=== PATIENT | female | born 1980 | race Caucasian/White ===

== ENCOUNTER 2017-10-01 11:39 | Emergency (ER) | payer OTHER, SELFPAY | END 2017-10-01 12:40 | disposition home or self-care (01) | PROVIDERS: Emergency Provider Nurse Practitioner; Visit Provider Nurse Practitioner | DX: J02.0 Streptococcal pharyngitis (principal) | CPT/HCPCS: 87804; 87880; 99201 ==

== ENCOUNTER 2017-10-05 09:44 | Emergency (ER) | payer OTHER, SELFPAY ==
[2017-10-05 09:45] VITALS: BP 133/73; PULSE 97; RESP 22; TEMP 36.9; O2SAT 96; BMI 69.0
--- NOTE | 2017-10-05 09:52 | XR_ITS ---
XR chest 2V HISTORY: Cough, shortness of air, fever, chest pain ITS.REASON: cough ORDERING PHYSICIAN: PATIENT AGE: 37 years COMPARISON: 12/04/2016 FINDINGS: The cardiomediastinal silhouette and pulmonary vascularity are within normal limits. No lobar consolidation or collapse is evident. There are some minor atelectatic changes along the anterior clear space inferiorly. No effusions or infiltrates.. No acute bony abnormalities. IMPRESSION: Minimal atelectasis anterior clear space otherwise negative chest
[2017-10-05 10:06] VITALS: BP 133/74; RESP 20; TEMP 36.9; O2SAT 97
--- NOTE | 2017-10-05 10:20 | HMH.EDGENADL ---
ED Disposition Clinical Impression: Strep pharyngitis Otitis media Qualifiers: Otitis media type: suppurative Chronicity: acute Laterality: right Spontaneous tympanic membrane rupture: without spontaneous rupture Upper respiratory infection Qualifiers: URI type: unspecified viral URI Qualified Code(s): J06.9 - Acute upper respiratory infection, unspecified Disposition: Home, Self-Care Condition on Discharge: Good Instructions: Middle Ear Infection, DI for Strep Throat, DI for Viral Upper Respiratory Infection -- Adult Additional Instructions: Primary Care Referral List. Follow-up if not better in 4-5 days. Prescriptions: Azithromycin [Z-Medhat 250mg Tab] 250 mg PO UD DOSE PK #6 tab Benzonatate [Tessalon Perle 100mg Cap] 100 mg PO TIDP PRN #20 cap PRN Reason: Cough - Critical Care Critical Care Time: No Attestation: On , the high probability of a clinically significant, sudden or life threatening deterioration of the following system(s) required my full and direct attention, intervention and personal management. The time I documented below is in addition to time spent performing reported procedures but includes the following listed in this critical care notation. Medical Decision Making - Medical Records Medical records reviewed: Yes: I reviewed the patient's medical records. MR Comment: Allergic to erythromycin base, but can take azithromycin Vital Signs: 10/05/17 09:45 10/05/17 10:06 10/05/17 11:06 Temperature 98.4 F 98.4 F Temperature Source Oral Oral Pulse Rate 80 Pulse Rate [Right Brachial] 97 H Respiratory Rate 22 20 20 Blood Pressure 145/68 Blood Pressure [Right Arm] 133/73 133/74 Blood Pressure Mean [Right Arm] 93 93 Blood Pressure Source Automatic Cuff Blood Pressure Source [Right Arm] Automatic Cuff Automatic Cuff Blood Pressure Position Sitting Blood Pressure Position [Right Arm] Sitting Sitting 02 Sat by Pulse Oximetry 96 97 Oxygen Delivery Method Room Air Room Air Room Air - Lab Data Lab Results 10/05/17 09:55: Influenza Type A Ag Negative, Influenza Type B Ag Negative Orders (Tests/Meds): ED MEDICATIONS Discontinued Medications Generic Name Dose Route Start Last Admin Trade Name Freq PRN Reason Stop Dose Admin Ceftriaxone Sodium 1 gm 10/05/17 10:30 10/05/17 10:44 Rocephin 1gm Vial IM 10/05/17 10:31 1 gm ONCE ONE Administration Dexamethasone Sodium Phosphate 8 mg 10/05/17 10:30 10/05/17 10:45 Decadron 4mg/Ml 1ml Vial IM 10/05/17 10:31 8 mg ONCE ONE Administration Lidocaine HCl 0 ml 10/05/17 10:30 10/05/17 10:45 Lidocaine 1% 10ml Mdv IM 10/05/17 10:31 2.1 ml ONCE ONE Administration - Radiology Data #1 Image(s): Chest Image Reviewed: Yes I have reviewed radiologist's interpretation Atelectasis, otherwise negative - Clive Inquiry Pt receiving controlled substance: No General Adult HPI - General Chief complaint: Shortness of Breath/Dyspnea Stated complaint: SOA Mode of Arrival: Ambulatory Limitations: No Limitations Description of Symptoms (Recalled from ER Triage Doc. by RN): DX WITH STREP ON TUESDAY AND PT ADVISES THAT SHE STILL FEELS SOA AND FEELS IF HER THROAT IS SWELLING - History of Present Illness HPI narrative: States she has been sick since Tuesday. She has had a sore throat, productive cough. She was seen at urgent care, had a positive strep test, and was given a shot of penicillin. She does not think it has done anything. She now presents because she feels like her throat is swelling, making it hard to breathe. - Related Data Previous Rx's Medication Instructions Recorded Azithromycin [Z-Medhat 250mg Tab] 250 mg PO UD DOSE PK #6 tab 10/05/17 Benzonatate [Tessalon Perle 100mg 100 mg PO TIDP PRN #20 cap 10/05/17 Cap] Allergies Allergy/AdvReac Type Severity Reaction Status Date / Time erythromycin base Allergy Unknown Verified 10/05/17 10:36 [ERYTHROMYCIN BA
--- NOTE | 2017-10-05 10:23 | ED_ITS ---
ED Disposition Clinical Impression: Strep pharyngitis Otitis media Qualifiers: Otitis media type: suppurative Chronicity: acute Laterality: right Spontaneous tympanic membrane rupture: without spontaneous rupture Upper respiratory infection Qualifiers: URI type: unspecified viral URI Qualified Code(s): J06.9 - Acute upper respiratory infection, unspecified Disposition: Home, Self-Care Condition on Discharge: Good Instructions: Middle Ear Infection, DI for Strep Throat, DI for Viral Upper Respiratory Infection -- Adult Additional Instructions: Primary Care Referral List. Follow-up if not better in 4-5 days. Prescriptions: Azithromycin [Z-Medhat 250mg Tab] 250 mg PO UD DOSE PK #6 tab Benzonatate [Tessalon Perle 100mg Cap] 100 mg PO TIDP PRN #20 cap PRN Reason: Cough - Critical Care Critical Care Time: No Attestation: On , the high probability of a clinically significant, sudden or life threatening deterioration of the following system(s) required my full and direct attention, intervention and personal management. The time I documented below is in addition to time spent performing reported procedures but includes the following listed in this critical care notation. Medical Decision Making - Medical Records Medical records reviewed: Yes: I reviewed the patient's medical records. MR Comment: Allergic to erythromycin base, but can take azithromycin Vital Signs: 10/05/17 09:45 10/05/17 10:06 10/05/17 11:06 Temperature 98.4 F 98.4 F Temperature Source Oral Oral Pulse Rate 80 Pulse Rate [Right Brachial] 97 H Respiratory Rate 22 20 20 Blood Pressure 145/68 Blood Pressure [Right Arm] 133/73 133/74 Blood Pressure Mean [Right Arm] 93 93 Blood Pressure Source Automatic Cuff Blood Pressure Source [Right Arm] Automatic Cuff Automatic Cuff Blood Pressure Position Sitting Blood Pressure Position [Right Arm] Sitting Sitting 02 Sat by Pulse Oximetry 96 97 Oxygen Delivery Method Room Air Room Air Room Air - Lab Data Lab Results 10/05/17 09:55: Influenza Type A Ag Negative, Influenza Type B Ag Negative Orders (Tests/Meds): ED MEDICATIONS Discontinued Medications Generic Name Dose Route Start Last Admin Trade Name Freq PRN Reason Stop Dose Admin Ceftriaxone Sodium 1 gm 10/05/17 10:30 10/05/17 10:44 Rocephin 1gm Vial IM 10/05/17 10:31 1 gm ONCE ONE Administration Dexamethasone Sodium Phosphate 8 mg 10/05/17 10:30 10/05/17 10:45 Decadron 4mg/Ml 1ml Vial IM 10/05/17 10:31 8 mg ONCE ONE Administration Lidocaine HCl 0 ml 10/05/17 10:30 10/05/17 10:45 Lidocaine 1% 10ml Mdv IM 10/05/17 10:31 2.1 ml ONCE ONE Administration - Radiology Data #1 Image(s): Chest Image Reviewed: Yes I have reviewed radiologist's interpretation Atelectasis, otherwise negative - Clive Inquiry Pt receiving controlled substance: No General Adult HPI - General Chief complaint: Shortness of Breath/Dyspnea Stated complaint: SOA Mode of Arrival: Ambulatory Limitations: No Limitations Description of Symptoms (Recalled from ER Triage Doc. by RN): DX WITH STREP ON TUESDAY AND PT ADVISES THAT SHE STILL FEELS SOA AND FEELS IF HER THROAT IS SWELLING - History of Present Illness HPI narrative:
[2017-10-05 11:06] VITALS: BP 145/68; PULSE 80; RESP 20
== END 2017-10-05 11:10 | disposition home or self-care (01) ==
PROVIDERS: Emergency Provider Emergency Medicine; Family Provider Internal Medicine Adolescent Medicine
DX: J02.0 Streptococcal pharyngitis (principal); H66.91 Otitis media, unspecified, right ear; J06.9 Acute upper respiratory infection, unspecified
CPT/HCPCS: 71046; 87275; 87276; 96372; 99283

== ENCOUNTER 2017-11-06 18:34 | Emergency (ER) | payer OTHER, SELFPAY ==
[2017-11-06 18:42] VITALS: BP 107/83; PULSE 118; RESP 20; TEMP 37.7; O2SAT 95; BMI 70.9
[2017-11-06 19:44] LABS: Strep Scrn Group A (Rapid) Negative (Negative)
--- NOTE | 2017-11-06 19:49 | HMH.EDURI ---
ED Disposition Clinical Impression: Febrile illness, acute Disposition: Home, Self-Care Condition on Discharge: Good Instructions: Fibromyalgia Additional Instructions: call and get pcp for follow up Prescriptions: Minocycline HCl 100 mg PO BID #20 tab predniSONE [Prednisone 20mg Tab] 20 mg PO DAILY #10 tab Referrals: Shorty Perez MD [Primary Care Provider] - - Critical Care Critical Care Time: No Attestation: On 11/06/17, the high probability of a clinically significant, sudden or life threatening deterioration of the following system(s) required my full and direct attention, intervention and personal management. The time I documented below is in addition to time spent performing reported procedures but includes the following listed in this critical care notation. Medical Decision Making - Medical Records Medical records reviewed: Yes: I reviewed the patient's medical records. Vital Signs: 11/06/17 18:42 Temperature 99.9 F H Temperature Source Oral Pulse Rate [Left Radial] 118 H Respiratory Rate 20 Blood Pressure [Left Arm] 107/83 Blood Pressure Mean [Left Arm] 91 Blood Pressure Source [Left Arm] Automatic Cuff Blood Pressure Position [Left Arm] Sitting 02 Sat by Pulse Oximetry 95 Oxygen Delivery Method Room Air - Lab Data Lab results reviewed: Yes: I reviewed the patient's lab results. Lab Results 11/06/17 18:55: Influenza Type A Ag Negative, Influenza Type B Ag Negative, Group A Strep Rapid Negative Orders (Tests/Meds): ORDERS Category Date Time Status Strep Screen Confirmation Stat Micro 11/06/17 18:55 Received - Clive Inquiry Pt receiving controlled substance: No URI/Sore Throat HPI - General Chief Complaint: Weakness Stated Complaint: Body Aches Mode of Arrival: Wheelchair Limitations: No Limitations Description of Symptoms (Recalled from ER Triage Doc. by RN): FEVERS (101 DEGREES BEFORE THERMOMETER QUIT WORKING), BODY ACHING, SKIN HURTS JUST FROM MY CLOTHES TOUCHING IT. I DON'T KNOW IF I HAVE THE FLU OR IF ITS MY FIBROMYALGIA ACTING UP. I FEEL DEHYDRATED. - History of Present Illness HPI Narrative: over the last few days reported body ache with fever but no rash or urinary sx - no prod cough Complaint: fever Onset (ago): day(s) Duration: constant Severity: moderate Relieving factors: nothing Able to tolerate fluids by mouth: Yes - Related Data Previous Rx's Medication Instructions Recorded Minocycline HCl 100 mg PO BID #20 tab 11/06/17 predniSONE [Prednisone 20mg 20 mg PO DAILY #10 tab 11/06/17 Tab] Allergies Allergy/AdvReac Type Severity Reaction Status Date / Time erythromycin base Allergy Unknown Verified 11/06/17 18:51 [ERYTHROMYCIN BASE] latex [LATEX] Allergy Unknown Verified 11/06/17 18:51 [facility] History I have reviewed the patient's past medical history: Yes Medical History: Denies:: Cancer, Diabetes Mellitus Type 1, Diabetes Mellitus Type 2, MRSA Amputation: No Fractures: No - *Social History Smoking Status: Never smoker Alcohol Intake: never - Psychiatric History Expresses thoughts of harming self/others: None Suicide Plan Description: No Plan ROS Obtained: Yes All systems reviewed & no additional complaints - Constitutional Constitutional: Reports fever(s), Reports malaise - Eyes Eyes: Denies change in vision - ENT Ears, Nose, Mouth, and Throat: Denies headache(s), Denies sore throat - Cardiovascular Cardiovascular: Denies chest pain at rest, Denies radiating jaw, neck or arm pain - Respiratory Respiratory: No cough - Gastrointestinal Gastrointestingal: Denies: abdominal pain - Musculoskeletal Musculoskeletal: Reports as per HPI, Reports joint pain, Denies joint swelling, Denies neck pain - Integumentary/Breasts Skin/Breast: Denies rash - Neurologic Neurologic: Denies seizure-like activity Physical Exam - General General appearance: alert, in no apparent di
--- NOTE | 2017-11-06 19:52 | ED_ITS ---
ED Disposition Clinical Impression: Febrile illness, acute Disposition: Home, Self-Care Condition on Discharge: Good Instructions: Fibromyalgia Additional Instructions: call and get pcp for follow up Prescriptions: Minocycline HCl 100 mg PO BID #20 tab predniSONE [Prednisone 20mg Tab] 20 mg PO DAILY #10 tab Referrals: Shorty Perez MD [Primary Care Provider] - - Critical Care Critical Care Time: No Attestation: On 11/06/17, the high probability of a clinically significant, sudden or life threatening deterioration of the following system(s) required my full and direct attention, intervention and personal management. The time I documented below is in addition to time spent performing reported procedures but includes the following listed in this critical care notation. Medical Decision Making - Medical Records Medical records reviewed: Yes: I reviewed the patient's medical records. Vital Signs: 11/06/17 18:42 Temperature 99.9 F H Temperature Source Oral Pulse Rate [Left Radial] 118 H Respiratory Rate 20 Blood Pressure [Left Arm] 107/83 Blood Pressure Mean [Left Arm] 91 Blood Pressure Source [Left Arm] Automatic Cuff Blood Pressure Position [Left Arm] Sitting 02 Sat by Pulse Oximetry 95 Oxygen Delivery Method Room Air - Lab Data Lab results reviewed: Yes: I reviewed the patient's lab results. Lab Results 11/06/17 18:55: Influenza Type A Ag Negative, Influenza Type B Ag Negative, Group A Strep Rapid Negative Orders (Tests/Meds): ORDERS Category Date Time Status Strep Screen Confirmation Stat Micro 11/06/17 18:55 Received - Clive Inquiry Pt receiving controlled substance: No URI/Sore Throat HPI - General Chief Complaint: Weakness Stated Complaint: Body Aches Mode of Arrival: Wheelchair Limitations: No Limitations Description of Symptoms (Recalled from ER Triage Doc. by RN): FEVERS (101 DEGREES BEFORE THERMOMETER QUIT WORKING), BODY ACHING, SKIN HURTS JUST FROM MY CLOTHES TOUCHING IT. I DON'T KNOW IF I HAVE THE FLU OR IF ITS MY FIBROMYALGIA ACTING UP. I FEEL DEHYDRATED. - History of Present Illness HPI Narrative: over the last few days reported body ache with fever but no rash or urinary sx - no prod cough Complaint: fever Onset (ago): day(s) Duration: constant Severity: moderate Relieving factors: nothing Able to tolerate fluids by mouth: Yes - Related Data Previous Rx's Medication Instructions Recorded Minocycline HCl 100 mg PO BID #20 tab 11/06/17 predniSONE [Prednisone 20mg 20 mg PO DAILY #10 tab 11/06/17 Tab] Allergies Allergy/AdvReac Type Severity Reaction Status Date / Time erythromycin base Allergy Unknown Verified 11/06/17 18:51 [ERYTHROMYCIN BASE] latex [LATEX] Allergy Unknown Verified 11/06/17 18:51 [facility] History I have reviewed the patient's past medical history: Yes Medical History: Denies:: Cancer, Diabetes Mellitus Type 1, Diabetes Mellitus Type 2, MRSA Amputation: No Fractures: No - *Social History Smoking Status: Never smoker Alcohol Intake: never - Psychiatric History Expresses thoughts of harming self/others: None Suicide Plan Description: No Plan ROS Obtained: Yes All systems reviewed & no additional complaints
[2017-11-06 20:37] VITALS: BP 128/78; PULSE 80; RESP 16; TEMP 37; O2SAT 98
== END 2017-11-06 20:44 | disposition home or self-care (01) ==
PROVIDERS: Emergency Provider Emergency Medicine; Family Provider Internal Medicine Adolescent Medicine; PCP Internal Medicine Adolescent Medicine
DX: R50.9 Fever, unspecified (principal); M79.7 Fibromyalgia; Z91.040 Latex allergy status
CPT/HCPCS: 87275; 87276; 87430; 99282

== ENCOUNTER 2017-11-19 01:15 | Emergency (ER) | payer OTHER, SELFPAY ==
[2017-11-19 01:19] VITALS: BP 159/108; PULSE 89; RESP 20; TEMP 36.4; O2SAT 98; BMI 70.8
--- NOTE | 2017-11-19 01:26 | HMH.EDGENADL ---
ED Disposition Clinical Impression: Right flank pain Disposition: Home, Self-Care Condition on Discharge: Good Instructions: DI for Flank Pain Additional Instructions: Follow-up your urine culture result from your primary care provider on Tuesday. Recheck by your primary care provider this week, call Tuesday. You have a questionable urinary tract infection and questionably passing a kidney stone. Additional instructions for KIDNEY STONE (URETERAL CALCULUS): See your physician as soon as possible for further evaluation. Drink plenty of fluids. Strain your urine and save any stones you catch. Return immediately if you develop a fever or have uncontrollable vomiting or uncontrollable pain. Additional instructions for URINARY TRACT INFECTION: See your physician as soon as possible for further evaluation. Return immediately if you have an uncontrollable fever greater than 102 degrees, severe back or abdominal pain, inability to urinate, or repetetive vomiting. Additional instructions for CONTROLLED SUBSTANCES: You have been prescribed a medication that is a controlled substance. Controlled substances include pain medications known as opiates and sedative nerve medications known as benzodiazepines. Some common opiates include: Codeine (such as Tylenol #3) Hydrocodone (Vicodin, Lortab, Lorcet, [place]) Oxycodone (Percocet, Percodan, Oxycodone, Oxy IR) Some common benzodiazepines include: Diazepam (Valium) Lorazepam (Ativan) Alprazolam (Xanax) Clonazepam (Klonopin) Oxazepam (Serax) All of these controlled substances are highly addictive and frequently abused. Misuse can and frequently does lead to addiction as well as overdose and . Medication should be stored in a locked cabinet or other secure storage unit. Do not store the medication in a motor vehicle. Short term supplies, 3 days or less, are prescribed because of the highly addictive nature of the medication. Any of the controlled substance medication NOT taken should be disposed of properly and NOT SAVED. The recommended method of disposing of unused medications is: Place the medicines in a sealable plastic bag. If the medicine is a solid, crush it or add water to dissolve it. Add something undesirable (cat litter, coffee grounds, etc.) Dispose of sealed bag in household trash Do not flush or pour unused medicines down a sink or drain. Controlled substances should not be shared, given away or sold. Because of the addictive nature and frequent abuse, these medications are sometimes stolen. These medications should be kept in a safe place where they cannot be stolen. Do not keep them in your car or purse. Lost or stolen prescriptions for controlled substances WILL NOT BE REFILLED in this emergency department, regardless of whether a police report was filed. Prescriptions: Hydrocod/Acet 5/325 mg [[place] 5/325mg tablet] 1 tab PO Q6HP PRN #10 tab PRN Reason: Pain Per Pt (Audio Visual Collections Coordinator Use Only) Ciprofloxacin HCl [Ciprofloxacin 500mg Tab] 500 mg PO BID #20 tab Referrals: Shorty Perez MD [Primary Care Provider] - - Critical Care Critical Care Time: No Attestation: On , the high probability of a clinically significant, sudden or life threatening deterioration of the following system(s) required my full and direct attention, intervention and personal management. The time I documented below is in addition to time spent performing reported procedures but includes the following listed in this critical care notation. Medical Decision Making Vital Signs: 11/19/17 01:19 11/19/17 03:09 11/19/17 04:09 Temperature 97.6 F 98.6 F Temperature Source Oral Oral Pulse Rate 89 Pulse Rate [Left Radial] 89 92 H Respiratory Rate 20 14 18 Blood Pressure 153/93 Blood Pressure [Right Arm] 159/108 141/84 Blood Pressure Mean [Right Arm] 125 103 Blood Pressure Source Automatic Cuff Blood Pressure Source [Right Arm] Automatic Cuff Automatic Cuff Blood Pr
--- NOTE | 2017-11-19 01:44 | CT_ITS ---
CT abdomen pelvis wo con COMPARISON: CT scan abdomen pelvis noncontrast 09/06/2017 HISTORY: Abdominal pain right flank pain, nausea and vomiting. TECHNIQUE: Multiple axial scans obtained from hemidiaphragms the pelvic floor and were performed without IV or oral contrast. Sagittal and coronal reformats were evaluated as well. FINDINGS: The lower lung lord are clear, there is no pleural fluid. The patient is markedly obese somewhat degrading the images. The liver spleen stomach and pancreas appear grossly normal. There is a partially calcified gallstone noted. The adrenal glands are normal. 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 There is a tiny nonobstructing calculus midpole right kidney. Detail is degraded for the reasons mentioned above but there may be a questionable tiny calculus near the UPJ of the right kidney. Question minimal hydronephrosis right collecting system but again detail is poor. Small bowel appears normal. I do not definitely identify the appendix but there are no pericecal inflammatory changes. There is a moderate amount stool in the cecum and ascending colon and hepatic flexure. The uterus and adnexa are unremarkable. Urinary bladder is decompressed. There is a [id number] sized umbilical hernia containing fat only. There are mild arthritic changes of the inferior aspects of the SI joints bilaterally. IMPRESSION: Rotation anomaly of the right kidney with questionable tiny calculus near the UPJ with minimal hydronephrotic change but detail is definitely degraded for the reasons mentioned above. 2. Cholelithiasis 3. Small umbilical hernia containing fat only, I basically agree with the [facility] report
[2017-11-19 02:00] LABS: Microscopic, Urine URINE MICROSCOPIC (MICROSCOPIC)
[2017-11-19 02:03] LABS: Appearance,Urine CLEAR (Clear); Bilirubin,Urine Negative (Negative); Blood, Urine Negative (Negative); Color,Urine YELLOW (Yellow); Glucose,Urine (UA) Negative (Negative); Ketones,Urine TRACE (Negative); Leukocyte Esterase,Urine 1+ (Negative); Nitrate,Urine Negative (Negative); PH,Urine 5.5 (5.0-8.5); Protein,Urine Negative (Negative); Specific Gravity, Urine >= 1.030 (1.005-1.030); Urine Pregnancy, HCG Qual. Negative (Negative); Urobilinogen,Urine 0.2 EU/dl (0.2)
[2017-11-19 02:11] LABS: Basophils # 0.1 K/mm3 (0-0.2); Basophils % 0.4 % (0.1-2.0); Eosinophils # 0.1 K/mm3 (0.0-0.4); Eosinophils % 0.4 % (0.1-12.0); Hematocrit 42.1 % (37.0-47.0); Hemoglobin 13.8 g/dL (12.2-16.2); Lymphocytes # 3.1 K/mm3 (0.7-4.5); Lymphocytes % 21.6 K/mm3 (10-50); Mean Corpuscular HGB Conc 32.8 g/dL (31.8-35.4); Mean Corpuscular Hemoglobin 26.6 pg (27.0-31.2); Mean Corpuscular Volume 81.1 fl (81-99); Mean Platelet Volume 7.9 fl (7.4-10.4); Monocytes # 0.7 K/mm3 (0.1-1.0); Monocytes % 4.7 % (1.7-9.3); Neutrophils # 10.3 K/mm3 (1.8-7.8); Neutrophils % 72.8 % (37.0-80.0); Platelet Count 324 K/mm3 (142-424); Red Cell Distribution Width 14.5 % (11.5-17.5); White Blood Count 14.1 K/mm3 (4.8-10.8)
[2017-11-19 02:26] LABS: Alanine Aminotransferase 29 U/L (12-78); Albumin Level 3.6 gm/dL (3.4-5.0); Albumin/Globulin Ratio 0.9 (1.1-1.8); Alkaline Phosphatase 110 U/L (46-116); Anion Gap 13.1 mEq/L (5-15); Aspartate Amino Transferase 10 U/L (15-37); Bilirubin,Total 0.3 mg/dL (0.2-1.0); Blood Urea Nitrogen 19 mg/dL (7-18); Calcium 9.2 mg/dL (8.5-10.1); Carbon Dioxide 27 mmol/L (21.0-32.0); Chloride 101 mmol/L (98-107); Creatinine Clearance Estimated 54 mL/min (0-300); Creatinine,Serum 1.19 mg/dL (0.55-1.02); Estimated Glomerular Filt Rate 51 ml/min (>60); GFR (African American) 62 ML/MIN (>60); Globulin 4.2 gm/dl (1.3-3.2); Glucose 157 mg/dL (74-106); Lipase 112 u/L (73-393); Potassium 4.1 mmoL/L (3.5-5.1); Sodium 137 mmol/L (136-145); Total Protein,Serum 7.8 gm/dL (6.4-8.2)
[2017-11-19 03:09] VITALS: BP 141/84; PULSE 92; RESP 14; O2SAT 96
[2017-11-19 04:09] VITALS: BP 153/93; PULSE 89; RESP 18; TEMP 37; O2SAT 96
== END 2017-11-19 04:11 | disposition home or self-care (01) ==
PROVIDERS: Emergency Provider Emergency Medicine; Family Provider Internal Medicine Adolescent Medicine; PCP Internal Medicine Adolescent Medicine
DX: K80.80 Other cholelithiasis without obstruction (principal); N13.2 Hydronephrosis with renal and ureteral calculous obstruction; Z87.442 Personal history of urinary calculi; E10.9 Type 1 diabetes mellitus without complications; Z88.1 Allergy status to other antibiotic agents; Z91.040 Latex allergy status
CPT/HCPCS: 74176; 80053; 81001; 81025; 83690; 85025; 87086; 96365; 96374; 96375; 99283; J2405

== ENCOUNTER → 2017-12-01 08:16 | Outpatient (CLI) | payer OTHER, SELFPAY ==
[2017-12-01 12:06] LABS: Basophils % 0.4 % (0.1-2.0); Eosinophils % 0.1 % (0.1-12.0); Hematocrit 40.8 % (37.0-47.0); Hemoglobin 13.2 g/dL (12.2-16.2); Lymphocytes # 3.3 K/mm3 (0.7-4.5); Lymphocytes % 29.6 K/mm3 (10-50); Mean Corpuscular HGB Conc 32.3 g/dL (31.8-35.4); Mean Corpuscular Hemoglobin 26.5 pg (27.0-31.2); Mean Platelet Volume 7.7 fl (7.4-10.4); Monocytes # 0.8 K/mm3 (0.1-1.0); Monocytes % 6.7 % (1.7-9.3); Neutrophils # 7.1 K/mm3 (1.8-7.8); Neutrophils % 63.3 % (37.0-80.0); Platelet Count 287 K/mm3 (142-424); Red Blood Count 4.98 M/mm3 (4.20-5.40); Red Cell Distribution Width 14.3 % (11.5-17.5); White Blood Count 11.2 K/mm3 (4.8-10.8)
[2017-12-01 13:19] LABS: Erythrocyte Sedimentation Rate 20 mm/hr (0-20)
[2017-12-02 17:45] LABS: Antinuclear Antibodies, IFA Negative (.)
== END ==
PROVIDERS: PCP Internal Medicine Adolescent Medicine; Visit Provider Internal Medicine Adolescent Medicine
DX: M25.50 Pain in unspecified joint (principal)
CPT/HCPCS: 36415; 85025; 85651; 86038

== ENCOUNTER 2017-12-22 22:24 | Emergency (ER) | payer OTHER, SELFPAY ==
[2017-12-22 22:31] VITALS: BP 149/41; PULSE 96; RESP 18; TEMP 36.8; O2SAT 95; BMI 73.2
--- NOTE | 2017-12-22 22:45 | CT_ITS ---
CT abdomen pelvis wo con CLINICAL INDICATION: Right flank pain ITS.REASON: c/o pain to right lower quad ORDERING PHYSICIAN: Katy Powell MD PATIENT AGE: 37 years COMPARISON: 11/19/2017 TECHNIQUE: Axial images obtained with sagittal and coronal reformats. All CT scans at the facility use one or more dose reduction, viz: automated exposure control; ma/kV adjustment per patient size (including targeted exams where dose is matched to indication; i.e. head); or iterative reconstruction technique. PROCEDURE: Oral Contrast: None IV Contrast: None . FINDINGS: Study is somewhat limited by patient's body habitus. Lung bases are clear. The liver, spleen, adrenal glands, and left kidney are unremarkable. 3 mm stone is present in the lateral aspect of the right kidney. Right kidney is rotated along its horizontal axis No intestinal obstruction or free air. Small fat containing umbilical hernia. No obvious mass or focal inflammatory change. No evidence of appendicitis. No acute bony anomalies. IMPRESSION: Limited exam secondary to patient body habitus. No gross acute intra-abdominal findings. Nonobstructing right 3 mm renal stone
[2017-12-22 23:10] LABS: Microscopic, Urine URINE MICROSCOPIC (MICROSCOPIC)
[2017-12-22 23:14] LABS: Basophils # 0.1 K/mm3 (0-0.2); Basophils % 0.4 % (0.1-2.0); Eosinophils % 0.1 % (0.1-12.0); Hematocrit 39.7 % (37.0-47.0); Hemoglobin 12.8 g/dL (12.2-16.2); Lymphocytes # 2.8 K/mm3 (0.7-4.5); Lymphocytes % 23.1 K/mm3 (10-50); Mean Corpuscular HGB Conc 32.4 g/dL (31.8-35.4); Mean Corpuscular Hemoglobin 26.4 pg (27.0-31.2); Mean Corpuscular Volume 81.6 fl (81-99); Mean Platelet Volume 7.7 fl (7.4-10.4); Monocytes # 0.7 K/mm3 (0.1-1.0); Monocytes % 5.5 % (1.7-9.3); Neutrophils # 8.5 K/mm3 (1.8-7.8); Neutrophils % 70.9 % (37.0-80.0); Platelet Count 343 K/mm3 (142-424); Red Blood Count 4.86 M/mm3 (4.20-5.40)
[2017-12-22 23:18] LABS: Urine Pregnancy, HCG Qual. Negative (Negative)
[2017-12-22 23:19] LABS: Appearance,Urine SL CLOUDY (Clear); Bilirubin,Urine Negative (Negative); Blood, Urine 3+ (Negative); Glucose,Urine (UA) TRACE (Negative); Ketones,Urine TRACE (Negative); Leukocyte Esterase,Urine TRACE (Negative); Nitrate,Urine POSITIVE (Negative); PH,Urine 5.5 (5.0-8.5); Protein,Urine 1+ (Negative); Specific Gravity, Urine 1.025 (1.005-1.030)
[2017-12-22 23:20] LABS: Color,Urine ORANGE (Yellow)
[2017-12-22 23:21] LABS: RBC,Urine 50-100 #/hpf (0-3)
[2017-12-22 23:32] LABS: Lipase 78 u/L (73-393)
[2017-12-22 23:34] LABS: Alanine Aminotransferase 49 U/L (12-78); Albumin Level 2.8 gm/dL (3.4-5.0); Albumin/Globulin Ratio 0.6 (1.1-1.8); Alkaline Phosphatase 148 U/L (46-116); Amylase 20 U/L (25-125); Anion Gap 12.8 mEq/L (5-15); Aspartate Amino Transferase 30 U/L (15-37); Bilirubin,Total 0.4 mg/dL (0.2-1.0); Blood Urea Nitrogen 8 mg/dL (7-18); Calcium 8.8 mg/dL (8.5-10.1); Carbon Dioxide 28 mmol/L (21.0-32.0); Chloride 103 mmol/L (98-107); Creatinine Clearance Estimated 76 mL/min (0-300); Creatinine,Serum 0.84 mg/dL (0.55-1.02); Estimated Glomerular Filt Rate 76 ml/min (>60); GFR (African American) 92 ML/MIN (>60); Globulin 4.6 gm/dl (1.3-3.2); Glucose 126 mg/dL (74-106); Potassium 3.8 mmoL/L (3.5-5.1); Sodium 140 mmol/L (136-145); Total Protein,Serum 7.4 gm/dL (6.4-8.2)
--- NOTE | 2017-12-23 00:05 | [facility].EDGENADL ---
ED Disposition Clinical Impression: UTI (urinary tract infection), Nephrolithiasis, Sciatica, Morbid obesity, Fibromyalgia Disposition: Home, Self-Care Condition on Discharge: Fair Additional Instructions: Drink plenty of fluids. Start antibiotics. Toradol as needed pain. Next refill p.o. twice daily. Follow-up with the primary care physician in am for a recheck and urine culture results , you need an outpatient a lumbar MRI. Return if any change of symptoms especially weakness numbness or loss of urine or bowel control. Fever or chills nausea or vomiting. Prescriptions: Cyclobenzaprine HCl [Flexeril 10mg tablet] 10 mg PO BID 30 Days #60 tab Ketorolac Tromethamine [Toradol 10mg tablet] 10 mg PO Q12H #10 tab Nitrofurantoin Monohyd/M-Cryst [Macrobid 100 mg Capsule] 100 mg PO Q12 #14 cap Referrals: Shorty Perez MD [Primary Care Provider] - - Critical Care Critical Care Time: No Attestation: On 12/22/17, the high probability of a clinically significant, sudden or life threatening deterioration of the following system(s) required my full and direct attention, intervention and personal management. The time I documented below is in addition to time spent performing reported procedures but includes the following listed in this critical care notation. Medical Decision Making - Clive Inquiry Pt receiving controlled substance: No Clive was queried for this patient: No Vital Signs: 12/22/17 22:31 Temperature 98.3 F Temperature Source Oral Pulse Rate [Brachial] 96 H Respiratory Rate 18 Blood Pressure [Right Arm] 149/41 Blood Pressure Mean [Right Arm] 77 Blood Pressure Source [Right Arm] Automatic Cuff Blood Pressure Position [Right Arm] Sitting 02 Sat by Pulse Oximetry 95 Oxygen Delivery Method Room Air - Lab Data Lab Results 12/22/17 22:45: Urine Color [place], Urine Appearance Sl cloudy, Urine pH 5.5, Ur Specific [place] 1.025, Urine Protein 1+, Urine Glucose (UA) Trace, Urine Ketones Trace, Urine Blood 3+, Urine Nitrate Positive, Urine Bilirubin Negative, Urine Urobilinogen 4.0, Ur Leukocyte Esterase Trace, Urine RBC 50-100, Urine WBC 3-5, Ur Squamous Epith Cells 10-20 12/22/17 22:45: Urine HCG, Qual Negative 12/22/17 22:45: WBC 12.0 H, RBC 4.86, Hgb 12.8, Hct 39.7, MCV 81.6, MCH 26.4 L, MCHC 32.4, RDW 14.0, Plt Count 343, MPV 7.7, Neut % (Auto) 70.9, Lymph % (Auto) 23.1, [place] % (Auto) 5.5, Eos % (Auto) 0.1, Baso % (Auto) 0.4, Neut # (Auto) 8.5 H, Lymph # (Auto) 2.8, [place] # (Auto) 0.7, Eos # (Auto) 0.0, Baso # (Auto) 0.1 12/22/17 22:45: Sodium 140, Potassium 3.8, Chloride 103, Carbon Dioxide 28, Anion Gap 12.8, BUN 8, Creatinine 0.84, Estimated Creat Clear 76, Estimated GFR 76, Est GFR ( Amer) 92, Glucose 126 H, Calcium 8.8, Total Bilirubin 0.4, AST 30, ALT 49, Alkaline Phosphatase 148 H, Total Protein 7.4, Albumin 2.8 L, Globulin 4.6 H, Albumin/Globulin Ratio 0.6 L, Amylase 20 L 12/22/17 22:45: Lipase 78 Result diagrams: 12/22/17 22:45 12/22/17 22:45 Orders (Tests/Meds): ORDERS Category Date Time Status CT abdomen pelvis wo con Stat Cat Scan 12/22/17 22:45 Taken General Adult HPI - General Chief complaint: PAIN Stated complaint: POSSIBLE KIDNEY STONES Time Seen by Provider: 12/22/17 23:00 Mode of Arrival: Wheelchair Limitations: No Limitations Description of Symptoms (Recalled from ER Triage Doc. by RN): c/o pain to right lower quad that radiates down to back, c/o burning with urination. - History of Present Illness HPI narrative: 37 years old white female with history of nephrolithiasis, morbid obesity, fibromyalgia and chronic low back pain. For the past 4 days she has been experiencing sharp right flank pain radiating to the right side of the abdomen worse with activity. She did have orange urine after she used Azo. She denies because she is in a homosexual relationship. Denies fever chills nausea or vomiting dysuria. She does have radicular p
--- NOTE | 2017-12-23 00:09 | ED_ITS ---
ED Disposition Clinical Impression: UTI (urinary tract infection), Nephrolithiasis, Sciatica, Morbid obesity, Fibromyalgia Disposition: Home, Self-Care Condition on Discharge: Fair Additional Instructions: Drink plenty of fluids. Start antibiotics. Toradol as needed pain. Next refill p.o. twice daily. Follow-up with the primary care physician in am for a recheck and urine culture results , you need an outpatient a lumbar MRI. Return if any change of symptoms especially weakness numbness or loss of urine or bowel control. Fever or chills nausea or vomiting. Prescriptions: Cyclobenzaprine HCl [Flexeril 10mg tablet] 10 mg PO BID 30 Days #60 tab Ketorolac Tromethamine [Toradol 10mg tablet] 10 mg PO Q12H #10 tab Nitrofurantoin Monohyd/M-Cryst [Macrobid 100 mg Capsule] 100 mg PO Q12 #14 cap Referrals: Shorty Perez MD [Primary Care Provider] - - Critical Care Critical Care Time: No Attestation: On 12/22/17, the high probability of a clinically significant, sudden or life threatening deterioration of the following system(s) required my full and direct attention, intervention and personal management. The time I documented below is in addition to time spent performing reported procedures but includes the following listed in this critical care notation. Medical Decision Making - Clive Inquiry Pt receiving controlled substance: No Clive was queried for this patient: No Vital Signs: 12/22/17 22:31 Temperature 98.3 F Temperature Source Oral Pulse Rate [Brachial] 96 H Respiratory Rate 18 Blood Pressure [Right Arm] 149/41 Blood Pressure Mean [Right Arm] 77 Blood Pressure Source [Right Arm] Automatic Cuff Blood Pressure Position [Right Arm] Sitting 02 Sat by Pulse Oximetry 95 Oxygen Delivery Method Room Air - Lab Data Lab Results 12/22/17 22:45: Urine Color [place], Urine Appearance Sl cloudy, Urine pH 5.5, Ur Specific [place] 1.025, Urine Protein 1+, Urine Glucose (UA) Trace, Urine Ketones Trace, Urine Blood 3+, Urine Nitrate Positive, Urine Bilirubin Negative , Urine Urobilinogen 4.0, Ur Leukocyte Esterase Trace, Urine RBC 50-100, Urine WBC 3-5, Ur Squamous Epith Cells 10-20 12/22/17 22:45: Urine HCG, Qual Negative 12/22/17 22:45: WBC 12.0 H, RBC 4.86, Hgb 12.8, Hct 39.7, MCV 81.6, MCH 26.4 L, MCHC 32.4, RDW 14.0, Plt Count 343, MPV 7.7, Neut % (Auto) 70.9, Lymph % (Auto) 23.1, [place] % (Auto) 5.5, Eos % (Auto) 0.1, Baso % (Auto) 0.4, Neut # (Auto) 8.5 H, Lymph # (Auto) 2.8, [place] # (Auto) 0.7, Eos # (Auto) 0.0, Baso # (Auto) 0.1 12/22/17 22:45: Sodium 140, Potassium 3.8, Chloride 103, Carbon Dioxide 28, Anion Gap 12.8, BUN 8, Creatinine 0.84, Estimated Creat Clear 76, Estimated GFR 76, Est GFR ( Amer) 92, Glucose 126 H, Calcium 8.8, Total Bilirubin 0.4, AST 30, ALT 49, Alkaline Phosphatase 148 H, Total Protein 7.4, Albumin 2.8 L, Globulin 4.6 H, Albumin/Globulin Ratio 0.6 L, Amylase 20 L 12/22/17 22:45: Lipase 78 Result diagrams: 12/22/17 22:45 12/22/17 22:45 Orders (Tests/Meds): ORDERS Category Date Time Status CT abdomen pelvis wo con Stat Cat Scan 12/22/17 22:45 Taken General Adult HPI - General Chief complaint: PAIN Stated complaint: POSSIBLE KIDNEY STONES Time Seen by Provider: 12/22/17 23:00 Mode of Arrival: Wheelchair Limitations: No Limitations Description of Symptoms (Recalled from ER Triage Doc. by RN): c/o pain to right lower quad that radiat
[2017-12-23 00:15] VITALS: BP 117/70; PULSE 101; RESP 22; TEMP 37.1; O2SAT 97
[2017-12-23 00:20] VITALS: BP 134/70; PULSE 98; RESP 20; TEMP 37.1; O2SAT 99
== END 2017-12-23 00:19 | disposition home or self-care (01) ==
PROVIDERS: Emergency Provider Emergency Medicine; Family Provider Internal Medicine Adolescent Medicine; PCP Internal Medicine Adolescent Medicine
DX: N39.0 Urinary tract infection, site not specified (principal); E66.01 Morbid (severe) obesity due to excess calories; Z68.45 Body mass index [BMI] 70 or greater, adult; M79.7 Fibromyalgia; Z88.1 Allergy status to other antibiotic agents; Z91.040 Latex allergy status
CPT/HCPCS: 74176; 80053; 81001; 81025; 82150; 83690; 85025; 99283

== ENCOUNTER → 2018-02-16 13:37 | Outpatient (REF) | payer SELFPAY | LOC: LAB 13:37 | PROVIDERS: Visit Provider Urology | DX: R39.89 Other symptoms and signs involving the genitourinary system (principal) | CPT/HCPCS: 87086; 87088; 87186 ==

== ENCOUNTER 2018-09-28 18:12 | Observation (INO) ==
[2018-09-28 20:05] LABS: Microscopic, Urine URINE MICROSCOPIC (MICROSCOPIC)
[2018-09-28 20:08] LABS: Appearance,Urine SL CLOUDY (Clear); Bilirubin,Urine Negative (Negative); Blood, Urine 1+ (Negative); Color,Urine YELLOW (Yellow); Glucose,Urine (UA) Negative (Negative); Ketones,Urine Negative (Negative); Leukocyte Esterase,Urine 2+ (Negative); PH,Urine 5.5 (5.0-8.5); Protein,Urine Negative (Negative); Specific Gravity, Urine 1.025 (1.005-1.030); Urobilinogen,Urine 0.2 EU/dl (0.2)
[2018-09-28 20:09] LABS: Basophils # 0.1 K/mm3 (0-0.2); Basophils % 0.4 % (0.1-2.0); Eosinophils # 0.1 K/mm3 (0.0-0.4); Eosinophils % 0.7 % (0.1-12.0); Hematocrit 41.4 % (37.0-47.0); Hemoglobin 13.1 g/dL (12.2-16.2); Lymphocytes # 2.2 K/mm3 (0.7-4.5); Lymphocytes % 14.9 % (10-50); Mean Corpuscular HGB Conc 31.7 g/dL (31.8-35.4); Mean Corpuscular Hemoglobin 25.3 pg (27.0-31.2); Mean Corpuscular Volume 79.6 fl (81-99); Mean Platelet Volume 7.4 fl (7.4-10.4); Monocytes # 0.8 K/mm3 (0.1-1.0); Monocytes % 5.5 % (1.7-9.3); Neutrophils # 11.6 K/mm3 (1.8-7.8); Neutrophils % 78.5 % (37.0-80.0); Platelet Count 324 K/mm3 (142-424); Red Cell Distribution Width 14.5 % (11.5-17.5); White Blood Count 14.8 K/mm3 (4.8-10.8)
[2018-09-28 20:16] LABS: Bacteria,Urine Trace /lpf; WBC,Urine 20-50 #/hpf (0-3)
[2018-09-28 20:21] LABS: Albumin Level 3.2 gm/dL (3.4-5.0); Albumin/Globulin Ratio 0.7 (1.1-1.8); Anion Gap 15.6 mEq/L (5-15); Bilirubin,Total 0.6 mg/dL (0.2-1.0); Calcium 9.2 mg/dL (8.5-10.1); Globulin 4.9 gm/dl (1.3-3.2); Potassium 3.6 mmoL/L (3.5-5.1); Total Protein,Serum 8.1 gm/dL (6.4-8.2)
--- NOTE | 2018-09-28 21:25 | Emergency Department Note ---
ED Disposition Clinical Impression: Pyelonephritis Disposition: Admitted as Observation Condition on Discharge: Fair - Critical Care Critical Care Time: No Attestation: On 09/28/18, the high probability of a clinically significant, sudden or life threatening deterioration of the following system(s) required my full and direct attention, intervention and personal management. The time I documented below is in addition to time spent performing reported procedures but includes the following listed in this critical care notation. Medical Decision Making - Clive Inquiry Pt receiving controlled substance: No Vital Signs: 09/28/18 19:54 09/28/18 20:09 Temperature 98.2 F Temperature Source Oral Pulse Rate [Left Radial] 108 H 96 H Respiratory Rate 20 Blood Pressure [Right Arm] 160/83 H 150/85 H Blood Pressure Mean [Right Arm] 108 106 Blood Pressure Source [Right Arm] Automatic Cuff Automatic Cuff Blood Pressure Position [Right Arm] Sitting Sitting 02 Sat by Pulse Oximetry 98 99 Oxygen Delivery Method Room Air Room Air - Lab Data Lab results reviewed: Yes: I reviewed the patient's lab results. Lab Results 09/28/18 19:50: Urine Color Yellow, Urine Appearance Sl cloudy, Urine pH 5.5, Ur Specific [place] 1.025, Urine Protein Negative, Urine Glucose (UA) Negative, Urine Ketones Negative, Urine Blood 1+, Urine Nitrate Negative, Urine Bilirubin Negative, Urine Urobilinogen 0.2, Ur Leukocyte Esterase 2+ A, Urine RBC None, Urine WBC 20-50, Ur Squamous Epith Cells 5-10, Urine Bacteria Trace 09/28/18 19:50: WBC 14.8 H, RBC 5.20, Hgb 13.1, Hct 41.4, MCV 79.6 L, MCH 25.3 L , MCHC 31.7 L, RDW 14.5, Plt Count 324, MPV 7.4, Neut % (Auto) 78.5, Lymph % (Auto) 14.9, [place] % (Auto) 5.5, Eos % (Auto) 0.7, Baso % (Auto) 0.4, Neut # (Auto) 11.6 H, Lymph # (Auto) 2.2, [place] # (Auto) 0.8, Eos # (Auto) 0.1, Baso # (Auto) 0.1 09/28/18 19:50: Urine HCG, Qual Negative 09/28/18 19:50: Sodium 140, Potassium 3.6, Chloride 101, Carbon Dioxide 27, Anion Gap 15.6 H, BUN 9, Creatinine 1.03 H, Estimated Creat Clear 61, Estimated GFR 60, Est GFR ( Amer) 73, Glucose 130 H, Calcium 9.2, Total Bilirubin 0.6, AST 25, ALT 54, Alkaline Phosphatase 127 H, Total Protein 8.1, Albumin 3.2 L, Globulin 4.9 H, Albumin/Globulin Ratio 0.7 L, Amylase 16 L 09/28/18 19:50: Lipase 59 L Result diagrams: 09/28/18 19:50 09/28/18 19:50 Orders (Tests/Meds): ED MEDICATIONS Generic Name Dose Route Start Last Admin Trade Name Freq PRN Reason Stop Dose Admin Acetaminophen 650 mg 09/28/18 23:57 Acetaminophen 325mg Tab PO 10/28/18 23:56 Q4HP PRN As Needed for Fever or Pain Sodium Chloride 1,000 mls @ 100 mls/hr 09/28/18 21:30 09/28/18 21:39 Sod Chlor 0.9% 1000ml Bag IV 09/29/18 07:29 999 mls/hr .Q10H MAGUE Administration Ceftriaxone Sodium 1 gm/ 50 mls @ 100 mls/hr 09/28/18 22:30 09/28/18 22:39 Sodium Chloride IV 10/12/18 22:29 100 mls/hr Q24H MAGUE Administration Protocol Ibuprofen 400 mg 09/28/18 23:57 Motrin 400mg Tablet PO 10/28/18 23:56 Q6HP PRN Mild Pain Ketorolac Tromethamine 30 mg 09/28/18 23:57 Toradol 30mg/Ml Vial IV 10/03/18 23:56 Q6HP PRN Moderate Pain Morphine Sulfate 4 mg 09/28/18 23:57 Morphine 2mg/Ml Syringe IV 10/28/18 23:56 Q4HP PRN Severe Pain Ondansetron HCl 4 mg 09/28/18 23:57 Zofran 4mg/2ml Vial IV 10/28/18 23:56 Q8HP PRN Nausea Promethazine HCl 25 mg 09/28/18 23:57 Phenergan 25mg/Ml 1ml Vial IV 10/28/18 23:56 Q6HP PRN Nausea And Vomiting Sodium Chloride 10 ml 09/28/18 19:59 Saline Flush 10ml Syringe IV 10/28/18 19:58 NEEDED PRN Maintain IV Site Sodium Chloride 25 ml 09/28/18 23:57 Sod Chlor 0.9% 25ml Bag IV 10/28/18 23:56 NEEDED PRN for Use with IV Promethazine Discontinued Medications Generic Name Dose Route Start Last Admin Trade Name Nicanor PRN Reason Stop Dose Admin Ketorolac Tromethamine 30 mg 09/28/18 21:30 09/28/18 21:39 Toradol 30mg/Ml Vial IV 09/28/18 21:31 30 mg ONCE ONE Administration Morphine Sulfate 4 mg 09/28/18 23:34 09/28/18 23:41 Morphine 4mg/Ml Syringe IV 09/28/18 23:35 4 mg ONCE ONE Administration Promethazine HCl 25 mg 09/28/18 21:30 09/28/18 21:39 Phenergan 25mg/Ml 1ml Vial IV 09/28/18 21:31 25 mg ONCE ONE Administration Sodium Chloride 25 ml 09/28/18 21:30 09/28/18 21:39 Sod Chlor 0.9% 25ml Bag IV 09/28/18 21:31 25 ml ONCE ONE Administration ORDERS Category Date Time Status CT abdomen pelvis wo con Stat Cat Scan 09/28/18 20:03 Taken Urinalysis and Microscopic Stat Lab 09/28/18 19:50 Ordered Urine Culture Stat Micro 09/28/18 19:50 Received - CT Data CT Scan: Abdomen, Pelvis Time Received: 21:[address] Reviewed: Yes: I have reviewed the patient's CT results, I have viewed the radiologist's interpretation Medical Decision Narrative: Patient has nonobstructive stone in the right proximal ureter that is not her symptomatic side clinically she is more consistent with a pyelonephritis patient wanted to go home she was given a gram of IV Rocephin here however she still developed flank pain and had some more nausea and vomiting while in the ER I strongly advised the patient that we are to admit her overnight for observation fluids antiemetics pain control and more antibiotics I spoke to Dr. Shorty Stinson's and he agreed to admit the patient tonight Abdominal Pain HPI - General Chief Complaint: Abdominal Pain Stated Complaint: lower left side pain,vomiting Time Seen by Provider: 09/28/18 21:00 Mode of Arrival: Ambulatory Limitations: No Limitations Description of Symptoms (Recalled from ER Triage Doc. by RN): to ed per pvt car with c/o lt lower quad abd pain radiating to lt flank area x 2 days +vomiting pt with hx of kidney stones pt states pain feels simular. cpta advil at noon - History of Present Illness HPI narrative: Patient with 2-3 days of lower back and lower abdominal pains more on the left side with nausea vomiting some dysuria able to take some liquids of the pain was get worse today says she has a history of kidney stones in the past she denied any sudden onset of pain is been kind of gradual and then intermittent at times but getting worse today more vomiting today MD complaint: abdominal pain, flank pain Location: L flank Severity: severe Severity scale (1-10): 7 Quality: sharp Associated symptoms: nausea, vomiting Treatments prior to arrival: NSAIDs - Related Data Home Medications Medication Instructions Recorded Confirmed raNITIdine HCl [Ranitidine HCl] 75 mg PO NEEDED PRN 09/28/18 09/28/18 Allergies Allergy/AdvReac Type Severity Reaction Status Date / Time erythromycin base Allergy Unknown Verified 06/16/18 09:17 [ERYTHROMYCIN BASE] latex [LATEX] Allergy Unknown Verified 06/16/18 09:17 [facility] History - Hepatitis A Screen Drug use history?: No High risk sexual behaviors?: No History of sexually transmitted infection?: No Currently employed?: No Childcare worker?: No Do you have indoor plumbing?: Yes Do you have electricity?: Yes Attestation statement:: This patient has been screened for Hepatitis A risk factors. I have reviewed the patient's past medical history: Yes Medical History: Reports:: Anxiety, Asthma, Depression, Gastroesophageal Reflux Disease(GERD) Denies:: Cancer, Diabetes Mellitus Type 1, Diabetes Mellitus Type 2, Internal Pacemaker, MRSA, Seizures Other Medical History: Reports: Other. Denies: Blood Transfusion Reaction Comment: Reviewed previous abdominal/pelvic CAT scans. 2 found. 09/06/17 showed mild right hydronephrosis with no definite ureteral calculi. 07/21/15 showed mild fullness of the right pelvic calyceal system with no definite calculi. Other Surgeries: Yes: , Dilation and Curettage. No: Pacemaker Amputation: No Fractures: No - Social History Smoking Status: Never smoker Tobacco Type: cigarettes Alcohol Intake: never Substance Use Type: denies use Occupational Status: unemployed Housing: house Household Members: spouse, children - Psychiatric History Expresses thoughts of harming self/others: None Suicide Plan Description: No Plan Pschychiatric History:: Reports:: Anxiety, Depression Family Hx:: Cancer, Diabetes Comment: Arthritis ROS Obtained: Yes All systems reviewed & no additional complaints - Constitutional Constitutional: Reports system reviewed and no additional complaints, except as docu, Reports body ache, Reports chills - Eyes Eyes: Reports system reviewed and no additional complaints, except as docu - ENT Ears, Nose, Mouth, and Throat: Reports system reviewed and no additional complaints, except as docu - Cardiovascular Cardiovascular: Reports system reviewed and no additional complaints, except as docu - Respiratory Respiratory: Yes system reviewed and no additional complaints, except as docu - Gastrointestinal Gastrointestingal: Reports: system reviewed and no additional complaints, except as docu, abdominal pain, nausea - Genitourinary Female Genitourinary: Reports system reviewed and no additional complaints, except as docu, Denies dysuria, Reports flank pain, Reports urinary frequency, Denies urinary incontinence, Denies vaginal discharge - Musculoskeletal Musculoskeletal: Reports system reviewed and no additional complaints, except as docu - Integumentary/Breasts Skin/Breast: Reports system reviewed and no additional complaints, except as docu - Neurologic Neurologic: Reports system reviewed and no additional complaints, except as docu - Endocrine Endocrine: Reports system reviewed and no additional complaints, except as docu Physical Exam - General General appearance: alert, in no apparent distress - Head Head exam: atraumatic, normocephalic, normal inspection - Eye Eye exam: Present: normal appearance, PERRL, EOMI. Absent: scleral icterus, conjunctival redness, jaundice, conjunctival injection - ENT ENT exam: Present: normal exam, normal oropharynx, mucous membranes moist - Neck Neck exam: Present: normal inspection, full ROM. Absent: tenderness, meningismus, lymphadenopathy - Respiratory Respiratory exam: Present: normal lung sounds bilaterally. Absent: respiratory distress - Cardiovascular Cardiovascular exam: Present: normal rhythm, tachycardia, normal heart sounds, other (pulse- 106) - Abdominal Exam Abdominal exam: Present: soft, normal bowel sounds, other (Obese). Absent: distention, tenderness, guarding, rebound, organomegaly, mass, bruit, pulsatile mass, hernia - Back Exam Back exam: Present: full ROM, CVA tenderness (L). Absent: muscle spasm, paraspinal tenderness, vertebral tenderness, sciatic notch tenderness (R), sciatic notch tenderness (L), straight leg raise (R), straight leg raise (L) - Neurological Exam Neurological exam: Present: alert, oriented X3, motor sensory deficit, reflexes normal - Psychiatric Psychiatric exam: Present: normal affect, normal mood - Skin Skin exam: Present: warm, dry, intact, normal color. Absent: rash, cyanosis, diaphoresis - Lymphatic Lymphatic Findings: no adenopathy
[2018-09-29 06:14] LABS: Basophils % 0.4 % (0.1-2.0); Eosinophils % 0.3 % (0.1-12.0); Lymphocytes # 2.5 K/mm3 (0.7-4.5); Lymphocytes % 21.7 % (10-50); Mean Platelet Volume 7.4 fl (7.4-10.4); Monocytes # 0.9 K/mm3 (0.1-1.0); Monocytes % 7.5 % (1.7-9.3); Neutrophils # 8.2 K/mm3 (1.8-7.8); Neutrophils % 70.1 % (37.0-80.0); Platelet Count 266 K/mm3 (142-424); Red Cell Distribution Width 14.5 % (11.5-17.5); White Blood Count 11.8 K/mm3 (4.8-10.8)
[2018-09-29 06:33] LABS: Hemoglobin 11.1 g/dL (12.2-16.2)
--- NOTE | 2018-09-29 06:58 | History & Physical Report ---
*Admission Date: 09/29/18 *Chief complaint: Left flank pain *History of present illness: 38-year-old female with history of kidney stones presented to the emergency department with left flank pain and 3 days of UTI symptoms of increased urinary frequency and a foul-smelling urine. She did her primary care doctor because of a $45 co-pay. When her symptoms worsened at home despite [id number] treatments she came to the emergency department. In the ER workup was begun. Patient was found to have an abnormal urine and a CT scan revealed nonobstructive right sided ureterolithiasis but no left-sided liver ureterolithiasis. Patient had nausea and retching in the emergency department along with difficult to control pain. Patient was admitted for treatment of pyelonephritis. This morning patient states she is feeling slightly better. Nausea has improved and she is hungry. Pain has also improved but is still present in the left lower flank [facility] History I have reviewed the patient's past medical history: Yes Medical History: Reports:: Anxiety, Asthma, Depression, Gastroesophageal Reflux Disease(GERD) Denies:: Cancer, Diabetes Mellitus Type 1, Diabetes Mellitus Type 2, Internal Pacemaker, MRSA, Seizures Other Medical History: Reports: Other (Fibromyalgia). Denies: Blood Transfusion Reaction Other Surgeries: Yes: , Dilation and Curettage. No: Pacemaker Amputation: No Fractures: No - *Social History Educational Level: Completed High School Smoking Status: Never smoker Tobacco Type: cigarettes Alcohol Intake: never Substance Use Type: denies use Occupational Status: unemployed Housing: house Household Members: spouse, children - Psychiatric History Expresses thoughts of harming self/others: None Suicide Plan Description: No Plan Pschychiatric History:: Reports:: Anxiety, Depression *Family Hx:: Cancer, Diabetes Review of Systems - Constitutional Reports chills, Reports fever(s) - *Cardiovascular Denies chest pain, Denies chest pain at rest - *Respiratory Denies change in phlegm color, Denies chest congestion - *Gastrointestinal Reports abdominal pain - *Genitourinary Reports side pain, Reports urinary urgency, Denies difficulty urinating, Denies painful urination Meds Home Medications Medication Instructions Recorded Confirmed Type raNITIdine HCl [Ranitidine HCl] 75 mg PO NEEDED PRN 09/28/18 09/28/18 History Melatonin/Pyridoxine HCl (B6) 1 each PO HS 09/29/18 09/29/18 History [Melatonin 1 mg Tablet] Allergies Allergy/AdvReac Type Severity Reaction Status Date / Time erythromycin base Allergy Unknown Verified 06/16/18 09:17 [ERYTHROMYCIN BASE] latex [LATEX] Allergy Unknown Verified 06/16/18 09:17 Exam Vital signs and Labs for Last 24 Hours: Temp Pulse Resp BP Pulse Ox 98.7 F 88 16 126/72 98 09/29/18 04:00 09/29/18 04:00 09/29/18 04:00 09/29/18 04:00 09/29/18 04:00 Laboratory Results - last 24 hr 09/28/18 19:50: Urine Color Yellow, Urine Appearance Sl cloudy, Urine pH 5.5, Ur Specific [place] 1.025, Urine Protein Negative, Urine Glucose (UA) Negative, Urine Ketones Negative, Urine Blood 1+, Urine Nitrate Negative, Urine Bilirubin Negative, Urine Urobilinogen 0.2, Ur Leukocyte Esterase 2+ A, Urine RBC None, Urine WBC 20-50, Ur Squamous Epith Cells 5-10, Urine Bacteria Trace 09/28/18 19:50: WBC 14.8 H, RBC 5.20, Hgb 13.1, Hct 41.4, MCV 79.6 L, MCH 25.3 L , MCHC 31.7 L, RDW 14.5, Plt Count 324, MPV 7.4, Neut % (Auto) 78.5, Lymph % (Auto) 14.9, [place] % (Auto) 5.5, Eos % (Auto) 0.7, Baso % (Auto) 0.4, Neut # (Auto) 11.6 H, Lymph # (Auto) 2.2, [place] # (Auto) 0.8, Eos # (Auto) 0.1, Baso # (Auto) 0.1 09/28/18 19:50: Urine HCG, Qual Negative 09/28/18 19:50: Sodium 140, Potassium 3.6, Chloride 101, Carbon Dioxide 27, Anion Gap 15.6 H, BUN 9, Creatinine 1.03 H, Estimated Creat Clear 61, Estimated GFR 60, Est GFR ( Amer) 73, Glucose 130 H, Calcium 9.2, Total Bilirubin 0.6, AST 25, ALT 54, Alkaline Phosphatase 127 H, Total Protein 8.1, Albumin 3.2 L, Globulin 4.9 H, Albumin/Globulin Ratio 0.7 L, Amylase 16 L 09/28/18 19:50: Lipase 59 L 09/29/18 05:47: WBC 11.8 H, RBC 4.30, Hgb 11.1 L D, Hct 34.0 L, MCV 79.0 L, MCH 26.0 L, MCHC 33.0, RDW 14.5, Plt Count 266, MPV 7.4, Neut % (Auto) 70.1, Lymph % (Auto) 21.7, [place] % (Auto) 7.5, Eos % (Auto) 0.3, Baso % (Auto) 0.4, Neut # (Auto) 8.2 H, Lymph # (Auto) 2.5, [place] # (Auto) 0.9, Eos # (Auto) 0.0, Baso # (Auto) 0.0 I & O for Last 24 hours: Intake & Output 09/26/18 09/27/18 09/28/18 09/29/18 11:59 11:59 11:59 11:59 Intake Total Output Total 300 / 300 Balance -280 / -280 Weight 408 lb 8 oz Narrative: Patient appears comfortable in bed. Obese female. ENT exam is grossly normal. Lungs are clear to auscultation. Heart has a regular rate and rhythm. Abdomen has mild left lower quadrant tenderness to palpation. Back has mild left-sided CVA tenderness. Neurologically there is no gross deficit and patient has full motor and sensory function of the extremities. Assessment and Plan (1) Pyelonephritis Current visit: Yes Status: Acute Category: Medical Code(s): N12 - Tubulo- interstitial nephritis, not specified as acute or chronic - Assessment and plan all Dx Assessment and Plan for all problems:: Patient's labs show improvement in her white blood cell count. Physically she is beginning to feel better. Continue IV fluids and antibiotics. We will see how her day progresses and should she feel better she may even be discharged later today. Patient will be instructed to follow-up with her primary care physician next week
--- NOTE | 2018-09-29 07:03 | Discharge Summary ---
General - General Admission date:: 09/29/18 Discharge date: 09/29/18 HPI HPI: 38-year-old female with history of kidney stones presented to the emergency department with left flank pain and 3 days of UTI symptoms of increased urinary frequency and a foul-smelling urine. She did her primary care doctor because of a $45 co-pay. When her symptoms worsened at home despite [id number] treatments she came to the emergency department. In the ER workup was begun. Patient was found to have an abnormal urine and a CT scan revealed nonobstructive right sided ureterolithiasis but no left-sided liver ureterolithiasis. Patient had nausea and retching in the emergency department along with difficult to control pain. Patient was admitted for treatment of pyelonephritis. This morning patient states she is feeling slightly better. Nausea has improved and she is hungry. Pain has also improved but is still present in the left lower flank Hospital Course Hospital Course: Patient was admitted and placed on IV Rocephin. She was given IV Toradol and Zofran for pain and nausea respectively. By the following morning patient was showing signs of improvement. Diet was advanced which she tolerated. On exam abdomen was soft and nontender. By the March patient was feeling better. She was discharged home and will follow up with her primary care physician on Tuesday or Tuesday of next week Objective Vital signs: Temp Pulse Resp BP Pulse Ox 98.7 F 88 16 126/72 98 09/29/18 04:00 09/29/18 04:00 09/29/18 04:00 09/29/18 04:00 09/29/18 04:00 Results Labs on day of discharge: Labs from last 24 hours 09/29/18 09/28/18 09/28/18 05:47 19:50 19:50 WBC 11.8 H RBC 4.30 Hgb 11.1 L D Hct 34.0 L MCV 79.0 L MCH 26.0 L MCHC 33.0 RDW 14.5 Plt Count 266 MPV 7.4 Neut % (Auto) 70.1 Lymph % (Auto) 21.7 [place] % (Auto) 7.5 Eos % (Auto) 0.3 Baso % (Auto) 0.4 Neut # (Auto) 8.2 H Lymph # (Auto) 2.5 [place] # (Auto) 0.9 Eos # (Auto) 0.0 Baso # (Auto) 0.0 Sodium 140 Potassium 3.6 Chloride 101 Carbon Dioxide 27 Anion Gap 15.6 H BUN 9 Creatinine 1.03 H Estimated Creat Clear 61 Estimated GFR 60 Est GFR ( Amer) 73 Glucose 130 H Calcium 9.2 Total Bilirubin 0.6 AST 25 ALT 54 Alkaline Phosphatase 127 H Total Protein 8.1 Albumin 3.2 L Globulin 4.9 H Albumin/Globulin Ratio 0.7 L Amylase 16 L Lipase 59 L Urine Color Urine Appearance Urine pH Ur Specific [place] Urine Protein Urine Glucose (UA) Urine Ketones Urine Blood Urine Nitrate Urine Bilirubin Urine Urobilinogen Ur Leukocyte Esterase Urine RBC Urine WBC Ur Squamous Epith Cells Urine Bacteria Urine HCG, Qual 09/28/18 09/28/18 09/28/18 19:50 19:50 19:50 WBC 14.8 H RBC 5.20 Hgb 13.1 Hct 41.4 MCV 79.6 L MCH 25.3 L MCHC 31.7 L RDW 14.5 Plt Count 324 MPV 7.4 Neut % (Auto) 78.5 Lymph % (Auto) 14.9 [place] % (Auto) 5.5 Eos % (Auto) 0.7 Baso % (Auto) 0.4 Neut # (Auto) 11.6 H Lymph # (Auto) 2.2 [place] # (Auto) 0.8 Eos # (Auto) 0.1 Baso # (Auto) 0.1 Sodium Potassium Chloride Carbon Dioxide Anion Gap BUN Creatinine Estimated Creat Clear Estimated GFR Est GFR ( Amer) Glucose Calcium Total Bilirubin AST ALT Alkaline Phosphatase Total Protein Albumin Globulin Albumin/Globulin Ratio Amylase Lipase Urine Color Yellow Urine Appearance Sl cloudy Urine pH 5.5 Ur Specific [place] 1.025 Urine Protein Negative Urine Glucose (UA) Negative Urine Ketones Negative Urine Blood 1+ Urine Nitrate Negative Urine Bilirubin Negative Urine Urobilinogen 0.2 Ur Leukocyte Esterase 2+ A Urine RBC None Urine WBC 20-50 Ur Squamous Epith Cells 5-10 Urine Bacteria Trace Urine HCG, Qual Negative DS: Diagnosis - Discharge Diagnosis (1) Pyelonephritis Status: Acute Discharge Plan - Patient Discharge Instructions ACTIVITY: Continue current activity DIET: continue same diet Patient Instructions: Kidney Infection, DI for Kidney Infection - Follow up Plan Follow up with: June Ward [Primary Care Provider] - 1 week Disposition: Home, Self-[facility] Medications: Home Medications Medication Instructions Recorded Confirmed Type RX: raNITIdine HCl [Ranitidine HCl] 75 mg PO NEEDED PRN 09/28/18 09/29/18 History Ciprofloxacin HCl [Ciprofloxacin 500 mg PO BID 09/29/18 09/29/18 History 500mg Tab] Hydrocodone/Acetaminophen [[place] 1 each PO TID PRN #9 tab 09/29/18 Rx 5-325 Tablet] RX: Ibuprofen [Ibuprofen 600mg 600 mg PO Q6HP PRN #30 tab 09/29/18 09/29/18 Rx Tablet] RX: Melatonin/Pyridoxine HCl (B6) 1 each PO HS 09/29/18 09/29/18 History [Melatonin 1 mg Tablet] RX: Promethazine HCl [Phenergan 25 mg PO Q6HP PRN #20 tab 09/29/18 09/29/18 Rx 25mg tab] Prescriptions/Medication Reconciliation: New RX: Ibuprofen [Ibuprofen 600mg Tablet] 600 mg PO Q6HP PRN #30 tab PRN Reason: pain RX: Promethazine HCl [Phenergan 25mg tab] 25 mg PO Q6HP PRN #20 tab PRN Reason: Nausea And Vomiting Continue RX: Melatonin/Pyridoxine HCl (B6) [Melatonin 1 mg Tablet] 1 each PO HS RX: raNITIdine HCl [Ranitidine HCl] 75 mg PO NEEDED PRN PRN Reason: GERD No Action Ciprofloxacin HCl [Ciprofloxacin 500mg Tab] 500 mg PO BID Hydrocodone/Acetaminophen [[place] 5-325 Tablet] 1 each PO TID PRN #9 tab PRN Reason: Pain
--- NOTE | 2018-09-29 09:13 | Pharmacy Consult Notes ---
[facility] Pharmacy VTE Monitoring - Patient Demographics Admission date: 09/28/18 Report Date: 09/29/18 Time: 09:13 Allergies/Adverse Reactions: Patient Allergies erythromycin base [ERYTHROMYCIN BASE] Allergy (Unknown, Verified 06/16/18 09:17) latex [LATEX] Allergy (Unknown, Verified 06/16/18 09:17) Height: 1.6 m Weight: 185.292 kg Patient Problems: Current Active Problems Pyelonephritis (Acute) - VTE Risk Labs: VTE Related Lab Results Hgb 11.1 g/dL (12.2-16.2) L D 09/29/18 05:47 Hct 34.0 % (37.0-47.0) L 09/29/18 05:47 Plt Count 266 K/mm3 (142-424) 09/29/18 05:47 BUN 9 mg/dL (7-18) 09/28/18 19:50 Creatinine 1.03 mg/dL (0.55-1.02) H 09/28/18 19:50 Estimated Creat Clear 61 mL/min (50-200) 09/28/18 19:50 Was VTE Risk Assessment Performed: Yes VTE Score: 2 VTE Risk Level: Very Low Risk - Prophylaxis VTE Prophylaxis Ordered?: Yes Types of VTE Prophylaxis: TEDS Knee High Location of Applied Device: Bilateral Lower Extremeties - VTE Diagnosis Confirmed Treatment or plan recommended: Continue Current Treatment
== END 2018-09-29 17:07 | disposition home or self-care (01) ==
LOC: 2ND 18:12 → ER 18:12 → 2ND 09-29 01:05
PROVIDERS: ADMIT Family Medicine; ATTEND Family Medicine
DX: N12 Tubulo-interstitial nephritis, not specified as acute or chronic
CPT/HCPCS: 36415; 74176; 80053; 81001; 81025; 82150; 83690; 85025; 87086; 96365; 96367; 96375; 99284; G0378

== ENCOUNTER 2019-03-21 22:14 | Emergency (ER) | payer OTHER, SELFPAY ==
[2019-03-21] VITALS (7 sets, daily range): BP systolic 111–133; BP diastolic 71–92; PULSE 126–229; RESP 18–22; TEMP 37.1; O2SAT 96–97; BMI 64.3
--- NOTE | 2019-03-21 23:02 | XR_ITS ---
XR chest portable HISTORY: Supraventricular tachycardia ITS.REASON: SVT ORDERING PHYSICIAN: Maxx Gabriel MD PATIENT AGE: 38 years COMPARISON: 06/16/2018 FINDINGS: There are low lung volumes. There is cardiomegaly without failure. The study is underpenetrated. There is increased density in the left lower lobe with pleural thickening suggesting left-sided pleural effusion. Upright PA and lateral chest suggested for further evaluation. IMPRESSION: Limited exam. Cardiomegaly with left-sided effusion. Cannot exclude left lower lobe airspace disease
[2019-03-21 23:14] LABS: Basophils # 0.1 K/mm3 (0-0.2); Basophils % 0.5 % (0.1-2.0); Eosinophils % 0.1 % (0.1-12.0); Hematocrit 29.1 % (37.0-47.0); Hemoglobin 8.3 g/dL (12.2-16.2); Lymphocytes # 2.2 K/mm3 (0.7-4.5); Lymphocytes % 13.9 % (10-50); Mean Corpuscular HGB Conc 28.5 g/dL (31.8-35.4); Mean Corpuscular Volume 77.4 fl (81-99); Mean Platelet Volume 6.9 fl (7.4-10.4); Monocytes % 6.1 % (1.7-9.3); Neutrophils # 12.5 K/mm3 (1.8-7.8); Neutrophils % 79.5 % (37.0-80.0); Platelet Count 569 K/mm3 (142-424); Red Blood Count 3.77 M/mm3 (4.20-5.40); Red Cell Distribution Width 16.8 % (11.5-17.5); White Blood Count 15.8 K/mm3 (4.8-10.8)
[2019-03-21 23:19] LABS: MANUAL DIFFERENTIAL MANUAL DIFFERENTIAL (MANUAL DIFF)
[2019-03-21 23:34] LABS: Lactic Acid 3.3 mmol/L (0.4-2.0)
[2019-03-21 23:37] LABS: Alanine Aminotransferase 30 U/L (12-78); Albumin Level 2.5 gm/dL (3.4-5.0); Albumin/Globulin Ratio 0.5 (1.1-1.8); Alkaline Phosphatase 191 U/L (46-116); Amylase 15 U/L (25-115); Anion Gap 18.6 mEq/L (5-15); Aspartate Amino Transferase 17 U/L (15-37); Bilirubin,Total 0.6 mg/dL (0.2-1.0); Blood Urea Nitrogen 16 mg/dL (7-18); Calcium 8.5 mg/dL (8.5-10.1); Carbon Dioxide 23 mmol/L (21.0-32.0); Chloride 102 mmol/L (98-107); Creatinine Clearance Estimated 54 mL/min (50-200); Creatinine,Serum 1.22 mg/dL (0.55-1.02); Estimated Glomerular Filt Rate 49 ml/min (>60); GFR (African American) 60 ML/MIN (>60); Globulin 4.8 gm/dl (1.3-3.2); Glucose 176 mg/dL (74-106); Lipase 64 u/L (73-393); Potassium 3.6 mmoL/L (3.5-5.1); Sodium 140 mmol/L (136-145); Total Protein,Serum 7.3 gm/dL (6.4-8.2); Troponin I < 0.02 ng/ml (0.00-0.06)
[2019-03-21 23:49] LABS: Eosinophils % 1 % (0-3); Hypochromasia 2+; Lymphocytes % 10 % (10-50); Monocytes % 5 % (2-9); Neutrophils % 82 % (42-76); Platelet Estimate Slight Increase; Total Cells Counted 100
[2019-03-21 23:50] LABS: Microcytosis 1+
--- NOTE | 2019-03-22 00:24 | HMH.EDARPALP ---
ED Disposition Clinical Impression: SVT (supraventricular tachycardia), Elevated d-dimer, Severe sepsis Anemia Qualifiers: Anemia type: unspecified type Qualified Code(s): D64.9 - Anemia, unspecified Obesity Qualifiers: Obesity type: due to excess calories Obesity classification: adult class 3 (BMI >= 40) Serious obesity comorbidity presence: with serious comorbidity Body mass index: BMI 60.0-69.9 Qualified Code(s): E66.01 - Morbid (severe) obesity due to excess calories; Z68.44 - Body mass index (BMI) 60.0-69.9, adult Disposition: Xfer Short-Term Hosp Condition on Discharge: Serious Referrals: June Ward [Primary Care Provider] - - Critical Care Critical Care Time: Yes Attestation: On 03/21/19, the high probability of a clinically significant, sudden or life threatening deterioration of the following system(s) required my full and direct attention, intervention and personal management. The time I documented below is in addition to time spent performing reported procedures but includes the following listed in this critical care notation. Vital system(s) involved:: Circulatory Failure, Shock (Septic) My critical care processes included: Assessment & monitoring of V/S, Data Review/Interpretation, Medication Orders and management, Documentation Medical Decision Making - Medical Records Medical records reviewed: Yes: I reviewed the patient's medical records. - Clive Inquiry Pt receiving controlled substance: No Vital Signs: 03/21/19 22:14 03/21/19 22:15 03/21/19 22:27 Temperature 98.7 F Temperature Source Oral Pulse Rate [Left Radial] 138 H 229 H 140 H Respiratory Rate 22 22 Blood Pressure [Left Arm] 129/90 129/90 133/92 H Blood Pressure Mean [Left Arm] 103 103 105 Blood Pressure Source [Left Arm] Automatic Cuff Automatic Cuff Automatic Cuff Blood Pressure Position [Left Arm] Supine Supine Sitting 02 Sat by Pulse Oximetry 97 97 Oxygen Delivery Method Room Air Nasal Cannula Oxygen Flow Rate (LPM) 03/21/19 22:34 03/21/19 22:49 03/21/19 23:19 Temperature Temperature Source Pulse Rate [Left Radial] 136 H 137 H 127 H Respiratory Rate 20 20 22 Blood Pressure [Left Arm] 122/91 H 118/71 118/78 Blood Pressure Mean [Left Arm] 101 86 91 Blood Pressure Source [Left Arm] Automatic Cuff Automatic Cuff Automatic Cuff Blood Pressure Position [Left Arm] Sitting Sitting Sitting 02 Sat by Pulse Oximetry 96 97 97 Oxygen Delivery Method Nasal Cannula Nasal Cannula Nasal Cannula Oxygen Flow Rate (LPM) 2 2 2 03/21/19 23:52 03/22/19 01:15 Temperature Temperature Source Pulse Rate [Left Radial] 126 H 105 H Respiratory Rate 18 22 Blood Pressure [Left Arm] 111/73 121/99 H Blood Pressure Mean [Left Arm] 85 106 Blood Pressure Source [Left Arm] Automatic Cuff Automatic Cuff Blood Pressure Position [Left Arm] Sitting Sitting 02 Sat by Pulse Oximetry 96 96 Oxygen Delivery Method Nasal Cannula Nasal Cannula Oxygen Flow Rate (LPM) 2 2 - Lab Data Lab results reviewed: Yes: I reviewed the patient's lab results. Lab Results 03/21/19 22:30: WBC 15.8 H, RBC 3.77 L, Hgb 8.3 L, Hct 29.1 L, MCV 77.4 L, MCH 22.0 L, MCHC 28.5 L, RDW 16.8, Plt Count 569 H, MPV 6.9 L, Neut % (Auto) 79.5, Lymph % (Auto) 13.9, [place] % (Auto) 6.1, Eos % (Auto) 0.1, Baso % (Auto) 0.5, Neut # (Auto) 12.5 H, Lymph # (Auto) 2.2, [place] # (Auto) 1.0, Eos # (Auto) 0.0, Baso # (Auto) 0.1, Total Counted 100, Neutrophils % (Manual) 82 H, Band Neutrophils % 2.0, Lymphocytes % (Manual) 10, Monocytes % (Manual) 5, Eosinophils % (Manual) 1, Platelet Estimate Slight increase, RBC Morphology Not Reportable, Hypochromasia 2+, Microcytosis 1+ 03/21/19 22:30: Sodium 140, Potassium 3.6, Chloride 102, Carbon Dioxide 23, Anion Gap 18.6 H, BUN 16, Creatinine 1.22 H, Estimated Creat Clear 54, Estimated GFR 49 L, Est GFR ( Amer) 60, Glucose 176 H, Calcium 8.5, Total Bilirubin 0.6, AST 17, ALT 30, Alkaline Phosphatase 191 H, Troponin I < 0.02, Total Protein 7.
--- NOTE | 2019-03-22 00:42 | ED_ITS ---
ED Disposition Clinical Impression: SVT (supraventricular tachycardia), Elevated d-dimer, Severe sepsis Anemia Qualifiers: Anemia type: unspecified type Qualified Code(s): D64.9 - Anemia, unspecified Obesity Qualifiers: Obesity type: due to excess calories Obesity classification: adult class 3 (BMI >= 40) Serious obesity comorbidity presence: with serious comorbidity Body mass index: BMI 60.0-69.9 Qualified Code(s): E66.01 - Morbid (severe) obesity due to excess calories; Z68.44 - Body mass index (BMI) 60.0-69.9, adult Disposition: Xfer Short-Term Hosp Condition on Discharge: Serious Referrals: June Ward [Primary Care Provider] - - Critical Care Critical Care Time: Yes Attestation: On 03/21/19, the high probability of a clinically significant, sudden or life threatening deterioration of the following system(s) required my full and direct attention, intervention and personal management. The time I documented below is in addition to time spent performing reported procedures but includes the following listed in this critical care notation. Vital system(s) involved:: Circulatory Failure, Shock (Septic) My critical care processes included: Assessment & monitoring of V/S, Data Review/Interpretation, Medication Orders and management, Documentation Medical Decision Making - Medical Records Medical records reviewed: Yes: I reviewed the patient's medical records. - Clive Inquiry Pt receiving controlled substance: No Vital Signs: 03/21/19 22:14 03/21/19 22:15 03/21/19 22:27 Temperature 98.7 F Temperature Source Oral Pulse Rate [Left Radial] 138 H 229 H 140 H Respiratory Rate 22 22 Blood Pressure [Left Arm] 129/90 129/90 133/92 H Blood Pressure Mean [Left Arm] 103 103 105 Blood Pressure Source [Left Arm] Automatic Cuff Automatic Cuff Automatic Cuff Blood Pressure Position [Left Arm] Supine Supine Sitting 02 Sat by Pulse Oximetry 97 97 Oxygen Delivery Method Room Air Nasal Cannula Oxygen Flow Rate (LPM) 03/21/19 22:34 03/21/19 22:49 03/21/19 23:19 Temperature Temperature Source Pulse Rate [Left Radial] 136 H 137 H 127 H Respiratory Rate 20 20 22 Blood Pressure [Left Arm] 122/91 H 118/71 118/78 Blood Pressure Mean [Left Arm] 101 86 91 Blood Pressure Source [Left Arm] Automatic Cuff Automatic Cuff Automatic Cuff Blood Pressure Position [Left Arm] Sitting Sitting Sitting 02 Sat by Pulse Oximetry 96 97 97 Oxygen Delivery Method Nasal Cannula Nasal Cannula Nasal Cannula Oxygen Flow Rate (LPM) 2 2 2 03/21/19 23:52 03/22/19 01:15 Temperature Temperature Source Pulse Rate [Left Radial] 126 H 105 H Respiratory Rate 18 22 Blood Pressure [Left Arm] 111/73 121/99 H Blood Pressure Mean [Left Arm] 85 106 Blood Pressure Source [Left Arm] Automatic Cuff Automatic Cuff Blood Pressure Position [Left Arm] Sitting Sitting 02 Sat by Pulse Oximetry 96 96 Oxygen Delivery Method Nasal Cannula Nasal Cannula Oxygen Flow Rate (LPM) 2 2 - Lab Data Lab results reviewed: Yes: I reviewed the patient's lab results. Lab Results 03/21/19 22:30: WBC 15.8 H, RBC 3.77 L, Hgb 8.3 L, Hct 29.1 L, MCV 77.4 L, MCH 22.0 L, MCHC 28.5 L, RDW 16.8, Plt Count 569 H, MPV 6.9 L, Neut % (Auto) 7
[2019-03-22 01:13] LABS: D-Dimer > 5000 ng/mL (0-400)
[2019-03-22 01:15] VITALS: BP 121/99; PULSE 105; RESP 22; O2SAT 96
[2019-03-22 02:00] VITALS: BP 145/94; PULSE 104; RESP 20; O2SAT 97
[2019-03-22 02:09] VITALS: BP 134/86; PULSE 102; RESP 18; TEMP 37.1; O2SAT 96
--- NOTE | 2019-03-22 02:25 | PC.NURSE ---
Vancomycin 300mg in 500 ml 0.9 N.S. started on pt at 200ml/hr per pharmacy
[2019-03-22 02:32] VITALS: BP 134/86; PULSE 102; RESP 18; TEMP 37; O2SAT 96
[2019-03-22 03:07] LABS: Reflex Lactic Add Lactic Reflex
== END 2019-03-22 02:41 | disposition short-term general hospital (02) ==
PROVIDERS: Emergency Provider Emergency Medicine; PCP Family Medicine Addiction Medicine
DX: I47.1 Supraventricular tachycardia (principal); R79.89 Other specified abnormal findings of blood chemistry; A41.9 Sepsis, unspecified organism; D64.9 Anemia, unspecified; E66.01 Morbid (severe) obesity due to excess calories; Z68.44 Body mass index [BMI] 60.0-69.9, adult; K21.9 Gastro-esophageal reflux disease without esophagitis; I10 Essential (primary) hypertension; F41.8 Other specified anxiety disorders; M79.7 Fibromyalgia
CPT/HCPCS: 36415; 71045; 80053; 82150; 83605; 83690; 84484; 85007; 85025; 85378; 87040; 93005; 96365; 96366; 96367; 96372; 96375; 99285; J3370

== ENCOUNTER → 2019-06-21 12:41 | Outpatient (CLI) | payer OTHER, SELFPAY ==
[2019-06-22 15:17] LABS: IgG, Subclass 1 462 mg/dL (248-810); IgG, Subclass 2 257 mg/dL (130-555); IgG, Subclass 3 104 mg/dL (15-102); Immunoglobulin G, Qn 923 mg/dL (700-1600)
[2019-06-22 16:54] LABS: IgG, Subclass 4 8 mg/dL (2-96)
== END ==
PROVIDERS: Visit Provider Family Medicine Addiction Medicine
DX: J90 Pleural effusion, not elsewhere classified (principal); B37.0 Candidal stomatitis; E55.9 Vitamin D deficiency, unspecified
CPT/HCPCS: 36415; 82652; 82784; 82787

== ENCOUNTER → 2019-06-25 11:28 | Outpatient (CLI) | payer OTHER, SELFPAY | PROVIDERS: PCP Family Medicine Addiction Medicine; Visit Provider Internal Medicine | DX: J86.9 Pyothorax without fistula (principal) | CPT/HCPCS: 94060; 94640; 94726; 94729 ==

== ENCOUNTER 2019-07-19 08:58 | Outpatient (RCR) | payer OTHER, SELFPAY | END 2019-07-19 08:59 | disposition home or self-care (01) | LOC: PT 08:58 | PROVIDERS: Visit Provider Internal Medicine | DX: J90 Pleural effusion, not elsewhere classified (principal) | CPT/HCPCS: G0237; G0238; G0239 ==

== ENCOUNTER → 2019-11-19 08:41 | Outpatient (CLI) | payer BC, SELFPAY ==
[2019-11-19 09:34] LABS: Basophils # 0.1 K/mm3 (0-0.2); Basophils % 0.6 % (0.1-2.0); Eosinophils % 0.1 % (0.1-12.0); Hematocrit 42.4 % (37.0-47.0); Lymphocytes # 2.9 K/mm3 (0.7-4.5); Lymphocytes % 29.4 % (10-50); Mean Corpuscular Hemoglobin 25.9 pg (27.0-31.2); Mean Corpuscular Volume 78.4 fl (81-99); Mean Platelet Volume 7.6 fl (7.4-10.4); Monocytes # 0.5 K/mm3 (0.1-1.0); Monocytes % 5.5 % (1.7-9.3); Neutrophils # 6.4 K/mm3 (1.8-7.8); Neutrophils % 64.4 % (37.0-80.0); Platelet Count 300 K/mm3 (142-424); Red Cell Distribution Width 14.4 % (11.5-17.5); White Blood Count 9.9 K/mm3 (4.8-10.8)
[2019-11-19 11:32] LABS: Alanine Aminotransferase 25 U/L (9-52); Albumin Level 3.6 g/dL (3.4-5.0); Alkaline Phosphatase 111 U/L (46-116); Anion Gap 16.5 mEq/L (5-15); Aspartate Amino Transferase 16 U/L (15-37); Bilirubin,Total 0.2 mg/dL (0.2-1.0); Blood Urea Nitrogen 19 mg/dL (7-18); C-Reactive Protein 2.6 mg/dL (0.0-0.9); Calcium 9.5 mg/dL (8.5-10.1); Carbon Dioxide 27 mmol/L (21.0-32.0); Chloride 108 mmol/L (98-107); Creatinine,Serum 0.93 mg/dL (0.55-1.02); Estimated Glomerular Filt Rate 67 ml/min (>60); Free Thyroxine Index 2.8 ug/dL (5.93-13.13); GFR (African American) 81 ML/MIN (>60); Globulin 3.5 gm/dl (1.3-3.2); Glucose 104 mg/dL (74-106); Potassium 4.5 mmoL/L (3.5-5.1); Sodium 147 mmol/L (137-145); T4 (Thyroxine) 8.6 ug/dl (4.7-13.3); Thyroid Stimulating Hormone 2.73 uIU/ml (0.358-3.740); Total Protein,Serum 7.1 g/dL (6.4-8.2); Triiodothryronine (T3) Uptake 32 % (31-39)
[2019-11-23 07:51] LABS: Immunoglobulin A, Qn 272 mg/dL (87-352); Tissue Transglutaminase IgA Ab <2 U/mL (0-3); Tissue Transglutaminase IgG Ab <2 U/mL (0-5)
[2019-11-23 09:34] LABS: Strongyloides IgG Antibody Negative (Negative)
== END ==
PROVIDERS: Visit Provider Internal Medicine
DX: R19.7 Diarrhea, unspecified (principal)
CPT/HCPCS: 36415; 80053; 82784; 83516; 84436; 84443; 84479; 85025; 86140; 86682

== ENCOUNTER 2020-01-29 20:10 | Emergency (ER) | payer BC, SELFPAY ==
[2020-01-29 20:21] VITALS: BP 155/99; PULSE 127; RESP 18; TEMP 36.7; O2SAT 98; BMI 63.8
--- NOTE | 2020-01-29 20:22 | CT_ITS ---
PROCEDURE: CT ABDOMEN PELVIS W CON CLINICAL INDICATION: right flank pain Right flank pain, abdominal pain COMPARISON: ABDPELWO CT abdomen pelvis wo con from 09/28/2018 TECHNIQUE: IV Contrast: 75ML OPTIRAY 350 Oral Contrast none Axial images obtained with sagittal and coronal reformats. All CT scans at the facility use one or more dose reduction, viz: automated exposure control, ma/kV adjustment per patient size (including targeted exams where dose is matched to indication, i.e. head), or iterative reconstruction technique. FINDINGS: LOWER THORAX: There are atelectatic or fibrotic changes in the left lung base. ABDOMEN & PELVIS: Post cholecystectomy change. There is splenomegaly at 16 cm. The liver has an unremarkable appearance. The pancreas and adrenal glands are unremarkable. There is mild right hydronephrosis with at least 2 stones in the right kidney 1 at the renal pelvic region at 10 mm and 1 in the mid polar region at 5 mm. Kidney is rotated along its horizontal axis. There is a stone at the right ureteropelvic junction causing mild right hydronephrosis. This stone measures 5 mm. No distal ureteral calculi are evident. The left kidney has an unremarkable appearance. No intestinal obstruction or free air. No evidence of appendicitis or diverticulitis. There are post hysterectomy changes. There is a small lower ventral abdominal wall hernia containing fat. 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 5 mm right ureteropelvic junction stone causing mild right hydronephrosis along with right nephrolithiasis. 2. Splenomegaly. Dictated by: Trever Lind MD 01/30/2020 09:46 Electronically signed by Trever Lind MD in [place] 01/30/2020 09:46
[2020-01-29 21:05] LABS: Microscopic, Urine URINE MICROSCOPIC (MICROSCOPIC)
[2020-01-29 21:08] LABS: Basophils # 0.3 K/mm3 (0-0.2); Basophils % 1.6 % (0.1-2.0); Eosinophils # 0.2 K/mm3 (0.0-0.4); Eosinophils % 1.1 % (0.1-12.0); Hematocrit 45.8 % (37.0-47.0); Lymphocytes # 2.5 K/mm3 (0.7-4.5); Lymphocytes % 15.5 % (10-50); Mean Corpuscular HGB Conc 32.7 g/dL (31.8-35.4); Mean Corpuscular Hemoglobin 26.2 pg (27.0-31.2); Mean Corpuscular Volume 80.3 fl (81-99); Mean Platelet Volume 7.7 fl (7.4-10.4); Monocytes # 0.7 K/mm3 (0.1-1.0); Monocytes % 4.6 % (1.7-9.3); Neutrophils # 12.4 K/mm3 (1.8-7.8); Neutrophils % 77.2 % (37.0-80.0); Platelet Count 327 K/mm3 (142-424); Red Cell Distribution Width 14.1 % (11.5-17.5); White Blood Count 16.1 K/mm3 (4.8-10.8)
[2020-01-29 21:08] LABS: Appearance,Urine CLEAR (Clear); Bilirubin,Urine Negative (Negative); Blood, Urine Negative (Negative); Color,Urine YELLOW (Yellow); Glucose,Urine (UA) Negative (Negative); Ketones,Urine Negative (Negative); Leukocyte Esterase,Urine TRACE (Negative); Nitrate,Urine Negative (Negative); Protein,Urine Negative (Negative); Specific Gravity, Urine 1.025 (1.005-1.030); Urobilinogen,Urine 0.2 EU/dl (0.2)
[2020-01-29 21:11] LABS: MANUAL DIFFERENTIAL MANUAL DIFFERENTIAL (MANUAL DIFF)
[2020-01-29 21:15] LABS: Chloride 102 mmol/L (98-107); Potassium 4.5 mmoL/L (3.5-5.1); Sodium 139 mmol/L (136-145)
[2020-01-29 21:17] LABS: Alanine Aminotransferase 30 U/L (12-78); Alkaline Phosphatase 106 U/L (38-126); Amylase 30 U/L (30-110); Anion Gap 15.5 mEq/L (5-15); Aspartate Amino Transferase 31 U/L (14-36); Bilirubin,Total 0.4 mg/dl (0.2-1.3); Blood Urea Nitrogen 26 mg/dl (7-17); Carbon Dioxide 26 mmol/L (22.0-30.0); Creatinine Clearance Estimated 52 mL/min (50-200); Estimated Glomerular Filt Rate 50 ml/min (>60); GFR (African American) 61 ML/MIN (>60)
[2020-01-29 21:18] LABS: Albumin Level 4.3 g/dl (3.5-5.0); Albumin/Globulin Ratio 1.3 (1.1-1.8); Calcium 9.7 mg/dl (8.4-10.2); Globulin 3.4 g/dL (1.3-3.2); Glucose 117 mg/dl (74-100); Total Protein,Serum 7.7 g/dl (6.3-8.2)
[2020-01-29 21:25] LABS: Lipase 39 U/L (23-300)
--- NOTE | 2020-01-29 21:28 | PC.NURSE ---
pt back from rad
[2020-01-29 21:30] VITALS: BP 148/70; PULSE 108; RESP 16; O2SAT 98
[2020-01-29 21:34] LABS: Bacteria,Urine 1+ /lpf
--- NOTE | 2020-01-29 21:46 | HMH.EDNVD ---
ED Disposition Clinical Impression: Renal colic on right side, Renal insufficiency Disposition: Home, Self-Care Condition on Discharge: Good Instructions: DI for Kidney Stones Additional Instructions: use meds and see urology for follow up Referrals: Provider,MD Sarai [Primary Care Provider] - Otis Rubio MD [Staff Physician] - - Critical Care Critical Care Time: No Attestation: On 01/29/20, the high probability of a clinically significant, sudden or life threatening deterioration of the following system(s) required my full and direct attention, intervention and personal management. The time I documented below is in addition to time spent performing reported procedures but includes the following listed in this critical care notation. Medical Decision Making - Medical Records Medical records reviewed: Yes: I reviewed the patient's medical records. - Clive Inquiry Pt receiving controlled substance: No Vital Signs: 01/29/20 20:21 01/29/20 21:30 Temperature 98.1 F Temperature Source Oral Pulse Rate [Right Brachial] 127 H 108 H Respiratory Rate 18 16 Blood Pressure [Right Arm] 155/99 H 148/70 H Blood Pressure Mean [Right Arm] 117 96 Blood Pressure Source [Right Arm] Automatic Cuff Blood Pressure Position [Right Arm] Sitting 02 Sat by Pulse Oximetry 98 98 Oxygen Delivery Method Room Air Room Air - Lab Data Lab results reviewed: Yes: I reviewed the patient's lab results. Lab Results 01/29/20 20:55: Urine Color Yellow, Urine Appearance Clear, Urine pH 6.0, Ur Specific [place] 1.025, Urine Protein Negative, Urine Glucose (UA) Negative, Urine Ketones Negative, Urine Blood Negative, Urine Nitrate Negative, Urine Bilirubin Negative, Urine Urobilinogen 0.2, Ur Leukocyte Esterase Trace, Urine WBC 5-10, Ur Squamous Epith Cells 3-5, Urine Bacteria 1+ 01/29/20 21:00: WBC 16.1 H, RBC 5.70 H, Hgb 15.0, Hct 45.8, MCV 80.3 L, MCH 26.2 L, MCHC 32.7, RDW 14.1, Plt Count 327, MPV 7.7, Neut % (Auto) 77.2, Lymph % (Auto) 15.5, [place] % (Auto) 4.6, Eos % (Auto) 1.1, Baso % (Auto) 1.6, Neut # (Auto) 12.4 H, Lymph # (Auto) 2.5, [place] # (Auto) 0.7, Eos # (Auto) 0.2, Baso # (Auto) 0.3 H, Total Counted 100, Neutrophils % (Manual) 77 H, Lymphocytes % (Manual) 19, Monocytes % (Manual) 3, Eosinophils % (Manual) 1, Platelet Estimate Normal, Microcytosis 1+ 01/29/20 21:00: Sodium 139, Potassium 4.5, Chloride 102, Carbon Dioxide 26, Anion Gap 15.5 H, BUN 26 H, Creatinine 1.20 H, Estimated Creat Clear 52, Estimated GFR 50 L, Est GFR ( Amer) 61, Glucose 117 H, Calcium 9.7, Total Bilirubin 0.4, AST 31, ALT 30, Alkaline Phosphatase 106, Total Protein 7.7, Albumin 4.3, Globulin 3.4 H, Albumin/Globulin Ratio 1.3, Amylase 30 01/29/20 21:00: Lipase 39 Result diagrams: 01/29/20 21:00 01/29/20 21:00 Orders (Tests/Meds): ED MEDICATIONS Generic Name Dose Route Start Last Admin Trade Name Freq PRN Reason Stop Dose Admin Sodium Chloride 1,000 mls @ 999 mls/hr 01/29/20 21:30 01/29/20 21:25 Sod Chlor 0.9% 1000ml Bag IV 01/29/20 22:30 999 mls/hr .[id number] MAGUE Administration Discontinued Medications Generic Name Dose Route Start Last Admin Trade Name Freq PRN Reason Stop Dose Admin Ioversol 75 ml 01/29/20 21:28 01/29/20 21:29 Rad-Optiray 350 100ml Vial IV 01/29/20 21:29 75 ml ONCE ONE Administration Protocol Ondansetron HCl 4 mg 01/29/20 21:24 01/29/20 21:25 Zofran 4mg/2ml Vial IV 01/29/20 21:25 4 mg ONCE ONE Administration Sodium Chloride 10 ml 01/29/20 21:28 01/29/20 21:29 Rad-Saline Flush 10ml Syringe IV 01/29/20 21:29 10 ml ONCE ONE Administration ORDERS Category Date Time Status CT abdomen pelvis w con Stat Cat Scan 01/29/20 20:22 Taken - CT Data CT Scan: Abdomen, Pelvis Time Received: 23:[address] Reviewed: Yes: I have viewed the radiologist's interpretation Preliminary Findings: Abnormal (see report ) - Reevaluation(s) Time: 23:11 Reevaluation #1: jesse
[2020-01-29 21:53] LABS: Eosinophils % 1 % (0-3); Lymphocytes % 19 % (10-50); Monocytes % 3 % (2-9); Neutrophils % 77 % (42-76); Platelet Estimate Normal; Total Cells Counted 100
[2020-01-29 21:54] LABS: Microcytosis 1+
[2020-01-29 23:10] VITALS: BP 127/73; PULSE 84; RESP 16; TEMP 36.8; O2SAT 98
== END 2020-01-29 23:28 | disposition home or self-care (01) ==
PROVIDERS: Emergency Provider Emergency Medicine
DX: N23 Unspecified renal colic (principal); N28.9 Disorder of kidney and ureter, unspecified; I10 Essential (primary) hypertension; K21.9 Gastro-esophageal reflux disease without esophagitis; F41.8 Other specified anxiety disorders
CPT/HCPCS: 74177; 80053; 81001; 82150; 83690; 85007; 85025; 96365; 96375; 99283; J2405; Q9967

== ENCOUNTER 2020-07-26 12:48 | Emergency (ER) | payer BC, SELFPAY ==
[2020-07-26 13:58] VITALS: BP 158/111; PULSE 109; RESP 18; TEMP 36.5; O2SAT 99; BMI 69.0
--- NOTE | 2020-07-26 13:59 | HMH.EDUTC ---
[facility] [place] Disposition Clinical Impression: Conjunctivitis Qualifiers: Conjunctivitis type: unspecified Laterality: left Qualified Code(s): H10.9 - Unspecified conjunctivitis Disposition: Home, Self-Care Condition on Discharge: Good Instructions: How to Instill Eye Drops, Conjunctivitis, DI for Conjunctivitis Additional Instructions: Use the eye drops as directed. Strict hand washing in the house hold, because conjunctivitis is very contagious. Follow up with your regular doctor. GO TO THE ER FOR ANY WORSENING SYMPTOMS OR CONCERNS Prescriptions: Ofloxacin [Ocuflox 0.3% OPHTH drops 5mL] 1 drp EYE-LEFT Q4H 7 Days #1 bottle Transmission Status: Received by [id number] Referrals: Vitaliy Rehman [Primary Care Provider] - Forms: Work/School Release Time of Disposition: 14:19 Medical Decision Making - Medical Records Medical records reviewed: No: I reviewed the patient's medical records. - Clive Inquiry Pt receiving controlled substance: No Vital Signs: 07/26/20 13:58 07/26/20 14:34 Temperature 97.7 F 97.7 F Temperature Source Oral Pulse Rate 109 H Pulse Rate [Right Radial] 109 H Respiratory Rate 18 18 Blood Pressure 158/111 H Blood Pressure [Right Arm] 158/111 H Blood Pressure Mean [Right Arm] 126 Blood Pressure Source [Right Arm] Automatic Cuff Blood Pressure Position [Right Arm] Sitting 02 Sat by Pulse Oximetry 99 Oxygen Delivery Method Room Air Orders (Tests/Meds): ED MEDICATIONS Discontinued Medications Generic Name Dose Route Start Last Admin Trade Name Freq PRN Reason Stop Dose Admin Sulfacetamide Sodium 0 ml 07/26/20 14:36 07/26/20 14:40 Sulfacetamide 10% Opth Soln 15ml OP 07/26/20 14:37 1 drop ONCE ONE Administration Tetracaine HCl 0 ml 07/26/20 14:36 07/26/20 14:40 Tetracaine 0.5% Opth More 15ml OP 07/26/20 14:37 1 drop ONCE ONE Administration [facility] [place] HPI - General Stated complaint: possible pink eye Time Seen by Provider: 07/26/20 13:59 - History of Present Illness Provider Complaint: She states that for the past 2 days, she has been having left eye irritation and matting. She denies any injury. She denies any change in her vision other than the excessive tearing from the eye. - Related Data Home Medications Medication Instructions Recorded Confirmed Melatonin 3 mg PO DAILY 11/26/18 03/21/19 Omeprazole Magnesium [Prilosec Otc 20 mg PO DAILY 11/26/18 03/21/19 20mg Tab] Amitriptyline HCl [Elavil 25mg 25 mg PO HS PRN 03/21/19 03/21/19 tablet] Amoxicillin/Potassium Clav 1 tab PO BID 03/21/19 03/21/19 [Amox-Clav 875-125 mg Tablet] Enoxaparin Sodium [Lovenox 30 mg SQ BID 03/21/19 03/21/19 30mg/0.3mL syringe] Oxycodone HCl [OxyIR 5mg tablet] 5 mg PO Q4-6H PRN 03/21/19 03/21/19 Previous Rx's Medication Instructions Recorded Ofloxacin [Ocuflox 0.3% OPHTH 1 drp EYE-LEFT Q4H 7 Days #1 bottle 07/26/20 drops 5mL] Allergies Allergy/AdvReac Type Severity Reaction Status Date / Time erythromycin base Allergy Unknown Verified 10/13/18 10:29 [ERYTHROMYCIN BASE] latex [LATEX] Allergy Unknown Verified 10/13/18 10:29 [facility] History - Hepatitis A Screen Attestation statement:: This patient has been screened for Hepatitis A risk factors. I have reviewed the patient's past medical history: Yes Medical History: Reports:: Anxiety, Asthma, Depression, Gastroesophageal Reflux Disease(GERD), Hypertension Denies:: Cancer, Diabetes Mellitus Type 1, Diabetes Mellitus Type 2, Home Oxygen, Internal Pacemaker, MRSA, Seizures Other Medical History: Reports: Other. Denies: Blood Transfusion Reaction Comment: Reviewed previous abdominal/pelvic CAT scans. 2 found. 09/06/17 showed mild right hydronephrosis with no definite ureteral calculi. 07/21/15 showed mild fullness of the right pelvic calyceal system with no definite calculi. Other Surgeries: Yes: Cholecystectomy, , Dilation and Curettage. No: Berry
[2020-07-26 14:34] VITALS: BP 158/111; PULSE 109; RESP 18; TEMP 36.5; O2SAT 99
== END 2020-07-26 14:41 | disposition home or self-care (01) ==
PROVIDERS: Emergency Provider Nurse Practitioner Family; PCP Family Medicine
DX: H10.32 Unspecified acute conjunctivitis, left eye (principal); F41.8 Other specified anxiety disorders; I10 Essential (primary) hypertension; K21.9 Gastro-esophageal reflux disease without esophagitis; J45.909 Unspecified asthma, uncomplicated; Z91.040 Latex allergy status; Z88.1 Allergy status to other antibiotic agents
CPT/HCPCS: 99201

== ENCOUNTER 2020-11-25 19:26 | Emergency (ER) | payer BC, SELFPAY ==
[2020-11-25 19:45] VITALS: BP 157/77; PULSE 119; RESP 18; TEMP 36.9; O2SAT 93; BMI 70.8
--- NOTE | 2020-11-25 20:06 | HMH.EDUTC ---
[facility] [place] Disposition Clinical Impression: Strep pharyngitis Otitis media Qualifiers: Otitis media type: suppurative Chronicity: acute Laterality: left Recurrence: non-recurrent Spontaneous tympanic membrane rupture: without spontaneous rupture Qualified Code(s): H66.002 - Acute suppurative otitis media without spontaneous rupture of ear drum, left ear Disposition: Home, Self-Care Condition on Discharge: Good Instructions: DI for Strep Throat, Strep Throat Additional Instructions: Start antibiotics today be sure to take it as ordered with the full length of time although you should start feeling better in 24-48 hours. Change toothbrush and toothpaste 24-48 hours after starting antibiotics Tylenol or Motrin as needed for fever or pain Encourage fluids, water, Gatorade, Powerade, try cold fluids, popsicles, ice cream will make it feel better You are contagious for 24 hours. Avoid kissing anyone, no eating or drinking after anyone. You are contagious. Follow-up the ER for new or worsening symptoms or no noticeable improvement over the next 24-48 hours. Follow-up with PCP this week. Prescriptions: Amoxicillin [Amoxicillin 500mg Tab] 500 mg PO BID 10 Days #20 tab Transmission Status: Pending to [id number] Referrals: iVtaliy Rehman JR, MD [Primary Care Provider] - Time of Disposition: 20:10 Medical Decision Making - Clive Inquiry Pt receiving controlled substance: No Vital Signs: 11/25/20 19:45 Temperature 98.5 F Temperature Source Oral Pulse Rate [Right] 119 H Respiratory Rate 18 Blood Pressure [Right Arm] 157/77 H Blood Pressure Mean [Right Arm] 103 Blood Pressure Source [Right Arm] Automatic Cuff Blood Pressure Position [Right Arm] Sitting 02 Sat by Pulse Oximetry 93 L Oxygen Delivery Method Room Air [facility] HPI - General Chief complaint: Urgent Treatment Center Stated complaint: SORE THROAT, l eAR Time Seen by Provider: 11/25/20 20:06 Mode of Arrival: Ambulatory Source of Information: Patient Limitations: No Limitations Description of Symptoms (Recalled from Triage Doc. by RN): L EAR PAIN AND SORE THROAT. HEENT Symptoms (Recalled from RN notes): Yes (L EAR PAIN AND SORE THROAT) Resp Symptoms (Recalled from RN notes): No Skin Symptoms (Recalled from RN notes): No MS Symptoms (Recalled from RN notes): No Functional Status (Recalled from RN notes): NA - History of Present Illness Provider Complaint: 40 yr old female presents for sore throat and left ear pain. pt states she has strep freq - Related Data Home Medications Medication Instructions Recorded Confirmed Melatonin 3 mg PO DAILY 11/26/18 03/21/19 Omeprazole Magnesium [Prilosec Otc 20 mg PO DAILY 11/26/18 03/21/19 20mg Tab] Amitriptyline HCl [Elavil 25mg 25 mg PO HS PRN 03/21/19 03/21/19 tablet] Amoxicillin/Potassium Clav 1 tab PO BID 03/21/19 03/21/19 [Amox-Clav 875-125 mg Tablet] Enoxaparin Sodium [Lovenox 30 mg SQ BID 03/21/19 03/21/19 30mg/0.3mL syringe] Oxycodone HCl [OxyIR 5mg tablet] 5 mg PO Q4-6H PRN 03/21/19 03/21/19 Previous Rx's Medication Instructions Recorded Ofloxacin [Ocuflox 0.3% OPHTH 1 drp EYE-LEFT Q4H 7 Days #1 bottle 07/26/20 drops 5mL] Amoxicillin [Amoxicillin 500mg Tab] 500 mg PO BID 10 Days #20 tab 11/25/20 Allergies Allergy/AdvReac Type Severity Reaction Status Date / Time erythromycin base Allergy Unknown Verified 10/13/18 10:29 [ERYTHROMYCIN BASE] latex [LATEX] Allergy Unknown Verified 10/13/18 10:29 - Worker's Comp Is this a Worker's Comp case?: No [facility] History - Hepatitis A Screen Drug use history?: No High risk sexual behaviors?: No History of sexually transmitted infection?: No Currently employed?: No Childcare worker?: No Do you have indoor plumbing?: Yes Do you have electricity?: Yes Attestation statement:: This patient has been screened for Hepatitis A risk factors. I have reviewed the patient's past medical history: Yes Medical History: Rep
[2020-11-25 20:26] VITALS: BP 150/81; PULSE 121; RESP 16; TEMP 36.6
[2020-11-26 10:04] LABS: UTC Strep Screen (Rapid) Negative (Negative)
== END 2020-11-25 20:26 | disposition home or self-care (01) ==
PROVIDERS: Emergency Provider Nurse Practitioner Family; PCP Family Medicine
DX: J02.0 Streptococcal pharyngitis (principal); H66.002 Acute suppurative otitis media without spontaneous rupture of ear drum, left ear; Z91.040 Latex allergy status; Z88.1 Allergy status to other antibiotic agents; F41.8 Other specified anxiety disorders; I10 Essential (primary) hypertension; K21.9 Gastro-esophageal reflux disease without esophagitis; Z79.899 Other long term (current) drug therapy
CPT/HCPCS: 87880; 99202; G0463

== ENCOUNTER 2021-04-16 12:29 | Emergency (ER) | payer BC, SELFPAY ==
[2021-04-16 12:30] VITALS: BP 119/67; PULSE 77; RESP 19; TEMP 37; O2SAT 98; BMI 74.4
--- NOTE | 2021-04-16 12:57 | HMH.EDUTC ---
[facility] [place] Clinical Impression: Acute bronchitis Qualifiers: Bronchitis organism: unspecified organism Qualified Code(s): J20.9 - Acute bronchitis, unspecified Disposition: Home, Self-Care Condition on Discharge: Good Instructions: Sore Throat, Acute Bronchitis, DI for Acute Bronchitis Additional Instructions: *Monitor Temp, Over the counter Motrin or Tylenol as directed/as needed Tylenol every 4 hours and Motrin every 6 hours (as long as your family doctor has told you that you can take it) for fever or pain. and straight to ER if unable to lower temp less than 101.0 after medication given *Warm salt water gargles may help to soothe the throat *Throat Lozenges *Warm fluids like tea with honey may help to soothe the throat *Sleep elevated *Humidifier/Vaporizer *Flonase 2 sprays in each nostril daily but be aware that it may take 2-3 days before you notice improvement Your throat swab was sent for culture. Those results are typically sent to your primary care. Be sure to follow up in 2-3 days with your family doctor/primary care physician if no improvement so they can review those result and treat if necessary. If you don?t have a primary care doctor, I recommend you get one but in the mean time, you will have to return to a walk in clinic Follow up IMMEDIATELY for new or worsening symptoms or no Noticeable improvement over the next 48-72 hours. 911 for difficulty breathing or swallowing Prescriptions: guaiFENesin [Mucinex 600mg tablet] 1 - 2 tab PO Q12HP PRN #20 tab.er.12h PRN Reason: Congestion Transmission Status: Received by [id number] Fluticasone Propionate [Flonase 50mcg nasal spray 16gm] 1 spr NS DAILY #1 bottle Transmission Status: Received by [id number] Referrals: Vitaliy Rehman JR, MD [Primary Care Provider] - As needed Medical Decision Making - Clive Inquiry Pt receiving controlled substance: No Clive was queried for this patient: No Vital Signs: 04/16/21 12:30 04/16/21 13:11 Temperature 98.6 F 98.6 F Temperature Source Oral Pulse Rate 77 Pulse Rate [Right Brachial] 77 Respiratory Rate 19 19 Blood Pressure 119/67 Blood Pressure [Right Arm] 119/67 Blood Pressure Mean [Right Arm] 84 Blood Pressure Source [Right Arm] Automatic Cuff Blood Pressure Position [Right Arm] Sitting 02 Sat by Pulse Oximetry 98 Oxygen Delivery Method Room Air - Lab Data Lab results reviewed: Yes: I reviewed the patient's lab results. Lab Results 04/16/21 12:45: Strep Scn Rapid Clinic Negative Orders (Tests/Meds): ED MEDICATIONS Discontinued Medications Generic Name Dose Route Start Last Admin Trade Name Nicanor PRN Reason Stop Dose Admin Methylprednisolone Sodium Succinate 125 mg 04/16/21 13:08 04/16/21 13:09 Methylprednisolone Sod Succ 125mg Vial IM 04/16/21 13:09 125 mg ONCE ONE Administration ORDERS Category Date Time Status Strep Screen Confirmation Stat Micro 04/16/21 12:45 Received Medical Decision Narrative: Discussed CXR and patient declined at this time States that she usually gets a steriod shot when she gets this and it helps denies productive cough denies fever, chills or body aches [facility] - General Stated complaint: soa Time Seen by Provider: 04/16/21 12:58 Mode of Arrival: Ambulatory Source of Information: Patient Limitations: No Limitations Description of Symptoms (Recalled from Triage Doc. by RN): PATIENT C/O COUGH, UPPER BACK PAIN, AND SOA X 1 WEEK HEENT Symptoms (Recalled from RN notes): Yes Resp Symptoms (Recalled from RN notes): Yes Skin Symptoms (Recalled from RN notes): No MS Symptoms (Recalled from RN notes): No Functional Status (Recalled from RN notes): WNL - History of Present Illness Provider Complaint: Patient states that she has been sick for over a week State that she has been having sore scratchy throat, cough, nasal drainage and feeling SOA at times when she coughs and pain in her upper back when cough
[2021-04-16 12:59] LABS: UTC Strep Screen (Rapid) Negative (Negative)
[2021-04-16 13:11] VITALS: BP 119/67; PULSE 77; RESP 19; TEMP 37; O2SAT 98
== END 2021-04-16 13:25 | disposition home or self-care (01) ==
PROVIDERS: Emergency Provider Nurse Practitioner; PCP Family Medicine
DX: J20.9 Acute bronchitis, unspecified; F41.9 Anxiety disorder, unspecified; F32.9 Major depressive disorder, single episode, unspecified; J45.909 Unspecified asthma, uncomplicated; I10 Essential (primary) hypertension
CPT/HCPCS: 87880; 96372; 99202; G0463

== ENCOUNTER 2021-06-19 19:27 | Emergency (ER) | payer BC, SELFPAY ==
[2021-06-19 20:00] VITALS: BP 131/72; PULSE 90; RESP 16; TEMP 36.7; O2SAT 96; BMI 76.5
--- NOTE | 2021-06-19 20:14 | HMH.EDUTC ---
[place] Disposition Clinical Impression: Acute bronchitis Qualifiers: Bronchitis organism: unspecified organism Qualified Code(s): J20.9 - Acute bronchitis, unspecified Disposition: Home, Self-Care Condition on Discharge: Good Instructions: Acute Bronchitis, DI for Acute Bronchitis Additional Instructions: Drink plenty of fluids. Take tylenol or ibuprofen for pain or fever. Take the medications as directed. Follow up with your regular doctor. GO TO THE ER FOR ANY WORSENING SYMPTOMS The cough medication (promethazine dm) will make you drowsy, so don't drive or operate heavy machinery after taking it. Prescriptions: Promethazine/Dextromethorphan [Promethazine-Dm Syrup] 5 ml PO Q6HP PRN #180 ml PRN Reason: Cough Transmission Status: Received by [id number] Amoxicillin/Potassium Clav [Augmentin 875-125 Tablet] 1 tab PO Q12H 10 Days #20 tab Transmission Status: Received by [facility] Fluconazole [Diflucan 150mg tab] 150 mg PO ONCE #1 tab Transmission Status: Received by [facility] methylPREDNISolone [Medrol] 4 mg PO DIRECTED 6 Days #21 packet Transmission Status: Received by [facility] Referrals: Vitaliy Rehman JR, MD [Primary Care Provider] - Time of Disposition: 20:42 Medical Decision Making - Medical Records Medical records reviewed: No: I reviewed the patient's medical records. - Clive Inquiry Pt receiving controlled substance: No Vital Signs: 06/19/21 20:00 06/19/21 20:51 Temperature 98.0 F 98.0 F Temperature Source Oral Pulse Rate 90 Pulse Rate [Left Radial] 90 Respiratory Rate 16 16 Blood Pressure 131/72 Blood Pressure [Left Arm] 131/72 Blood Pressure Mean [Left Arm] 91 Blood Pressure Source [Left Arm] Automatic Cuff Blood Pressure Position [Left Arm] Sitting 02 Sat by Pulse Oximetry 96 Oxygen Delivery Method Room Air [place] HPI - General Stated complaint: COUGH,sob,cONGESTION Time Seen by Provider: 06/19/21 20:14 - History of Present Illness Provider Complaint: She has had chest congestion and a cough for the past 1 week. She denies any fever/chills/chest pain or other symptoms. She did have a negative covid test that she took for these symptoms. She refuses another covid test today. She states that she has her normal bronchitis that she gets every year when the seasons change from summer to fall. - Related Data Home Medications Medication Instructions Recorded Confirmed Amitriptyline HCl [Elavil 25mg 25 mg PO HS PRN 03/21/19 04/16/21 tablet] Previous Rx's Medication Instructions Recorded Fluticasone Propionate [Flonase 1 spr NS DAILY #1 bottle 04/16/21 50mcg nasal spray 16gm] guaiFENesin [Mucinex 600mg tablet] 1 - 2 tab PO Q12HP PRN #20 04/16/21 tab.er.12h Amoxicillin/Potassium Clav 1 tab PO Q12H 10 Days #20 tab 06/19/21 [Augmentin 875-125 Tablet] Fluconazole [Diflucan 150mg tab] 150 mg PO ONCE #1 tab 06/19/21 methylPREDNISolone [Medrol] 4 mg PO DIRECTED 6 Days #21 06/19/21 packet Brompheniramine/Pseudoephed/Dm 5 ml PO Q6HP PRN #240 ml 06/20/21 [Bromfed Dm Cough Syrup] Allergies Allergy/AdvReac Type Severity Reaction Status Date / Time erythromycin base Allergy Unknown Verified 10/13/18 10:29 [ERYTHROMYCIN BASE] latex [LATEX] Allergy Unknown Verified 10/13/18 10:29 [facility] History - Hepatitis A Screen Attestation statement:: This patient has been screened for Hepatitis A risk factors. I have reviewed the patient's past medical history: Yes Medical History: Reports:: Anxiety, Asthma, Depression, Gastroesophageal Reflux Disease(GERD), Hypertension Denies:: Cancer, Diabetes Mellitus Type 1, Diabetes Mellitus Type 2, Home Oxygen, Internal Pacemaker, MRSA, Seizures Other Medical History: Reports: Other. Denies: Blood Transfusion Reaction Comment: Reviewed previous abdominal/pelvic CAT scans. 2 found. 09/06/17 showed mild right hydronephrosis with no definite ureteral
[2021-06-19 20:51] VITALS: BP 131/72; PULSE 90; RESP 16; TEMP 36.7; O2SAT 96
== END 2021-06-19 20:52 | disposition home or self-care (01) ==
PROVIDERS: Emergency Provider Nurse Practitioner Family; PCP Family Medicine
DX: J20.9 Acute bronchitis, unspecified (principal); I10 Essential (primary) hypertension; K21.9 Gastro-esophageal reflux disease without esophagitis; F41.8 Other specified anxiety disorders
CPT/HCPCS: 99202; G0463

== ENCOUNTER → 2021-07-30 08:07 | Outpatient (CLI) | payer BC, SELFPAY ==
[2021-07-30 08:39] LABS: Hematocrit 43.6 % (37.0-47.0); Hemoglobin 13.6 g/dL (12.2-16.2); Mean Corpuscular HGB Conc 31.2 g/dL (31.8-35.4); Mean Corpuscular Hemoglobin 25.9 pg (27.0-31.2); Mean Corpuscular Volume 83.1 fl (81-99); Platelet Count 330 K/mm3 (142-424); Red Blood Count 5.25 M/mm3 (4.20-5.40); Red Cell Distribution Width 15.7 % (11.5-17.5); White Blood Count 11.5 K/mm3 (4.8-10.8)
[2021-07-30 08:49] LABS: Hemoglobin A1C 5.8 % (4.0-6.0)
[2021-07-30 09:16] LABS: Alanine Aminotransferase 30 U/L (12-78); Albumin Level 3.8 g/dl (3.5-5.0); Albumin/Globulin Ratio 1.3 (1.1-1.8); Alkaline Phosphatase 113 U/L (38-126); Anion Gap 14.2 mEq/L (5-15); Aspartate Amino Transferase 29 U/L (14-36); Bilirubin,Total 0.3 mg/dl (0.2-1.3); Blood Urea Nitrogen 16 mg/dl (7-17); Carbon Dioxide 26 mmol/L (22.0-30.0); Chloride 105 mmol/L (98-107); Chol/HDL Ratio 6.4 (1-3.5); Cholesterol 223 mg/dl (140-200); Estimated Glomerular Filt Rate 110 ml/min (>60); GFR (African American) 133 ML/MIN (>60); Globulin 2.9 g/dL (1.3-3.2); Glucose 125 mg/dl (74-100); HDL Cholesterol 35 mg/dl (40-60); Magnesium 1.6 mg/dl (1.6-2.3); Potassium 4.2 mmoL/L (3.5-5.1); Sodium 141 mmol/L (136-145); Total Protein,Serum 6.7 g/dl (6.3-8.2); Triglycerides 245 mg/dl (30-150); VLDL Cholesterol 49 mg/dL (0-40)
[2021-07-30 09:41] LABS: Direct LDL Cholesterol 131.71 mg/dL (100-129); Intact Parathyroid Hormone 141.4 pg/mL (7.5-53.5)
[2021-07-30 09:48] LABS: 25-OH Vitamin D, Total 19.4 ng/mL (30-100)
[2021-07-30 09:59] LABS: Thyroid Stimulating Hormone 6.21 uIU/mL (0.465-4.68)
[2021-07-30 10:41] LABS: Folate 5.71 ng/mL
[2021-07-30 10:52] LABS: Iron 40 ug/dL (37-170)
[2021-07-30 11:28] LABS: Ferritin 26.7 ng/ml (6.24-137)
[2021-07-31 13:21] LABS: Prealbumin 23 mg/dL (12-34)
[2021-08-04 04:11] LABS: Methylmalonic Acid 131 nmol/L (0-378)
[2021-08-05 04:08] LABS: Vitamin E Alpha Tocopherol 9.1 mg/L (7.0-25.1); Vitamin E Gamma Tocopherol 2.4 mg/L (0.5-5.5)
[2021-08-05 12:47] LABS: Vitamin B1 126.1 nmol/L (66.5-200.0)
[2021-08-05 18:33] LABS: Vitamin A 43.9 ug/dL (20.1-62.0)
== END ==
PROVIDERS: Visit Provider Physician Assistant
DX: E66.01 Morbid (severe) obesity due to excess calories (principal); E55.9 Vitamin D deficiency, unspecified; Z71.3 Dietary counseling and surveillance
CPT/HCPCS: 36415; 80053; 80061; 82131; 82306; 82728; 82746; 83036; 83540; 83735; 83970; 84100; 84134; 84425; 84443; 84446; 84590; 85014; 85018; 85048; 85049

== ENCOUNTER 2021-08-21 20:25 | Emergency (ER) | payer BC, SELFPAY ==
[2021-08-21 20:26] VITALS: BP 138/51; PULSE 103; RESP 18; TEMP 36.8; O2SAT 98; BMI 77.2
--- NOTE | 2021-08-21 21:02 | HMH.EDEAR ---
[facility] Disposition Clinical Impression: Otitis externa Qualifiers: Otitis externa type: unspecified type Chronicity: acute Laterality: left Qualified Code(s): H60.502 - Unspecified acute noninfective otitis externa, left ear Cerumen impaction Qualifiers: Laterality: left Qualified Code(s): H61.22 - Impacted cerumen, left ear Disposition: Home, Self-Care Condition on Discharge: Good Instructions: DI for Cerumen Impaction Additional Instructions: use ear gtts to lt ear and see ent Referrals: Vitaliy Rehman JR, MD [Primary Care Provider] - Jason Presley MD [Staff Physician] - - Critical Care Critical Care Time: No Attestation: On 08/21/21, the high probability of a clinically significant, sudden or life threatening deterioration of the following system(s) required my full and direct attention, intervention and personal management. The time I documented below is in addition to time spent performing reported procedures but includes the following listed in this critical care notation. Medical Decision Making - Medical Records Medical records reviewed: Yes: I reviewed the patient's medical records. - Clive Inquiry Pt receiving controlled substance: No Vital Signs: 08/21/21 20:26 Temperature 98.2 F Temperature Source Oral Pulse Rate [Right Radial] 103 H Respiratory Rate 18 Blood Pressure [Right Arm] 138/51 L Blood Pressure Mean [Right Arm] 80 Blood Pressure Source [Right Arm] Automatic Cuff Blood Pressure Position [Right Arm] Sitting 02 Sat by Pulse Oximetry 98 Oxygen Delivery Method Room Air - Lab Data Lab results reviewed: Yes: I reviewed the patient's lab results. Orders (Tests/Meds): ED MEDICATIONS Discontinued Medications Generic Name Dose Route Start Last Admin Trade Name Nicanor PRN Reason Stop Dose Admin Ondansetron HCl 4 mg 08/21/21 20:44 08/21/21 20:47 Ondansetron 4mg Odt SL 08/21/21 20:45 4 mg ONCE ONE Administration ORDERS Category Date Time Status CMP [Comprehensive Metabolic Panel] Stat Lab 08/21/21 20:42 Ordered Complete Blood Count Auto Diff Stat Lab 08/21/21 20:42 Ordered Medical Decision Narrative: tm ok after ear irrigation - canal injected Ear HPI - General Chief complaint: Ear Stated complaint: L ear,dizzy,nausa Time Seen by Provider: 08/21/21 20:35 Mode of Arrival: Wheelchair Source of Information: Patient, Medical Record Limitations: No Limitations Description of Symptoms (Recalled from ER Triage Doc. by RN): Pt c/o pain in her left ear for a week thats he thought was swimmers ear. She says she came to ED after developing nausea and dizziness. She denies fevers. Denies vomiting. Denies cough or sore throat. - History of Present Illness HPI Narrative: lt ear pain over the last week w/o fever/trauma or rash - no tinnitus MD Complaint: ear pain Location: left ear Duration: constant Severity: moderate Treatment prior to arrival: none - Related Data Home Medications Medication Instructions Recorded Confirmed Amitriptyline HCl [Elavil 25mg 25 mg PO HS PRN 03/21/19 04/16/21 tablet] Previous Rx's Medication Instructions Recorded Fluticasone Propionate [Flonase 1 spr NS DAILY #1 bottle 04/16/21 50mcg nasal spray 16gm] Fluconazole [Diflucan 150mg tab] 150 mg PO ONCE #1 tab 06/19/21 Allergies Allergy/AdvReac Type Severity Reaction Status Date / Time erythromycin base Allergy Unknown Verified 10/13/18 10:29 [ERYTHROMYCIN BASE] latex [LATEX] Allergy Unknown Verified 10/13/18 10:29 [facility] History - Hepatitis A Screen Drug use history?: No High risk sexual behaviors?: No History of sexually transmitted infection?: No Currently employed?: No Childcare worker?: No Do you have indoor plumbing?: Yes Do you have electricity?: Yes Attestation statement:: This patient has been screened for Hepatitis A risk factors. I have reviewed the patient's past medical history: Yes Medical History: Reports:: Anx
[2021-08-21 21:45] VITALS: BP 142/72; PULSE 98; RESP 18; TEMP 36.7; O2SAT 97
== END 2021-08-21 21:47 | disposition home or self-care (01) ==
PROVIDERS: Emergency Provider Emergency Medicine; PCP Family Medicine
DX: H60.502 Unspecified acute noninfective otitis externa, left ear (principal); H61.22 Impacted cerumen, left ear; F41.8 Other specified anxiety disorders; K21.9 Gastro-esophageal reflux disease without esophagitis; I10 Essential (primary) hypertension; Z79.899 Other long term (current) drug therapy
CPT/HCPCS: 99281

== ENCOUNTER 2021-08-24 16:08 | Emergency (ER) | payer BC, SELFPAY ==
[2021-08-24 19:08] VITALS: BP 148/98; PULSE 85; RESP 19; TEMP 37; O2SAT 99; BMI 77.2
--- NOTE | 2021-08-24 19:27 | HMH.EDUTC ---
[facility] [place] Disposition Clinical Impression: URI (upper respiratory infection) Qualifiers: URI type: unspecified URI Qualified Code(s): J06.9 - Acute upper respiratory infection, unspecified Disposition: Home, Self-Care Condition on Discharge: Good Instructions: Sore Throat, Acute Bronchitis, DI for Nasal Congestion Additional Instructions: ? Monitor temp. Tylenol every 4 hours as needed and / or ibuprofen every 6 hours as needed ( As long as your primary care physician has told you that it ok to take both. For fever/aches/pains ER if no less than 101 despite Tylenol or Motrin ? Humidifier/vaporizer or hot steamy shower ? Mucinex for your cough and congestion. Be sure to drink lots of water. Follow up IMMEDIATELY for new or worsening of symptoms OR no noticeable improvement over the next 48-72 hours. 911 immediately for any life threatening symptoms such as chest pain or difficulty breathing Prescriptions: guaiFENesin [Mucinex 600mg tablet] 1 - 2 tab PO Q12H PRN #20 tab PRN Reason: Congestion Transmission Status: Received by [facility] Referrals: Vitaliy Rehman JR, MD [Primary Care Provider] - As needed Time of Disposition: 19:52 Medical Decision Making - Clive Inquiry Pt receiving controlled substance: No Clive was queried for this patient: No Vital Signs: 08/24/21 19:08 Temperature 98.6 F Temperature Source Oral Pulse Rate [Left] 85 Respiratory Rate 19 Blood Pressure [Right Arm] 148/98 H Blood Pressure Mean [Right Arm] 114 02 Sat by Pulse Oximetry 99 - Lab Data Lab results reviewed: Yes: I reviewed the patient's lab results. Lab Results 08/24/21 19:32: Strep Scn Rapid Clinic Negative Orders (Tests/Meds): ED MEDICATIONS Discontinued Medications Generic Name Dose Route Start Last Admin Trade Name Freq PRN Reason Stop Dose Admin Ceftriaxone Sodium 1 gm 08/24/21 19:56 08/24/21 20:00 Ceftriaxone 1gm Vial IM 08/24/21 19:57 1 gm ONCE ONE Administration Lidocaine HCl 0 ml 08/24/21 19:56 08/24/21 20:00 Lidocaine 1% 5ml Pf Vial IM 08/24/21 19:57 2.5 ml ONCE ONE Administration Methylprednisolone Sodium Succinate 125 mg 08/24/21 19:56 11/22/21 20:01 Methylprednisolone Sod Succ 125mg Vial IM 08/24/21 19:57 125 mg ONCE ONE Administration ORDERS Category Date Time Status Strep Screen Confirmation Stat Micro 08/24/21 19:[address] [facility] [place] HPI - General Stated complaint: cough,SOB Time Seen by Provider: 08/24/21 19:27 Mode of Arrival: Ambulatory Source of Information: Patient Limitations: No Limitations Description of Symptoms (Recalled from Triage Doc. by RN): pt c/o a cough and chest congestion x2 days. pt believes she has bronchitis. HEENT Symptoms (Recalled from RN notes): No Resp Symptoms (Recalled from RN notes): Yes (cough and chest congestion) Skin Symptoms (Recalled from RN notes): No MS Symptoms (Recalled from RN notes): No Functional Status (Recalled from RN notes): wnl - History of Present Illness Provider Complaint: Patient states that she started around Tuesday having sore throat, sinus congestion and cough States that she feels like she is having drianage in the back of her throat and moving into her chest State that she gets bronchitis around this time every year so she came in - Related Data Home Medications Medication Instructions Recorded Confirmed Amitriptyline HCl [Elavil 25mg 25 mg PO HS PRN 03/21/19 04/16/21 tablet] Previous Rx's Medication Instructions Recorded Fluticasone Propionate [Flonase 1 spr NS DAILY #1 bottle 04/16/21 50mcg nasal spray 16gm] Fluconazole [Diflucan 150mg tab] 150 mg PO ONCE #1 tab 06/19/21 guaiFENesin [Mucinex 600mg tablet] 1 - 2 tab PO Q12H PRN #20 tab 08/24/21 Allergies Allergy/AdvReac Type Severity Reaction Status Date / Time erythromycin base Allergy Unknown Verified 10/13/18 10:29 [ERYTHROMYCIN BASE] latex [LATEX] Allergy Unknown Verified 10/13/18 10:29
[2021-08-24 19:50] LABS: UTC Strep Screen (Rapid) Negative (Negative)
[2021-08-24 20:26] VITALS: BP 148/98; PULSE 85; RESP 19; TEMP 37
== END 2021-08-24 20:27 | disposition home or self-care (01) ==
PROVIDERS: Emergency Provider Nurse Practitioner; PCP Family Medicine
DX: J06.9 Acute upper respiratory infection, unspecified (principal); F41.8 Other specified anxiety disorders; K21.9 Gastro-esophageal reflux disease without esophagitis; I10 Essential (primary) hypertension; Z79.899 Other long term (current) drug therapy
CPT/HCPCS: 87880; 96372; 99202; G0463

== ENCOUNTER → 2021-10-16 16:52 | Outpatient (CLI) | payer BC, SELFPAY | PROVIDERS: Visit Provider Nurse Practitioner | DX: U07.1 COVID-19 (principal) | CPT/HCPCS: C9803; U0003; U0005 ==

== ENCOUNTER 2021-10-16 17:03 | Emergency (ER) | payer BC, SELFPAY ==
[2021-10-16 18:12] VITALS: BP 122/73; PULSE 108; RESP 18; TEMP 37.3; O2SAT 98; BMI 77.2
--- NOTE | 2021-10-16 18:40 | HMH.EDUTC ---
[facility] Disposition Clinical Impression: Viral syndrome, Exposure to COVID-19 virus Acute bronchitis Qualifiers: Bronchitis organism: unspecified organism Qualified Code(s): J20.9 - Acute bronchitis, unspecified Disposition: Home, Self-Care Condition on Discharge: Good Instructions: Preventing the Spread of Coronavirus Discharge Instructions, DI for COVID-19 (Suspected or Confirmed ), DI for Acute Bronchitis Additional Instructions: Drink plenty of fluids. Take tylenol or ibuprofen for pain or fever. Take the medications as directed. Follow up with your regular doctor. GO TO THE ER FOR ANY WORSENING SYMPTOMS Quarantine until you know the results of your covid-19 test. If it is positive, the health department should call you and give you further instructions about your length of Quarantine and other things. Notify your school or workplace of your results and follow their instructions regarding return to work/school. The cough medication (promethazine dm) will make you drowsy, so don't drive or operate heavy machinery after taking it. Prescriptions: Albuterol Sulfate [Albuterol Sulfate Hfa] 2 puffs IH Q6HP PRN 30 Days #1 each PRN Reason: Shortness Of Breath Transmission Status: Pending to [facility] Promethazine/Dextromethorphan [Promethazine-Dm Syrup] 5 ml PO Q6HP PRN #240 ml PRN Reason: Cough Transmission Status: Pending to [facility] methylPREDNISolone [Medrol] 4 mg PO DIRECTED 6 Days #21 packet Transmission Status: Pending to [facility] Cefdinir [Omnicef 300mg Capsule] 300 mg PO BID #20 cap Transmission Status: Pending to [facility] Referrals: Vitaliy Rehman JR, MD [Primary Care Provider] - Time of Disposition: 19:12 Medical Decision Making - Medical Records Medical records reviewed: No: I reviewed the patient's medical records. - Clive Inquiry Pt receiving controlled substance: No Vital Signs: 10/16/21 18:12 Temperature 99.1 F Temperature Source Oral Pulse Rate [Left] 108 H Respiratory Rate 18 Blood Pressure [Right Arm] 122/73 Blood Pressure Mean [Right Arm] 89 02 Sat by Pulse Oximetry 98 - Lab Data Lab results reviewed: Yes: I reviewed the patient's lab results. [facility] HPI - General Stated complaint: exposed.fever,SOB,MARIE,congestion Time Seen by Provider: 10/16/21 18:40 Mode of Arrival: Ambulatory Source of Information: Patient Limitations: No Limitations Description of Symptoms (Recalled from Triage Doc. by RN): pt c/o a cough, SOA, myalgia, n/v/d, and fever. x2 days. HEENT Symptoms (Recalled from RN notes): Yes Resp Symptoms (Recalled from RN notes): Yes Skin Symptoms (Recalled from RN notes): No MS Symptoms (Recalled from RN notes): No Functional Status (Recalled from RN notes): wnl - History of Present Illness Provider Complaint: She states that for the past 2 days she has had worsening cough and congestion. She has ran a fever up to 100.8. There is a person that lives in her house that currently has covid-19. She has been fully vaccinated against covid-19 herself. She has a history of asthma. - Related Data Home Medications Medication Instructions Recorded Confirmed Amitriptyline HCl [Elavil 25mg 25 mg PO HS PRN 03/21/19 04/16/21 tablet] Previous Rx's Medication Instructions Recorded Fluticasone Propionate [Flonase 1 spr NS DAILY #1 bottle 04/16/21 50mcg nasal spray 16gm] Fluconazole [Diflucan 150mg tab] 150 mg PO ONCE #1 tab 06/19/21 guaiFENesin [Mucinex 600mg tablet] 1 - 2 tab PO Q12H PRN #20 tab 08/24/21 Albuterol Sulfate [Albuterol 2 puffs IH Q6HP PRN 30 Days #1 each 10/16/21 Sulfate Hfa] Cefdinir [Omnicef 300mg Capsule] 300 mg PO BID #20 cap 10/16/21 Promethazine/Dextromethorphan 5 ml PO Q6HP PRN #240 ml 10/16/21 [Promethazine-Dm Syrup] methylPREDNISolone [Medrol] 4 mg PO DIRECTED 6 Days #21 10/16/21 packet Allergies Allergy/AdvReac Type Severity Reaction Status Date
[2021-10-16 19:24] VITALS: BP 122/73; PULSE 108; RESP 18; TEMP 37.3
== END 2021-10-16 19:24 | disposition home or self-care (01) ==
PROVIDERS: Emergency Provider Nurse Practitioner Family; PCP Family Medicine
DX: U07.1 COVID-19 (principal); J20.9 Acute bronchitis, unspecified
CPT/HCPCS: 99202; G0463

== ENCOUNTER 2021-11-23 19:51 | Emergency (ER) | payer BC, SELFPAY ==
[2021-11-23 21:17] VITALS: BP 149/84; PULSE 105; RESP 22; TEMP 36.3; O2SAT 100; BMI 76.1
[2021-11-23 21:33] LABS: UTC Strep Screen (Rapid) Positive (Negative)
--- NOTE | 2021-11-23 21:41 | HMH.EDUTC ---
[facility] [place] Disposition Clinical Impression: Strep throat Disposition: Home, Self-Care Condition on Discharge: Good Instructions: Strep Throat, DI for Strep Throat Additional Instructions: Drink plenty of fluids. Take tylenol or ibuprofen for pain or fever. Take the medications as directed. Follow up with your regular doctor. GO TO THE ER FOR ANY WORSENING SYMPTOMS Throw your tooth brush away and get a new one. Don't start the oral steroids until tomorrow, since you had the shot here today. Prescriptions: Ondansetron [Zofran 4mg ODT] 4 mg PO Q8HP PRN #20 tab PRN Reason: Nausea Transmission Status: Received by [facility] Amoxicillin/Potassium Clav [Augmentin 875-125 Tablet] 1 tab PO Q12H 10 Days #20 tab Transmission Status: Received by [facility] predniSONE [Prednisone 20mg Tab] 20 mg PO BID 3 Days #6 tab Transmission Status: Received by [facility] Referrals: Vitaliy Rehman JR, MD [Primary Care Provider] - Forms: Work/School Release Time of Disposition: 21:46 Medical Decision Making - Medical Records Medical records reviewed: No: I reviewed the patient's medical records. - Clive Inquiry Pt receiving controlled substance: No Vital Signs: 11/23/21 21:17 11/23/21 22:07 Temperature 97.3 F L 98.3 F Temperature Source Temporal Artery Scan Oral Pulse Rate 105 H Pulse Rate [Right Brachial] 105 H Respiratory Rate 22 18 Blood Pressure 149/84 H Blood Pressure [Right Arm] 149/84 H Blood Pressure Mean [Right Arm] 105 Blood Pressure Source Automatic Cuff Blood Pressure Source [Right Arm] Automatic Cuff Blood Pressure Position Sitting Blood Pressure Position [Right Arm] Sitting 02 Sat by Pulse Oximetry 100 Oxygen Delivery Method Room Air Room Air - Lab Data Lab results reviewed: Yes: I reviewed the patient's lab results. Lab Results 11/23/21 21:33: Strep Scn Rapid Clinic Positive A Orders (Tests/Meds): ED MEDICATIONS Discontinued Medications Generic Name Dose Route Start Last Admin Trade Name Freq PRN Reason Stop Dose Admin Ceftriaxone Sodium 1 gm 11/23/21 21:41 11/23/21 21:50 Ceftriaxone 1gm Vial IM 11/23/21 21:42 1 gm ONCE ONE Administration Dexamethasone Sodium Phosphate 8 mg 11/23/21 21:41 11/23/21 21:51 Dexamethasone 4mg/Ml 1ml Vial IM 11/23/21 21:42 8 mg ONCE ONE Administration Lidocaine HCl 0 ml 11/23/21 21:41 11/23/21 21:50 Lidocaine 1% 5ml Pf Vial IM 11/23/21 21:42 3 ml ONCE ONE Administration [facility] [place] HPI - General Stated complaint: sore throat Time Seen by Provider: 11/23/21 21:42 Mode of Arrival: Ambulatory Source of Information: Patient Limitations: No Limitations Description of Symptoms (Recalled from Triage Doc. by RN): strep, can't swallow/ hurts to swallow, can't breath HEENT Symptoms (Recalled from RN notes): Yes Resp Symptoms (Recalled from RN notes): Yes Skin Symptoms (Recalled from RN notes): No MS Symptoms (Recalled from RN notes): No Functional Status (Recalled from RN notes): n/a - History of Present Illness Provider Complaint: She states that she has had a very sore throat since yesterday. She has had chilling and felt like she had a fever, but she could not find her thermometer. She denies shortness of breath. She does have a dry cough, but denies any chest congestion. She had covid-19 about 1 month ago. She states that she did ok with that and got completely better after about a week of being sick. She is able to swallow her own saliva. She is able to swallow liquids. She has had difficulty swallowing some foods since her throat became sore. - Related Data Home Medications Medication Instructions Recorded Confirmed Amitriptyline HCl [Elavil 25mg 25 mg PO HS PRN 03/21/19 11/23/21 tablet] Fluoxetine HCl [Prozac] 40 mg PO DAILY 11/23/21 11/23/21 Previous Rx's Medication Instructions Recorded Amoxicillin/Potassium Clav 1 tab PO Q12H 10 D
[2021-11-23 22:07] VITALS: BP 149/84; PULSE 105; RESP 18; TEMP 36.8; O2SAT 97
== END 2021-11-23 22:20 | disposition home or self-care (01) ==
PROVIDERS: Emergency Provider Nurse Practitioner Family; PCP Family Medicine
DX: J02.0 Streptococcal pharyngitis (principal)
CPT/HCPCS: 87880; 96372; 99202; G0463; J0696

== ENCOUNTER 2022-05-15 12:06 | Emergency (ER) | payer BC, SELFPAY ==
[2022-05-15 12:07] VITALS: BP 139/81; PULSE 67; RESP 17; TEMP 36.8; O2SAT 100; BMI 65.0
--- NOTE | 2022-05-15 12:12 | HMH.EDABDPAI ---
ED Disposition Clinical Impression: Kidney stone on right side Disposition: Home, Self-Care Condition on Discharge: Good Instructions: Kidney Stones -- Adult Additional Instructions: follow up Urology, return for worse Prescriptions: Oxycodone HCl/Acetaminophen [Percocet 7.5/325mg tablet] 1 tab PO Q6 PRN #15 tab PRN Reason: Moderate Pain [facility] Status[id number] Oxycodone HCl/Acetaminophen [Percocet 7.5/325mg tablet] 1 tab PO Q6 PRN #15 tab PRN Reason: Moderate Pain Transmission Status: Received by [facility] Ondansetron [Zofran 4mg ODT] 4 mg PO TIDP PRN #15 tab PRN Reason: Nausea And Vomiting Transmission Status: [id number] Referrals: Provider,Referral, MD [Primary Care Provider] - - Critical Care Critical Care Time: No Attestation: On , the high probability of a clinically significant, sudden or life threatening deterioration of the following system(s) required my full and direct attention, intervention and personal management. The time I documented below is in addition to time spent performing reported procedures but includes the following listed in this critical care notation. Medical Decision Making - Medical Records Medical records reviewed: Yes: I reviewed the patient's medical records. - Clive Inquiry Pt receiving controlled substance: Yes Clive was queried for this patient: Yes Risks and benefits of using a controlled substance: were discussed with pt by me Vital Signs: 05/15/22 12:07 05/15/22 13:58 05/15/22 14:00 Temperature 98.3 F Temperature Source Oral Pulse Rate 76 68 Pulse Rate [Right Radial] 67 Respiratory Rate 17 16 16 Blood Pressure 119/42 L 114/49 L Blood Pressure [Right Arm] 139/81 Blood Pressure Mean 58 70 Blood Pressure Mean [Right Arm] 100 Blood Pressure Source [Right Arm] Automatic Cuff Blood Pressure Position [Right Arm] Sitting 02 Sat by Pulse Oximetry 100 95 99 Oxygen Delivery Method Room Air - Lab Data Lab Results 05/15/22 12:38: WBC 9.8, RBC 6.38 H, Hgb 16.4 H, Hct 51.7 H, MCV 81.1, MCH 25.8 L, MCHC 31.8, RDW 15.9, Plt Count 315, MPV 8.6, Neut % (Auto) 71.0, Lymph % (Auto) 22.1, [place] % (Auto) 4.8, Eos % (Auto) 1.2, Baso % (Auto) 0.8, Neut # (Auto) 6.9, Lymph # (Auto) 2.2, [place] # (Auto) 0.5, Eos # (Auto) 0.1, Baso # (Auto) 0.1 05/15/22 12:38: Sodium 141, Potassium 4.5, Chloride 105, Carbon Dioxide 26, Anion Gap 14.5, BUN 20 H, Creatinine 1.00, Estimated Creat Clear 61, Estimated GFR 61, Est GFR ( Amer) 74, Glucose 133 H, Calcium 10.2, Total Bilirubin 0.6, AST 49 H, ALT 58, Alkaline Phosphatase 124, Total Protein 8.4 H D, Albumin 4.7, Globulin 3.7 H, Albumin/Globulin Ratio 1.3 Result diagrams: 05/15/22 12:38 05/15/22 12:38 Orders (Tests/Meds): ED MEDICATIONS Discontinued Medications Generic Name Dose Route Start Last Admin Trade Name Nicanor PRN Reason Stop Dose Admin Hydromorphone HCl 1 mg 05/15/22 12:17 05/15/22 13:05 Hydromorphone 2mg/Ml Syringe IV 05/15/22 12:18 1 mg ONCE ONE Administration Ketorolac Tromethamine 30 mg 05/15/22 13:09 05/15/22 14:27 Ketorolac 30mg/Ml Vial IM 05/15/22 13:10 Not Given ONCE ONE Ketorolac Tromethamine 30 mg 05/15/22 13:15 Ketorolac 30mg/Ml Vial IV 05/15/22 13:16 ONCE ONE Ondansetron HCl 8 mg 05/15/22 12:17 05/15/22 13:04 Ondansetron 4mg/2ml Vial IV 05/15/22 12:18 8 mg ONCE ONE Administration Oxycodone/Acetaminophen 1 each 05/15/22 14:33 05/15/22 14:53 Oxycodone 7.5mg W/Apap 325mg Tablet PO 05/15/22 14:34 1 each ONCE ONE Administration ORDERS Category Date Time Status Urinalysis-Acute [Urinalysis and Microscopic] Stat Lab 05/15/22 12:12 Ordered - Reevaluation(s) Time: 14:33 (reeval appears well, pain controlled, discussed ct findings, no hydro or toxic labs, ok with plan to rx and f/u urology on Tuesday at [place]) Abdominal Pain HPI - Gen
--- NOTE | 2022-05-15 12:17 | CT_ITS ---
PROCEDURE INFORMATION: Exam: CT Abdomen And Pelvis Without Contrast Exam date and time: 05/15/2022 12:50 PM Age: 41 years old Clinical indication: Abdominal pain; Additional info: RT flank pain, h/o stones TECHNIQUE: Imaging protocol: Computed tomography of the abdomen and pelvis without contrast. Radiation optimization: All CT scans at this facility use at least one of these dose optimization techniques: automated exposure control; mA and/or kV adjustment per patient size (includes targeted exams where dose is matched to clinical indication); or iterative reconstruction. COMPARISON: CT ABDOMEN PELVIS W CON 01/29/2020 9:06 PM FINDINGS: Liver: Normal. No mass. Gallbladder and bile ducts: Surgical clips are present in the region of the gallbladder fossa. Pancreas: Normal. No ductal dilation. Spleen: Normal. No splenomegaly. Adrenal glands: Normal. No mass. Kidneys and ureters: 11 mm calcification within the distended right renal pelvis. 4 mm calcification lower pole right kidney Stomach and bowel: Operative changes along the greater curvature of the stomach Appendix: Appendix normal. Intraperitoneal space: Unremarkable. No free air. No significant fluid collection. Vasculature: Unremarkable. No abdominal aortic aneurysm. Lymph nodes: Unremarkable. No enlarged lymph nodes. Urinary bladder: Unremarkable as visualized. Reproductive: Prior hysterectomy. Bones/joints: The osseous structures are unremarkable other than mild degenerative disk disease.. No fracture. Soft tissues: Unremarkable. Other findings: Prior operative changes in the midline of the abdomen IMPRESSION: 1. 11 mm calcification within the distended right renal pelvis. The kidney is abnormal in appearance/edematous. Similar finding was noted on 01-20. Consider follow-up with IV contrast. 2. Appendix normal.
--- NOTE | 2022-05-15 12:33 | PC.NURSE ---
asked if patient could give a urine sample and stated no it hurts too bad and havent been able to drink due to nausea
[2022-05-15 12:44] LABS: Basophils # 0.1 K/mm3 (0-0.2); Basophils % 0.8 % (0.1-2.0); Eosinophils # 0.1 K/mm3 (0.0-0.4); Eosinophils % 1.2 % (0.1-12.0); Hematocrit 51.7 % (37.0-47.0); Hemoglobin 16.4 g/dL (12.2-16.2); Lymphocytes # 2.2 K/mm3 (0.7-4.5); Lymphocytes % 22.1 % (10-50); Mean Corpuscular HGB Conc 31.8 g/dL (31.8-35.4); Mean Corpuscular Hemoglobin 25.8 pg (27.0-31.2); Mean Corpuscular Volume 81.1 fl (81-99); Mean Platelet Volume 8.6 fl (7.4-10.4); Monocytes # 0.5 K/mm3 (0.1-1.0); Monocytes % 4.8 % (1.7-9.3); Neutrophils # 6.9 K/mm3 (1.8-7.8); Platelet Count 315 K/mm3 (142-424); Red Blood Count 6.38 M/mm3 (4.20-5.40); Red Cell Distribution Width 15.9 % (11.5-17.5); White Blood Count 9.8 K/mm3 (4.8-10.8)
[2022-05-15 12:51] LABS: Chloride 105 mmol/L (98-107)
[2022-05-15 12:52] LABS: Potassium 4.5 mmoL/L (3.5-5.1); Sodium 141 mmol/L (136-145)
[2022-05-15 12:54] LABS: Alanine Aminotransferase 58 U/L (12-78); Alkaline Phosphatase 124 U/L (38-126); Aspartate Amino Transferase 49 U/L (14-36); Bilirubin,Total 0.6 mg/dl (0.2-1.3); Blood Urea Nitrogen 20 mg/dl (7-17); Creatinine Clearance Estimated 61 mL/min (50-200); Estimated Glomerular Filt Rate 61 ml/min (>60); GFR (African American) 74 ML/MIN (>60)
[2022-05-15 12:55] LABS: Albumin Level 4.7 g/dl (3.5-5.0); Albumin/Globulin Ratio 1.3 (1.1-1.8); Anion Gap 14.5 mEq/L (5-15); Calcium 10.2 mg/dl (8.4-10.2); Carbon Dioxide 26 mmol/L (22.0-30.0); Globulin 3.7 g/dL (1.3-3.2); Glucose 133 mg/dl (74-100); Total Protein,Serum 8.4 g/dl (6.3-8.2)
--- NOTE | 2022-05-15 13:14 | PC.NURSE ---
previous IV bad, new IV inserted in left fa. pt tolerated well
[2022-05-15 13:58] VITALS: BP 119/42; PULSE 76; RESP 16; O2SAT 95
[2022-05-15 14:00] VITALS: BP 114/49; PULSE 68; RESP 16; O2SAT 99
--- NOTE | 2022-05-15 15:14 | PC.NURSE ---
called clinic pharmacy to cancel percocet order that was sent due to the pharmacy hours, new script was sent to [facility]
[2022-05-15 15:30] VITALS: BP 112/52; PULSE 69; RESP 15; TEMP 36.8; O2SAT 99
== END 2022-05-15 15:34 | disposition home or self-care (01) ==
PROVIDERS: Emergency Provider Emergency Medicine
DX: R10.9 Unspecified abdominal pain (principal); Z87.442 Personal history of urinary calculi
CPT/HCPCS: 74176; 80053; 85025; 96372; 96374; 96375; 99284; J2405

== ENCOUNTER 2022-07-31 13:57 | Emergency (ER) | payer BC, SELFPAY ==
[2022-07-31 14:20] VITALS: BP 130/74; PULSE 98; RESP 18; TEMP 36.8; O2SAT 99; BMI 60.4
--- NOTE | 2022-07-31 14:24 | EXP.UTC ---
Discharge Plan Disposition Patient Disposition: Home, Self-Care Condition: Good Prescriptions Prescriptions: New amoxicillin 875 mg tablet 875 mg PO BID 10 Days Qty: 20 0RF No Action amitriptyline 25 MG tablet 25 mg PO HS PRN (Reason: FIBROMYALGIA) fluoxetine 40 MG capsule 40 mg PO DAILY prednisone 20 MG tablet 20 mg PO BID 3 Days Qty: 6 0RF amoxicillin-pot clavulanate 1 EACH tablet 1 tab PO Q12H 10 Days Qty: 20 0RF ondansetron 4 MG tablet,disintegrating 4 mg PO Q8HP PRN (Reason: Nausea) Qty: 20 0RF oxycodone-acetaminophen 1 EACH tablet 1 tab PO Q6 PRN (Reason: Moderate Pain) Qty: 15 0RF ondansetron 4 MG tablet,disintegrating 4 mg PO TIDP PRN (Reason: Nausea And Vomiting) Qty: 15 0RF oxycodone-acetaminophen 1 EACH tablet 1 tab PO Q6 PRN (Reason: Moderate Pain) Qty: 15 0RF Referrals Follow up/Referrals: Vitaliy Rehman JR, MD [Primary Care Provider] - See instructions Activity Restrictions/Add. Instructions Additional Instructions/Restrictions: *Monitor Temp, Over the counter Motrin or Tylenol as directed/as needed Tylenol every 4 hours and Motrin every 6 hours (as long as your family doctor has told you that you can take it) for fever or pain. and straight to ER if unable to lower temp less than 101.0 after medication given *Warm salt water gargles may help to soothe the throat *Throat Lozenges? *Warm fluids like tea with honey may help to soothe the throat? *Sleep elevated *Humidifier/Vaporizer Your throat swab was sent for culture. Those results are typically sent to your primary care. Be sure to follow up in 2-3 days with your family doctor/primary care physician if no improvement so they can review those result and treat if necessary. If you don?t have a primary care doctor, I recommend you get one but in the mean time, you will have to return to a walk in clinic Follow up IMMEDIATELY for new or worsening symptoms or no Noticeable improvement over the next 48-72 hours. 911 for difficulty breathing or swallowing Clinical Impressions Clinical Impression: Otitis media Instructions Patient Instructions: Middle Ear Infection Discharge ED Provider: Alicia Holly [facility] [place] HPI General Stated complaint: Sore throat, RT ear pain, fatigued, nausea Time Seen by Provider: 07/31/22 14:24 History of Present Illness Provider Complaint: Patient states that she feels like she may have strep throat States that she has been having sore throat, pain in her right ear and hurts when she swallows and nausea States that feels like it does when she has strep throat or ear infection Related Data Home Medications Medication Instructions Recorded Confirmed amitriptyline 25 mg tablet 25 mg PO HS PRN FIBROMYALGIA 03/21/19 11/23/21 fluoxetine 40 mg capsule 40 mg PO DAILY Anxiety 11/23/21 11/23/21 Previous Rx's Medication Instructions Recorded amoxicillin 875 mg-potassium 1 tab PO Q12H 10 days #20 tabs 11/23/21 clavulanate 125 mg tablet ondansetron 4 mg disintegrating 4 mg PO Q8HP PRN Nausea #20 tabs 11/23/21 tablet prednisone 20 mg tablet 20 mg PO BID 3 days #6 tabs 11/23/21 ondansetron 4 mg disintegrating 4 mg PO TIDP PRN Nausea And 05/15/22 tablet Vomiting #15 tabs oxycodone-acetaminophen 7.5 mg-325 1 tab PO Q6 PRN Moderate Pain #15 05/15/22 mg tablet tabs oxycodone-acetaminophen 7.5 mg-325 1 tab PO Q6 PRN Moderate Pain #15 05/15/22 mg tablet tabs amoxicillin 875 mg tablet 875 mg PO BID 10 days #20 tabs 07/31/22 Allergies Allergy/AdvReac Type Severity Reaction Status Date / Time erythromycin base Allergy Unknown Verified 11/23/21 21:16 [ERYTHROMYCIN BASE] latex [LATEX] Allergy Unknown Verified 11/23/21 21:16 [facility] Medical History (Updated 07/31/22 @ 14:45 by Alicia Holly APRN) Anxiety Asthma Cancer Depression Kidney stone Thyroid disease Surgical History (Updated 07/31/22 @ 14:40 by Kaylyn Crawford
[2022-07-31 14:41] LABS: UTC Strep Screen (Rapid) Negative (Negative)
[2022-07-31 14:48] VITALS: BP 130/74; PULSE 98; RESP 18; TEMP 36.8; O2SAT 99
== END 2022-07-31 14:50 | disposition home or self-care (01) ==
PROVIDERS: Emergency Provider Nurse Practitioner; PCP Family Medicine
DX: H66.91 Otitis media, unspecified, right ear (principal); J02.9 Acute pharyngitis, unspecified; R09.81 Nasal congestion; R11.2 Nausea with vomiting, unspecified; R53.82 Chronic fatigue, unspecified; E07.9 Disorder of thyroid, unspecified; M79.7 Fibromyalgia; J45.909 Unspecified asthma, uncomplicated; F32.A Depression, unspecified; F41.9 Anxiety disorder, unspecified; Z85.9 Personal history of malignant neoplasm, unspecified; Z87.442 Personal history of urinary calculi; Z88.0 Allergy status to penicillin; Z88.1 Allergy status to other antibiotic agents; Z88.3 Allergy status to other anti-infective agents; Z91.040 Latex allergy status
CPT/HCPCS: 87880; 99213; G0463

== ENCOUNTER 2022-10-13 13:00 | Outpatient (RCR) | payer BC, SELFPAY | END 2022-10-13 13:05 | disposition home or self-care (01) | LOC: PT 13:00 | PROVIDERS: PCP Family Medicine | DX: S39.012A Strain of muscle, fascia and tendon of lower back, initial encounter (principal) | CPT/HCPCS: 97110; 97113; 97163; 97164; 97530; 97535 ==

== ENCOUNTER → 2023-01-08 09:30 | Outpatient (CLI) | payer BC, SELFPAY ==
--- NOTE | 2023-01-08 09:55 | XR_ITS ---
PROCEDURE INFORMATION: Exam: XR Right Knee Exam date and time: 01/08/2023 9:55 AM Age: 42 years old Clinical indication: Pain; Knee; Right TECHNIQUE: Imaging protocol: Radiologic exam of the right knee. Views: 1 or 2 views. COMPARISON: No relevant prior studies available. FINDINGS: Bones/joints: Tricompartmental joint space narrowing and osteophyte formation consistent with degenerative changes. There is no evidence of acute fracture.There is no evidence of malalignment or dislocation. Soft tissues: Normal. IMPRESSION: 1. Tricompartmental joint space narrowing and osteophyte formation consistent with degenerative changes. 2. There is no evidence of acute fracture.There is no evidence of malalignment or dislocation.
== END ==
LOC: RAD 09:31
PROVIDERS: PCP Family Medicine; Visit Provider Family Medicine
DX: M25.561 Pain in right knee (principal)
CPT/HCPCS: 73560

== ENCOUNTER → 2023-04-26 13:06 | Outpatient (CLI) | payer BC, SELFPAY ==
--- NOTE | 2023-04-26 14:17 | MR_ITS ---
FINAL REPORT TECHNIQUE: Multiplanar MR without contrast CLINICAL HISTORY: RIGHT KNEE PAIN pain when walking COMPARISON: None FINDINGS: Articular cartilage: There is advanced thinning of the cartilage in the medial and lateral compartments, greater in the medial compartment. There is grade III chondromalacia of the patella. Marrow signal: There is subchondral marrow edema in the medial tibial plateau, likely degenerative. Joint fluid: A small effusion is present. Menisci: There is a large complex tear of the posterior horn and body of the medial meniscus. The lateral meniscus is intact. Ligaments: Unremarkable IMPRESSION: Advanced thinning of the cartilage in the medial and lateral compartments, greater in the medial compartment and grade III chondromalacia of the patella. Complex tear posterior horn and body of the medial meniscus. Reviewed, Interpreted and Dictated by Caio Vásquez MD Transcribed by Debi Cline Authenticated and [facility]
== END ==
LOC: RAD 13:06
PROVIDERS: PCP Family Medicine; Visit Provider Family Medicine
DX: M25.561 Pain in right knee (principal); M25.461 Effusion, right knee
CPT/HCPCS: 73721

== ENCOUNTER 2023-05-13 17:53 | Emergency (ER) | payer BC, SELFPAY ==
[2023-05-13 18:00] VITALS: BP 104/62; PULSE 63; RESP 20; TEMP 36.7; O2SAT 98; BMI 49.2
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
[2023-05-13 19:11] VITALS: BP 104/62; PULSE 63; RESP 20; TEMP 36.7; O2SAT 98
== END 2023-05-13 19:17 | disposition home or self-care (01) ==
PROVIDERS: Emergency Provider Nurse Practitioner Family; PCP Family Medicine
DX: S60.931A Unspecified superficial injury of right thumb, initial encounter (principal); S60.011A Contusion of right thumb without damage to nail, initial encounter; J45.909 Unspecified asthma, uncomplicated; F41.9 Anxiety disorder, unspecified; F32.A Depression, unspecified; W23.0XXA Caught, crushed, jammed, or pinched between moving objects, initial encounter
CPT/HCPCS: 73130; 99212; 99214; G0463

== ENCOUNTER → 2023-05-20 13:18 | Outpatient (CLI) | payer BC, SELFPAY ==
--- NOTE | 2023-05-20 13:29 | XR_ITS ---
FINAL REPORT TECHNIQUE: Chest PA & Lateral CLINICAL HISTORY: knee surgery in sept. pre-op cxr COMPARISON: None FINDINGS: 2 views of the chest were performed. The heart size is normal. The mediastinum is within normal limits. There is no acute cardiopulmonary process. There are no pleural effusions. There is no pneumothorax. The bony thorax appears intact. IMPRESSION: No acute cardiopulmonary process. Reviewed, Interpreted and Dictated by Kenneth Toro MD Transcribed by Debi Cline Authenticated and [facility]
[2023-05-20 13:49] LABS: Basophils # 0.1 K/mm3 (0-0.2); Basophils % 0.6 % (0.1-2.0); Eosinophils # 0.1 K/mm3 (0.0-0.4); Eosinophils % 0.6 % (0.1-12.0); Hematocrit 48.1 % (37.0-47.0); Hemoglobin 15.6 g/dL (12.2-16.2); Lymphocytes # 2.7 K/mm3 (0.7-4.5); Lymphocytes % 31.9 % (10-50); Mean Corpuscular HGB Conc 32.4 g/dL (31.8-35.4); Mean Corpuscular Hemoglobin 27.2 pg (27.0-31.2); Mean Corpuscular Volume 83.9 fl (81-99); Mean Platelet Volume 8.3 fl (7.4-10.4); Monocytes # 0.4 K/mm3 (0.1-1.0); Monocytes % 5.2 % (1.7-9.3); Neutrophils # 5.2 K/mm3 (1.8-7.8); Neutrophils % 61.7 % (37.0-80.0); Platelet Count 241 K/mm3 (142-424); Red Blood Count 5.73 M/mm3 (4.20-5.40); White Blood Count 8.5 K/mm3 (4.8-10.8)
[2023-05-20 14:27] LABS: Chloride 105 mmol/L (98-107)
[2023-05-20 14:28] LABS: Potassium 4.1 mmoL/L (3.5-5.1); Sodium 143 mmol/L (136-145)
[2023-05-20 14:30] LABS: Alanine Aminotransferase 29 U/L (12-78); Blood Urea Nitrogen 19 mg/dl (7-17); Estimated Glomerular Filt Rate 79 ml/min (>60); GFR (African American) 95 ML/MIN (>60)
[2023-05-20 14:31] LABS: Albumin Level 4.1 g/dl (3.5-5.0); Albumin/Globulin Ratio 1.6 (1.1-1.8); Alkaline Phosphatase 76 U/L (38-126); Anion Gap 16.1 mEq/L (5-15); Aspartate Amino Transferase 27 U/L (14-36); Bilirubin,Total 0.6 mg/dl (0.2-1.3); Calcium 9.9 mg/dl (8.4-10.2); Carbon Dioxide 26 mmol/L (22.0-30.0); Globulin 2.5 g/dL (1.3-3.2); Glucose 91 mg/dl (74-100); Total Protein,Serum 6.6 g/dl (6.3-8.2)
--- NOTE | 2023-05-20 15:19 | ECG_ITS ---
APPROVED REPORT Exam: Resting ECG HR:52 bpm ECG Measurements Heart Rate 52 AXES SD 155 P -7 QRSd 88 QRS 51 QT 418 T 30 QTc 397 Conclusion SINUS BRADYCARDIA BORDERLINE ECG UNCONFIRMED REPORT Electronically signed by : Shorty Perez MD 05/21/2023 21:02:08
== END ==
LOC: LAB 13:19
PROVIDERS: PCP Family Medicine; Visit Provider Orthopaedic Surgery
DX: Z01.818 Encounter for other preprocedural examination (principal); S83.231A Complex tear of medial meniscus, current injury, right knee, initial encounter
CPT/HCPCS: 36415; 71046; 80053; 85025; 93005

== ENCOUNTER 2023-05-25 09:32 | Day surgery (SDC) | payer BC, SELFPAY ==
[2023-05-20 14:18] VITALS: BMI 49.4
[2023-05-25] VITALS (10 sets, daily range): BP systolic 116–153; BP diastolic 64–87; PULSE 47–56; RESP 11–18; TEMP 36.2–36.6; O2SAT 94–100
--- NOTE | 2023-05-25 11:35 | EXP.ANES.CKL ---
[facility] Disclaimer: The information contained in this section may have been updated after the patient was seen, as this information can be updated by other users. Medical History Anxiety Asthma Cancer Depression History of fibromyalgia Kidney stone Thyroid disease Surgical History History of section History of cholecystectomy History of hysterectomy Family History Other No significant family history Social History Smoking Status: Unknown if ever smoked second hand exposure: No alcohol intake: never counseling provided: none substance use type: denies use current occupational status: other Travel in the last 8 weeks: None household members: spouse and children housing: house [facility] Anesthesia Checklist Patient Identification Patient Identification: Arm Band and Verbal (Name & ) Structural Data Admitted From: Home Planned Operative Procedure/s: rt knee scope Consent for Planned Operative Procedure(s) Verified: Yes Verified Documents: Surgical Consent NPO Status Verified Time NPO: 00:00 Additional verifications Anesthesia Reactions: No Hx Blood Transfusions: No Blood Transfusion Reaction: No Airway Assessment Mallampati Score:: Class III C-Spine Mobility Assessed: Yes TMJ Mobility Assessed: Yes Dentition: Good Dentition Neurological Assessment Level of Consciousness: Awake and Alert Hx Seizures: No Numbness or tingling in extremities: No Anesthesia Plan Anesthesia Risk discussed: Yes ASA Class: III Anesthesia Type: General
--- NOTE | 2023-05-25 13:25 | P.OP_ITS ---
Date of procedure: 05/25/23 Pre-op Diagnosis:: Right knee macerated medial meniscus tear right knee advanced osteoarthritis right knee mechanically locked knee Post-op Diagnosis:: Same Procedure performed:: Right knee arthroscopy with partial medial meniscectomy Right knee arthroscopy with excision impinging osteophytes Right knee arthroscopy with chondroplasty medial femoral condyle Surgeon:: Te Washington DO PROGRAM DIRECTOR SCOUTING:: Other Anesthesia: GETA Estimated blood loss (mL): 0 Operative findings:: Large impinging osteophytes anterior tibia intercondylar notch medial and lateral joint lines. Macerated tear medial meniscus. Operative note:: Patient was identified preoperatively. Right knee marked yes my initials. Transported operative suite. Placed upon the operating bed. General anesthesia ministered airway secured. Right lower extremities then prepped and draped within the knee ca. Of note patient was unable to get terminal extension on the knee and had a mechanically locked knee at the time of prepping draping with -30 degrees of terminal extension. Once prepped and draped final operative timeout performed to identify proper patient procedure and extremity. Everyone involved the case agreed. There is no count indication beginning. She did receive preoperative antibiotics. Marking pen was used to phyllis the bony landmarks of the knee and standard portal sites. Esmarch was used to exsanguinate the extremity pneumatic tourniquet plated to 300 mmHg. Skin knife was used to incise standard anterior lateral portal blunt with trocar was placed in the patellofemoral joint. Exchanged with a camera. Swept directly into the medial joint line where an anterior medial portal was established. Upon sweeping into the medial joint line there was a very large anterior tibial osteophyte that was impinging on the femur and blocking terminal extension. There is also a large macerated tear of the posterior horn and body of the medial meniscus. Using a combination of straight biter and sucker shaver partial medial meniscectomy was performed back to stable rim. A barrel bur was selected and the osteophyte that was impinging was flattened. Tensions brought intercondylar notch was also a large impinging osteophyte in the anterior aspect intercondylar notch which was also debrided with the bur. Upon sweep into the lateral joint line there is also a large lateral osteophyte that was impinging with the knee coming in terminal extension. The lateral meniscus was intact. Lateral cartilage was soft. There is severe degenerative changes in the patellofemoral joint the medial femoral condyle. Some loose nate cartilage in the medial femoral condyle which was debrided. Upon removal of the osteophytes it was able to get more extension at the knee she still had - 5 degrees of terminal extension. Once the osteophytes were removed back to flat area and not impinging on the femur cameras removed the joint was drained local anesthesia filtrated the portal sites skin closed with nylon stitch sterile dressing placed. Patient waken anesthesia taken recovery in stable condition. Condition: stable Disposition: PACU Complications:: None apparent
--- NOTE | 2023-05-25 13:38 | EXP.ANES.I ---
[facility] [place] Anesthesia Record Part I Anesthesia Record I Intake, IV Amount: 750 Hydration: Adequate Estimated blood loss (mL): 1 Urine output (mL): 0 Blood Products used (#): none Blood Pressure: 134/76 SaO2: 94 Pulse Rate: 56 Airway Patency: Patent Respiratory Rate: 12 Temperature: 97.7 F Patient is:: Awake and Nasal O2 Stable to PACU at:: 13:30
== END 2023-05-25 15:05 | disposition home or self-care (01) ==
PROVIDERS: PCP Family Medicine; Visit Provider Orthopaedic Surgery
PROC: (CPT 29870; principal; 2023-05-25 11:15)
DX: M23.221 Derangement of posterior horn of medial meniscus due to old tear or injury, right knee (principal); M23.231 Derangement of other medial meniscus due to old tear or injury, right knee; M23.8X1 Other internal derangements of right knee; Z79.899 Other long term (current) drug therapy; M17.11 Unilateral primary osteoarthritis, right knee
CPT/HCPCS: 29881; 29879; 96374; J2405

== ENCOUNTER 2023-06-30 16:00 | Outpatient (RCR) | payer BC, SELFPAY ==
--- NOTE | 2023-06-17 08:51 | HMH.PTOPEV ---
PT Outpatient Evaluation Rehab PT Outpatient Evaluation Start: 06/17/23 08:35 Freq: Status: Active Protocol: Document 06/17/23 08:36 CARISSA (Rec: 06/17/23 08:51 CARISSA [id number]) E-signed By Waldemar Whitehead, PT Outpatient Therapy Subjective History Subjective History Patient is a 42 year old female presenting to outpatient PT with reports of R post-surgical knee pain S/P R knee arthroscopy including partial medial meniscectomy, osteophyte excision and medial femoral condyle chondroplasty performed 05/25/23 (3w 2d S/P) . Patient reports hx of R knee pain for approximately 20 years of insdious onset. Comorbidities include recent gastric sleeve sx, fibromyalgia and OA. New diagnosis of cancer in past 12 No months? Chief Complaint Pain,Stiff,Swelling,Gives out/ Unstable Symptom Type Ache,Sharp Symptoms Relieved By Rest/Positioning,Ice,OTC Meds, Elevation Symptoms Aggravated By Standing,Physical Activity, Walking Prior Functional Limitations Standing,Walking Current Functional Limitations Housework,Driving,Sleeping, Standing,Squatting,Walking, Stairs,Balance Symptom Description Constant but Variable Level of pain today (0-10) 2 Pain scale - at its best (0-10) 2 Pain scale - at its worst (0-10) 6 Hip/Knee Eval Gait Observation General Gait Pattern Observation Antalgic Gait,Decrease Weight Bear (R) Assistive Device Assistive Devices None / NA Palpation Tenderness right Knee Palpation Finding Tenderness Knee Palpation Overall Comment patellar tendon, medial femoral condyle/tibial plateau 3/4 MMT Hip Flexion Strength Grade 4- Good- Hip Abduction Strength Grade 4- Good- Hip Adduction Strength Grade 3+ Fair+ Hip Extension Strength Grade 3+ Fair+ Hip External Rotation Strength Grade 4- Good- Hip Internal Rotation Strength Grade 4- Good- Knee Extension Strength Grade 3+ Fair+ Knee Flexion Strength Grade 4 Good ROM Hip ROM Reason Not Measured Within Functional Limits Knee Extension Active Range of Motion ( -23 degrees) Knee Flexion Active Range o
== END 2023-06-30 16:05 | disposition home or self-care (01) ==
LOC: PT 16:00
PROVIDERS: PCP Family Medicine; Visit Provider Orthopaedic Surgery
DX: M25.561 Pain in right knee (principal); Z96.651 Presence of right artificial knee joint
CPT/HCPCS: 97010; 97014; 97016; 97035; 97110; 97140; 97163; 97530; G0283

== ENCOUNTER 2023-07-03 09:01 | Emergency (ER) | payer BC, SELFPAY ==
[2023-07-03 09:10] VITALS: BP 126/80; PULSE 54; RESP 20; TEMP 36.7; O2SAT 99; BMI 47.8
--- NOTE | 2023-07-03 09:31 | XR_ITS ---
PROCEDURE INFORMATION: Exam: XR Chest Exam date and time: 07/03/2023 9:33 AM Age: 42 years old Clinical indication: Cough; Additional info: Cough, pain with breathing TECHNIQUE: Imaging protocol: Radiologic exam of the chest. Views: 2 views. COMPARISON: CR XR CHEST 2V 05/20/2023 1:38 PM FINDINGS: Lungs: Unremarkable. No consolidation. Pleural spaces: Unremarkable. No pleural effusion. No pneumothorax. Heart/Mediastinum: Unremarkable. No cardiomegaly. Bones/joints: Unremarkable. IMPRESSION: No acute cardiopulmonary disease.
--- NOTE | 2023-07-03 09:41 | EXP.UTC ---
Discharge Plan Disposition Patient Disposition: Home, Self-Care Condition: Good Prescriptions Prescriptions: New methylprednisolone [Medrol (Medhat)] 4 mg tablets,dose pack See Rx Instructions .Route .COMPLEX 6 Days Qty: 21 0RF Rx Instructions: taper pack; cefdinir 300 mg capsule 300 mg PO BID Qty: 20 0RF ibuprofen 600 mg tablet 600 mg PO Q6HP PRN (Reason: Moderate Pain) Qty: 20 0RF No Action omeprazole 40 mg Capsule,Delayed Release(Dr/Ec) 40 mg PO DAILY levothyroxine 50 mcg tablet 50 mcg PO DAILY Patient Comments: TAKE ONE TABLET BY MOUTH EVERY DAY IN THE MORNING ON an EMPTY stomach estradiol 2 mg tablet 2 mg PO DAILY Patient Comments: TAKE ONE TABLET BY MOUTH EVERY DAY Referrals Follow up/Referrals: Tana Espinal MD [Primary Care Provider] - See instructions Activity Restrictions/Add. Instructions Additional Instructions/Restrictions: Start antibiotic today. Be sure to complete entire prescription even if feeling better Monitor temp. Tylenol every 4 hours as needed and / or ibuprofen every 6 hours as needed ( As long as your primary care physician has told you that it ok to take both. For fever/aches/pains ER if no less than 101 despite Tylenol or Motrin Humidifier/vaporizer or hot steamy shower *Start steroid today. Helps with inflammation therefore, cough and wheezing. Follow directions on the package. Reviewed side effects. Patient reports taking them before. Follow up IMMEDIATELY for new or worsening of symptoms OR no noticeable improvement over the next 48-72 hours. 911 immediately for any life threatening symptoms such as chest pain or difficulty breathing Clinical Impressions Clinical Impression: Pleurisy Acute bronchitis Qualifiers: Bronchitis organism: unspecified organism Qualified Code(s): J20.9 - Acute bronchitis, unspecified Instructions Patient Instructions: DI for Pleurisy, Acute Bronchitis Discharge ED Provider: Alicia Holly [facility] General Stated complaint: soa, lung pain Mode of Arrival: Ambulatory Source of Information: Patient Limitations: No Limitations Time Seen by Provider: 07/03/23 09:41 Description of Symptoms (Recalled from Triage Doc. by RN): PATIENT C/O SHARP PAIN IN BACK BETWEEN SHOULDER BLADES WHEN TAKING A DEEP BREATH X 1 WEEK. SHE REPORTS HAVING AN INTERMITTEN COUGH HEENT Symptoms (Recalled from RN notes): No Resp Symptoms (Recalled from RN notes): No Skin Symptoms (Recalled from RN notes): No MS Symptoms (Recalled from RN notes): Yes Functional Status (Recalled from RN notes): WNL History of Present Illness Provider Complaint: Patient states she has been having an intermittent cough for a couple weeks but for the last week she has been having a sharp pain between her shoulder blade area when she takes a deep breath States that feels like it did when she had pleurisy before but mother was recently dx with Pneumonia and she wanted to get a CXR to make sure she didnt have pneumonia Related Data Home Medications Medication Instructions Recorded Confirmed estradiol 2 mg tablet 2 mg PO DAILY Supplement 05/20/23 07/03/23 levothyroxine 50 mcg tablet 50 mcg PO DAILY hypothyroidism 05/20/23 07/03/23 omeprazole 40 mg capsule,delayed 40 mg PO DAILY GERD 05/20/23 07/03/23 release Previous Rx's Medication Instructions Recorded cefdinir 300 mg capsule 300 mg PO BID #20 caps 07/03/23 ibuprofen 600 mg tablet 600 mg PO Q6HP PRN Moderate Pain 07/03/23 #20 tabs methylprednisolone 4 mg tablets in See Rx Instructions .Route 07/03/23 a dose pack (Medrol (Medhat)) .COMPLEX 6 days #21 tabs Allergies Allergy/AdvReac Type Severity Reaction Status Date / Time erythromycin base Allergy Unknown Verified 06/07/23 09:52 [ERYTHROMYCIN BASE] latex [LATEX] Allergy Unknown Verified 06/07/23 09:52 Worker's Comp Is this a Worker's Comp case?: No PFSH PFS Disclaimer:
[2023-07-03 10:50] VITALS: BP 126/80; PULSE 54; RESP 20; TEMP 36.7; O2SAT 99
== END 2023-07-03 10:51 | disposition home or self-care (01) ==
PROVIDERS: Emergency Provider Nurse Practitioner; PCP Family Medicine
DX: R09.1 Pleurisy (principal); J01.90 Acute sinusitis, unspecified; J45.909 Unspecified asthma, uncomplicated; E03.9 Hypothyroidism, unspecified; F41.9 Anxiety disorder, unspecified; F32.A Depression, unspecified
CPT/HCPCS: 71046; 99212; 99214; G0463

== ENCOUNTER 2023-08-05 11:33 | Emergency (ER) | payer BC, SELFPAY ==
[2023-08-05 12:10] VITALS: BP 113/74; PULSE 87; RESP 18; TEMP 37.1; O2SAT 100; BMI 48.6
--- NOTE | 2023-08-05 12:15 | EXP.UTC ---
Discharge Plan Disposition Patient Disposition: Home, Self-Care Condition: Good Prescriptions Prescriptions: New ondansetron 4 mg Tablet,Disintegrating 4 mg PO Q8H PRN (Reason: Nausea) Qty: 12 0RF No Action dextroamphetamine-amphetamine [Adderall] 10 mg tablet 10 mg PO DAILY Patient Comments: TAKE ONE TABLET BY MOUTH TWICE DAILY levothyroxine 50 mcg tablet 50 mcg PO DAILY Patient Comments: TAKE ONE TABLET BY MOUTH EVERY DAY IN THE MORNING ON an EMPTY stomach estradiol 2 mg tablet 2 mg PO DAILY Patient Comments: TAKE ONE TABLET BY MOUTH EVERY DAY Referrals Follow up/Referrals: Tana Espinal MD [Primary Care Provider] - See instructions Activity Restrictions/Add. Instructions Additional Instructions/Restrictions: Drink plenty of fluids. Take tylenol or ibuprofen for pain or fever. Take the medications as directed. Follow up with your regular doctor. GO TO THE ER FOR ANY WORSENING SYMPTOMS Clinical Impressions Clinical Impression: Acute viral syndrome Instructions Patient Instructions: DI for Viral Syndrome Discharge ED Provider: Isidoro Escudero [facility] General Stated complaint: diarrhea, cramping, back pain, no accident Time Seen by Provider: 08/05/23 12:14 History of Present Illness Provider Complaint: He states that for the past 1 day he has had body aches, chills, fever and malaise. Related Data Home Medications Medication Instructions Recorded Confirmed estradiol 2 mg tablet 2 mg PO DAILY Supplement 05/20/23 08/05/23 levothyroxine 50 mcg tablet 50 mcg PO DAILY hypothyroidism 05/20/23 08/05/23 dextroamphetamine-amphetamine 10 10 mg PO DAILY 08/05/23 08/05/23 mg tablet (Adderall) Previous Rx's Medication Instructions Recorded ondansetron 4 mg disintegrating 4 mg PO Q8H PRN Nausea #12 tabs 08/05/23 tablet Allergies Allergy/AdvReac Type Severity Reaction Status Date / Time erythromycin base Allergy Unknown Verified 08/05/23 12:27 [ERYTHROMYCIN BASE] latex [LATEX] Allergy Unknown Verified 08/05/23 12:27 [facility] Disclaimer: The information contained in this section may have been updated after the patient was seen, as this information can be updated by other users. Medical History Anxiety Asthma Cancer Depression History of fibromyalgia Kidney stone Thyroid disease Surgical History History of section History of cholecystectomy History of hysterectomy Family History Other No significant family history Social History Smoking Status: Unknown if ever smoked second hand exposure: No alcohol intake: never counseling provided: none substance use type: denies use current occupational status: other Travel in the last 8 weeks: None household members: spouse and children housing: house ROS Obtained: Yes All systems reviewed & no additional complaints except as documented Constitutional Constitutional: Reports chills and Reports fever(s) Eyes Eyes: Denies eye discharge ENT Ears, Nose, Mouth, and Throat: Reports as per HPI Cardiovascular Cardiovascular: Denies chest pain Respiratory Respiratory: Denies chest congestion and Reports cough Gastrointestinal Gastrointestingal: Reports nausea; Denies abdominal pain, constipation, cramping, diarrhea or vomiting Musculoskeletal Musculoskeletal: Denies arthralgias Integumentary/Breasts Skin/Breast: Denies rash Neurologic Neurologic: Denies paresthesias Physical Exam General General appearance: alert and in no apparent distress Head Head exam: atraumatic, normocephalic and normal inspection Eye Eye exam: Present normal appearance, PERRL and EOMI ENT ENT exam: Present normal exam, normal oropharynx, mucous membranes m
[2023-08-05 12:37] LABS: Apearance,Urine Clear (Clear); Bilirubin,Urine Negative (Negative); Blood, Urine Negative (Negative); Color,Urine Yellow (Yellow); Glucose,Urine (UA) Negative (Negative); Ketones,Urine Negative (Negative); PH,Urine 5.5 (5.0-8.5); Protein,Urine Negative (Negative); Specific Gravity, Urine 1.025 (1.005-1.030); UTC Leukocyte Esterase,Urine Negative (Negative); UTC Nitrate,Urine Negative (Negative); Urobilinogen,Urine 0.2 EU/dl (0.2)
[2023-08-05 12:50] VITALS: BP 113/74; PULSE 87; RESP 19; TEMP 37.1; O2SAT 100
== END 2023-08-05 12:50 | disposition home or self-care (01) ==
PROVIDERS: Emergency Provider Nurse Practitioner Family; PCP Family Medicine
DX: R50.9 Fever, unspecified (principal); B34.9 Viral infection, unspecified; E03.9 Hypothyroidism, unspecified; J45.909 Unspecified asthma, uncomplicated; F41.9 Anxiety disorder, unspecified; F33.9 Major depressive disorder, recurrent, unspecified
CPT/HCPCS: 81003; 87880; 99212; 99214; G0463

== ENCOUNTER 2023-10-28 09:23 | Outpatient (CLI) | payer BC, SELFPAY ==
[2023-10-28 16:48] LABS: Amphetamine/Metha Screen,Urine Positive ng/ml (<1000); Barbiturates Screen,Urine Negative ng/ml (<200)
[2023-10-28 16:49] LABS: Benzodiazepines Screen,Urine Negative ng/ml (<200)
[2023-10-28 16:50] LABS: Cannabinoid Screen,Urine Positive ng/ml (<50); Cocaine Screen,Urine Negative ng/ml (<300)
[2023-10-28 16:51] LABS: Methadone Screen,Urine Negative ng/ml (<300)
[2023-10-28 16:52] LABS: Opiate Screen,Urine Negative ng/ml (<300); Phencyclidine Screen,Urine Negative ng/ml (<25)
== END 2023-10-28 23:59 ==
PROVIDERS: PCP Family Medicine; Visit Provider Nurse Practitioner Psychiatric/Mental Health
DX: F90.2 Attention-deficit hyperactivity disorder, combined type (principal)
CPT/HCPCS: 80307

== ENCOUNTER 2023-11-18 11:42 | Emergency (ER) | payer BC, SELFPAY ==
[2023-11-18 12:10] VITALS: BP 132/78; PULSE 109; RESP 21; TEMP 36.6; O2SAT 100; BMI 46.5
--- NOTE | 2023-11-18 12:30 | ED_ITS ---
Discharge Plan Disposition Patient Disposition: Home, Self-Care Condition: Good Prescriptions Prescriptions: New amoxicillin 875 mg tablet 875 mg PO Q12H Qty: 20 0RF No Action venlafaxine 37.5 mg capsule,extended release 24hr 37.5 mg PO DAILY Patient Comments: TAKE ONE CAPSULE BY MOUTH EVERY MORNING dextroamphetamine-amphetamine 10 mg tablet 10 mg PO DAILY Patient Comments: TAKE ONE TABLET BY MOUTH TWICE DAILY levothyroxine 50 mcg tablet 50 mcg PO DAILY Patient Comments: TAKE ONE TABLET BY MOUTH EVERY DAY IN THE MORNING ON an EMPTY stomach estradiol 2 mg tablet 2 mg PO DAILY Patient Comments: TAKE ONE TABLET BY MOUTH EVERY DAY hydroxyzine pamoate 25 mg capsule 25 mg PO DAILY Patient Comments: TAKE ONE CAPSULE BY MOUTH TWICE DAILY NEEDED FOR INCREASED ANXIETY Referrals Follow up/Referrals: Tana Espinal MD [Primary Care Provider] - See instructions Activity Restrictions/Add. Instructions Additional Instructions/Restrictions: *Monitor Temp, Over the counter Motrin or Tylenol as directed/as needed Tylenol every 4 hours and Motrin every 6 hours (as long as your family doctor has told you that you can take it) for fever or pain. and straight to ER if unable to lower temp less than 101.0 after medication given *Warm salt water gargles may help to soothe the throat *Throat Lozenges? *Warm fluids like tea with honey may help to soothe the throat? *Sleep elevated *Humidifier/Vaporizer *If you did not take Penicillin shot or was unable to, start taking antibiotic immediately and make sure that you take it for the FULL length of time although you should start to feel better in 24-48 hours *change toothbrush and toothpaste 24-48 hours after starting to take antibiotics so you do not reinfect yourself Monitor Temp. Tylenol and/or Ibuprofen as needed. ER if fever is no less than 101 despite alternating Tylenol and Ibuprofen * Encourage fluids, water, Gatorade, powerade, pedialyte if /toddler/or child *Cold fluids, popsicles and ice cream may feel good on his throat Follow up IMMEDIATELY for new or worsening symptoms or no Noticeable improvement over the next 48-72 hours. 911 for difficulty breathing or swallowing Clinical Impressions Clinical Impression: Strep pharyngitis Instructions Patient Instructions: DI for Strep Throat, Strep Throat Discharge ED Provider: Alicia Holly [facility] [place] General Stated complaint: body aches, sore throat Mode of Arrival: Ambulatory Source of Information: Patient Limitations: No Limitations Time Seen by Provider: 11/18/23 12:30 Description of Symptoms (Recalled from Triage Doc. by RN): PATIENT C/O BODY ACHES AND SORE THROAT X 2 DAYS HEENT Symptoms (Recalled from RN notes): Yes Resp Symptoms (Recalled from RN notes): No Skin Symptoms (Recalled from RN notes): No MS Symptoms (Recalled from RN notes): No Functional Status (Recalled from RN notes): WNL History of Present Illness Provider Complaint: Patient states that for the last couple of days she has been having body aches, headache and sore throat States that today she wasnt feeling any better so she came in to get checked Related Data Home Medications Medication Instructions Recorded Confirmed dextroamphetamine-amphetamine 10 10 mg PO DAILY 11/18/23 11/18/23 mg tablet estradiol 2 mg tablet 2 mg PO DAILY 11/18/23 11/18/23 hydroxyzine pamoate 25 mg capsule 25 mg PO DAILY 11/18/23 11/18/23 levothyroxine 50 mcg tablet 50 mcg PO DAILY 11/18/23 11/18/23 venlafaxine 37.5 mg 37.5 mg PO DAILY 11/18/23 11/18/23 capsule,extended release 24 hr Previous Rx's Medication Instructions Recorded amoxicillin 875 mg tablet 875 mg PO Q12H #20 tabs 11/18/23 Allergies Allergy/AdvReac Type Severity Reaction Status Date / Time erythromycin base Allergy Unknown Verified 09/06/23 13:31 [ERYTHROMYCIN BASE] latex [LATEX] Allergy Unknown Verified 09/06/23 13:31 Worker's Comp Is this a Worker's Comp case?: No [facility] Disclaimer: The information contained in this section may have been updated after the patient was seen, as this information can be updated by other users. Medical History Anxiety Asthma Cancer Depression History of fibromyalgia Kidney stone Thyroid disease Surgical History History of section History of cholecystectomy History of hysterectomy Family History Other No significant family history Social History Smoking Status: Unknown if ever smoked second hand exposure: No alcohol intake: never counseling provided: none substance use type: denies use current occupational status: other Travel in the last 8 weeks: None household members: spouse and children housing: house ROS Obtained: Yes All systems reviewed & no additional complaints except as documented and Yes Systems reviewed as appropriate & no additional complaints except as documented Constitutional Constitutional: Reports system reviewed and no additional complaints, except as documented, Reports as per HPI and Reports headache(s) ENT Ears, Nose, Mouth, and Throat: Reports system reviewed and no additional complaints, except as documented, Reports as per HPI, Reports headache(s) and Reports sore throat Cardiovascular Cardiovascular: Reports system reviewed and no additional complaints, except as documented and Reports as per HPI Respiratory Respiratory: Reports system reviewed and no additional complaints, except as documented and Reports as per HPI Gastrointestinal Gastrointestingal: Reports system reviewed and no additional complaints, except as documented and as per HPI Neurologic Neurologic: Reports headache(s) Physical Exam General General appearance: alert and in no apparent distress ENT ENT exam: Present mucous membranes moist Respiratory Respiratory exam: Present normal lung sounds bilaterally; Absent respiratory distress or wheezes Cardiovascular Cardiovascular exam: Present regular rate, normal rhythm and normal heart sounds Abdominal Exam Abdominal exam: Present soft and normal bowel sounds; Absent distention or tenderness Neurological Exam Neurological exam: Present alert, oriented X3 and normal gait Medical Decision Making Clive Inquiry Pt receiving controlled substance: No Clive was queried for this patient: No Vital Signs: 11/18/23 12:10 Temperature 97.8 F Temperature Source Oral Pulse Rate [Left Brachial] 109 H Respiratory Rate 21 Blood Pressure [Left Arm] 132/78 Blood Pressure Mean [Left Arm] 96 Blood Pressure Source [Left Arm] Automatic Cuff Blood Pressure Position [Left Arm] Sitting 02 Sat by Pulse Oximetry 100 Oxygen Delivery Method Room Air Lab Data Lab results reviewed: Yes I reviewed the patient's lab results.
[2023-11-18 12:37] VITALS: BP 132/78; PULSE 109; RESP 21; TEMP 36.6; O2SAT 100
[2023-11-18 12:48] LABS: UTC Influenza A Antigen Negative (Negative); UTC Strep Screen (Rapid) Positive (Negative)
[2023-11-18 12:49] LABS: UTC Influenza B Antigen Negative (Negative)
== END 2023-11-18 12:50 | disposition home or self-care (01) ==
PROVIDERS: Emergency Provider Nurse Practitioner; PCP Family Medicine
DX: J02.0 Streptococcal pharyngitis (principal); R07.0 Pain in throat; R51.9 Headache, unspecified; M79.18 Myalgia, other site; E03.9 Hypothyroidism, unspecified
CPT/HCPCS: 87804; 87880; 99212; 99214; G0463

== ENCOUNTER 2023-11-25 11:29 | Emergency (ER) | payer BC, SELFPAY ==
[2023-11-25 11:30] VITALS: BP 112/71; PULSE 78; RESP 20; TEMP 36.7; O2SAT 98; BMI 46.9
--- NOTE | 2023-11-25 11:40 | EXP.UTC ---
Discharge Plan Disposition Patient Disposition: Home, Self-Care Condition: Good Prescriptions Prescriptions: New benzonatate [benzonatate] 100 mg capsule 100 mg PO TIDP PRN (Reason: Cough) Qty: 30 0RF methylprednisolone 4 mg Tablets,Dose Pack 4 mg PO DIRECTED 6 Days Qty: 21 0RF Rx Instructions: Take 1 pack as directed for 6 days No Action venlafaxine 37.5 mg capsule,extended release 24hr 37.5 mg PO DAILY Patient Comments: TAKE ONE CAPSULE BY MOUTH EVERY MORNING levothyroxine 50 mcg tablet 50 mcg PO DAILY Patient Comments: TAKE ONE TABLET BY MOUTH EVERY DAY IN THE MORNING ON an EMPTY stomach estradiol 2 mg tablet 2 mg PO DAILY Patient Comments: TAKE ONE TABLET BY MOUTH EVERY DAY hydroxyzine pamoate 25 mg capsule 25 mg PO DAILY Patient Comments: TAKE ONE CAPSULE BY MOUTH TWICE DAILY NEEDED FOR INCREASED ANXIETY dextroamphetamine-amphetamine 15 mg capsule,extended release 24hr 15 mg PO DAILY Patient Comments: TAKE ONE CAPSULE BY MOUTH EVERY MORNING Referrals Follow up/Referrals: Tana Espinal MD [Primary Care Provider] - See instructions Activity Restrictions/Add. Instructions Additional Instructions/Restrictions: Drink plenty of fluids. Take tylenol or ibuprofen for pain or fever. Continue the antibiotics that you are already on. Take the medications as directed. Follow up with your regular doctor. GO TO THE ER FOR ANY WORSENING SYMPTOMS Clinical Impressions Clinical Impression: Acute bronchitis Stand Alone Forms Stand Alone Forms: Work/School Release Instructions Patient Instructions: Acute Bronchitis, DI for Acute Bronchitis Discharge ED Provider: Isidoro Escudero [facility] General Stated complaint: cough, SOA Time Seen by Provider: 11/25/23 11:40 History of Present Illness Provider Complaint: She states that for the past 4 days she has had chest congestion, sinus congestion and a productive cough with greenish sputum. Related Data Home Medications Medication Instructions Recorded Confirmed dextroamphetamine-amphetamine ER 15 mg PO DAILY 11/25/23 11/25/23 15 mg 24hr capsule,extend release estradiol 2 mg tablet 2 mg PO DAILY 11/25/23 11/25/23 hydroxyzine pamoate 25 mg capsule 25 mg PO DAILY 11/25/23 11/25/23 levothyroxine 50 mcg tablet 50 mcg PO DAILY 11/25/23 11/25/23 venlafaxine 37.5 mg 37.5 mg PO DAILY 11/25/23 11/25/23 capsule,extended release 24 hr Previous Rx's Medication Instructions Recorded benzonatate 100 mg capsule 100 mg PO TIDP PRN Cough #30 caps 11/25/23 methylprednisolone 4 mg tablets in 4 mg PO DIRECTED 6 days #21 tabs 11/25/23 a dose pack Allergies Allergy/AdvReac Type Severity Reaction Status Date / Time erythromycin base Allergy Unknown Verified 09/06/23 13:31 [ERYTHROMYCIN BASE] latex [LATEX] Allergy Unknown Verified 09/06/23 13:31 [facility] Disclaimer: The information contained in this section may have been updated after the patient was seen, as this information can be updated by other users. Medical History Anxiety Asthma Cancer Depression History of fibromyalgia Kidney stone Thyroid disease Surgical History History of section History of cholecystectomy History of hysterectomy Family History Other No significant family history Social History Smoking Status: Unknown if ever smoked second hand exposure: No alcohol intake: never counseling provided: none substance use type: denies use current occupational status: other Travel in the last 8 weeks: None household members: spouse and children housing: house ROS Obtained: Yes All systems reviewed & no additional complaints except as documented Constitutional Constitutional: Reports poor appetite Eyes Eyes: Reports system reviewed and no additional complaints, except as documented ENT Ears, Nose, Mouth, and Throat: Reports as per HPI Cardiovascular Cardiovascular: Reports system reviewed and no additional complaints, except as documented and Denies chest pain Respiratory Respiratory: Denies shortness of breath, Reports chest congestion, Reports cough, Denies stridor and Denies wheezing Gastrointestinal Gastrointestingal: Reports system reviewed and no additional complaints, except as documented; Denies abdominal pain, diarrhea or vomiting Musculoskeletal Musculoskeletal: Reports system reviewed and no additional complaints, except as documented and Denies arthralgias Integumentary/Breasts Skin/Breast: Reports system reviewed and no additional complaints, except as documented and Denies rash Neurologic Neurologic: Denies paresthesias Allergic/Immunologic Allergic/Immunologic: Denies wheezing Physical Exam General General appearance: alert and in no apparent distress Eye Eye exam: Present normal appearance, PERRL and EOMI ENT ENT exam: Present mucous membranes moist and normal external ear exam Expanded ENT Exam External ear exam: Present normal external inspection TM/Canal exam: Bilateral TM: erythema and bulging Nose exam: Absent sinus tenderness Nasal speculum exam: Bilateral: normal Mouth exam: Present normal external inspection; Absent drooling Teeth exam: Present normal inspection Throat exam: Present tonsillar erythema and tonsillomegaly Neck Neck exam: Present normal inspection, full ROM and trachea midline; Absent tenderness, lymphadenopathy or thyromegaly Chest Chest inspection: Present normal inspection and symmetric chest wall rise; Absent tenderness or rash Respiratory Respiratory exam: Present normal lung sounds bilaterally; Absent respiratory distress, wheezes, stridor or accessory muscle use Cardiovascular Cardiovascular exam: Present regular rate, normal rhythm and normal heart sounds Abdominal Exam Abdominal exam: Present soft; Absent distention, tenderness, guarding, rebound or rigidity Extremities Exam Extremities exam: Present normal inspection, full ROM and normal capillary refill; Absent tenderness or calf tenderness Back Exam Back exam: Present normal inspection and full ROM; Absent tenderness Neurological Exam Neurological exam: Present alert and oriented X3 Psychiatric Psychiatric exam: Present normal affect and normal mood Skin Skin exam: Present warm, dry, intact and normal color Lymphatic Lymphatic Findings: no adenopathy Medical Decision Making Medical Records Medical records reviewed: No I reviewed the patient's medical records. Clive Inquiry Pt receiving controlled substance: No Lab Data Lab results reviewed: Yes I reviewed the patient's lab results.
[2023-11-25 12:05] VITALS: BP 112/71; PULSE 78; RESP 20; TEMP 36.7; O2SAT 98
== END 2023-11-25 12:28 | disposition home or self-care (01) ==
PROVIDERS: Emergency Provider Nurse Practitioner Family; PCP Family Medicine
DX: J20.9 Acute bronchitis, unspecified (principal); R05.8 Other specified cough; R09.81 Nasal congestion; E03.9 Hypothyroidism, unspecified
CPT/HCPCS: 99212; 99214; G0463

== ENCOUNTER 2023-12-19 16:03 | Emergency (ER) | payer BC, SELFPAY ==
--- NOTE | 2023-12-19 16:13 | ED_ITS ---
Discharge Plan Disposition Patient Disposition: Home, Self-Care Condition: Good Prescriptions Prescriptions: New triamcinolone acetonide 0.1 % cream 1 applic topical BID PRN (Reason: itching) Qty: 30 0RF methylprednisolone 4 mg Tablets,Dose Pack 4 mg PO DIRECTED 6 Days Qty: 21 0RF Rx Instructions: Take 1 pack as directed for 6 days amoxicillin-pot clavulanate 875-125 mg Tablet 1 tab PO Q12H Qty: 20 0RF No Action venlafaxine 37.5 mg capsule,extended release 24hr 37.5 mg PO DAILY Patient Comments: TAKE ONE CAPSULE BY MOUTH EVERY MORNING levothyroxine 50 mcg tablet 50 mcg PO DAILY Patient Comments: TAKE ONE TABLET BY MOUTH EVERY DAY IN THE MORNING ON an EMPTY stomach estradiol 2 mg tablet 2 mg PO DAILY Patient Comments: TAKE ONE TABLET BY MOUTH EVERY DAY hydroxyzine pamoate 25 mg capsule 25 mg PO DAILY Patient Comments: TAKE ONE CAPSULE BY MOUTH TWICE DAILY NEEDED FOR INCREASED ANXIETY dextroamphetamine-amphetamine 15 mg capsule,extended release 24hr 15 mg PO DAILY Patient Comments: TAKE ONE CAPSULE BY MOUTH EVERY MORNING Referrals Follow up/Referrals: Tana Espinal MD [Primary Care Provider] - See instructions Activity Restrictions/Add. Instructions Additional Instructions/Restrictions: Try to identify and avoid contact with the offending substance. Don't start the oral steroids until tomorrow. Follow up with your regular doctor. GO TO THE ER FOR ANY WORSENING SYMPTOMS OR CONCERNS Clinical Impressions Clinical Impression: Contact dermatitis, Acute bronchitis Instructions Patient Instructions: DI for Acute Bronchitis, DI for Contact Dermatitis, Methylprednisolone Injection Discharge ED Provider: Isidoro Escudero [facility] General Stated complaint: rash on arms, chest and around eyes, cough Time Seen by Provider: 12/19/23 16:13 History of Present Illness Provider Complaint: She states that she cut trees and bushes back yesterday. She began having an itchy rash on her arms and hand this morning. Since then her rash has spread to her face and up her arms. Related Data Home Medications Medication Instructions Recorded Confirmed dextroamphetamine-amphetamine ER 15 mg PO DAILY 11/25/23 11/25/23 15 mg 24hr capsule,extend release estradiol 2 mg tablet 2 mg PO DAILY 11/25/23 11/25/23 hydroxyzine pamoate 25 mg capsule 25 mg PO DAILY 11/25/23 11/25/23 levothyroxine 50 mcg tablet 50 mcg PO DAILY 11/25/23 11/25/23 venlafaxine 37.5 mg 37.5 mg PO DAILY 11/25/23 11/25/23 capsule,extended release 24 hr Previous Rx's Medication Instructions Recorded amoxicillin 875 mg-potassium 1 tab PO Q12H #20 tabs 12/19/23 clavulanate 125 mg tablet methylprednisolone 4 mg tablets in 4 mg PO DIRECTED 6 days #21 tabs 12/19/23 a dose pack triamcinolone acetonide 0.1 % 1 applic topical BID PRN itching 12/19/23 topical cream #30 grams Allergies Allergy/AdvReac Type Severity Reaction Status Date / Time erythromycin base Allergy Unknown Verified 12/19/23 16:37 [ERYTHROMYCIN BASE] latex [LATEX] Allergy Unknown Verified 12/19/23 16:37 [facility] Disclaimer: The information contained in this section may have been updated after the patient was seen, as this information can be updated by other users. Medical History Anxiety Asthma Cancer Depression History of fibromyalgia Kidney stone Thyroid disease Surgical History History of section History of cholecystectomy History of hysterectomy Family History Other No significant family history Social History Smoking Status: Unknown if ever smoked second hand exposure: No alcohol intake: never counseling provided: none substance use type: denies use current occupational status: other Travel in the last 8 weeks: None household members: spouse and children housing: house ROS Obtained: Yes All systems reviewed & no additional complaints except as documented Constitutional Constitutional: Denies chills and Denies fever(s) Eyes Eyes: Denies eye discharge ENT Ears, Nose, Mouth, and Throat: Denies dizziness, Denies otalgia and Denies sore throat Cardiovascular Cardiovascular: Denies chest pain Respiratory Respiratory: Denies shortness of breath, Denies chest congestion, Denies cough, Denies stridor and Denies wheezing Gastrointestinal Gastrointestingal: Denies nausea or vomiting Musculoskeletal Musculoskeletal: Reports system reviewed and no additional complaints, except as documented and Denies arthralgias Integumentary/Breasts Skin/Breast: Reports rash Neurologic Neurologic: Denies dizziness and Denies paresthesias Allergic/Immunologic Allergic/Immunologic: Denies wheezing Physical Exam General General appearance: alert and in no apparent distress Head Head exam: atraumatic, normocephalic and normal inspection Eye Eye exam: Present normal appearance, PERRL and EOMI ENT ENT exam: Present normal exam, normal oropharynx, mucous membranes moist, TM's normal bilaterally and normal external ear exam Neck Neck exam: Present normal inspection, full ROM and trachea midline; Absent meningismus or lymphadenopathy Chest Chest inspection: Present normal inspection and symmetric chest wall rise; Absent tenderness Respiratory Respiratory exam: Present normal lung sounds bilaterally; Absent respiratory distress Cardiovascular Cardiovascular exam: Present regular rate and normal rhythm; Absent JVD Abdominal Exam Abdominal exam: Present soft and normal bowel sounds; Absent distention, tenderness or guarding Extremities Exam Extremities exam: Present normal inspection, full ROM and normal capillary refill; Absent calf tenderness Back Exam Back exam: Present normal inspection; Absent tenderness Neurological Exam Neurological exam: Present alert and oriented X3 Psychiatric Psychiatric exam: Present normal affect and normal mood Skin Skin exam: Present rash (there are maculopapular lesions on her face and her forearm. ) Lymphatic Lymphatic Findings: no adenopathy Medical Decision Making Medical Records Medical records reviewed: No I reviewed the patient's medical records. Clive Inquiry Pt receiving controlled substance: No
[2023-12-19 16:15] VITALS: BP 124/87; PULSE 98; RESP 18; TEMP 36.7; O2SAT 98; BMI 46.5
[2023-12-19] MEDS: METHYLPREDNISOLONE SOD SUCC 125MG VIAL 125 MG IM (17:11)
[2023-12-19 17:49] VITALS: BP 124/87; PULSE 98; RESP 18; TEMP 36.7; O2SAT 98
== END 2023-12-19 17:49 | disposition home or self-care (01) ==
PROVIDERS: Emergency Provider Nurse Practitioner Family; PCP Family Medicine
DX: J20.9 Acute bronchitis, unspecified (principal); L25.9 Unspecified contact dermatitis, unspecified cause; R05.9 Cough, unspecified; J45.909 Unspecified asthma, uncomplicated; E07.9 Disorder of thyroid, unspecified
CPT/HCPCS: 96372; 99212; 99214; G0463

== ENCOUNTER 2024-03-10 13:57 | Emergency (ER) | payer BC, SELFPAY ==
[2024-03-10 15:00] VITALS: BP 125/77; PULSE 106; RESP 20; TEMP 37.7; O2SAT 96; BMI 45.3
--- NOTE | 2024-03-10 15:27 | ED_ITS ---
Discharge Plan Disposition Patient Disposition: Home, Self-Care Condition: Good Prescriptions Prescriptions: No Action triamcinolone acetonide 0.1 % cream 1 applic topical BID PRN (Reason: itching) Qty: 30 0RF methylprednisolone 4 mg Tablets,Dose Pack 4 mg PO DIRECTED 6 Days Qty: 21 0RF Rx Instructions: Take 1 pack as directed for 6 days amoxicillin-pot clavulanate 875-125 mg Tablet 1 tab PO Q12H Qty: 20 0RF venlafaxine 37.5 mg capsule,extended release 24hr 37.5 mg PO DAILY Patient Comments: TAKE ONE CAPSULE BY MOUTH EVERY MORNING levothyroxine 50 mcg tablet 50 mcg PO DAILY Patient Comments: TAKE ONE TABLET BY MOUTH EVERY DAY IN THE MORNING ON an EMPTY stomach estradiol 2 mg tablet 2 mg PO DAILY Patient Comments: TAKE ONE TABLET BY MOUTH EVERY DAY hydroxyzine pamoate 25 mg capsule 25 mg PO DAILY Patient Comments: TAKE ONE CAPSULE BY MOUTH TWICE DAILY NEEDED FOR INCREASED ANXIETY dextroamphetamine-amphetamine 15 mg capsule,extended release 24hr 15 mg PO DAILY Patient Comments: TAKE ONE CAPSULE BY MOUTH EVERY MORNING Referrals Follow up/Referrals: Tana Espinal MD [Primary Care Provider] - See instructions Activity Restrictions/Add. Instructions Additional Instructions/Restrictions: No sign of a bacterial infection. Likely viral. Viruses can take 7-14 days to run their course. Nasal saline and bulb syringe or nose Mariaelena to remove nasal drainage to help with nasal congestion. Hard to eat, drink, sleep with nasal congestion so important to keep this cleaned out. Monitor temp. Tylenol or Motrin as needed for pain or fever Encourage fluids, water, Gatorade, Powerade, Pedialyte if /toddler/child Warm salt water gargles Warm fluids Sore throat lozenges Sleep elevated Humidifier/vaporizer Follow-up immediately for new or worsening symptoms or no noticeable improvement over the next 48-72 hours. Clinical Impressions Clinical Impression: Upper respiratory infection Instructions Patient Instructions: DI for Viral Upper Respiratory Infection -- Adult Discharge ED Provider: Seth ([facility])Cindi [facility] [place] HPI General Stated complaint: SOA bodyaches Mode of Arrival: Ambulatory Source of Information: Patient Limitations: No Limitations Time Seen by Provider: 03/10/24 15:28 Description of Symptoms (Recalled from Triage Doc. by RN): PATIENT C/O BODY ACHES, FEVER, CHILLS, AND COUGH X 2 DAYS HEENT Symptoms (Recalled from RN notes): No Resp Symptoms (Recalled from RN notes): Yes Skin Symptoms (Recalled from RN notes): No MS Symptoms (Recalled from RN notes): No Functional Status (Recalled from RN notes): WNL History of Present Illness Provider Complaint: 43 yr old female presents for body aches,chills, cough and fever for 2 days Related Data Home Medications Medication Instructions Recorded Confirmed dextroamphetamine-amphetamine ER 15 mg PO DAILY 11/25/23 01/17/24 15 mg 24hr capsule,extend release estradiol 2 mg tablet 2 mg PO DAILY 11/25/23 01/17/24 hydroxyzine pamoate 25 mg capsule 25 mg PO DAILY 11/25/23 01/17/24 levothyroxine 50 mcg tablet 50 mcg PO DAILY 11/25/23 01/17/24 venlafaxine 37.5 mg 37.5 mg PO DAILY 11/25/23 01/17/24 capsule,extended release 24 hr Previous Rx's Medication Instructions Recorded amoxicillin 875 mg-potassium 1 tab PO Q12H #20 tabs 12/19/23 clavulanate 125 mg tablet methylprednisolone 4 mg tablets in 4 mg PO DIRECTED 6 days #21 tabs 12/19/23 a dose pack triamcinolone acetonide 0.1 % 1 applic topical BID PRN itching 12/19/23 topical cream #30 grams Allergies Allergy/AdvReac Type Severity Reaction Status Date / Time erythromycin base Allergy Unknown Verified 01/17/24 14:01 [ERYTHROMYCIN BASE] latex [LATEX] Allergy Unknown Verified 01/17/24 14:01 Worker's Comp Is this a Worker's Comp case?: No [facility] Disclaimer: The information contained in this section may have been updated after the patient was seen, as this information can be updated by other users. Medical History , [employer]) History of fibromyalgia Thyroid disease Kidney stone Depression Anxiety Cancer Asthma Surgical History , [employer]) History of hysterectomy History of section History of cholecystectomy Family History , [employer]) No significant family history Social History , [employer]) Smoking Status: Unknown if ever smoked second hand exposure: No alcohol intake: never counseling provided: none substance use type: denies use current occupational status: other Travel in the last 8 weeks: None household members: spouse and children housing: house ROS Obtained: Yes All systems reviewed & no additional complaints except as documented Constitutional Constitutional: Reports system reviewed and no additional complaints, except as documented, Reports as per HPI, Reports body ache, Reports chills and Reports fever(s) Eyes Eyes: Reports system reviewed and no additional complaints, except as documented ENT Ears, Nose, Mouth, and Throat: Reports system reviewed and no additional complaints, except as documented and Reports as per HPI Cardiovascular Cardiovascular: Reports system reviewed and no additional complaints, except as documented Respiratory Respiratory: Reports system reviewed and no additional complaints, except as documented Gastrointestinal Gastrointestingal: Reports system reviewed and no additional complaints, except as documented Musculoskeletal Musculoskeletal: Reports system reviewed and no additional complaints, except as documented Integumentary/Breasts Skin/Breast: Reports system reviewed and no additional complaints, except as documented Neurologic Neurologic: Reports system reviewed and no additional complaints, except as documented Endocrine Endocrine: Reports system reviewed and no additional complaints, except as documented Allergic/Immunologic Allergic/Immunologic: Reports system reviewed and no additional complaints, except as documented Physical Exam General General appearance: alert and in no apparent distress Head Head exam: atraumatic Eye Eye exam: Present normal appearance ENT ENT exam: Present mucous membranes moist and TM's normal bilaterally Expanded ENT Exam Throat exam: Present tonsillar erythema Respiratory Respiratory exam: Present normal lung sounds bilaterally Cardiovascular Cardiovascular exam: Present regular rate and normal rhythm Neurological Exam Neurological exam: Present alert and oriented X3 Skin Skin exam: Present warm and intact Medical Decision Making Medical Records Medical records reviewed: Yes I reviewed the patient's medical records. Clive Inquiry Pt receiving controlled substance: No Clive was queried for this patient: No Vital Signs: 03/10/24 15:00 Temperature 99.8 F H Temperature Source Oral Pulse Rate [Left Brachial] 106 H Respiratory Rate 20 Blood Pressure [Left Arm] 125/77 Blood Pressure Mean [Left Arm] 93 Blood Pressure Source [Left Arm] Automatic Cuff Blood Pressure Position [Left Arm] Sitting 02 Sat by Pulse Oximetry 96 Oxygen Delivery Method Room Air Lab Data Lab results reviewed: Yes I reviewed the patient's lab results. Orders (Tests/Meds): ORDERS Category Date Time Status Full Resp Panel w/COVID ([facility]) Routine Lab 03/10/24 15:26 Ordered
[2024-03-10 15:35] LABS: Adenovirus,PCR Not Detected (NotDetected); Bordetella Pertussis Not Detected (NotDetected); Chlamydophila Pneumoniae, PCR Not Detected (NotDetected); Coronavirus 19, PCR Not Detected (NotDetected); Coronavirus 229E Not Detected (NotDetected); Coronavirus NL63 Not Detected (NotDetected); Coronavirus OC43 Not Detected (NotDetected); Coronovirus HKU1,PCR Not Detected (NotDetected); Human Metapneumovirus Not Detected (NotDetected); Influenza A, PCR Not Detected (NotDetected); Influenza AH1, 2009 Not Detected (NotDetected); Influenza AH1, PCR Not Detected (NotDetected); Influenza AH3,PCR Not Detected (NotDetected); Influenza B, PCR Not Detected (NotDetected); Mycoplasma Pneumoniae, PCR Not Detected (NotDetected); Parainfluenza 1, PCR Not Detected (NotDetected); Parainfluenza 2, PCR Not Detected (NotDetected); Parainfluenza 3, PCR Not Detected (NotDetected); Parainfluenza 4, PCR Not Detected (NotDetected); Respiratory Syncytial Virus Not Detected (NotDetected); Rhinovirus/Enterovirus Not Detected (NotDetected)
[2024-03-10 15:48] LABS: UTC Influenza A Antigen Negative (Negative)
[2024-03-10 15:48] LABS: UTC Strep Screen (Rapid) Negative (Negative)
[2024-03-10 15:49] LABS: UTC Influenza B Antigen Negative (Negative)
[2024-03-10 15:57] VITALS: BP 125/77; PULSE 106; RESP 20; TEMP 37.7; O2SAT 96
== END 2024-03-10 16:03 | disposition home or self-care (01) ==
PROVIDERS: Emergency Provider Nurse Practitioner Family; PCP Family Medicine
DX: R05.9 Cough, unspecified (principal); R50.9 Fever, unspecified; J06.9 Acute upper respiratory infection, unspecified; B34.9 Viral infection, unspecified
CPT/HCPCS: 87581; 87632; 87635; 87798; 87804; 87880; 99212; 99214; G0463

== ENCOUNTER 2024-05-05 08:34 | Emergency (ER) | payer BC, SELFPAY ==
[2024-05-05 09:15] VITALS: BP 122/75; PULSE 72; RESP 20; TEMP 36.8; O2SAT 98; BMI 43.8
--- NOTE | 2024-05-05 09:39 | ED_ITS ---
Discharge Plan Disposition Patient Disposition: Home, Self-Care Condition: Good Prescriptions Prescriptions: New prednisone 5 mg tablets,dose pack See Rx Instructions .ROUTE .COMPLEX Qty: 21 0RF Rx Instructions: take as directed on package instructions No Action venlafaxine 37.5 mg capsule,extended release 24hr 37.5 mg PO DAILY Patient Comments: TAKE ONE CAPSULE BY MOUTH EVERY MORNING levothyroxine 50 mcg tablet 50 mcg PO DAILY Patient Comments: TAKE ONE TABLET BY MOUTH EVERY DAY IN THE MORNING ON an EMPTY stomach estradiol 2 mg tablet 2 mg PO DAILY Patient Comments: TAKE ONE TABLET BY MOUTH EVERY DAY dextroamphetamine-amphetamine 15 mg capsule,extended release 24hr 15 mg PO DAILY Patient Comments: TAKE ONE CAPSULE BY MOUTH EVERY MORNING Referrals Follow up/Referrals: Tana Espinal MD [Primary Care Provider] - See instructions Activity Restrictions/Add. Instructions Additional Instructions/Restrictions: Start oral steriods tomorrow Over the counter Benadryl may help with itching Oatmeal bathes may help to dry the rash Calamine lotion may help to soothe the skin Follow up with your Family Doctor if no improvement Clinical Impressions Clinical Impression: Rash and nonspecific skin eruption Instructions Patient Instructions: Poison Fan, Poison [place], Poison [place], DI for Poison Fan Allergy Print Language Print Language: Danish Discharge ED Provider: Alicia Holly [facility] [place] General Stated complaint: rash Mode of Arrival: Ambulatory Source of Information: Patient Limitations: No Limitations Time Seen by Provider: 05/05/24 09:39 Description of Symptoms (Recalled from Triage Doc. by RN): PATIENT C/O POSSIBLE POISON FAN RASH X 2 DAYS HEENT Symptoms (Recalled from RN notes): No Resp Symptoms (Recalled from RN notes): No Skin Symptoms (Recalled from RN notes): Yes MS Symptoms (Recalled from RN notes): No Functional Status (Recalled from RN notes): WNL History of Present Illness Provider Complaint: Patient states that she was mowing grass and got into some poison fan or something States that she broke out in rash all over her arms, chest, face and starting to move down her legs so she came in to get some steroids to help Related Data Home Medications ?Medication ?Instructions ?Recorded ?Confirmed dextroamphetamine-amphetamine ER 15 mg PO DAILY 11/25/23 05/05/24 15 mg 24hr capsule,extend release estradiol 2 mg tablet 2 mg PO DAILY 11/25/23 05/05/24 levothyroxine 50 mcg tablet 50 mcg PO DAILY 11/25/23 05/05/24 venlafaxine 37.5 mg 37.5 mg PO DAILY 11/25/23 05/05/24 capsule,extended release 24 hr Previous Rx's ?Medication ?Instructions ?Recorded prednisone 5 mg tablets in a dose See Rx Instructions PO .COMPLEX 05/05/24 pack #21 tabs Allergies Allergy/AdvReac Type Severity Reaction Status Date / Time erythromycin base Allergy Unknown Verified 04/26/24 11:08 [ERYTHROMYCIN BASE] latex [LATEX] Allergy Unknown Verified 04/26/24 11:08 Worker's Comp Is this a Worker's Comp case?: No [facility] Disclaimer: The information contained in this section may have been updated after the patient was seen, as this information can be updated by other users. Medical History History of fibromyalgia Thyroid disease Kidney stone Depression Anxiety Cancer Asthma Surgical History History of hysterectomy History of section History of cholecystectomy Family History Other No significant family history Social History Smoking Status: Unknown if ever smoked second hand exposure: No alcohol intake: never counseling provided: none substance use type: denies use current occupational status: other Travel in the last 8 weeks: None household members: spouse and children housing: house ROS Obtained: Yes All systems reviewed & no additional complaints except as documented and Yes Systems reviewed as appropriate & no additional complaints except as documented Constitutional Constitutional: Reports system reviewed and no additional complaints, except as documented and Reports as per HPI ENT Ears, Nose, Mouth, and Throat: Reports system reviewed and no additional complaints, except as documented and Reports as per HPI Cardiovascular Cardiovascular: Reports system reviewed and no additional complaints, except as documented and Reports as per HPI Respiratory Respiratory: Reports system reviewed and no additional complaints, except as documented and Reports as per HPI Gastrointestinal Gastrointestingal: Reports system reviewed and no additional complaints, except as documented and as per HPI Musculoskeletal Musculoskeletal: Reports system reviewed and no additional complaints, except as documented and Reports as per HPI Integumentary/Breasts Skin/Breast: Reports system reviewed and no additional complaints, except as documented, Reports as per HPI, Reports pruritus and Reports rash Physical Exam General General appearance: alert and in no apparent distress ENT ENT exam: Present mucous membranes moist Respiratory Respiratory exam: Present normal lung sounds bilaterally; Absent respiratory distress or wheezes Cardiovascular Cardiovascular exam: Present regular rate, normal rhythm and normal heart sounds Neurological Exam Neurological exam: Present alert, oriented X3 and normal gait Skin Skin exam: Present warm and rash (red raised linear like rash noted on face, arms and chest areas on legs appear like chigger bites) Medical Decision Making Clive Inquiry Pt receiving controlled substance: No Clive was queried for this patient: No Vital Signs: 05/05/24 09:15 Temperature 98.2 F Temperature Source Oral Pulse Rate [Left Brachial] 72 Respiratory Rate 20 Blood Pressure [Left Arm] 122/75 Blood Pressure Mean [Left Arm] 90 Blood Pressure Source [Left Arm] Automatic Cuff Blood Pressure Position [Left Arm] Sitting 02 Sat by Pulse Oximetry 98 Oxygen Delivery Method Room Air
[2024-05-05] MEDS: METHYLPREDNISOLONE SOD SUCC 125MG VIAL 125 MG IM (09:50)
[2024-05-05 10:10] VITALS: BP 122/75; PULSE 72; RESP 20; TEMP 36.8; O2SAT 98
== END 2024-05-05 10:13 | disposition home or self-care (01) ==
PROVIDERS: Emergency Provider Nurse Practitioner; PCP Family Medicine
DX: L23.7 Allergic contact dermatitis due to plants, except food (principal); W60.XXXA Contact with nonvenomous plant thorns and spines and sharp leaves, initial encounter
CPT/HCPCS: 96372; 99212; 99214; G0463; J2919

== ENCOUNTER 2024-05-21 14:25 | Outpatient (CLI) | payer BC, SELFPAY ==
--- NOTE | 2024-05-21 14:26 | MR_ITS ---
FINAL REPORT CLINICAL HISTORY: Rt Knee Pain. hx knee scope 5 months ago. anterior knee pain. knee instability. COMPARISON: None FINDINGS: Multi planar MR imaging was performed of the right knee. The anterior and posterior cruciate ligaments are intact. The quadriceps and patellar tendons are intact. There is a complex tear of the posterior horn of the medial meniscus. The medial and lateral collateral ligaments appear intact. The medial and lateral retinacula appear intact. There is degenerative subchondral cyst formation in the posterior medial tibial plateau. Prominent osteophyte formation is noted at the medial and lateral joint margins. There is a small joint effusion. No evidence of soft tissue inflammatory reaction. IMPRESSION: Complex tear posterior horn medial meniscus. Degenerative subchondral cyst formation medial tibial plateau. Advanced osteoarthritis. Reviewed, Interpreted and Dictated by Kenneth Toro MD Transcribed by Jessica Ward Authenticated and [facility]
== END 2024-05-21 23:59 | disposition home or self-care (01) ==
LOC: RAD 14:26
PROVIDERS: PCP Family Medicine; Visit Provider Physician Assistant
DX: M17.11 Unilateral primary osteoarthritis, right knee (principal)
CPT/HCPCS: 73721

== ENCOUNTER 2024-05-30 11:41 | Outpatient (RCR) | payer BC, SELFPAY | END 2024-05-30 12:45 | disposition home or self-care (01) | LOC: PT 11:41 | PROVIDERS: Visit Provider Orthopaedic Surgery | DX: M25.561 Pain in right knee (principal) | CPT/HCPCS: 97760 ==

== ENCOUNTER 2024-09-13 13:00 | Outpatient (RCR) | payer BC, SELFPAY ==
--- NOTE | 2024-08-06 10:56 | HMH.PTOPEV ---
PT Outpatient Evaluation Rehab PT Outpatient Evaluation Start: 08/06/24 07:47 Freq: Status: Active Protocol: Document 08/06/24 07:48 ROSETTA (Rec: 08/06/24 10:56 ROSETTA [id number]) E-signed By Judy Yancey, PT Outpatient Therapy Subjective History Subjective History Pt is a 44 y/o female who reports chronic R knee pain since she was in high school. Pt reports current symptoms of shooting pain that starts around the knee cap and shoots up to her thigh and down into he vogel. Pt reports her R knee will give out on her randomly, states she hears a loud snap then it will give out. Pt denies falls due to this. Pt reports she does have a cane she keeps in her van she tries to use with long distance ambulation. Pt reports she has been using a knee brace which helps with stability as well. Pt reports numbness/tingling with prolonged activity and walking located on the medial and lateral knee. Pt states she does notice swelling around the knee that increases with activity. Pt reports pain is worse in the morning and aggravated by standing, walking, stair climbing, lifting and prolonged sitting >10-15 minutes. Pt had a R knee MRI on 05/21/24 with impression of Complex tear posterior horn medial meniscus . Degenerative subchondral cyst formation medial tibial plateau. Advanced osteoarthritis. Pt reports she has had multiple cortisone injections in the right knee that provide relief for 2-3 weeks, reports last injection performed last month. Pt reports history of partial meniscectomy in May of last year, pt reports initial improvement in symptoms for a couple months then pain returned. Pt reports she tried physical therapy post-op without improvements, states she would like to try aquatic therapy. Medical History: History of fibromyalgia, Thyroid disease, Kidney stone, Depression, Anxiety, Hx of Cancer, Asthma Quad circumference of L knee: 48cm New diagnosis of cancer in past 12 No: throid cancer removal 4-5 months? years ago Chief Complaint Pain,Stiff,Swelling Symptom Type Throb,Sharp,Dull Symptoms Relieved By Rest/Positioning Symptoms Aggravated By Standing,Physical Activity, Walking Current Functional Limitations Housework,Standing,Squatting, Recreation Activity,Walking, Stairs Symptom Description Constant but Variable Level of pain today (0-10) 5 Pain scale - at its best (0-10) 4 Pain scale - at its worst (0-10) 10 Hip/Knee Eval Gait Observation General Gait Pattern Observation Antalgic Gait,Decrease Weight Bear (R) Assistive Device Assistive Devices Straight Cane Palpation Tenderness right Knee Palpation Finding Tenderness Knee Palpation Overall Comment generalized tenderness of R knee complex 3/4 TTP MMT Hip Flexion Strength Grade 4- Good- Hip Abduction Strength Grade 4- Good- Hip Adduction Strength Grade 4- Good- Hip Extension Strength Grade 4- Good- Knee Extension Strength Grade 4- Good- Knee Flexion Strength Grade 4 Good ROM Knee Extension Active Range of Motion ( 23 degrees) Knee Extension Passive Range of Motion ( 12 degrees) Knee Flexion Active Range of Motion ( 85 degrees) Knee Flexion Passive Range of Motion ( 102 degrees) Effusion joint effusion knee exam standard right Mid - Patellar Circumerential Measure ( 40 cm) 5cm Proximal Circumference Measure (cm) 46 Special Tests Knee Anterior Lesly Test Negative Left,Negative Right Knee Valgus Stress Test Negative Left,Negative Right Knee Varus Stress Test Negative Left,Negative Right Knee Nini Test Negative Left,Negative Right Patellar Grind Test Positive Right Patellar Compression Test Positive Right Lower Extremity Functional Index Activities Today, do you or would you have any difficulty at all with: a.Any of your usual work, housework or Moderate difficulty school activities b. Your usual hobbies, recreational or Quite a bit of difficulty sporting activities c. Getting into or out of the bath A little bit of difficulty d. Walking between rooms A little bit of difficulty e. Putting on your shoes or socks No difficulty f. Squatting A little bit of difficulty g. Lifting an object, like a bag of No difficulty groceries from the floor h. Performing light activities around Moderate difficulty your home i. Performing heavy activities around No difficulty your home j. Getting into or out of a car Quite a bit of difficulty k. Walking 2 blocks Moderate difficulty l. Walking a mile No difficulty m. Going up or down 10 stairs (about 1 No difficulty flight of stairs) n. Standing for 1 hour No difficulty o. Sitting for 1 hour No difficulty p. Running on even ground No difficulty q. Running on uneven ground No difficulty r. Making sharp turns while running fast No difficulty s. Hopping No difficulty t. Rolling over in bed Extreme difficulty or unable to perform activity LEFI Score Lower Extremity Functional Index Score 61 Outpatient Therapy Assessment Impairments Problems/Impairmments Palpation Tenderness,Impaired Range of Motion,Impaired Strength,Impaired Walking, Impaired Standing,Impaired Sitting,Impaired Lifting, Impaired Household Care, Impaired Stair Climbing, Impaired Incline Stepping, Impaired Stepping on Uneven Surface,Impaired Squatting, Subjective C/O Pain,Impaired Self Care/Self Management Prognosis Rehab Potential Good Clinical Impression Consistent with Diagnosis Yes Short Term Goals Number of Weeks 3 Increase Range of Motion Yes: Improve R knee AROM to at least 0-10-95 Decrease Subjective C/O Pain Yes: Improve pain at worst to 8/10 to improve overall QOL Improve Self Care/Self Management Yes Patient to be Ind w/ HEP Yes Product Safety Coordinator Goals Number of Weeks 6 Decreased Palpation Tenderness Yes: 2/4 generalized TTP of R knee complex Increase Range of Motion Yes: Improve R knee AROM to 0- 110 Increase Strength Yes: Improve RLE MMT to 4-4+/5 grossly to assist with function Improve Ability to Climb Stairs Yes: 1 flight with pain 6/10 or less to assist with community navigation Improve LEFI Score Yes: Improve score to at least 66/80 to improve overall QOL Decrease Subjective C/O Pain Yes: Improve pain at worst to 6/10 to improve overall QOL Outpatient Therapy Plan of Care Treatment Plan May Include Therapeutic Exercise Including Home Yes Exercise Program Manual Therapy Techniques Yes Neuromuscular Re-education Yes Therapeutic Activities to Return to Yes Previous Functional/Work Level ADL/Self Care Education Yes Dry Needling Yes Thermal Modalities Yes Electrical Stimulation Yes Ultrasound/Phonophoresis Yes Iontophoresis Yes Orthotics/Bracing/Splinting Yes Vasopneumatic Compression Pump Yes Massage Yes Eval/Re-Eval Yes Aquatic Therapy Yes Frequency Times per week 2 Duration Number of Weeks 4-6 Addendums This patient is a candidate for social No or vocational rehab? Patient/Guardian verbally acknowledges Yes understanding of treatment program and consents to further treatment? Patient/Guardian verbally acknowledges Yes understanding of diagnosis, prognosis and goals for treatment? Eval Complexity PT Charges 71948 - Low Complexity Shoulder/Elbow Eval Shoulder Objective Measurements Elbow Objective Measurements PHYSICIAN CERTIFICATION: I certify the specified therapy services for January are required, authorized, and reviewed every 30 days.
--- NOTE | 2024-09-04 14:03 | HMH.RHREAS ---
Rehab Reassessment Rehab OP Re-assessment Start: 08/06/24 07:47 Freq: Status: Active Protocol: Document 09/04/24 13:06 ROSETTA (Rec: 09/04/24 14:02 ROSETTA [id number]) E-signed By Judy Yancey PT Lower Extremity Functional Index Activities Today, do you or would you have any difficulty at all with: a.Any of your usual work, housework or Moderate difficulty school activities b. Your usual hobbies, recreational or Extreme difficulty or unable sporting activities to perform activity c. Getting into or out of the bath A little bit of difficulty d. Walking between rooms A little bit of difficulty e. Putting on your shoes or socks No difficulty f. Squatting Moderate difficulty g. Lifting an object, like a bag of Quite a bit of difficulty groceries from the floor h. Performing light activities around Quite a bit of difficulty your home i. Performing heavy activities around Moderate difficulty your home j. Getting into or out of a car Quite a bit of difficulty k. Walking 2 blocks Extreme difficulty or unable to perform activity l. Walking a mile Extreme difficulty or unable to perform activity m. Going up or down 10 stairs (about 1 Extreme difficulty or unable flight of stairs) to perform activity n. Standing for 1 hour Extreme difficulty or unable to perform activity o. Sitting for 1 hour Quite a bit of difficulty p. Running on even ground Extreme difficulty or unable to perform activity q. Running on uneven ground Extreme difficulty or unable to perform activity r. Making sharp turns while running fast Extreme difficulty or unable to perform activity s. Hopping Extreme difficulty or unable to perform activity t. Rolling over in bed No difficulty LEFI Score Lower Extremity Functional Index Score 24 Rehab Re-assessment Subjective Subjective Pt reports she feels like her knee has worsened overtime. Pt reports R knee pain as 9-10/ 10 at worst and 5-6/10 on average. Pt reports knee pain is worse at night time and also aggravated by end range flexion, stair climbing and traversing hills. Pt reports her knee also feels unstable and states she feels like her knee cap wants to pop out randomly. Pt reports she has to use a cane with prolonged walking due to this. Pt reports compliance with HEP although states her knee hurts for a couple of hours after. Pt states she returns to the orthopedic doctor on 09/11/24 for her next follow-up appointment. Objective Objective Notes Gait: lack of heel strike or terminal knee extension R knee AROM: 0-20-95 Assessment Assessment Notes Pt has only attended 3 PT aquatic treatment sessions since her initial evaluation on 08/06/24. Pt reports she is only able to participate in aquatic PT 1x/week due to financial reasons; however, reports compliance with HEP. Pt treatment has consisted of aerobic exercise, knee mobility, LE stretching/ strengthening and HEP with fair-good tolerance. Pt demonstrated regression in LEFS score with continued report of severe knee pain and sense of knee instability that is worse with activity. Pt did however demonstrate slight improvement in R knee AROM although significant deficits still remain. Overall , the pt would continue to benefit from skilled PT to further improve subjective report of pain, R knee ROM, RLE strength, and functional activity tolerance to improve overall QOL. Patient goals met ST/ Goals Not Met p! severity, extension AROM, LTG Revised Goals n/a Plan Plan Continue initial POC Frequency of Therapy 2x/week Duration of therapy 4 more weeks Time and Billing Re-Eval Time 10 Re-Eval Billing Units 0 Charge for PT reassessment? No Charge for OT reassessment? No PHYSICIAN CERTIFICATION: I certify the specified therapy services for Bonnie Baker are required, authorized, and reviewed every 30 days.
== END 2024-09-13 23:59 | disposition home or self-care (01) ==
LOC: PT 13:00
PROVIDERS: Visit Provider Physician Assistant
DX: M17.11 Unilateral primary osteoarthritis, right knee (principal)
CPT/HCPCS: 97014; 97110; 97113; 97163; G0283

== ENCOUNTER 2024-09-20 10:05 | Outpatient (RCR) | payer BC, SELFPAY | END 2024-09-20 23:59 | disposition home or self-care (01) | LOC: PT 10:05 | PROVIDERS: Visit Provider Physician Assistant | DX: M25.561 Pain in right knee (principal) | CPT/HCPCS: 97760 ==

== ENCOUNTER 2024-11-11 15:18 | Emergency (ER) | payer BC, SELFPAY ==
--- NOTE | 2024-11-11 16:10 | ED_ITS ---
Discharge Plan Disposition Patient Disposition: Home, Self-Care Condition: Good Prescriptions Prescriptions: New amoxicillin 875 mg tablet 875 mg PO Q12H Qty: 20 0RF bdwljhrwyxajfkx-cbqzkidwd-GU [Bromfed DM] 2-30-10 mg/5 mL Syrup 5 ml PO Q6H PRN (Reason: Cough) Qty: 240 0RF No Action celecoxib 200 mg capsule See Rx Instructions .ROUTE .COMPLEX Qty: 30 2RF Dose Instruction: TAKE ONE CAPSULE BY MOUTH DAILY Rx Instructions: TAKE ONE CAPSULE BY MOUTH DAILY prednisone 5 mg tablets,dose pack See Rx Instructions .ROUTE .COMPLEX Qty: 21 0RF Rx Instructions: take as directed on package instructions venlafaxine 37.5 mg capsule,extended release 24hr 37.5 mg PO DAILY Patient Comments: TAKE ONE CAPSULE BY MOUTH EVERY MORNING levothyroxine 50 mcg tablet 50 mcg PO DAILY Patient Comments: TAKE ONE TABLET BY MOUTH EVERY DAY IN THE MORNING ON an EMPTY stomach estradiol 2 mg tablet 2 mg PO DAILY Patient Comments: TAKE ONE TABLET BY MOUTH EVERY DAY dextroamphetamine-amphetamine 15 mg capsule,extended release 24hr 15 mg PO DAILY Patient Comments: TAKE ONE CAPSULE BY MOUTH EVERY MORNING Referrals Follow up/Referrals: Tana Espinal MD [Primary Care Provider] - See instructions Activity Restrictions/Add. Instructions Additional Instructions/Restrictions: Drink plenty of fluids. Take tylenol or ibuprofen for pain or fever. Take the medications as directed. Follow up with your regular doctor. GO TO THE ER FOR ANY WORSENING SYMPTOMS Throw your tooth brush away and get a new one. Clinical Impressions Clinical Impression: Strep throat Instructions Patient Instructions: Strep Throat, DI for Strep Throat Print Language Print Language: Tajik Discharge ED Provider: Isidoro Escudero [facility] General Stated complaint: ears hurt,runny nose,congestion Time Seen by Provider: 11/11/24 16:10 Related Data Home Medications ?Medication ?Instructions ?Recorded ?Confirmed dextroamphetamine-amphetamine ER 15 mg PO DAILY 11/25/23 09/11/24 15 mg 24hr capsule,extend release estradiol 2 mg tablet 2 mg PO DAILY 11/25/23 09/11/24 levothyroxine 50 mcg tablet 50 mcg PO DAILY 11/25/23 09/11/24 venlafaxine 37.5 mg 37.5 mg PO DAILY 11/25/23 09/11/24 capsule,extended release 24 hr Previous Rx's ?Medication ?Instructions ?Recorded prednisone 5 mg tablets in a dose See Rx Instructions PO .COMPLEX 05/05/24 pack #21 tabs celecoxib 200 mg capsule See Rx Instructions .Route 10/04/24 .COMPLEX #30 caps amoxicillin 875 mg tablet 875 mg PO Q12H #20 tabs 11/11/24 gtyzoctsanxbryk-jwnpvvvdjfjzdgc-HK 5 ml PO Q6H PRN Cough #240 mL 11/11/24 2 mg-30 mg-10 mg/5 mL oral syrup (Bromfed DM) Allergies Allergy/AdvReac Type Severity Reaction Status Date / Time erythromycin base Allergy Unknown Verified 07/30/24 13:10 (ERYTHROMYCIN BASE) latex (LATEX) Allergy Unknown Verified 07/30/24 13:10 [facility] Disclaimer: The information contained in this section may have been updated after the patient was seen, as this information can be updated by other users. Medical History History of fibromyalgia Thyroid disease Kidney stone Depression Anxiety Cancer Asthma Surgical History History of hysterectomy History of section History of cholecystectomy Family History Other No significant family history Social History Smoking Status: Unknown if ever smoked second hand exposure: No alcohol intake: never counseling provided: none substance use type: denies use current occupational status: other Travel in the last 8 weeks: None household members: spouse and children housing: house Have you lived/traveled outside US in past 30 days?: No Contact w/someone who lives/traveled outside US past 30 days?: No Exposure to someone with infectious disease in past 14 days?: No Do you have a fever (greater than 100.4 F or 38 C)?: No Have you tested positive for COVID-19: No Exposed to someone with COVID-19 in past 14 days?: Yes Do you have a sore throat?: Yes Do you have a cough?: Yes Do you have any weakness?: Yes Do you have any diarrhea?: No Are you experiencing any unusual bleeding?: Yes Do you have any muscle aches/pain?: No Do you have any abdominal pain?: No Are you experiencing loss of taste or smell?: No ROS Obtained: Yes All systems reviewed & no additional complaints except as documented Constitutional Constitutional: Reports chills and Reports fever(s) Eyes Eyes: Denies eye discharge ENT Ears, Nose, Mouth, and Throat: Reports as per HPI Cardiovascular Cardiovascular: Denies chest pain Respiratory Respiratory: Denies chest congestion and Reports cough Gastrointestinal Gastrointestingal: Reports nausea; Denies abdominal pain, constipation, cramping, diarrhea or vomiting Musculoskeletal Musculoskeletal: Denies arthralgias Integumentary/Breasts Skin/Breast: Denies rash Neurologic Neurologic: Denies paresthesias Physical Exam General General appearance: alert and in no apparent distress Head Head exam: atraumatic, normocephalic and normal inspection Eye Eye exam: Present normal appearance, PERRL and EOMI ENT ENT exam: Present mucous membranes moist and normal external ear exam Expanded ENT Exam TM/Canal exam: Bilateral TM: erythema and bulging Nose exam: Absent sinus tenderness Mouth exam: Present normal external inspection; Absent drooling Teeth exam: Present normal inspection Throat exam: Present tonsillar erythema, tonsillomegaly and tonsillar exudate Neck Neck exam: Present normal inspection, full ROM and trachea midline; Absent tenderness, meningismus or lymphadenopathy Chest Chest inspection: Present normal inspection and symmetric chest wall rise; Absent tenderness Respiratory Respiratory exam: Present normal lung sounds bilaterally; Absent respiratory distress, wheezes or stridor Cardiovascular Cardiovascular exam: Present regular rate and normal rhythm; Absent systolic murmur or diastolic murmur Abdominal Exam Abdominal exam: Present soft and normal bowel sounds; Absent distention, tenderness, guarding, rebound or rigidity Extremities Exam Extremities exam: Present normal inspection and normal capillary refill; Absent calf tenderness Back Exam Back exam: Present normal inspection and full ROM; Absent tenderness, CVA tenderness (R) or CVA tenderness (L) Neurological Exam Neurological exam: Present alert, oriented X3 and CN II-XII intact Psychiatric Psychiatric exam: Present normal affect and normal mood Skin Skin exam: Present warm, dry, intact and normal color Medical Decision Making Medical Records Medical records reviewed: No I reviewed the patient's medical records. Screening: Per USPSTF and CDC recommendations, given the prevalence of disease in our region, it is our hospital?s policy to screen for HIV and viral Hepatitis for all patients aged 18 and over and those with ongoing risk factors. Clive Inquiry Pt receiving controlled substance: No Lab Data Lab results reviewed: Yes I reviewed the patient's lab results.
[2024-11-11 16:17] VITALS: BP 111/66; PULSE 63; RESP 18; TEMP 36.6; O2SAT 97; BMI 43.4
[2024-11-11 16:30] LABS: UTC Strep Screen (Rapid) Negative (Negative)
[2024-11-11 17:00] VITALS: BP 111/66; PULSE 63; RESP 18; TEMP 36.6
== END 2024-11-11 17:17 | disposition home or self-care (01) ==
PROVIDERS: Emergency Provider Nurse Practitioner Family; PCP Family Medicine
DX: J02.0 Streptococcal pharyngitis (principal)
CPT/HCPCS: 87880; 99212; G0381

== ENCOUNTER 2025-04-22 10:46 | Outpatient (CLI) | payer BC, SELFPAY ==
--- OUTSIDE RECORDS SUMMARY | 2025-03-15 12:47 | XMS_ITS | Encounter Summary ---
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 Name Role Phone Vitaliy Rehman MD Primary Care Provider [phone] Brandon Escoto MD Unavailable Shailesh Smith Unavailable [phone] Casie Real MD Unavailable [phone] Reason for Referral * Imaging (Routine) - Closed Specialty Diagnoses / Procedures Referred By Subha dangelo Referred To Contact Radiology Diagnoses Papillary microcarcinoma of thyroid (CMS/HCC) Thyroid mass Procedures US Head Neck Soft Tissue Shailesh Smith PA [address] [address] Phone: tel: fax: Referral ID Status Reason Start Date Expiration Date Visits Re quested Visits Authorized [id number] Closed 02/15/2025 08/17/2026 1 1 Reason for Visit * Imaging (Routine) - Closed Specialty Diagnoses / Procedures Referred By Contyoseph dangelo Referred To Contact Radiology Diagnoses Papillary microcarcinoma of thyroid (CMS/HCC) Thyroid mass Procedures US Head Neck Soft Tissue Shailesh Smith PA [address] [facility] [place] [address] Phone: tel: fax: Referral ID Status Reason Start Date Expiration Date Visits Re quested Visits Authorized [id number] Closed 02/15/2025 08/17/2026 1 1 Encounter Details Date Type Department Care Team (Latest Contact Info) Description 03/15/2025 12:47 PM EDT - 03/15/2025 11:59 PM EDT Hospital Encounter [facility] [address] [place] [address] Papillary microcarcinoma of thyroid (CMS/HCC); Thyroid mass Discharge Disposition: Home or Self Care Social History Tobacco Use Types Packs/Day Years Used Date Smoking Tobacco: Never Smokeless Tobacco: Never Alcohol Use Standard Drinks/Week Comments No 0 (1 standard drink = 0.6 oz pur e alcohol) PHQ-2 Answer Date Recorded Patient Health Questionnaire-2 Score 0 10/26/2024 PHQ-9 Answer Date Recorded Patient Health Questionnaire-9 Score 4 10/26/2024 Comments No Sex and Gender Information Value Date Recorded Sex Assigned at Female 07/06/2021 6:20 AM EDT Legal Sex Female 6:14 PM EDT Gender Identity Female 07/06/2021 6:20 AM EDT Sexual Orientation Straight 07/06/2021 6: 20 AM EDT documented as of this encounter Functional Status * Calculated C-SSRS Risk Score (Lifetime/Recent) Answer Date of Assessment Author No Risk Indicated 03/15/2025 2:34 PM EDT Analia Rodriguez * Question Answer Date of Assessment Author 1. Wish to be (Past 1 Month) No 025 2:34 PM EDT Analia Rodriguez 2. Non-Specific Active Suici maynor Thoughts (Past 1 Month) No 03/15/2025 2:34 PM EDT Esthela Rodriguez 6. Suicidal Behavior (Lifetime) No 2:34 PM EDT Analia Rodriguez documented as of this encounter Medications at Time of Discharge acetaminophen (GNP Arthritis Pain Relief) 650 MG ER tablet 1 tab(s) orally every 4 to 6 hours, As Needed 03/04/2019 albuterol 108 (90 Base) MCG/ACT inhaler INHALE 1 PUFF BY MOUTH EVERY 4 HOURS NEEDED 11/09/2021 amitriptyline (Elavil) 150 MG tablet TAKE 1 TABLET BY MOUTH ONCE DAILY AT BEDTIME FOR 90 DAYS 05/19/2021 amphetamine-dextroam phetamine XR (Adderall XR) 30 MG 24 hr capsule Take 1 capsule (30 mg) by mouth 1 (one) time each day in the morning. Do not crush or chew. bacitracin 500 UNIT/GM ointment Apply topically 2 (two) times a day. Apply to incision twice daily for seven days 14 g 07/06/2021 celecoxib (CeleBREX) 100 MG capsule TAKE 1 CAPSULE BY MOUTH TWICE DAILY WITH FOOD FOR 7 DAYS 11/19/2021 celecoxib (CeleBREX) 100 MG capsule Take 1 capsule (100 mg) by mouth 2 (two) times a day. estradiol (Estrace) 0.5 MG tablet Take 1 tablet (0.5 mg) by mouth 1 (one) time each day. FLUoxetine (PROzac) 40 MG capsule Take 40 mg by mouth 2 (two) times a day. 05/18/2021 fluticasone (Flonase) 50 MCG/ACT nasal spray USE 1 SPRAY(S) IN EACH NOSTRIL ONCE DAILY 04/16/2021 GNP Omeprazole 20 MG EC tablet TAKE ONE TABLET BY MOUTH EVERY EVENING -SWALLOW WHOLE. DO NOT CRUSH OR CHEW- 06/11/2021 levothyroxine (Synthroid, Levoxyl) 50 MCG tablet TAKE ONE TABLET BY MOUTH EVERY DAY IN THE MORNING ON an EMPTY stomach 11/24/2021 Multiple Vitamin (MULTIVITAMIN ADULT PO) daily. omeprazole (PriLOSEC) [address] capsule 1 cap(s) orally once a day ondansetron ODT (Zofran-ODT) 4 MG disintegrating tablet DISSOLVE ONE TABLET BY MOUTH EVERY 8 HOURS NEEDED FOR NAUSEA 11/24/2021 predniSONE (Deltasone) 20 MG tablet TAKE ONE TABLET BY MOUTH TWICE DAILY FOR 3 DAYS -- FINISH ALL MEDICINE -- 11/24/2021 promethazine (Phenergan) 25 MG tablet TAKE 1 TABLET BY MOUTH EVERY 6 HOURS NEEDED FOR 30 DAYS 04/28/2021 venlafaxine 75 MG 24 hr tablet Take 1 tablet (75 mg) by mouth 1 (one) time each day with breakfast. Do not crush, chew, or split. documented as of this encounter Plan of Treatment Upcoming Encounters Date Type Department Care Team (Late st Contact Info) Description 05/22/2025 3:00 PM EDT Office Visit [facility] [address] [place] [address] Champ Rinaldi MD [address] [place] [address] documented as of this encounter Procedures Procedure Name Priority Date/Time Associated Diagnosis Comments US HEAD NECK SOFT TISSUE Routine 03/15/2025 1:36 PM EDT Papillary microcarcinoma of thyroid (CMS/HCC) Thyroid mass documented in this encounter Results * US Head Neck Soft Tissue (03/15/2025 1:36 PM EDT) Anatomical Region Laterality Modality Head, Neck Ultrasound Impressions 03/15/2025 2:41 PM EDT 1. Stable subcentimeter focus of calcification in the right lobe CRITICAL RESULT: No. COMMUNICATION: Per this written report. By electronically signing this report, I, the attending physician, attest that I have personally reviewed the images/data for the above examination(s) and agree with the final edited report. Drafted by Viet Alvarez MD on 03/15/2025 1:53 PM Final report signed by Alton Condon MD on 03/15/2025 2:41 PM Narrative 03/15/2025 2:41 PM EDT CLINICAL INDICATION: history of thyroid carcinoma, s/p thyroid resection TECHNIQUE: Multiplanar, bilateral bermeo scale ultrasound of the thyroid, with limited Doppler vascular ultrasound. COMPARISON: June 11, 2022 FINDINGS: Thyroid: Right lobe measures 4.5 x 1.7 x 1.6 cm. Left lobe is surgically absent. Subcentimeter focus of calcification in the residual right lobe, stable compared to the prior study Other: Stable morphologically normal-appearing submental lymph node. Focal Thyroid Observations: (If present and relevant, a maximum of 2 nodules will be described below per TI-RADS recommendations). Procedure Note Alton Condon MD - 03/15/2025 CLINICAL INDICATION: history of thyroid carcinoma, s/p thyroid resection TECHNIQUE: Multiplanar, bilateral bermeo scale ultrasound of the thyroid, with limitedDoppler vascular ultrasound. COMPARISON: June 11, 2022 FINDINGS: Thyroid: Right lobe measures 4.5 x 1.7 x 1.6 cm. Left lobe is surgicallyabsent. Subcentimeter focus of calcification in the residual right lobe,stable compared to the prior study Other: Stable morphologically normal-appearing submental lymph node. Focal Thyroid Observations: (If present and relevant, a maximum of 2nodules will be described below per TI-RADS recommendations). IMPRESSION: 1. Stable subcentimeter focus of calcification in the right lobe CRITICAL RESULT: No. COMMUNICATION: Per this written report. By electronically signing this report, I, the attending physician, [email or web address] I have personally reviewed the images/data for the aboveexamination(s) and agree with the final edited report. Drafted by Viet Alvarez MD on 03/15/2025 1:53 PM Final report signed by Alton Condon MD on 03/15/2025 2:41 PM us Shailesh MOLINA IMG US PROCEDURES Final Result documented in this encounter Visit Diagnoses Diagnosis Papillary microcarcinoma of thyroid (CMS/HCC) Thyroid mass Unspecified disorder of thyroid documented in this encounter Additional Health Concerns Assessment Noted Time PHQ-9 Depression Total Score: 4 10/26/19 25 8:05 AM EST A fall risk assessment has been complete d for the patient 03/15/2025 2:42 PM EDT A Body Mass Index follow-up plan has been documented for the patient 10/28/2024 11:15 PM EST documented as of this encounter Care Teams Die Machine Operator Relationship Specialty Start Date End Date Vitaliy Rehman MD [address] [place] [address] PCP - General 07/01/21 Brandon Escoto MD [address] [place] [phone] Surgeon Otolaryngology 07/13/21 Shailesh Smith PA [address] [facility] [address] [place] [address] Physician Clinical Program Consultant Otolaryngology 06/21/22 Casie Real MD [address] [place] [address] Referring Physician 06/21/22 documented as of this encounter
--- OUTSIDE RECORDS SUMMARY | 2025-03-15 15:00 | XMS_ITS | Encounter Summary ---
Author Organization Healthcare Address [address] [place] [address] Care Team Providers Care Char House Supervisor Name Role Phone Vitaliy Rehman MD Primary Care Provider [phone] Brandon Escoto MD Unavailable [phone] Shailesh Flores Unavailable [phone] Casie Real MD Unavailable [phone] Reason for Referral * Imaging (Routine) - Pending Review Specialty Diagnoses / Procedures Referred By Subha t Referred To Contact Radiology Diagnoses Papillary microcarcinoma of thyroid (CMS/HCC) Procedures US Thyroid Shailesh Flores PA [address] [facility] [address] [place] [address] Phone: tel: fax: Referral ID Status Reason Start Date Expiration Date V isits Requested Visits Authorized [id number] Pending Review 03/15/2025 09/14/2026 1 1 Reason for Visit * Reason Comments Follow-up Labs Encounter Details Date Type Department Care Team (Latest Contact Info) Description 03/15/2025 3:00 PM EDT Office Visit [facility] [address] [place] [id number] Shailesh Flores PA [address] [place] [address] Papillary microcarcinoma of thyroid (CMS/HCC); Thyroid mass Social History Tobacco Use Types Packs/Day Years [...] AM EDT documented as of this encounter Last Filed Vital Signs Vital Sign Reading Time Taken Comments Blood Pressure 121/80 03/15/2025 2:36 PM EDT Pulse 73 03/15/2025 2:36 PM EDT Temperature 37.1 C (98.7 F) 03/15/2025 2:36 PM EDT Respiratory Rate 16 03/15/2025 2:36 PM EDT Oxygen Saturation 98% 03/15/2025 2:36 PM EDT Inhaled Oxygen Concentration - - Weight 117 kg (257 lb 15 oz) 03/15/2025 2:36 PM EDT Height 160 cm (5' 3 ) 03/15/2025 2:36 PM EDT Body Mass Index 45.69 03/15/2025 2:36 PM EDT documented in this encounter Functional Status * Calculated C-SSRS Risk Score (Lifetime/Recent) Answer Date of Assessment Author No Risk Indicated 03/15/2025 2:34 PM EDT Analia Rodriguez * Question Answer Date of Assessment Author 1. Wish to be (Past 1 Month) No 2:34 PM EDT Analia Rodriguez 2. Non-Specific Active Suici maynor Thoughts (Past 1 Month) No 03/15/2025 2:34 PM EDT Esthela Rodriguez 6. Suicidal Behavior (Lifetime) No 2:34 PM EDT Analia Rodriguez documented as of this encounter Miscellaneous Notes * Progress Notes - Shailesh Flores PA - 03/15/2025 3:00 PM EDT Chief Complaint Patient presents with Follow-up Labs Bonnie Susan Baker is a 44 y.o. female who presents to our clinic today for follow up evaluation. The patient has history of a papillary microcarcinoma of the left thyroid. The patient initially presented to our clinic secondary to enlargement of the left thyroid lobe with a large mass. The patient had surgical resection of the tumor which demonstrated a large multinodular goiter in the left thyroid lobe. Within the specimen the patient demonstrated a 1 mm focus of papillary microcarcinoma. Her operation was performed on July 06, 2021. She has a remaining right thyroid lobe. She returns for clinic today for re-evaluation. She notes that she has occasional episodes of swelling in her left neck which become painful. She states that he has occurred and random intervals. She1st noticed these instances occurring in October 2024. She also notes that she will occasionally have difficulty swallowing dry consistencies that crackers. She also notes that she feels as though she has been experiencing some fatigue and a few lb of weight gain. The patient notes that she has lost 206 lb secondary to her bariatric surgery. Her height is 1.6 m (5' 3 ) and weight is 117 kg (257 lb 15 oz). Her oral temperature is 37.1 ??C (98.7 ??F). Her blood pressure is 121/80 and her pulse is 73. Her respiration is 16 and oxygen saturation is 98%. Past Medical History[1] Oncology History No history exists. She has a past surgical history that includes Cholecystectomy (N/A); Dilation and curettage of uterus (N/A); Total abdominal hysterectomy (N/A); section, classic (1999); section, classic (2012); section, classic (2014); Kidney stone surgery (N/A); Thyroid surgery; and Sleeve Gastroplasty. Her family history includes Diabetes in an other family member; Liver cancer in her maternal grandfather; Lung cancer in her paternal grandmother. She reports that she has never smoked. She has never used smokeless tobacco. She reports no history of alcohol use. Nutrition Assessment Anthropometrics: Wt Readings from Last 3 Encounters: 03/15/25 117 kg (257 lb 15 oz) 10/26/24 110 kg (242 lb 1 oz) 06/11/22 163 kg (358 lb 4 oz) Ht Readings from Last 1 Encounters: 03/15/25 1.6 m (5' 3 ) BMI Readings from Last 1 Encounters: 03/15/25 45.69 kg/m?? Biochemical: Lab Results Component Value Date GLUCOSE 104 (H) 05/22/2021 CALCIUM 9.7 05/22/2021 NA 139 05/22/2021 K 4.4 05/22/2021 CO2 26 05/22/2021 CL 101 05/22/2021 BUN 13 05/22/2021 CREATININE 0.85 05/22/2021 PHYSICAL EXAMINATION: General: Healthy-appearing 44 y.o. patient, alert and oriented x3, in no acute distress, well nourished, well developed. Psychiatric evaluation: Normal mood and affect, very pleasant and cooperative. Nasal cavity examination: Septum is midline. Oral cavity examination: The oral cavity is evaluated without concerning ulceration or lesion. The tongue demonstrates full range of motion. Neck: soft and supple. I did not feel any enlarged lymphadenopathy. Tenderness with palpation of the left submandibular gland. Eyes: Extraocular movements are intact bilaterally. PERRLA. Neurological examination: Cranial nerves II-XII are grossly intact. Skin of the scalp, neck and face: did not reveal any evidence of significant rashes or suspicious appearing nevi or other concerning lesions. Endocrine examination: I do not feel any thyroid nodules. No thyromegaly. Respiratory: chest is symmetrical, breathing comfortably without effort. The patient has been counseled on tobacco cessation: Not Applicable Diagnosis Plan 1. Papillary microcarcinoma of thyroid (CMS/HCC) Clinic Appointment Request SHAILESH FLORES Thyroid Stimulating Hormone, Plasma Free T4, Plasma Thyroid Stimulating Hormone, Plasma Free T4, Plasma Clinic Appointment Request BRANDON ESCOTO US Thyroid 2. Thyroid mass Clinic Appointment Request SHAILESH FLORES === 03/15/25 === US HEAD NECK SOFT TISSUE - Narrative - CLINICAL INDICATION: history of thyroid carcinoma, s/p [...] will be described below per TI-RADS recommendations). - Impression - 1. Stable subcentimeter focus of calcification in [...] Alton Condon MD on 03/15/2025 2:41 PM IMPRESSION/PLAN: Ms. Baker returns to our clinic today for continued surveillance. The patient does not demonstrate any concerning finding on her ultrasound. The patient's physical examination demonstrates tenderness over the left submandibular gland. The patient is likely experiencing acute episodes of sialadenitis secondary to dehydration. The patient states she has been consuming large amounts of protein shakes without additional water. The patient is advised on conservative management for sialadenitis. The patient will be scheduled return to our clinic in 1 year for re-evaluation with updated ultrasound. We will perform a TSH and T4 today in clinic to assess the patient's concerns of fatigue. The patient will contact us prior to his scheduled return appointment if there is any additional questions or concerns. JESSE Louis Digital speech recognition software was used to dictate this note and, despite all efforts to proofread, some dictation errors may occur. If you have any questions, please do not hesitate to contact me. [1] Past Medical History: Diagnosis Date Anxiety disorder, unspecified Anxiety and depression Arrhythmia 2019 required chemical conversion Loculated pleural effusion 05/30/2019 Pelvic and perineal pain Pelvic pain Salpingitis and oophoritis, unspecified Tubo-ovarian abscess Thyroid cancer (CMS/HCC) Unspecified asthma, uncomplicated Asthma documented in this encounter Plan of Treatment Upcoming Encounters Date Type Department Care Team (Late st Contact Info) Description 05/22/2025 3:00 PM EDT Office Visit [facility] [address] [place] [address] Champ Rinaldi MD [address] [place] [address] Scheduled Orders Name Type Priority Associated Diagnoses Orde r Schedule US Thyroid Imaging Routine Papillary microcarcinoma of thyroid (CMS/HCC) Expected: 03/15/2026 (Approximate), Expires: 09/16/2026 documented as of this encounter Procedures Procedure Name Priority Date/Time Associated Diagnosis Comments TSH Routine 03/15/2025 3:19 PM EDT Papillary microcarcinoma of thyroid (CMS/HCC) FREE T4, PLASMA Routine 03/15/2025 3:19 PM EDT Papillary microcarcinoma of thyroid (CMS/HCC) documented in this encounter Results * Free T4, Plasma (03/15/2025 3:19 PM EDT) Free T4, Plasma 1.0 0.8 - 1.7 ng/dL 03/15/2025 4:21 PM EDT [facility] Blood Venous blood specimen / Unknown Venipuncture / Unknown 03/15/2025 3:19 PM EDT 03/15/2025 3:40 PM EDT Narrative [facility] - 03/15/2025 4:21 PM EDT Free T4 Trimester Specific Ranges 1st Trimester 0.9 - 1.50 ng/dL 2nd Trimester 0.7 - 1.40 ng/dL 3rd Trimester 0.7 - 1.24 ng/dL us Shailesh [facility] BLOOD ORDERABLES Final Resu lt [facility] [address] [place] [address] * Thyroid Stimulating Hormone, Plasma (03/15/2025 3:19 PM EDT) Thyroid Stimulating Hormone, Plasma 1.68 0.40 - 4.20 uIU/mL 03/15/2025 4:21 PM EDT [facility] Blood Venous blood specimen / Unknown Venipuncture / Unknown 03/15/2025 3:19 PM EDT 03/15/2025 3:40 PM EDT Narrative [facility] - 03/15/2025 4:21 PM EDT Trimester Specific Ranges TSH ( IU/mL) 1st Trimester 0.1 - 3.0 2nd Trimester 0.19 - 4.06 3rd Trimester 0.3 - 3.7 us Shailesh [facility] BLOOD ORDERABLES Final Resu lt [facility] [address] [place] [address] documented in this encounter Visit Diagnoses Diagnosis [...] documented as of this encounter Care Teams Char House Supervisor Relationship Specialty Start Date End Date Vitaliy Rehman MD [facility] [id number] PCP - General 07/01/21 Brandon Escoto MD 800 [facility] [address] [place] [address] Surgeon Otolaryngology 07/13/21 Shailesh Flores PA [address] [facility] [address] [place] [address] Physician Dry Wall Plasterer Otolaryngology 06/21/22 Caise Real MD [address] [phone] (work) Referring Physician 06/21/22 documented as of this encounter
--- NOTE | 2025-04-22 10:48 | XR_ITS ---
FINAL REPORT CLINICAL HISTORY: right knee pain COMPARISON: None FINDINGS: RIGHT KNEE: 3 views of the right knee were obtained. There is no acute fracture or dislocation. Severe tricompartment degenerative changes present. A small pleural effusion is present. IMPRESSION: Severe tricompartment degenerative change, without acute bony abnormality. Reviewed, Interpreted and Dictated by Caio Vásquez MD Transcribed by Debi Cline Authenticated and [facility]
--- OUTSIDE RECORDS SUMMARY | 2025-04-22 10:52 | XMS_ITS | Encounter Summary ---
Author Organization Healthcare Address [address] [place] [address] Care Team Providers Care Production Or Plant Engineer Name Role Phone Vitaliy Rehman MD Primary Care Provider Brandon Escoto MD Unavailable [phone] Shailesh Smith Unavailable [phone] Casie Real MD Unavailable [phone] Encounter Details Date Type Department Care Team (Late st Contact Info) Description 01/08/2023 Orders Only External Location [address] [place] [address] Provider, External Social History Tobacco Use Types Packs/Day Years Used Date Smoking Tobacco: Never Smokeless Tobacco: Never Alcohol Use Standard Drinks/Week Comments No 0 (1 standard drink = 0.6 oz pur e alcohol) PHQ-2 Answer Date Recorded Patient Health Questionnaire-2 Score 0 12/11/2021 Comments No Sex and Gender Information Value Date Recorded Sex Assigned at Female 07/06/2021 6:20 AM EDT Legal Sex Female 6:14 PM EDT Gender Identity Female 07/06/2021 6:20 AM EDT Sexual Orientation Straight 07/06/2021 6: 20 AM EDT documented as of this encounter Plan of Treatment Upcoming Encounters Date Type Department Care Team (Late st Contact Info) Description 05/22/2025 3:00 PM EDT Office Visit [facility] [address] [place] [phone] Champ Rinaldi MD [address] [facility] [address] [place] [address] documented as of this encounter Procedures Procedure Name Priority Date/Time Associated Diagnosis Comments XR MSK OUTSIDE IMAGES 01/08/2023 9:55 AM EDT documented in this encounter Results * XR MSK OUTSIDE IMAGES (01/08/2023 9:55 AM EDT) Anatomical Region Laterality Modality Radiographic Jazmin ging 01/08/2023 9:55 AM EDT us External Provider IMG XR PROCEDURES Final Result documented in this encounter Visit Diagnoses Not on filedocumented in this encounter Additional Health Concerns Assessment Noted Time A fall risk assessment has been complete d for the patient 06/11/2022 1:58 PM EDT documented as of this encounter Care Teams Production Or Plant Engineer Relationship Specialty Start Date End Date Vitaliy Rehman MD [facility] [id number] PCP - General 07/01/21 Brandon Escoto MD 800 [facility] [address] [address] Surgeon Otolaryngology 07/13/21 Shailesh Smith PA [address] [facility] [address] [place] [address] Physician Pigment Mixer Otolaryngology 06/21/22 Casie Real MD [address] [place] [address] Referring Physician 06/21/22 documented as of this encounter
--- OUTSIDE RECORDS SUMMARY | 2025-04-22 10:52 | XMS_ITS | Encounter Summary ---
Author Organization Healthcare Address [address] [place] [address] Care Team Providers Care Sex Crimes Detective Name Role Phone Vitaliy Rehman MD Primary Care Provider Brandon Escoto MD Unavailable [phone] Shailesh Smith Unavailable [phone] Casie Real MD Unavailable [phone] Encounter Details Date Type Department Care Team (Latest Contact Info) Description 03/14/2025 Travel Social History Tobacco Use Types Packs/Day Years [...] Description 05/22/2025 3:00 PM EDT Office Visit [facility] [address] [place] [address] Champ Rinaldi MD [address] [address] [place] [address] documented as of this encounter Visit Diagnoses Not on filedocumented in this encounter Additional Health Concerns Assessment Noted Time PHQ-9 Depression Total Score: 4 10/26/19 25 8:05 AM EST A fall risk assessment has been complete d for the patient 10/26/2024 8:05 AM EST A Body Mass Index follow-up plan has been documented for the patient 10/28/2024 11:15 PM EST documented as of this encounter Care Teams Sex Crimes Detective Relationship Specialty Start Date End Date Vitaliy Rehman MD [address] [place] [address] PCP - General 07/01/21 Brandon Escoto MD [address] [address] Surgeon Otolaryngology 07/13/21 Shailesh Smith PA [address] [facility] [address] [place] [address] Physician Director Of Health Education Otolaryngology 06/21/22 Casie Real MD 8 [facility] [place] [address] Referring Physician 06/21/22 documented as of this encounter
--- OUTSIDE RECORDS SUMMARY | 2025-04-22 10:52 | XMS_ITS ---
Author Organization Healthcare Address [address] [place] [address] Care Team Providers Care Warehouse Picker Name Role Phone Vitaliy Rehman MD Primary Care Provider [phone] Brandon Escoto MD Unavailable [phone] Shailesh Smith Unavailable [phone] Casie Real MD Unavailable Active Problems Problem Noted Date Diagnosed Date Allergic rhinitis 12/19/2021 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 Oropharyngeal dysphagia 06/11/2021 Thyroid mass 06/11/2021 Non-toxic uninodular goiter 06/10/2021 Loculated pleural effusion 05/30/2019 Empyema 04/04/2019 Ovarian cyst 01/17/2019 Unspecified asthma, uncomplicated Overview (07/02/2021): Asthma Anxiety disorder, unspecified Overview (07/02/2021): Anxiety and depression Morbid obesity Dyspnea Gastroesophageal reflux disease Current Treatment and Therapy Plans No current plan information found. Past Treatment and Therapy Plans No past plan information found. Lifetime Dose Tracking * Chemical Lifetime Dose Automatic Entry Manual Entr y Fluoro Time 2.3 minutes 2.3 minutes 0 minutes Air Kerma 72.7 mGy 72.7 mGy 0 mGy
--- OUTSIDE RECORDS SUMMARY | 2025-04-22 10:52 | XMS_ITS | Referral Summary ---
Author Organization [employer] ([place], [place], [place], [place]) Address [address] [place] [address] Care Team Providers Care Operator And Truck Driver Name Role Phone Unavailable Primary Care Provider Unavailabl e Social History Tobacco Use Types Packs/Day Years Used Date Smoking Tobacco: Never Assessed Comments Unknown Sex and Gender Information Value Date Recorded Sex Assigned at Not on file Legal Sex Female 7:20 PM CDT Gender Identity Not on file Sexual Orientation Not on file Plan of Treatment [place] [id number] BLUE CROSS/BLUE SHIELD
--- OUTSIDE RECORDS SUMMARY | 2025-04-22 10:52 | XMS_ITS | Encounter Summary ---
Author Organization Healthcare Address [address] [place] [address] Care Team Providers Care Associate Relations Specialist Name Role Phone Vitaliy Rehman MD Primary Care Provider [phone] Brandon Escoto MD Unavailable [phone] Shailesh Smith Unavailable [phone] Casie Real MD Unavailable [phone] Encounter Details Date Type Department Care Team (Late st Contact Info) Description 05/20/2023 Orders Only External Location [address] [place] [address] Provider, External Social History Tobacco Use Types [...] Description 05/22/2025 3:00 PM EDT Office Visit [facility] Pediatrics [address] [place] [phone] Champ Rinaldi MD [address] [facility] [address] [place] [address] documented as of this encounter Procedures Procedure Name Priority Date/Time Associated Diagnosis Comments XR OUTSIDE IMAGES 05/20/2023 1:38 PM EDT documented in this encounter Results * XR OUTSIDE IMAGES (05/20/2023 1:38 PM EDT) Anatomical Region Laterality Modality Radiographic Jazmin ging 05/20/2023 1:38 PM EDT us External Provider IMG XR PROCEDURES Final Result documented in this encounter Visit Diagnoses Not on filedocumented in this encounter Additional Health Concerns Assessment Noted Time A fall risk assessment has been complete d for the patient 06/11/2022 1:58 PM EDT documented as of this encounter Care Teams Associate Relations Specialist Relationship Specialty Start Date End Date Vitaliy Rehman MD [address] [id number] PCP - General 07/01/21 Brandon Escoto MD 800 [facility] [address] [address] Surgeon Otolaryngology 07/13/21 Shailesh Smith PA [address] [place] [address] Physician Weigh Tank Operator Otolaryngology 06/21/22 Casie Real MD [address] [place] [address] Referring Physician 06/21/22 documented as of this encounter
--- OUTSIDE RECORDS SUMMARY | 2025-04-22 10:52 | XMS_ITS | Encounter Summary ---
Author Organization Healthcare Address [address] [place] [address] Care Team Providers Care Price Analyst Name Role Phone Vitaliy Rehman MD Primary Care Provider Brandon Escoto MD Unavailable [phone] Shailesh Smith Unavailable [phone] Casie Real MD Unavailable Encounter Details Date Type Department Care Team (Late st Contact Info) Description 03/07/2025 Telephone Interventional Pain Medicine [address] [place] [address] Mayco Farr MD [address] [place] [address] Social History Tobacco Use Types Packs/Day Years [...] AM EDT documented as of this encounter Miscellaneous Notes * Telephone Encounter - Roseline Paiz - 03/07/2025 11:30 AM EDT Spoke with patient and stated we can send a in a new request but it may be denied as well. She stated she understood, told her I will call her when I get an update. documented in this encounter Plan of Treatment Upcoming Encounters Date Type Department Care Team (Late st Contact Info) Description 05/22/2025 3:00 PM EDT Office Visit [facility] Pediatric[facility] [address] [facility] [place] [address] Champ Rinaldi MD 110 [facility] [address] [place] [address] documented as of this encounter [...] documented as of this encounter Care Teams Price Analyst Relationship Specialty Start Date End Date Vitaliy Rehman MD [address] [place] [address] PCP - General 07/01/21 Brandon Escoto MD 800 [facility] [address] [address] Surgeon Otolaryngology 07/13/21 Shailesh Smith PA [address] [place] [address] Physician Spinning Machine Operator Otolaryngology 06/21/22 Casie Real MD [address] [place] [address] Referring Physician 06/21/22 documented as of this encounter
--- OUTSIDE RECORDS SUMMARY | 2025-04-22 10:52 | XMS_ITS | Encounter Summary ---
Author Organization Healthcare Address [address] [place] [address] Care Team Providers Care Benchroom Shop Optician Name Role Phone Vitaliy Rehman MD Primary Care Provider [phone] Brandon Escoto MD Unavailable [phone] Shailesh Smith Unavailable [phone] Casie Real MD Unavailable [phone] Reason for Referral * Other Medical (Urgent) - Denied Specialty Diagnoses / Procedures Referred By Subha dangelo Referred To Contact Pain Medicine Diagnoses Chronic pain of right knee Total knee replacement status, right Procedures Nerve Block - Genicular Mayco Farr MD [address] [place] [address] Phone: tel: fax: Interventional Pain Medicine [address] [place] [address] Phone: tel: fax: Referral ID Status Reason Start Date Expiration Date Visits Re quested Visits Authorized [id number] Denied 03/07/2025 09/06/2026 1 0 Encounter Details Date Type Department Care Team (Late st Contact Info) Description 03/07/2025 Orders Only Interventional Pain Medicine [address] [place] [address] Mayco Farr MD [address] [place] [address] Chronic pain of right knee (Primary Dx); Total knee replacement status, right Social History Tobacco Use Types Packs/Day Years [...] Description 05/22/2025 3:00 PM EDT Office Visit [facility] Pediatric[facility] [address] [place] [address] Champ Rinaldi MD [address] [place] [address] Scheduled Orders Name Type Priority Associated Diagnoses Orde r Schedule Nerve Block - Genicular Procedures Routine Chronic pain of right knee Total knee replacement status, right 1 Occurrences starting 03/07/2025 until 09/08/2026 documented as of this encounter Visit Diagnoses Diagnosis Chronic pain of right knee- Primary Total knee replacement status, right documented in this encounter Additional Health Concerns Assessment Noted Time PHQ-9 Depression Total Score: 4 10/26/19 8:05 AM EST A fall risk assessment has been complete d for the patient 10/26/2024 8:05 AM EST A Body Mass Index follow-up plan has been documented for the patient 10/28/2024 11:15 PM EST documented as of this encounter Care Teams Benchroom Shop Optician Relationship Specialty Start Date End Date Vitaliy Rehman MD [address] [place] [address] PCP - General 07/01/21 Brandon Escoto MD [address] [address] Surgeon Otolaryngology 07/13/21 Shailesh Smith PA [address] [facility] [address] [place] [address] Physician Pot Pusher Otolaryngology 06/21/22 Casie Real MD [address] [place] [address] Referring Physician 06/21/22 documented as of this encounter
--- OUTSIDE RECORDS SUMMARY | 2025-04-22 10:52 | XMS_ITS | Encounter Summary ---
Author Organization Healthcare Address [address] [place] [address] Care Team Providers Care Cover Stitch Machine Operator Name Role Phone Vitaliy Rehman MD Primary Care Provider [phone] Brandon Escoto MD Unavailable [phone] Shailesh Smith Unavailable [phone] Casie Real MD Unavailable [phone] Encounter Details Date Type Department Care Team (Late st Contact Info) Description 07/03/2023 Orders Only External Location 800 [place] [address] Provider, External Social History Tobacco Use Types [...] Description 05/22/2025 3:00 PM EDT Office Visit [facility] [address] [place] [address] Champ Rinaldi MD [address] [facility] [address] [place] [address] documented as of this encounter Procedures Procedure Name Priority Date/Time Associated Diagnosis Comments XR OUTSIDE IMAGES 07/03/2023 9:33 AM EDT documented in this encounter Results * XR OUTSIDE IMAGES (07/03/2023 9:33 AM EDT) Anatomical Region Laterality Modality Radiographic Jazmin ging 07/03/2023 9:33 AM EDT us External Provider IMG XR PROCEDURES Final Result documented in this encounter Visit Diagnoses Not on filedocumented in this encounter Additional Health Concerns Assessment Noted Time A fall risk assessment has been complete d for the patient 06/11/2022 1:58 PM EDT documented as of this encounter Care Teams Cover Stitch Machine Operator Relationship Specialty Start Date End Date Vitaliy Rehman MD [address] [id number] PCP - General 07/01/21 Brandon Escoto MD 800 [facility] Cancer [address] [address] Surgeon Otolaryngology 07/13/21 Shailesh Smith PA [address] [place] [address] Physician Ship Carpenter Otolaryngology 06/21/22 Casie Real MD 8 [place] [address] Referring Physician 06/21/22 documented as of this encounter
--- OUTSIDE RECORDS SUMMARY | 2025-04-22 10:52 | XMS_ITS | Encounter Summary ---
Author Organization Healthcare Address [address] [place] [address] Care Team Providers Care Spooler Name Role Phone Vitaliy Rehman MD Primary Care Provider [phone] Brandon Escoto MD Unavailable [phone] Shailesh Smith Unavailable [phone] Casie Real MD Unavailable [phone] Encounter Details Date Type Department Care Team (Late st Contact Info) Description 04/26/2023 Orders Only External Location 800 [place] [address] Provider, External Social History Tobacco Use Types [...] Description 05/22/2025 3:00 PM EDT Office Visit [facility] - Pediatrics [address] [place] [address] Champ Rinaldi MD 110 [facility] [address] [place] [address] documented as of this encounter Procedures Procedure Name Priority Date/Time Associated Diagnosis Comments MR MIGUELK OUTSIDE IMAGES 04/26/2023 2:19 PM EDT documented in this encounter Results * MR MSK OUTSIDE IMAGES (04/26/2023 2:19 PM EDT) Anatomical Region Laterality Modality Magnetic Resonan ce 04/26/2023 2:19 PM EDT us External Provider IMG MRI PROCEDURES Final Resul t documented in this encounter Visit Diagnoses Not on filedocumented in this encounter Additional Health Concerns Assessment Noted Time A fall risk assessment has been complete d for the patient 06/11/2022 1:58 PM EDT documented as of this encounter Care Teams Spooler Relationship Specialty Start Date End Date Vitaliy Rehman MD [facility] [id number] PCP - General 07/01/21 Brandon Escoto MD [address] [facility] Cancer [address] [address] Surgeon Otolaryngology 07/13/21 Shailesh Smith PA [address] [facility] [address] [place] [address] Physician Automatic Beam Warper Tender Otolaryngology 06/21/22 Casie Real MD 8 [place] [address] Referring Physician 06/21/22 documented as of this encounter
--- OUTSIDE RECORDS SUMMARY | 2025-04-22 10:52 | XMS_ITS | Clinical Summary ---
Author Organization Healthcare Address [address] [place] [address] Care Team Providers Care Leach Runner Name Role Phone Vitaliy Rehman MD Primary Care Provider [phone] Brandon Escoto MD Unavailable [phone] hSailesh Smith Unavailable [phone] Casie Real MD Unavailable [phone] Allergies Active Allergy Reactions Criticality Noted Date Comments Azithromycin Hives Medium 03/12/2018 Erythromycin Hives Medium 12/22/2018 Latex Anaphylaxis,Rash,Swe lling,Unknown - Patient states they do not know rxn details High 03/12/2018 Milk (Cow) Other - please docum ent in the comment field Low 03/15/2025 Medications amitriptyline (Elavil) 150 MG tablet TAKE 1 TABLET BY MOUTH ONCE DAILY AT BEDTIME FOR 90 DAYS 05/19/20 21 Active FLUoxetine (PROzac) 40 MG capsule Take 40 mg by mouth 2 (two) times a day. 05/18/20 21 Active promethazine (Phenergan) 25 MG tablet TAKE 1 TABLET BY MOUTH EVERY 6 HOURS NEEDED FOR 30 DAYS 04/28/20 21 Active omeprazole (PriLOSEC) [address] capsule 1 cap(s) orally once a day Active bacitracin 500 UNIT/GM ointment Apply topically 2 (two) times a day. Apply to incision twice daily for seven days 14 g 07/06/20 21 Active Additional Information Patient not taking.Reported on 06/11/2022 GNP Omeprazole 20 MG EC tablet TAKE ONE TABLET BY MOUTH EVERY EVENING -SWALLOW WHOLE. DO NOT CRUSH OR CHEW- 06/11/20 21 Active fluticasone (Flonase) 50 MCG/ACT nasal spray USE 1 SPRAY(S) IN EACH NOSTRIL ONCE DAILY 04/16/20 21 Active acetaminophen (GNP Arthritis Pain Relief) 650 MG ER tablet 1 tab(s) orally every 4 to 6 hours, As Needed 03/04/20 19 Active albuterol 108 (90 Base) MCG/ACT inhaler INHALE 1 PUFF BY MOUTH EVERY 4 HOURS NEEDED 11/09/19 22 Active celecoxib (CeleBREX) 100 MG capsule TAKE 1 CAPSULE BY MOUTH TWICE DAILY WITH FOOD FOR 7 DAYS 11/19/19 22 Active levothyroxine (Synthroid, Levoxyl) 50 MCG tablet TAKE ONE TABLET BY MOUTH EVERY DAY IN THE MORNING ON an EMPTY stomach 11/24/19 22 Active ondansetron ODT (Zofran-ODT) 4 MG disintegrating tablet DISSOLVE ONE TABLET BY MOUTH EVERY 8 HOURS NEEDED FOR NAUSEA 11/24/19 22 Active predniSONE (Deltasone) 20 MG tablet TAKE ONE TABLET BY MOUTH TWICE DAILY FOR 3 DAYS -- FINISH ALL MEDICINE -- 11/24/19 22 Active amphetamine-dextro amphetamine XR (Adderall XR) 30 MG 24 hr capsule Take 1 capsule (30 mg) by mouth 1 (one) time each day in the morning. Do not crush or chew. Active venlafaxine 75 MG 24 hr tablet Take 1 tablet (75 mg) by mouth 1 (one) time each day with breakfast. Do not crush, chew, or split. Active estradiol (Estrace) 0.5 MG tablet Take 1 tablet (0.5 mg) by mouth 1 (one) time each day. Active celecoxib (CeleBREX) 100 MG capsule Take 1 capsule (100 mg) by mouth 2 (two) times a day. Active Multiple Vitamin (MULTIVITAMIN ADULT PO) daily. 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 Oropharyngeal dysphagia 06/11/2021 Thyroid mass 06/11/2021 Non-toxic uninodular goiter 06/10/2021 Loculated pleural effusion 05/30/2019 Empyema 04/04/2019 Ovarian cyst 01/17/2019 Unspecified asthma, uncomplicated Overview (07/02/2021): Asthma Anxiety disorder, unspecified Overview (07/02/2021): Anxiety and depression Morbid obesity Dyspnea Gastroesophageal reflux disease Encounters Date Type Department Care Team Description 03/18/2025 Results Follow-Up [facility] 800 [facility] [address] [place] [address] Shailesh Smith PA 03/15/2025 3:00 PM EDT Office Visit [facility] 800 [facility], [address] [place] [address] Shailesh Smith PA Papillary microcarcinoma of thyroid (CMS/HCC); Thyroid mass 03/15/2025 12:47 PM EDT - 03/15/2025 11:59 PM EDT Hospital Encounter [facility] [address] [place] [address] Papillary microcarcinoma of thyroid (CMS/HCC); Thyroid mass Discharge Disposition: Home or Self Care 03/15/2025 Travel 03/14/2025 Travel 03/07/2025 Telephone Interventional Pain Medicine [address] [place] [address] Mayco Farr MD 03/07/2025 Orders Only Interventional Pain Medicine [address] [place] [address] Mayco Farr MD Chronic pain of right knee (Primary Dx); Total knee replacement status, right from Last 3 Months Immunizations Immunization Administration Dates Next Due Influenza, injectable, quadrivalent, preservativ e free 10/08/2018 Pneumococcal Polysaccharide PPV23 04/05/2019 Family History Medical History Relation Name Comments Liver cancer Maternal Grandfather FH: umu er cancer Diabetes Other Lung cancer Paternal Grandmother FH: james g cancer Anesthesia problems Neg Hx Relation Name Status Comments Maternal Grandfather Other Paternal Grandmother Social History Tobacco Use Types Packs/Day Years [...] Orientation Straight 07/06/2021 6: 20 AM EDT Last Filed Vital Signs Vital Sign Reading [...] Mass Index 45.69 03/15/2025 2:36 PM EDT Plan of Treatment Upcoming Encounters Date Type Department Care Team (Late st Contact Info) Description 05/22/2025 3:00 PM EDT Office Visit [facility] [address] [place] [address] Champ Rinaldi MD [address] [address] Health Maintenance Due Date Last Done Comments [facility]-Infant/Child/Adol SDOH Screenings 1980 [facility]- SDOH Screenings 1998 [facility]-Adult SDOH Screenings 1998 [facility]-Hepatitis B Vaccines (1 of 3 - 19+ 3-dose series) 1999 [facility]-Zoster Vaccines (1 of 2) 1999 01/10/2024 [id number] Vaccine (3 - Pfizer risk series) 02/26/2021 01/29/2021, 01/01/2021 [facility]-Varicella Vaccines (2 of 2 - 13+ 2-dose series) 02/07/2024 01/10/2024 [facility]-Pneumococcal Vaccine: Pediatrics (0 to 5 Years) and At-Risk Patients (6 to 49 Years) (3 of 3 - PPSV23, PCV20 or PCV21) 04/05/2024 01/10/2024, 04/05/2019 [facility]-Influenza Vaccine (#1) 06/03/202509/21, 08/02/2023, 07/01/2020, Additional history exists [facility]-Depression Screening 10/26/2025 10/26/2024, 10/04 [facility]-DTaP,Tdap,and Td Vaccines (2 - Td or Tdap) 12/09/2027 12/08/2017 [facility]-HIV Screening Completed 04/04/2019 [facility]-Hepatitis C Screening Completed 04/23/2019, 01/2019 [facility]-Obesity Intervention Completed 10/26/2024 HPV Vaccines Aged Out No longer eligi ble based on patient's age to complete this topic [facility]-HIB Vaccines Aged Out No longer e ligible based on patient's age to complete this topic [facility]-Hepatitis A Vaccines Aged Out No longer eligible based on patient's age to complete this topic [facility]-IPV Vaccines Aged Out No longer e ligible based on patient's age to complete this topic [facility]-Rotavirus Vaccines Aged Out No lo nger eligible based on patient's age to complete this topic Procedures Procedure Name Priority Date/Time Associated Diagnosis Comments FREE T4, PLASMA Routine 03/15/2025 3:19 PM EDT Papillary microcarcinoma of thyroid (CMS/HCC) TSH Routine 03/15/2025 3:19 PM EDT Papillary microcarcinoma of thyroid (CMS/HCC) US HEAD NECK SOFT TISSUE Routine 03/15/2025 1:36 PM EDT Papillary microcarcinoma of thyroid (CMS/HCC) Thyroid mass HEPATITIS C ANTIBODY - ED W/REFLEX TO HCV QUANT PCR Routine 04/23/2019 2:30 PM EDT HIV 1/2 ANTIBODY/ANTIGEN SCREEN WITH REFLEX TO HIV I/II DIFFERENTIATION Routine 04/04/2019 4:58 AM EDT from Last 3 Months or Most Recently Relevant to Health Maintenance Results * Thyroid Stimulating Hormone, Plasma (03/15/2025 3:19 PM EDT) Thyroid Stimulating Hormone, Plasma 1.68 0.40 - 4.20 uIU/mL 03/15/2025 4:21 PM EDT [facility] Blood Venous blood specimen / Unknown Venipuncture / Unknown 03/15/2025 3:19 PM EDT 03/15/2025 3:40 PM EDT Narrative [facility] - 03/15/2025 4:21 PM EDT Trimester Specific Ranges TSH ( IU/mL) 1st Trimester 0.1 - 3.0 2nd Trimester 0.19 - 4.06 3rd Trimester 0.3 - 3.7 Shailesh MOLINA LAB BLOOD ORDERABLES Final Resu lt Performing Organization Address [facility] Co de Phone Number [facility] [address] [place] [address] * Free T4, Plasma (03/15/2025 3:19 PM EDT) Free T4, Plasma 1.0 0.8 - 1.7 ng/dL 03/15/2025 4:21 PM EDT [facility] Blood Venous blood specimen / Unknown Venipuncture / Unknown 03/15/2025 3:19 PM EDT 03/15/2025 3:40 PM EDT Narrative [facility] - 03/15/2025 4:21 PM EDT Free T4 Trimester Specific Ranges 1st Trimester 0.9 - 1.50 ng/dL 2nd Trimester 0.7 - 1.40 ng/dL 3rd Trimester 0.7 - 1.24 ng/dL Shailesh MOLINA LAB BLOOD ORDERABLES Final Resu lt Performing Organization Address City/[facility]/ZIP Co de Phone Number [facility] [address] [address] * US Head Neck Soft Tissue (03/15/2025 [...] signing this report, I, the attending physician, attestthat I have personally reviewed the images/data for the aboveexamination(s) and agree with the final edited report. Drafted by Viet Alvarez MD on 03/15/2025 1:53 PM Final report signed by Alton Condon MD on 03/15/2025 2:41 PM us Shailesh MOLINA IMG US PROCEDURES Final Result * [place] Hepatitis C Antibody (04/23/2019 2:30 PM EDT) [place] Hepatitis C Ab NEGATIVE Reference Range: Negative [facility] 04/23/2019 2:30 PM EDT 04/23/2019 2:37 PM EDT us Renato John MD LAB BLOOD ORDERABLES Final Resul t [facility]QUEST * HIV 1 & 2 Antibody/Antigen Screen (04/04/2019 4:58 AM EDT) HIV 1 Result NONREACTIVE Screening for HIV 1 and 2 antibodies is NONREACTIVE. No confirmatory testing is required. [facility] 04/04/2019 4:58 AM EDT 04/04/2019 5:12 AM EDT us Ricardo Williamson MD LAB BLOOD ORDERABLES Final Resu lt SUNQUEST from Last 3 Months or Most Recently Relevant to Health Maintenance Insurance [employer] Care Teams Leach Runner Relationship Specialty Start Date End Date Vitaliy Rehman MD [address] [place] [address] PCP - General 07/01/21 Brandon Escoto MD [address] [address] Surgeon Otolaryngology 07/13/21 Shailesh Smith PA [address] [facility] [address] [place] [address] Physician Case Worker Otolaryngology 06/21/22 Casie Real MD 8 [place] [address] Referring Physician 06/21/22
--- OUTSIDE RECORDS SUMMARY | 2025-04-22 10:52 | XMS_ITS | Encounter Summary ---
Author Organization Healthcare Address [address] [place] [address] Care Team Providers Care Contract Clerk Name Role Phone Vitaliy Rehman MD Primary Care Provider Brandon Escoto MD Unavailable [phone] Shailesh Smith Unavailable [phone] Casie Real MD Unavailable [phone] Encounter Details Date Type Department Care Team (Late st Contact Info) Description 05/21/2024 Orders Only External Location 800 [place] [address] Provider, External Social History Tobacco Use Types [...] Description 05/22/2025 3:00 PM EDT Office Visit [facility] - Pediatrics [address] [place] [address] Champ Rinaldi MD 110 [facility] [address] [place] [address] documented as of this encounter Procedures Procedure Name Priority Date/Time Associated Diagnosis Comments MR MSK OUTSIDE IMAGES 05/21/2024 2:59 PM EDT documented in this encounter Results * MR MSK OUTSIDE IMAGES (05/21/2024 2:59 PM EDT) Anatomical Region Laterality Modality Magnetic Resonan ce 05/21/2024 2:59 PM EDT us External Provider IMG MRI PROCEDURES Final Resul t documented in this encounter Visit Diagnoses Not on filedocumented in this encounter Additional Health Concerns Assessment Noted Time A fall risk assessment has been complete d for the patient 06/11/2022 1:58 PM EDT documented as of this encounter Care Teams Contract Clerk Relationship Specialty Start Date End Date Vitaliy Rehman MD [id number] [id number] PCP - General 07/01/21 Brandon Escoto MD 800 [facility] Cancer [address] [address] Surgeon Otolaryngology 07/13/21 Shailesh Smith PA [address] [facility] [address] [place] [address] Physician Treater Otolaryngology 06/21/22 Casie Real MD 8 [place] [address] Referring Physician 06/21/22 documented as of this encounter
--- OUTSIDE RECORDS SUMMARY | 2025-04-22 10:52 | XMS_ITS | Encounter Summary ---
Author Organization Healthcare Address [address] [place] [address] Care Team Providers Care City Driver Name Role Phone Vitaliy Rehman MD Primary Care Provider Brandon Escoto MD Unavailable [phone] Shailesh mSith Unavailable [phone] Casie Real MD Unavailable [phone] Encounter Details Date Type Department Care Team (Late st Contact Info) Description 05/13/2023 Orders Only External Location 800 [place] [address] Provider, External Social History Tobacco Use Types [...] 05/22/2025 3:00 PM EDT Office Visit [facility] - Pediatrics [address] [place] [address] Champ Rinaldi MD [address] [facility] [address] [place] [address] documented as of this encounter Procedures Procedure Name Priority Date/Time Associated Diagnosis Comments XR MSK OUTSIDE IMAGES 05/13/2023 6:09 PM EDT documented in this encounter Results * XR MSK OUTSIDE IMAGES (05/13/2023 6:09 PM EDT) Anatomical Region Laterality Modality Radiographic Jazmin ging 05/13/2023 6:09 PM EDT us External Provider IMG XR PROCEDURES Final Result documented in this encounter Visit Diagnoses Not on filedocumented in this encounter Additional Health Concerns Assessment Noted Time A fall risk assessment has been complete d for the patient 06/11/2022 1:58 PM EDT documented as of this encounter Care Teams City Driver Relationship Specialty Start Date End Date Vitaliy Rehman MD [address] [phone] PCP - General 07/01/21 Brandon Escoto MD 800 [facility] Cancer [address] [address] Surgeon Otolaryngology 07/13/21 Shailesh Smith PA [address] [facility] [address] [place] [address] Physician Chief Dispatcher Otolaryngology 06/21/22 Casie Real MD 8 [place] [address] Referring Physician 06/21/22 documented as of this encounter
--- OUTSIDE RECORDS SUMMARY | 2025-04-22 10:53 | XMS_ITS | Encounter Summary ---
Author Organization Healthcare Address [address] [place] [address] Care Team Providers Care Primer And Powder Canning Leader Name Role Phone June Ward MD Primary Care Provider [phone] Vitaliy Rehman MD Primary Care Provider [phone] Brandon Escoto MD Unavailable [phone] Shailesh Smith Unavailable [phone] Casie Real MD Unavailable [phone] Encounter Details Date Type Department Care Team (Late st Contact Info) Description 05/06/2021 Lab Requisition [facility] 800 [place] [address] Brandon Escoto MD 800 [facility] Cancer [address] [address] Disorder of thyroid, unspecified Social History Tobacco Use Types Packs/Day Years Used Date Smoking Tobacco: Never Alcohol Use Standard Drinks/Week Comments No 0 (1 standard drink = 0.6 oz pur e alcohol) Comments Unknown Sex and Gender Information Value [...] Description 05/22/2025 3:00 PM EDT Office Visit [facility] - Pediatrics [address] [place] [address] Champ Rinaldi MD [address] [place] [address] documented as of this encounter Procedures Procedure Name Priority Date/Time Associated Diagnosis Comments CYTOLOGY CONSULT Routine 05/06/2021 1:18 PM EDT Disorder of thyroid, unspecified documented in this encounter Results * Cytology Consult (05/06/2021 1:18 PM EDT) Case Report Cytology Case: [id number] Authorizing Provider: Brandon Escoto MD Collected: 05/06/2021 1318 Ordering Location: [facility] Lab Received: 05/06/2021 1319 Pathologist: Gopal Garza MD Specimen: Thyroid, [id number] 05/08/2021 5:04 PM EDT [facility] Final Diagnosis A. THYROID GLAND, FINE NEEDLE ASPIRATE (OUTSIDE CASE [id number], COLLECTED ON 01/13/2021): -BENIGN FOLLICULAR NODULE (BETHESDA CATEGORY II) 05/08/2021 5:04 PM EDT [facility] at 1704 EDT Clinical Information Disorder of thyroid, unspecified 05/08/2021 5:04 PM EDT [facility] Gross Description A. [id number] For clinical data and diagnosis (NEGATIVE) for this specimen ([id number]/FN A) see final report issued by [facility] Pathology Department. 05/08/2021 5:04 PM EDT [facility] Fine Needle Aspirate Thyroid structure / Unknown 05/06/2021 1:18 PM EDT 05/06/2021 1:19 PM EDT us Brandon Escoto MD LAB PATHOLOGY ORDERABLES Fin al Result [facility] 800 [place] [address] documented in this encounter Visit Diagnoses Diagnosis Disorder of thyroid, unspecified documented in this encounter Care Teams Primer And Powder Canning Leader Relationship Specialty Start Date End Date June Ward MD PCP - General 02/13/21 06/30/21 Vitaliy Rehman MD [address] [place] [address] PCP - General 07/01/21 Brandon Escoto MD [address] [address] Surgeon Otolaryngology 07/13/21 Shailesh Smith PA [address] [facility] [address] [place] [address] Physician Lead Ruby On Rails Developer Otolaryngology 06/21/22 Casie Real MD 8 [place] [address] Referring Physician 06/21/22 documented as of this encounter
--- OUTSIDE RECORDS SUMMARY | 2025-04-22 10:53 | XMS_ITS | Encounter Summary ---
Author Organization Healthcare Address [address] [place] [address] Care Team Providers Care Rechecker Name Role Phone Vitaliy Rehman MD Primary Care Provider Brandon Escoto MD Unavailable [phone] Shailesh Smith Unavailable [phone] Casie Real MD Unavailable [phone] Encounter Details Date Type Department Care Team (Latest Contact Info) Description 03/15/2025 Travel Social History Tobacco Use Types Packs/Day [...] Month) No 03/15/2025 2:34 PM EDT Esthela Rordiguez 6. Suicidal Behavior (Lifetime) No 2:34 PM EDT Analia Rodriguez documented as of this encounter Plan of Treatment Upcoming Encounters Date Type Department Care Team (Late st Contact Info) Description 05/22/2025 3:00 PM EDT Office Visit [facility] [address] [place] [place] [address] Champ Rinaldi MD [address] [facility] [address] [place] [address] documented as of this encounter [...] documented as of this encounter Care Teams Rechecker Relationship Specialty Start Date End Date Vitaliy Rehman MD [address] [place] [address] PCP - General 07/01/21 Brandon Escoto MD 800 [facility] [address] [place] [address] Surgeon Otolaryngology 07/13/21 Shailesh Smith PA [address] [facility] [address] [place] [address] Physician Managed Care Liaison Otolaryngology 06/21/22 Casie Real MD 8 [place] [address] Referring Physician 06/21/22 documented as of this encounter
--- OUTSIDE RECORDS SUMMARY | 2025-04-22 10:53 | XMS_ITS | Encounter Summary ---
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 Role Phone Unavailable Primary Care Provider Unavailabl e Encounter Details Date Type Department Care Team (Late st Contact Info) Description 05/27/2022 Transcribed Document [facility] [place] [facility] [place] [address] ProviderGini MD [address] [place] [address] Social History Tobacco Use Types Packs/Day Years Used Date Smoking Tobacco: Never Assessed Comments Unknown Sex and Gender Information Value Date Recorded Sex Assigned at Not on file Legal Sex Female 7:20 PM CDT Gender Identity Not on file Sexual Orientation Not on file documented as of this encounter Miscellaneous Notes * Cerner Conversion Note - Gini Walters MD - 05/27/2022 1:33 PM CDT Patient Education Materials Follows: Lithotripsy, Care After This sheet gives you information about how to care for yourself after your procedure. Your health care provider may also give you more specific instructions. If you have problems or questions, contact your health care provider. What can I expect after the procedure? After the procedure, it is common to have: ??? Some blood in your urine. This should only last for a few days. ??? Soreness in your back, sides, or upper abdomen for a few days. ??? Blotches or bruises on the area where the shock wave entered the skin. ??? Pain, discomfort, or nausea when pieces (fragments) of the kidney stone move through the tube that carries urine from the kidney to the bladder (ureter). Stone fragments may pass soon after the procedure, but they may continue to pass for up to 4?8 weeks. ? If you have severe pain or nausea, contact your health care provider. This may be caused by a large stone that was not broken up, and this may mean that you need more treatment. ??? Some pain or discomfort during urination. ??? Some pain or discomfort in the lower abdomen or (in men) at the base of the penis. Follow these instructions at home: Medicines ??? Take wqum-rcc-vdfjzfe and prescription medicines only as told by your health care provider. ??? If you were prescribed an antibiotic medicine, take it as told by your health care provider. Do not stop taking the antibiotic even if you start to feel better. ??? Ask your health care provider if the medicine prescribed to you requires you to avoid driving or using machinery. Eating and drinking ??? Drink enough fluid to keep your urine pale yellow. This helps any remaining pieces of the stone to pass. It can also help prevent new stones from forming. ??? Eat plenty of fresh fruits and vegetables. ??? Follow instructions from your health care provider about eating or drinking restrictions. You may be instructed to: ? Reduce how much salt (sodium) you eat or drink. Check ingredients and nutrition facts on packaged foods and beverages to see how much sodium they contain. ? Reduce how much meat you eat. ??? Eat the recommended amount of calcium for your age and gender. Ask your health care provider how much calcium you should have. General instructions ??? Get plenty of rest. ??? Return to your normal activities as told by your health care provider. Ask your health care provider what activities are safe for you. Most people can resume normal activities 1?2 days after the procedure. ??? If you were given a sedative during the procedure, it can affect you for several hours. Do not drive or operate machinery until your health care provider says that it is safe. ??? Your health care provider may direct you to lie in a certain position (postural drainage) and tap firmly (percuss) over your kidney area to help stone fragments pass. Follow instructions as told by your health care provider. ??? If directed, strain all urine through the strainer that was provided by your health care provider. ? Keep all fragments for your health care provider to see. Any stones that are found may be sent to a medical lab for examination. The stone may be as small as a grain of salt. ??? Keep all follow-up visits as told by your health care provider. This is important. Contact a health care provider if: ??? You have a fever or chills. ??? You have nausea that is severe or does not go away. ??? You have any of these urinary symptoms: ? Blood in your urine for longer than your health care provider told you to expect. ? Urine that smells bad or unusual. ? Feeling a strong urge to urinate after emptying your bladder. ? Pain or burning with urination that does not go away. ? Urinating more often than usual and this does not go away. ??? You have a stent and it comes out. Get help right away if: ??? You have severe pain in your back, sides, or upper abdomen. ??? You have any of these urinary symptoms: ? Severe pain while urinating. ? More blood in your urine or having blood in your urine when you did not before. ? Passing blood clots in your urine. ? Passing only a small amount of urine or being unable to pass any urine at all. ??? You have severe nausea that leads to persistent vomiting. ??? You faint. Summary ??? After this procedure, it is common to have some pain, discomfort, or nausea when pieces (fragments) of the kidney stone move through the tube that carries urine from the kidney to the bladder (ureter). If this pain or nausea is severe, however, you should contact your health care provider. ??? Return to your normal activities as told by your health care provider. Ask your health care provider what activities are safe for you. ??? Drink enough fluid to keep your urine pale yellow. This helps any remaining pieces of the stone to pass, and it can help prevent new stones from forming. ??? If directed, strain your urine and keep all fragments for your health care provider to see. Fragments or stones may be as small as a grain of salt. ??? Get help right away if you have severe pain in your back, sides, or upper abdomen, or if you have severe pain while urinating. This information is not intended to replace advice given to you by your health care provider. Make sure you discuss any questions you have with your health care provider. Document Revised: 07/01/2020 Document Reviewed: 07/02/2020 [employer] Patient Education ? 2021 [employer]. Urology Ureteral Stent Implantation, Care After This sheet gives you information about how to care for yourself after your procedure. Your health care provider may also give you more specific instructions. If you have problems or questions, contact your health care provider. What can I expect after the procedure? After the procedure, it is common to have: ??? Nausea. ??? Mild pain when you urinate. You may feel this pain in your lower back or lower abdomen. The pain should stop within a few minutes after you urinate. This may last for up to 1 week. ??? A small amount of blood in your urine for several days. Follow these instructions at home: Medicines ??? Take qwsf-exl-eabzmnl and prescription medicines only as told by your health care provider. ??? If you were prescribed an antibiotic medicine, take it as told by your health care provider. Do not stop taking the antibiotic even if you start to feel better. ??? Do not drive for 24 hours if you were given a sedative during your procedure. ??? Ask your health care provider if the medicine prescribed to you requires you to avoid driving or using heavy machinery. Activity ??? Rest as told by your health care provider. ??? Avoid sitting for a long time without moving. Get up to take short walks every 1?2 hours. This is important to improve blood flow and breathing. Ask for help if you feel weak or unsteady. ??? Return to your normal activities as told by your health care provider. Ask your health care provider what activities are safe for you. General instructions ??? Watch for any blood in your urine. Call your health care provider if the amount of blood in your urine increases. ??? If you have a catheter: ? Follow instructions from your health care provider about taking care of your catheter and collection bag. ? Do not take baths, swim, or use a hot tub until your health care provider approves. Ask your health care provider if you may take showers. You may only be allowed to take sponge baths. ??? Drink enough fluid to keep your urine pale yellow. ??? Do not use any products that contain nicotine or tobacco, such as cigarettes, e-cigarettes, and chewing tobacco. These can delay healing after surgery. If you need help quitting, ask your health care provider. ??? Keep all follow-up visits as told by your health care provider. This is important. Contact a health care provider if: ??? You have pain that gets worse or does not get better with medicine, especially pain when you urinate. ??? You have difficulty urinating. ??? You feel nauseous or you vomit repeatedly during a period of more than 2 days after the procedure. Get help right away if: ??? Your urine is dark red or has blood clots in it. ??? You are leaking urine (have incontinence). ??? The end of the stent comes out of your urethra. ??? You cannot urinate. ??? You have sudden, sharp, or severe pain in your abdomen or lower back. ??? You have a fever. ??? You have swelling or pain in your legs. ??? You have difficulty breathing. Summary ??? After the procedure, it is common to have mild pain when you urinate that goes away within a few minutes after you urinate. This may last for up to 1 week. ??? Watch for any blood in your urine. Call your health care provider if the amount of blood in your urine increases. ??? Take dvmj-iwk-favqpqz and prescription medicines only as told by your health care provider. ??? Drink enough fluid to keep your urine pale yellow. This information is not intended to replace advice given to you by your health care provider. Make sure you discuss any questions you have with your health care provider. Document Revised: 06/26/2019 Document Reviewed: 06/27/2019 [employer] Patient Education ? 2021 [employer]. Ureteroscopy Ureteroscopy is a procedure to check for and treat problems inside part of the urinary tract. In this procedure, a thin, flexible tube with a light at the end (ureteroscope) is used to look at the inside of the kidneys and the ureters. The ureters are the tubes that carry urine from the kidneys to the bladder. The ureteroscope is inserted into one or both of the ureters. You may need this procedure if you have frequent urinary tract infections (UTIs), blood in your urine, or a stone in one of your ureters. A ureteroscopy can be done: ??? To find the cause of urine blockage in a ureter and to evaluate other abnormalities inside the ureters or kidneys. ??? To remove stones. ??? To remove or treat growths of tissue (polyps), abnormal tissue, and some types of tumors. ??? To remove a tissue sample and check it for disease under a microscope (biopsy). Tell a health care provider about: ??? Any allergies you have. ??? All medicines you are taking, including vitamins, herbs, eye drops, creams, and wnzd-lvn-kzfurae medicines. ??? Any problems you or family members have had with anesthetic medicines. ??? Any blood disorders you have. ??? Any surgeries you have had. ??? Any medical conditions you have. ??? Whether you are or may be . What are the risks? Generally, this is a safe procedure. However, problems may occur, including: ??? Bleeding. ??? Infection. ??? Allergic reactions to medicines. ??? Scarring that narrows the ureter (stricture). ??? Creating a hole in the ureter (perforation). What happens before the procedure? Staying hydrated Follow instructions from your health care provider about hydration, which may include: ??? Up to 2 hours before the procedure ? you may continue to drink clear liquids, such as water, clear fruit juice, black coffee, and plain tea. Eating and drinking restrictions Follow instructions from your health care provider about eating and drinking, which may include: ??? 8 hours before the procedure ? stop eating heavy meals or foods, such as meat, fried foods, or fatty foods. ??? 6 hours before the procedure ? stop eating light meals or foods, such as toast or cereal. ??? 6 hours before the procedure ? stop drinking milk or drinks that contain milk. ??? 2 hours before the procedure ? stop drinking clear liquids. Medicines Ask your health care provider about: ??? Changing or stopping your regular medicines. This is especially important if you are taking diabetes medicines or blood thinners. ??? Taking medicines such as aspirin and ibuprofen. These medicines can thin your blood. Do not take these medicines unless your health care provider tells you to take them. ??? Taking rspw-yor-fdcrunn medicines, vitamins, herbs, and supplements. General instructions ??? Do not use any products that contain nicotine or tobacco for at least 4 weeks before the procedure. These products include cigarettes, e-cigarettes, and chewing tobacco. If you need help quitting, ask your health care provider. ??? You may have a urine sample taken to check for infection. ??? Plan to have someone take you home from the hospital or clinic. ??? If you will be going home right after the procedure, plan to have someone with you for 24 hours. ??? Ask your health care provider what steps will be taken to help prevent infection. These may include: ? Washing skin with a germ-killing soap. ? Receiving antibiotic medicine. What happens during the procedure? An IV will be inserted into one of your veins. ??? You will be given one or more of the following: ? A medicine to help you relax (sedative). ? A medicine to make you fall asleep (general anesthetic). ? A medicine that is injected into your spine to numb the area below and slightly above the injection site (spinal anesthetic). ??? The part of your body that drains urine from your bladder (urethra) will be cleaned with a germ-killing solution. ??? The ureteroscope will be passed through your urethra into your bladder. ??? A salt-water solution will be sent through the ureteroscope to fill your bladder. This will help the health care provider see the openings of your ureters more clearly. ??? The ureteroscope will be passed into your ureter. ? If a growth is found, a biopsy may be done. ? If a stone is found, it may be removed through the ureteroscope, or the stone may be broken up using a laser, shock waves, or electrical energy. ? In some cases, if the ureter is too small, a tube may be inserted that keeps the ureter open (ureteral stent). The stent may be left in place for 1 or 2 weeks to keep the ureter open, and then the ureteroscopy procedure will be done. ??? The scope will be removed, and your bladder will be emptied. The procedure may vary among health care providers and hospitals. What can I expect after the procedure? After your procedure, it is common to have: ??? Your blood pressure, heart rate, breathing rate, and blood oxygen level monitored until you leave the hospital or clinic. ??? A burning sensation when you urinate. You may be asked to urinate. ??? Blood in your urine. ??? Mild discomfort in your bladder area or kidney area when urinating. ??? A need to urinate more often or urgently. Follow these instructions at home: Medicines ??? Take vsqk-eym-fgcfgvz and prescription medicines only as told by your health care provider. ??? If you were prescribed an antibiotic medicine, take it as told by your health care provider. Do not stop taking the antibiotic even if you start to feel better. General instructions ??? If you were given a sedative during the procedure, it can affect you for several hours. Do not drive or operate machinery until your health care provider says that it is safe. ??? To relieve burning, take a warm bath or hold a warm washcloth over your groin. ??? Drink enough fluid to keep your urine pale yellow. ? Drink two 8-ounce (237 mL) glasses of water every hour for the first 2 hours after you get home. ? Continue to drink water often at home. ??? You can eat what you normally do. ??? Keep all follow-up visits as told by your health care provider. This is important. ? If you had a ureteral stent placed, ask your health care provider when you need to return to have it removed. Contact a health care provider if you have: ??? Chills or a fever. ??? Burning pain for longer than 24 hours after the procedure. ??? Blood in your urine for longer than 24 hours after the procedure. Get help right away if you have: ??? Large amounts of blood in your urine. ??? Blood clots in your urine. ??? Severe pain. ??? Chest pain or trouble breathing. ??? The feeling of a full bladder and you are unable to urinate. These symptoms may represent a serious problem that is an emergency. Do not wait to see if the symptoms will go away. Get medical help right away. Call your local emergency services (911 in the [place] Summary ??? Ureteroscopy is a procedure to check for and treat problems inside part of the urinary tract. ??? In this procedure, a thin, flexible tube with a light at the end (ureteroscope) is used to look at the inside of the kidneys and the ureters. ??? You may need this procedure if you have frequent urinary tract infections (UTIs), blood in your urine, or a stone in a ureter. This information is not intended to replace advice given to you by your health care provider. Make sure you discuss any questions you have with your health care provider. Document Revised: 06/25/2020 Document Reviewed: 06/25/2020 [employer] Patient Education ? 2021 [employer] Electronically signed by Jonathon Cedeno Conversion Plumbing And Heating Mechanic Cerner at 01/21/2023 4:39 PM CDT documented in this encounter Plan of Treatment Not on file documented as of this encounter Visit Diagnoses Not on filedocumented in this encounter
--- OUTSIDE RECORDS SUMMARY | 2025-04-22 10:53 | XMS_ITS | Encounter Summary ---
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 Name Role Phone Unavailable Primary Care Provider Unavailabl e Encounter Details Date Type Department Care Team (Late st Contact Info) Description 05/27/2022 Transcribed Document [facility] [place] [facility] [place] [address] ProviderGini MD [facility] [place] [address] Social History Tobacco Use Types Packs/Day Years Used Date Smoking Tobacco: Never Assessed Comments Unknown Sex and Gender Information Value Date Recorded Sex Assigned at Not on file Legal Sex Female 7:20 PM CDT Gender Identity Not on file Sexual Orientation Not on file documented as of this encounter Miscellaneous Notes * Cerner Conversion Note - Gini ProviderMD - 05/27/2022 10:51 AM CDT [facility] Main OR PostOp Summary Primary Physician: DEBORAH MORSE MD-URO Finalized Date/Time: 05/27/22 14:14:23 Pt. Name: HAWK BONNIE DUNCAN /Sex: 1980 Female Med Rec #: [id number] Physician: DEBORAH MORSE MD-URO Financial #: [id number] Pt. Type: O Room/Bed: Admit/Disch: 05/27/22 07:07:00 - Institution: [facility] Main OR PostOp Case Times Entry 1 In PACU II 05/27/22 13:20:00 Ready for PACU II 05/27/22 14:10:00 Discharge Discharge from PACU 05/27/22 14:10:00 II Last Modified By: ARABELLA THURSTON RN 05/27/22 14:14:22 [facility] Main OR PostOp Case Times Audit 05/27/22 14:14:22 Laserist: LEONEL Modifier: PARASYBSAFIA <+> 1 Ready for PACU II Discharge <+> 1 Discharge from PACU II Finalized By: ARABELLA THURSTON, RN Document Signatures Signed By: ARABELLA THURSTON RN 05/27/22 14:14 Electronically signed by Pao [facility] Conversion Tank Farm Gauger Cerner at 01/21/2023 4:56 PM CDT documented in this encounter Plan of Treatment Not on file documented as of this encounter Visit Diagnoses Not on filedocumented in this encounter
--- OUTSIDE RECORDS SUMMARY | 2025-04-22 10:53 | XMS_ITS | Encounter Summary ---
Author Organization [employer] ([place], [place], [place], [place]) Address [address] [place] [address] Care Team Providers Care Senior Mobile Web Developer Name Role Phone Unavailable Primary Care Provider Unavailabl e Encounter Details Date Type Department Care Team (Late st Contact Info) Description 05/27/2022 Transcribed Document [facility] Family Medicine [address] [place] [address] ProviderGini MD [address] [place] [address] Social History Tobacco Use Types Packs/Day Years Used Date Smoking Tobacco: Never Assessed Comments Unknown Sex and Gender Information Value Date Recorded Sex Assigned at Not on file Legal Sex Female 7:20 PM CDT Gender Identity Not on file Sexual Orientation Not on file documented as of this encounter Miscellaneous Notes * Cerner Conversion Note - Gini Walters MD - 05/27/2022 1:35 PM CDT [facility] [place] [address] BONNIE ARECHIGA :1980 Visit Time:05/27/2022 What to do next Your Diagnosis Calculus of ureter, Calculus of ureter Instructions From Your Care Team Diet after Discharge: Resume usual diet as tolerated, Do not drink any alcoholic beverages, Drink at least 8-10 glasses of water per day_ Activity after Discharge: As tolerated, Rest and relax today, No strenuous activity, walk 3-4 times daily Driving after Discharge: Do not drive until 24 hours after no longer taking pain medications Showering/Bathing: May shower, No tub bathing, soaking or swimming Notify Provider of: signs of infection, Temp >101, inability to urinate, excessive bleeding, some blood in urine is normal strain all urine, save stone fragmants & bring to MD appointment with you for analysis take pain medications with food Stool softeners 2 times daily to prevent constipation Instruction sheets given & discussed for lithotripsy Discharge Follow Up Instructions: Follow up Tuesday for stent removal Follow Up Instructions: Stent care, string is tucked up into vagina. Follow-Up Appointments Follow Up with DEBORAH MORSE When In 4 days 05/31/2022 EDT Comments pt to call t get stent out Where: [address] [place] [address] [address] [place], [place] [id number]- Business (1) Medications What How Much When Instructions Next Dose acetaminophen-oxyCODONE (Percocet 7.5 mg-325 mg oral tablet) 1 Tablet(s) Oral Every 4 Hours as needed for as needed for pain levothyroxine (levothyroxine 50 mcg (0.05 mg) oral tablet) 1 Tablet(s) Oral Every Day multivitamin Every Day Take your medications faithfully. Do NOT skip medication. Do NOT stop taking medications without the direction of a physician. Carry a list of your medications with you at all times, and take this medication list with you to your first follow up visit. Report any side effects. Avoid herbal remedies unless discussed with your physician. As part of your treatment plan, your physician may have prescribed a limited course of a controlled substance. This medication may be given to help people with moderate or severe pain or for other medical conditions, but there are risks involved with treatment. Common side effects may include nausea, constipation, drowsiness, sweating, itching, dry mouth, and rash. More serious side effects may include cognitive and motor impairment, like problems with thinking, concentrating, alertness, and movement (e.g. slowed reflexes), and driving and operating heavy machinery can be dangerous. It is important for you to talk to your physician if you have these side effects or questions. These controlled substances can produce physical dependence and be habit-forming if taken for an extended period of time, which means that the body has gotten used to them and may experience withdrawal symptoms if they are abruptly stopped. Withdrawal symptoms can include runny nose, sweating, goose bumps, diarrhea, abdominal cramping, rapid heartbeat, difficulty sleeping, and nervousness. Please dispose of unused and medications per pharmacy guidance. Education Materials Ureteral Stent Implantation, Care After This sheet [...] these instructions at home: Medicines ??? Take tegc-zsb-dkraohl and prescription medicines only as told by [...] Get up to take short walks every 1???2 hours. This is important to improve blood [...] blood in your urine increases. ??? Take lrdi-waq-abyngso and prescription medicines only as told by your health care provider. ??? Drink enough fluid to keep your urine pale yellow. This information is not intended to replace advice given to you by your health care provider. Make sure you discuss any questions you have with your health care provider. Document Revised: 06/26/2019 Document Reviewed: 06/27/2019 [employer] Patient Education ?? 2021 [employer]. Ureteroscopy Ureteroscopy is a procedure to check [...] including vitamins, herbs, eye drops, creams, and dctq-ymb-rzbhpga medicines. ??? Any problems you or family [...] Up to 2 hours before the procedure ??? you may continue to drink clear liquids, such as water, clear fruit juice, black coffee, and plain tea. Eating and drinking restrictions Follow instructions from your health care provider about eating and drinking, which may include: ??? 8 hours before the procedure ??? stop eating heavy meals or foods, such as meat, fried foods, or fatty foods. ??? 6 hours before the procedure ??? stop eating light meals or foods, such as toast or cereal. ??? 6 hours before the procedure ??? stop drinking milk or drinks that contain milk. ??? 2 hours before the procedure ??? stop drinking clear liquids. Medicines Ask your health care provider about: ??? Changing or stopping your regular medicines. This is especially important if you are taking diabetes medicines or blood thinners. ??? Taking medicines such as aspirin and ibuprofen. These medicines can thin your blood. Do not take these medicines unless your health care provider tells you to take them. ??? Taking fvlg-bqp-dgxonrv medicines, vitamins, herbs, and supplements. General instructions [...] these instructions at home: Medicines ??? Take jfzp-wak-yselhfk and prescription medicines only as told by [...] provider. Document Revised: 06/25/2020 Document Reviewed: 06/25/2020 [employer] Patient Education ?? 2021 [employer] Lithotripsy, Care After This sheet gives you [...] may continue to pass for up to 4???8 weeks. ? If you have severe pain [...] these instructions at home: Medicines ??? Take oqtr-ach-ltkiabf and prescription medicines only as told by [...] you. Most people can resume normal activities 1???2 days after the procedure. ??? If you [...] provider. Document Revised: 07/01/2020 Document Reviewed: 07/02/2020 [employer] Patient Education ?? 2021 [employer]. Emergency Awareness and Preventative Care STROKE is an EMERGENCY Every Minute Counts Act FAST and Check for these signs: FACE Does the face look uneven? ARM Does one arm drift down? SPEECH Does their speech sound strange? TIME Call at any sign of stroke Stroke Risk Factors Atrial Fibrillation (irregular heartbeat) Diabetes Family history of stroke Heart Disease Heavy alcohol use High Blood Pressure High Cholesterol Physical inactivity and obesity Smoking Cigarette Smoking The facts are clear, cigarette smoking will shorten your life. Smoking can cause many illnesses along the way. As a healthcare provider, we recommend that you stop smoking. Assistance with quitting is available by contacting 9-671-RHAW-NOW. This is a free resource providing counseling, support, and referral. Or you may contact your personal physician. National Suicide Prevention Lifeline: The National Suicide Prevention Lifeline is a national network of local crisis centers that provides free and confidential emotional support to people in suicidal crisis or emotional distress 24 hours a day, 7 days a week. Don't Wait! Stop a Heart Attack Before it Starts What is a heart attack? A heart attack is damage or to a part of the heart from severely decreased or lack of blood flow to the heart. Over time, arteries can become narrow from the buildup of fat and cholesterol, which is called plaque. The plaque can rupture causing a blood clot to form. When the blood clot forms, the artery can become severely narrowed or completely blocked, causing a heart attack. Heart attack is the leading cause of in the [place]. 85% of muscle damage occurs within the first 2 hours. Delay in the recognition of heart attack symptoms increases the chances of . Know the early symptoms of a heart attack: Nausea Feeling of fullness in chest Jaw Pain Pain that travels down one or both arms Fatigue/being tired Anxiety Back Pain Chest pressure, squeezing, or discomfort Shortness of breath Sweating, or a cold sweat Feeling of impending doom There are unusual signs of a heart attack, too! Women, the elderly, and diabetics may present with atypical symptoms: Fainting/dizziness Weakness Confusion Risk Factors for a Heart Attack Some heart disease risk factors, such as age and family history, cannot be changed. Others, like smoking and lack of exercise, can be changed. Smoking High Cholesterol High Blood Pressure Family History Obesity Age Gender (Males are at higher risk) Lack of Exercise Diabetes Diet Stress Excessive Alcohol Intake If you or someone you know is experiencing the signs and symptoms of a heart attack, DON???T DELAY. Call immediately and seek help. If someone collapses, perform CPR! Do not attempt to drive if you are having symptoms of heart attack. Hands-Only CPR Why Hands-Only CPR? Hands-Only CPR has been shown to be as effective as conventional CPR for cardiac arrests that occur outside of a hospital. Survival depends on immediately receiving CPR from someone nearby. How do you perform Hands-Only CPR? There are two easy steps: Call if you see a teen or adult collapse Push hard and fast in the center of the chest at a beat of 100 beats per minute. Save a life! 4 WAYS TO GET AHEAD OF SEPSIS SEPSIS is a MEDICAL EMERGENCY. Time matters! Infections put you and your family at risk for a life-threatening condition called sepsis. Sepsis is the body's extreme response to an infection. It is life-threatening, and without timely treatment, sepsis can rapidly lead to tissue damage, organ failure, and . Sepsis happens when an infection you already have-in your skin, lungs, urinary tract or somewhere else-triggers a chain reaction throughout your body. 1 PREVENT INFECTIONS Take good care of chronic conditions. Talk to your doctor about getting the recommended vaccines. 2 PRACTICE GOOD HYGIENE Wash your hands frequently. Keep cuts or open sores clean and covered until they are healed. 3 KNOW THE SYMPTOMS Confusion or disorientation Shortness of breath High heart rate Fever, shivering, or feeling very cold Extreme pain or discomfort Clammy or sweaty skin 4 ACT FAST Get medical care IMMEDIATELY if you suspect sepsis or if you have an infection that is not getting better or is getting worse. To learn more about sepsis and how to prevent infections, visit www.cdc.gov/sepsis. Test Results Laboratory or Other Results This Visit (last charted value for your 05/27/2022 visit) No Laboratory or Other Results This Visit Patient Name:HAWK JANUARY PERLA I have received this information and was given the opportunity to ask questions. Patient/Mold Blower Name: Patient/Mold Blower Signature: Relationship to Patient: Clinician/Hospital Mold Blower Signature: Date: documented in this encounter Plan of Treatment Not on file documented as of this encounter Visit Diagnoses Not on filedocumented in this encounter
--- OUTSIDE RECORDS SUMMARY | 2025-04-22 10:53 | XMS_ITS | Encounter Summary ---
Author Organization [employer] ([place], [place], [place], [place]) Address [address] [place] [address] Care Team Providers Care Page Designer Name Role Phone Unavailable Primary Care Provider Unavailabl e Encounter Details Date Type Department Care Team (Late st Contact Info) Description 05/27/2022 Transcribed Document [facility] Family Medicine [facility] [place] [address] ProviderGini MD [facility] [place] [address] Social History Tobacco Use Types [...] Gini ProviderMD - 05/27/2022 10:51 AM CDT [facility] Main OR Preop Summary Primary Physician: DEBORAH MORSE MD-URO Finalized Date/Time: 05/27/22 11:42:25 Pt. Name: HAWKBONNIE /Sex: 1980 Female Med Rec #: [id number] Physician: DEBORAH MORSE MD-URO Financial #: [id number] Pt. Type: O Room/Bed: Admit/Disch: 05/27/22 07:07:00 - Institution: [facility] PreOp Case Times Entry 1 In Preop 05/27/22 08:12:00 Ready for Holding n/a Room Patient Ready for 05/27/22 09:00:00 Surgery Patient Out of Preop 05/27/22 10:26:00 Patient Out of n/a Holding Room Last Modified By: Judy Fu RN 05/27/22 11:42:23 [facility] PreOp Case Times Audit 05/27/22 11:42:23 Fitness Studies Teacher: [id number] Modifier: [id number] <+> 1 Patient Out of Preop Finalized By: Judy Fu RN Document Signatures Signed By: Judy Fu RN 05/27/22 11:42 Electronically signed by [facility] Conversion Diet Attendant Cerner at 01/21/2023 4:44 PM CDT documented in this encounter Plan of Treatment Not on file documented as of this encounter Visit Diagnoses Not on filedocumented in this encounter
--- OUTSIDE RECORDS SUMMARY | 2025-04-22 10:53 | XMS_ITS | Encounter Summary ---
Author Organization [employer] ([place], [place], [place], [place]) Address [address] [place] [address] Care Team Providers Care Giving Officer Name Role Phone Unavailable Primary Care Provider Unavailabl e Encounter Details Date Type Department Care Team (Late st Contact Info) Description 05/27/[address] [facility] Family Medicine [facility] [place] [address] ProviderGini MD [address] [place] [address] Social History Tobacco Use Types Packs/Day Years Used Date Smoking Tobacco: Never Assessed Comments Unknown Sex and Gender Information Value Date Recorded Sex Assigned at Not on file Legal Sex Female 7:20 PM CDT Gender Identity Not on file Sexual Orientation Not on file documented as of this encounter Miscellaneous Notes * Cerner Conversion Note - Gini Walters MD - 05/27/2022 12:04 PM CDT DATE OF PROCEDURE: 05/27/2022 SURGEON: Per Pennington MD PREOPERATIVE DIAGNOSIS: Right renal pelvic calculus with obstruction. POSTOPERATIVE DIAGNOSIS: Right renal pelvic calculus with obstruction. PROCEDURES: Cystoscopy with right flexible retrograde nephroscopy, holmium laser of renal calculus, right ureteral stent placement. ANESTHESIA: General. DRAINS: None. SPECIMENS: None. BRIEF HISTORY: The patient is a 41-year-old female with a history of urolithiasis, noted to have an 11 mm stone in the right ureteropelvic junction and renal pelvis. She has had pain. She is morbidly obese, 360 pounds, and is not a candidate for shockwave lithotripsy due to her size. At any rate, we decided to treat this ureteroscopically. Risks were discussed including ureteral perforation, retained stone fragments requiring additional intervention. We discussed the likelihood of placing a stent postoperatively. DESCRIPTION OF PROCEDURE: After satisfactory anesthesia, she was very carefully positioned in the lithotomy position. Sequential compression garments were placed and functioned at the time of induction. Her pannus was retracted cephalad with a pannus retractor to expose her genital area. Genitalia were prepped and draped in standard manner. A 22-Brazilian cystoscopy sheath was introduced. Bladder was inspected entirely. She had a moderate squamous metaplasia of the trigone. The right ureteral orifice was easily cannulated with 5-Brazilian open-ended ureteral catheter followed by a ZIPwire. The stone could be faintly visualized in lower pole calyx over the edge of the renal pelvis. I attempted to pass a ureteral access sheath. The 12-Brazilian internal sheath easily passed over the wire with gentle pressure up to the level of the renal pelvis. When combining the 12/14 sheath, it would not easily move out the pelvis and therefore, that was aborted. The disposable digital flexible ureteroscope was passed over the Sensor wire easily to the level of the renal pelvis where the stone was visualized in lower pole calyx. A 200-micron fiber was used at varying gunn to fragment this into tiny material, all of which should be very passable. The calices were then inspected. There was no significant sized material. Renal pelvis was acceptable, and all material looked to be a millimeter or less in size relative to the laser fiber. The Sensor wire was passed back through the flexible scope and the flexible scope withdrawn. Stent was placed over the wire with nice coil in the kidney and a coil in the bladder. Bladder was then emptied with cystoscopy sheath. The string cut and then tucked into the vagina. Xylocaine jelly was still in the urethra. She was awakened, extubated, transferred to postop recovery room in stable condition. She will follow up in 72 hours for stent removal. /[id number] Per Pennington MD TDA/AQ / TDA / MODL /[id number] documented in this encounter Plan of Treatment Not on file documented as of this encounter Visit Diagnoses Not on filedocumented in this encounter
--- OUTSIDE RECORDS SUMMARY | 2025-04-22 10:53 | XMS_ITS | Clinical Summary ---
Author Organization [facility] Address [address] [place] [address] Care Team Providers Care Circular Saw Filer Name Role Phone Shorty Perez MD Primary Care Provider + [phone] Allergies Active Allergy Reactions Criticality Noted Date Comments Azithromycin Hives 03/12/2018 Latex Swelling 03/12/2018 Medications DULoxetine HCl (CYMBALTA PO) Take 120 mg by mouth. Active Social History Tobacco Use Types Packs/Day Years Used Date Smoking Tobacco: Never Alcohol Use Standard Drinks/Week Comments No 0 (1 standard drink = 0.6 oz pur e alcohol) Abuse Screen Answer Date Recorded Unsafe at Home or Work/School Not on file Feels Threatened by Someone? Not on file 09/2023 Does Anyone Keep You from Co ntacting Others or Doint Things Outside the Home? Not on file 07/14/2023 Physical Sign of Abuse Present Not on file 1 Housing Stability Answer Date Recorded Current Living Arrangements Not on file 07/03 Potentially Unsafe Housing Conditions Not on catrachito e 07/14/2023 Family and Community Support Answer Luciano e Recorded Help with Day-to-Day Activities Not on file 07/14/2023 Lonely or Isolated Not on file 07/14/2023 Employment Answer Date Recorded Do you want help finding or keeping work or a malik b? Not on file 07/14/2023 Disabilities Answer Date Recorded Concentrating, Remembering, or Making Decisions Difficulty Not on file 07/14/2023 Doing Errands Independently Difficulty Not on fi le 07/14/2023 Education Answer Date Recorded Help with school or training? Not on file Preferred Language Not on file 07/14/2023 Comments Unknown Sex and Gender Information Value Date Recorded Sex Assigned at Not on file Legal Sex Female 11:16 PM EDT Gender Identity Not on file Sexual Orientation Not on file Last Filed Vital Signs Vital Sign Reading Time Taken Comments Blood Pressure 126/66 03/13/2018 3:00 AM EDT Pulse 82 03/13/2018 3:21 AM EDT Temperature 36.8 C (98.3 F) 03/12/2018 11:18 PM EDT Respiratory Rate 24 03/12/2018 11:18 PM EDT Oxygen Saturation 97% 03/13/2018 3:21 AM EDT Inhaled Oxygen Concentration - - Weight 186 kg (409 lb) 03/12/2018 11:18 PM EDT Height 160 cm (5' 3 ) 03/12/2018 11:18 PM EDT Body Mass Index 72.45 03/12/2018 11:18 PM EDT Plan of Treatment Health Maintenance Due Date Last Done Comments ANNUAL PHYSICAL 1980 Annual Gynecologic Pelvic an d Breast Exam 1980 HEPATITIS C SCREENING 1980 TDAP/TD VACCINES (1 - Tdap) 1999 MAMMOGRAM 2020 COVID-19 Vaccine ( - 2023-2 5 season) 2024 INFLUENZA VACCINE 07/03/2025 Pneumococcal Vaccine 0-49 Aged Out No longer eligible based on patient's age to complete this topic Insurance [place] [id number] [facility] Care Teams Circular Saw Filer Relationship Specialty Start Date End Date Shorty Perez MD [address] [facility] [address] [place] [id number] PCP - General Adolescent Medicine 03/12/18
--- OUTSIDE RECORDS SUMMARY | 2025-04-22 10:53 | XMS_ITS | Encounter Summary ---
Author Organization [employer] ([place], [place], [place], [place]) Address [address] [place] [address] Care Team Providers Care Corridor Redevelopment Manager Name Role Phone Unavailable Primary Care Provider Unavailabl e Encounter Details Date Type Department Care Team (Late st Contact Info) Description 05/27/2022 Transcribed Document [facility] [place] [address] ProviderGini MD [place] [address] Social History Tobacco Use Types Packs/Day Years Used Date Smoking Tobacco: Never Assessed Comments Unknown Sex and Gender Information Value Date Recorded Sex Assigned at Not on file Legal Sex Female 7:20 PM CDT Gender Identity Not on file Sexual Orientation Not on file documented as of this encounter Miscellaneous Notes * Cerner Conversion Note - Gini Walters MD - 05/27/2022 10:51 AM CDT [facility] Main OR IntraOp Summary Primary Physician: DEBORAH MORSE MD-URO Finalized Date/Time: 05/29/22 11:37:00 Pt. Name: BONNIE BAKER PERLA /Sex: 1980 Female Med Rec #: [id number] Physician: DEBORAH MORSE MD-URO Financial #: [id number] Pt. Type: O Room/Bed: Admit/Disch: 05/27/22 07:07:00 - 05/27/22 14:10:00 Institution: [facility] IntraOp Case Attendance Entry 1 Entry 2 Entry 3 Case Attendee DEBORAH MORSE NALLY, RENAE D, ELLYN ANDRADE MD-URO -ANS Role Performed Surgeon/Proceduralist, FISH FARM LABORER/Nurse Stained Glass Joiner Anesthesiologist of First Record Time In 05/27/22 10:09:00 05/27/22 10:09:00 05/27/22 10:09:00 Time Out 05/27/22 12:00:00 05/27/22 12:00:00 05/27/22 12:00:00 Procedure Cystoscopy Ureteroscopy Cystoscopy Ureteroscopy Cystoscopy Ureteroscopy Other Attendee Superficial Wound Closed By: Last Modified By: Roseline Howell, Roseline Lanza, Roseline Lanza RN 05/27/22 12:00:27 05/27/22 12:00:27 05/27/22 12:00:27 Entry 4 Entry 5 Entry 6 Case Attendee FRANCIS GARY Jessica, Aas Romano RN Role Performed Scrub, First Purchaser, First Laser Ichthyologist Time In 05/27/22 10:09:00 05/27/22 10:09:00 05/27/22 10:09:00 Time Out 05/27/22 11:46:00 05/27/22 12:00:00 05/27/22 12:00:00 Procedure Cystoscopy Ureteroscopy Cystoscopy Ureteroscopy Cystoscopy Ureteroscopy Other Attendee Superficial Wound Closed By: Last Modified By: Roseline Howell, Roseline Lanza, Roseline Lanza RN 05/27/22 12:00:27 05/27/22 12:00:27 05/27/22 12:00:27 Entry 7 Case Attendee Josy Lewis Flat Bed Knitter Role Performed Scrub, First Time In 05/27/22 11:45:00 Time Out 05/27/22 12:00:00 Procedure Cystoscopy Ureteroscopy Other Attendee Superficial Wound Closed By: Last Modified By: Roseline Howell, DAVION 05/27/22 12:00:[address] [facility] IntraOp Case Attendance Audit 05/27/22 12:00:27 [employer] B[employer]er: [id number] Modifier: [id number] 1 <+> Time Out 1 <*> Procedure Cystoscopy Ureteroscopy 2 <+> Time Out 2 <*> Procedure Cystoscopy Ureteroscopy 3 <+> Time Out 3 <*> Procedure Cystoscopy Ureteroscopy 4 <*> Procedure Cystoscopy Ureteroscopy 5 <+> Time Out 5 <*> Procedure Cystoscopy Ureteroscopy 6 <+> Time Out 6 <*> Procedure Cystoscopy Ureteroscopy 7 <+> Time Out 7 <*> Procedure Cystoscopy Ureteroscopy 05/27/22 11:48:36 Gas Brazer: [id number] Modifier: [id number] <+> Time Out 4 <*> Procedure Cystoscopy Ureteroscopy <+> 7 Case Attendee <+> 7 Role Performed <+> 7 Time In <+> 7 Procedure 05/27/22 11:14:27 Gas Brazer: [id number] Modifier: [id number] 1 <+> Time In 1 <*> Procedure Cystoscopy Ureteroscopy 2 <+> Time In 2 <*> Procedure Cystoscopy Ureteroscopy 3 <+> Time In 3 <*> Procedure Cystoscopy Ureteroscopy 4 <+> Time In 4 <*> Procedure Cystoscopy Ureteroscopy 5 <+> Time In 5 <*> Procedure Cystoscopy Ureteroscopy 6 <+> Time In 6 <*> Procedure Cystoscopy Ureteroscopy 05/27/22 11:05:53 [employer] B[employer]er: [id number] Modifier: [id number] <+> 2 Case Attendee <+> 2 Role Performed <+> 2 Procedure <+> 3 Case Attendee <+> 3 Role Performed <+> 3 Procedure <+> 4 Case Attendee <+> 4 Role Performed <+> 4 Procedure <+> 5 Case Attendee <+> 5 Role Performed <+> 5 Procedure <+> 6 Case Attendee <+> 6 Role Performed <+> [address] [facility] IntraOp Case Times Entry 1 Patient In Room Time 05/27/22 10:09:00 Out Room Time 05/27/22 12:00:00 Anesthesia Start Time 05/27/22 10:29:00 Stop Time 05/27/22 12:00:00 Surgery / Procedure Times Start Time 05/27/22 10:51:00 Stop Time 05/27/22 11:50:00 Last Modified By: Roseline Howell RN 05/27/22 12:00:[address] [facility] IntraOp Case Times Audit 05/27/22 12:00:18 [place] B[place]er: [id number] Modifier: [id number] <+> 1 Out Room Time <+> 1 Stop Time <+> 1 Stop Time [facility] IntraOp Communication Entry 1 Entry 2 Communication To Family/Significant other Family/Significant other Comment START CLOSING Communication By Lynda, RoselineDAVION zhao Jessica, RN Date and Time Last Modified By: Roseline Howell RN Hauer, Jessica, RN 05/27/22 11:06:21 05/27/22 11:48:[address] [facility] IntraOp Communication Audit 05/27/22 11:48:45 [employer] Brazer: [id number] Modifier: [id number] <+> 2 Communication By <+> 2 Communication To <+> [address] [facility] IntraOp Departure from OR Entry 1 Integumentary Assessment Integumentary WDL Assessment WDL Transfer/Handoff Transfer to PACU Phase I Handoff Method Bedside/Face to face, Phone call Post-op Transport Stretcher/Gurney Via Patient Transport JOHNATHON MITCHELL CRNA, Accompanied by Asa Pavon RN Last Modified By: Roseline Howell RN 05/27/22 11:06:[address] [facility] IntraOp Fire Risk Assessment Entry 1 Fire Info Surgical Site or 0- No Incision Above the Xyphoid Open O2 Source 0- No (Mask or Cannula) Available Ignition 1- Yes (ESU, Laser, Light Source) Fire Risk 1 Assessment Score Fire Score Fire Risk Yes Assessment Complete Fire Risk Roseline Howell RN Assessment Verified By Fire Risk 05/27/22 10:51:00 Assessment Verified Date/Time Fire Risk Standard Fire Yes Safety Precautions Followed Last Modified By: Roseline Howell RN 05/27/22 11:07:[address] [facility] IntraOp Fire Risk Assessment Audit 05/27/22 11:07:28 [place]er: [id number] Modifier: [id number] 1 <*> Open O2 Source (Mask or Cannula) 1- Yes 1 <*> Fire Risk Assessment Score [address] [facility] IntraOp General Case Drug Safety Physician 1 Case Information OR Cysto [address] [facility] Case Level 1 Room Verified Yes Wound Class 2 - Clean-Contaminated Specialty Urology Anesthesia Type General ASA Class 4 Diagnosis Preop Diagnosis RIGHT RENAL CALCULI Postop Same As Preop Yes Postop Diagnosis RIGHT RENAL CALCULI Wound Class Definitions Last Modified By: Roseline Howell RN 05/27/22 13:11:[address] [facility] IntraOp General Case Data Audit 05/27/22 13:11:09 [place] Brazer: [id number] Modifier: [id number] 1 <*> OR OR 19 [facility] IntraOp Implant Log Entry 1 Type Implant (Synthetic) Implant Log Implant STENT URET PERC + Identification [id number] Description Implant Quantity 1 Implant Site RIGHT URETER Implant [id number] Identification Lot Number Implant Jose Identification Sci:Urology/Gynecology Accounting Generalist Name: Implant [id number] Identification Catalog Number Implant Has an Yes Expiration Date Implant Expiration 08/04/24 Date Tissue Implant Last Modified By: Roseline Howell RN 05/27/22 11:49:[address] [facility] IntraOp Intraoperative Assessment Entry 1 Handoff Method Bedside/Face to face, Online nursing summary Valid History / Yes Physical in Chart Preoperative Yes Checklist Reviewed/Evaluated Allergies Reviewed Yes Patient is Latex No Sensitive Isolation Not applicable Precautions Noted Level of WDL Consciousness (WDL = Alert, Oriented to Person, Place, and Time) Skin Assessment No Verified Present Upon IVs Arrival to OR Last Modified By: Roseline Howell RN 05/27/22 11:07:[address] [facility] IntraOp Intraoperative Equipment Entry 1 Type Equipment Equipment Intraop Monitoring Electrocardiogram Five lead placement (ECG) Electrode Placement Blood Pressure Non-Invasive BP Device Source Blood Pressure Arm, left upper Location Pulse Oximeter Hand, right Probe Site Antiembolic Devices Antiembolic Devices Sequential compression device, knee high Antiembolic Device Bilateral Location Antiembolic Device CYSTO 1 ID Number Scopes Photo/Video Documentation Last Modified By: Roseline Howell RN 05/27/22 11:08:[address] [facility] IntraOp Medication Admin Entry 1 Entry 2 Medication/Irrigant lidocaine 2% urojet STERILE NS 3L 10ml jelly - [id number] Combo Med List Time Administered Route of LOCAL IRRIGATION Administration Dose Dose 10 Unit of Measure ml Volume Administered By DEBORAH MORSE, DEBORAH MORSE MD-URO MD-URO Procedure Irrigation Irrigant Volume In Irrigant Volume Out Last Modified By: Roseline Howell RN Hauer, Jessica, RN 05/27/22 11:08:32 05/27/22 11:08:[address] [facility] IntraOp Patient Positioning Entry 1 Procedure Cystoscopy Ureteroscopy Body Position Lithotomy Left Arm Position Tucked and padded at side Right Arm Position Tucked and padded at side Left Leg Position Secured in Leg Siddiqui Right Leg Position Secured in Leg Siddiqui Feet Uncrossed Yes Pressure Points Yes Checked Positioning Devices Head Rest, Table, Cysto, Pad, Elbow, Stirrups/Leg Siddiqui, Cysto Device Position PT POSITIONED IN LEFT STIRRUP BY DR. ESPINOSA, PANUS RETRACTOR USED, PINK FOAM UNDER ARM, MULTIPLE PINK FOAM UNDER RIGHT ARM FOR ARM TO REST NATURALLY AT SIDE Positioned By DEBORAH MORSE MD-URO, Roseline Howell, DAVION, JOHNATHON MITCHELL, IVONNE, Asa Pavon RN Position Verified Positioning Yes Verified by Anesthesia Positioning Yes Verified by Surgeon Last Modified By: Roseline Howell RN 05/27/22 11:09:[address] [facility] IntraOp Patient Positioning Audit 05/27/22 11:09:37 Gas Brazer: [id number] Modifier: [id number] 1 <*> Procedure Cystoscopy Ureteroscopy 1 <*> Positioned By DEBORAH MORSE MD-URO [facility] IntraOp Sign In Entry 1 Patient, Site, Yes Procedure Identified Surgical Consent Yes Confirmed Relevant Surgical Yes Documents Available Surgical Site N/A Marked by person performing procedure Anesthesia Machine Yes Check Completed Medication Checks Yes Completed Allergies Yes Airway Difficult Yes Airway/Aspiration Risk Difficult Yes Airway/Aspiration Intervention Equipment Available Blood Loss Risk Yes Blood Loss Yes Intervention Equipment Prepared and Ready Blood Identifiers Not applicable Verified Per Policy Hypothermia Risk Yes Warming Measures Yes Taken Last Modified By: Roseline Howell RN 05/27/22 11:09:[address] [facility] IntraOp Sign Out Entry 1 RN Confirmation Surgical Yes Procedure(s) Identified Instrument, Sponge N/A and Sharps Counts Correct/Documented Equipment Problems N/A Documented Specimen Labeled N/A Correctly Urinary Catheter N/A Documented in IView Wound Yes classification reviewed, verified and updated post case in both the General Case Data and Procedure segments Haro Patient Yes Recovery Concerns Reviewed with Anesthesia Provider, Surgeon and RN Haro Patient Yes Management Concerns Reviewed with Anesthesia Provider, Surgeon and RN Safety Checklist Yes Elements Complete? RN Sign Out Roseline Howell RN Signature RN Sign Out 05/27/22 12:00:00 Signature Date/Time Plan of Care Outcome - Fire Risk OUTCOME STATEMENT: Goal met Patient is free from injury related to surgical fire Plan of Care Outcome - Pt Positioning OUTCOME STATEMENT: Goal met Absence of signs and symptoms of positioning injury. Plan of Care Outcome - Skin Prep OUTCOME STATEMENT: Goal met Intraoperative care is consistent with measures to prevent infection Plan of Care Outcome - Xray/Images OUTCOME STATEMENT: Goal met Absence of observable signs or symptoms of radiation injury Plan of Care Outcome - Counts OUTCOME STATEMENT: Goal met Absence of signs and symptoms of injury related to extraneous objects Last Modified By: Roseline Howell RN 05/27/22 13:11:[address] [facility] IntraOp Sign Out Audit 05/27/22 13:11:17 Gas Brazer: [id number] Modifier: [id number] 1 <*> Specimen Labeled Correctly Yes 05/27/22 12:00:24 Gas Brazer: [id number] Modifier: [id number] <+> 1 RN Sign Out Signature Date/Time [facility] Intra Skin Prep Entry 1 Procedure Cystoscopy Ureteroscopy Prescribed N/A Pre-Surgical Prep Completed Prep Area genitalia Intraop Prep Integumentary WDL Assessment WDL Prep Agents Betadine solution Prep by Roseline Howell RN Hair Removal Methods No hair removal performed Last Modified By: Roseline Howell RN 05/27/22 11:10:[address] [facility] IntraOp Surgical Procedures Entry 1 Procedure Cystoscopy Ureteroscopy Additional CYSTOSCOPY, RIGHT Procedure FLEXIBLE URETEROSCOPY Description WITH HOMIUM LASER LITHOTRIPSY, RIGHT URETERAL STENT PACEMNET Primary Procedure Yes Primary Surgeon DEBORAH MORSE MD-URO Start 05/27/22 10:51:00 Stop 05/27/22 11:50:00 Anesthesia Type General Specialty Urology Wound Class 2 - Clean-Contaminated Last Modified By: Roseline Howell RN 05/27/22 12:00:[address] [facility] IntraOp Surgical Procedures Audit 05/27/22 12:00:19 Gas Brazer: [id number] Modifier: [id number] <+> 1 Stop 05/27/22 11:10:18 Gas Brazer: [id number] Modifier: [id number] 1 <*> Procedure Cystoscopy Ureteroscopy 05/27/22 11:09:27 Gas Brazer: [id number] Modifier: [id number] <+> [address] [facility] IntraOp Temp Regulation Devices Entry 1 Temp Regulation Temperature Warm blankets, Forced Regulation Device Air Warming device Temperature Upper body Regulation Site Temperature JOHNATHON MITCHELL, FISH FARM LABORER Regulation Device Applied by Temperature monitored per Regulation Comment anesthesia, rito bailey available Last Modified By: Roseline Howell RN 05/27/22 11:10:[address] [facility] IntraOP Time Out Entry 1 Procedure to be Cystoscopy Ureteroscopy Performed Time Out Time Out Pause Time 05/27/22 10:51:00 All activity Yes suspended (unless life threatening emergency) Team Verbally Correct patient Confirms Information identity, Correct side and site are marked, Consent form is present and accurate, Agreement on the procedure to be done, Correct patient position, Relevant images/results properly labeled/appropriately displayed, Confirm antibiotics have been administered, Confirm the skin prep has dried, Confirm prosthesis/implant/devic e is present, Performed in location of procedure after prepped/draped Antibiotic Yes Prophylaxis Administered Or In Progress Within the Last 60 Minutes Beta Alexus N/A Administered Venous Yes Thromboembolism Prophylaxis Required Anticipated Critical Events Surgeon None expected Anesthesia Provider None expected Nursing Assures Sterility of instruments Essential Imaging Yes Labeled and Displayed Last Modified By: Roseline Howell RN 05/27/22 11:10:55 Case Comments <None> Finalized By: SATHYA MILTON Document Signatures Signed By: Roseline Howell RN 05/27/22 12:00 Roseline Howell RN 05/27/22 13:11 SATHYA MILTON 05/29/22 11:36 Unfinalized History Date/Time Username Reason for Unfinalizing Freetext Reason for Unfinalizing 05/27/22 13:10 [id number] Finish Documentation 05/29/22 11:34 TUNG Correct Billing documented in this encounter Plan of Treatment Not on file documented as of this encounter Visit Diagnoses Not on filedocumented in this encounter
--- OUTSIDE RECORDS SUMMARY | 2025-04-22 10:53 | XMS_ITS | Encounter Summary ---
Author Organization [employer] ([place], [place], [place], [place]) Address [address] [place] [address] Care Team Providers Care Carrot Tier Name Role Phone Unavailable Primary Care Provider Unavailabl e Encounter Details Date Type Department Care Team (Late st Contact Info) Description 05/27/2022 Transcribed Document [facility] [place] [facility] [place] [address] ProviderGini MD [address] [place] [address] Social History Tobacco Use Types Packs/Day Years Used Date Smoking Tobacco: Never Assessed Comments Unknown Sex and Gender Information Value Date Recorded Sex Assigned at Not on file Legal Sex Female 7:20 PM CDT Gender Identity Not on file Sexual Orientation Not on file documented as of this encounter Miscellaneous Notes * Cerner Conversion Note - Gini ProviderMD - 05/27/2022 9:08 AM CDT Patient: BONNIE ARECHIGA Age: 41 years Sex: Female : 1980 Associated Diagnoses: None Author: COMER, ALTAGRACIA Dillon APRN Chief Complaint pleasant 41 yo female here with her mom for cysto R flexible ureteroscopy with laser, poss stent with Dr. Pennington. pt had R CVA pain and went to ER and was found to have stone. Review of Systems Constitutional: super obesity. Eye: contacts/glasses. Ear/Nose/Mouth/Throat: Negative. Respiratory: Negative. Cardiovascular: Negative. Gastrointestinal: Negative. Genitourinary: Hematuria, Urinary frequency, Urinary urgency. Hematology/Lymphatics: Negative. Endocrine: Negative. Immunologic: Negative. Musculoskeletal: chris LE weakness, uses walker/wc due to obesity. Integumentary: Negative. Neurologic: Negative. Psychiatric: Negative. All other systems are negative Health Status Allergies: Allergic Reactions (Selected) Severity Not Documented Erythromycin- No reactions were documented. Latex- No reactions were documented., Allergies (2) Active Reaction erythromycin None Documented Latex None Documented Current medications: (Selected) Inpatient Medications Ordered Lactated Ringers Injection intravenous solution 1,000 mL: 20 mL/Hr, IntraVENous Rocephin + Sodium Chloride 0.9% intravenous solution 50 mL: 2,000 mg, 100 mL/Hr, IV Piggyback, 1-Time Prescriptions Prescribed ibuprofen 800 mg oral tablet: 1 Tab, Oral, Q6H, PRN: as needed for pain, 40 Tab, 1 Refill(s) Documented Medications Documented Percocet 7.5 mg-325 mg oral tablet: 1 Tab, Oral, Q4H, PRN: as needed for pain, 0 Refill(s) levothyroxine 50 mcg (0.05 mg) oral tablet: 1 Tab, Oral, Daily, 30 Tab, 0 Refill(s) multivitamin: Daily, 0 Refill(s), Home Medications (4) Active ibuprofen 800 mg oral tablet 800 mg = 1 Tab, PRN, Oral, Q6H levothyroxine 50 mcg (0.05 mg) oral tablet 50 mcg = 1 Tab, Oral, Daily multivitamin , Daily Percocet 7.5 mg-325 mg oral tablet 1 Tab, PRN, Oral, Q4H , Medications (2) Active Scheduled: (1) cefTRIAXone + NaCl 0.9% 50 mL 2,000 mg, IV Piggyback, 1-Time Continuous: (1) lactated ringers 1,000 mL 1,000 mL, IntraVENous, 20 mL/Hr PRN: (0) Problem list: All Problems GERD - Gastro-esophageal reflux disease / SNOMED CT 4149005030 / Confirmed Fibromyalgia / SNOMED CT 853794719 / Confirmed Bronchitis / SNOMED CT 32316845 / Confirmed [place] Roberts contractions / SNOMED CT 322801997 / Confirmed At risk for sleep apnea / IMO [id number] / Confirmed, Active Problems (5) At risk for sleep apnea Dipesh Roberts contractions Bronchitis Fibromyalgia GERD - Gastro-esophageal reflux disease Histories Past Medical History: Resolved Asthma ([id number]): Resolved. Family History: No family history items have been selected or recorded. Procedure history: gastric sleeve. x3. gall bladder removal. hysterectomy. partial thyroid removal. Social History Social & Psychosocial Habits No Data Available . Physical Examination VS/Measurements Vital Signs/Vital Measures 05/27/2022 8:00 EDT Systolic Blood Pressure 126 mmHg Diastolic Blood Pressure 72 mmHg Temperature Source Temporal artery scanning Temperature Mode Fahrenheit Temperature, Fahrenheit 97.2 Deg F Clinical Temperature, C 36.2 Deg C Heart Rate Monitored 60 bpm Respiratory Rate 19 Breaths/Min Oxygen Saturation 97 % Oxygen Therapy Mode Room air , Vitals Signs (last 24 hrs) Last Charted Minimum Maximum Temp 97.2 (MAY 27 08:00) 97.2 (MAY 27 08:00) 97.2 (MAY 27 08:00) Mon HR 60 (MAY 27 08:00) 60 (MAY 27 08:00) 60 (MAY 27 08:00) Resp Rate 19 (MAY 27 08:00) 19 (MAY 27 08:00) 19 (MAY 27 08:00) SBP 126 (MAY 27 08:00) 126 (MAY 27 08:00) 126 (MAY 27 08:00) DBP 72 (MAY 27 08:00) 72 (MAY 27 08:00) 72 (MAY 27 08:00) SpO2 97 (MAY 27 08:00) 97 (MAY 27 08:00) 97 (MAY 27 08:00) , Measurements from flowsheet : Measurements 05/26/2022 13:59 EDT Height Source Measured Height Entry Format Jay Height/Length, SPANISH (ft) 5 ft Height/Length SPANISH 3 Inch CLINICALHEIGHT 160.02 cm [place] Body Weight 52 kg Weight Source Standing scale Weight Entry Format Jay Weight [place] lb 364.9 lb CLINICALWEIGHT 165.86 kg Body Surface Area (BSA) 2.5 m2 Body Mass Index 64.8 kg/m2 >HHI General: Alert and oriented, No acute distress, super obesity. Eye: Extraocular movements are intact, contacts/glasses. HENT: Normocephalic, Normal hearing. Respiratory: Lungs are clear to auscultation, Respirations are non-labored. Cardiovascular: Normal rate, Regular rhythm, No murmur, No gallop, No edema. Genitourinary: No costovertebral angle tenderness. Musculoskeletal: chris LE weakness, uses walker/wc due to obesity. Integumentary: Warm, Dry, [place]. Neurologic: Alert, Oriented. Psychiatric: Cooperative, Appropriate mood & affect. Review / Management Results review: No qualifying data available. Impression and Plan Diagnosis 1. R renal stone 2. HERI risk 3. super obesity 4. fibromyalgia 5 GERD. Condition: Stable. pt to proceed with surgery, DC home today Electronically signed by Jonathon Cedeno Conversion Hollow Handle Knife Assembler Cerner at 01/21/2023 4:51 PM CDT documented in this encounter Plan of Treatment Not on file documented as of this encounter Visit Diagnoses Not on filedocumented in this encounter
--- OUTSIDE RECORDS SUMMARY | 2025-04-22 10:53 | XMS_ITS | Encounter Summary ---
Author Organization [employer] ([place], [place], [place], [place]) Address [address] [place] [address] Care Team Providers Care Food Cart Attendant Name Role Phone Unavailable Primary Care Provider Unavailabl e Encounter Details Date Type Department Care Team (Late st Contact Info) Description 05/27/2022 Transcribed Document [facility] [place] [facility] [place] [address] ProviderGini MD [address] [place], [place] [id number] Social History Tobacco Use Types Packs/Day Years Used Date Smoking Tobacco: Never Assessed Comments Unknown Sex and Gender Information Value Date Recorded Sex Assigned at Not on file Legal Sex Female 7:20 PM CDT Gender Identity Not on file Sexual Orientation Not on file documented as of this encounter Miscellaneous Notes * Cerner Conversion Note - Gini ProviderMD - 05/27/2022 11:14 AM CDT Pain Assessment Entered On: 05/27/2022 13:11 EDT Performed On: 05/27/2022 13:01 EDT by Autumn Fan RN Intervention Information: [email or web address] Performed by Autumn Fan RN on 05/27/2022 12:31:00 EDT fentaNYL,25mcg IV Push,Right Hand,Pain (Moderate 4-6) Pain Assessment Pain Assessment : Follow-up assessment Pain Scale Goal : 5 Pain Location Comment : c/o pressure pain Autumn Fan RN - 05/27/2022 13:11 EDT documented in this encounter Plan of Treatment Not on file documented as of this encounter Visit Diagnoses Not on filedocumented in this encounter
--- OUTSIDE RECORDS SUMMARY | 2025-04-22 10:53 | XMS_ITS | Encounter Summary ---
Author Organization [employer] ([place], [place], [place], [place]) Address [address] [place] [address] Care Team Providers Care Hot Press Operator Name Role Phone Unavailable Primary Care Provider Unavailabl e Encounter Details Date Type Department Care Team (Late st Contact Info) Description 05/26/2022 Transcribed Document [facility] Family Medicine [facility] [place] [address] ProviderGini MD [address] [place] [address] Social History Tobacco Use Types Packs/Day Years Used Date Smoking Tobacco: Never Assessed Comments Unknown Sex and Gender Information Value Date Recorded Sex Assigned at Not on file Legal Sex Female 7:20 PM CDT Gender Identity Not on file Sexual Orientation Not on file documented as of this encounter Miscellaneous Notes * Cerner Conversion Note - Gini ProviderMD - 05/26/2022 1:59 PM CDT PAT Adult Entered On: 05/26/2022 14:01 EDT Performed On: 05/26/2022 13:59 EDT by Judy Fu RN Height and Weight, Clinical Dosing Height Source : Measured Height Entry Format : [place] Height, Feet : 5 ft(Converted to: 152 cm, 60 Inch) Height, Inches : 3 Inch(Converted to: 0 ft 3 Inch, 7.62 cm) Clinical Height : 160.02 cm Weight Source : Standing scale Weight Entry Format : [place] Clinical Dosing Weight : 165.86 kg Weight, Pounds : 364.9 lb Body Surface Area (BSA) : 2.5 m2 Body Mass Index : 64.8 kg/m2 (>HHI) [place] Body Weight : 52 kg Judy Fu RN - 05/27/2022 8:31 EDT Health Histories Smoking Status : Never (less than 100 in lifetime; none in last 30 days) Smokeless Tobacco Status : Never Judy Fu RN - 05/26/2022 13:59 EDT Social History (As Of: 05/26/2022 14:01:48 EDT) Infectious Disease History Does patient have symptoms of COVID-19? : No Tested for COVID19 in the past 14 days : No, Patient stated Does the Patient state known exposure to a COVID-19 positive case in the last 14 days? : No Patient Vaccinated for COVID-19 : Fully vaccinated Judy Fu RN - 05/26/2022 13:59 EDT Infectious Disease Risk Screening Grid Cough < 2 wks of unknown origin : NO Cough > 2 weeks : NO Blood in Sputum : NO Fever or self-reported Fever : NO Rash of unknown origin : NO Headache : NO Stiff neck : NO Night Sweats : NO Unexplained Weight Loss : NO Diarrhea (3 episode per day) : NO Judy Fu RN - 05/26/2022 13:59 EDT Physical contact outside [place] in the last 30 days : No Hospitalized in Foreign Country : No Infectious Disease History : Chicken pox/Shingles, Influenza INF Disease TB Screening Calc : 0 INF Disease Recent Travel Calc : 0 Judy Fu RN - 05/26/2022 13:59 EDT COVID19 PreProcedure Screening Is this an Emergent or Add on Procedure? : No Date PreProcedure COVID-19 test known? : No Has patient been isolated since the test : N/A - PreProcedure, in-person visit Exposed to COVID19 symptoms since test? : N/A - PreProcedure, in-person visit Judy Fu RN - 05/26/2022 14:05 EDT Anesthesia/Transfusion History Family History of Anesthesia Reaction : No prior transfusion(s) Blood Transfusion Acceptable to Patient : Yes Transfusion History : Prior anesthesia without reaction Family History of Anesthesia Reaction : None Judy Fu RN - 05/26/2022 13:59 EDT Advance Directive Patient has Advance Directive *Q : No, patient refuses Advance Directive information Judy uF RN - 05/26/2022 13:59 EDT [place] Suicide Severity Rating Scale (C-SSRS) CSSRS Past Month Wish to be : No CSSRS Past Month Suicidal Thoughts : No CSSRS Lifetime Suicide Behavior : No Suicide Severity Rating Score : 0 Suicide Severity Rating : No Additional Care Required at this time Judy Fu RN - 05/26/2022 13:59 EDT Psychosocial History Currently in Unsafe Situation : No Judy Fu RN - 05/26/2022 13:59 EDT General Info Primary Language : Spanish Communication Barrier : None Desilverizer Needed : No Judy Fu RN - 05/27/2022 8:33 EDT Want Family/Rep/Phys Notified of Admit : No Emergency Contact #1 : Vanna Emergency Contact #1 Emergency Contact #1 Relationship : Mother Emergency Contact #2 : - Emergency Contact #2 Phone Number : - Emergency Contact #2 Relationship : - Judy Fu RN - 05/26/2022 13:59 EDT Narinder Scale Narinder Sensory Perception : No impairment Narinder Moisture : Rarely moist Narinder Activity : Walks occasionally Narinder Mobility : No limitation Narinder Nutrition : Excellent Narinder Friction and Shear : No apparent problem Narinder Score : 22 Judy Fu RN - 05/26/2022 13:59 EDT Sleep Apnea Risk Assmt BMI Greater Than 35 kg/m2 : Yes Neck Circumference Greater Than 40 cm : Yes STOP-BANG Sleep Apnea Risk Level Score : 2 Judy Fu RN - 05/27/2022 8:31 EDT Hx of Obstructive Sleep Apnea Diagnosis : No Snore Loudly : No Tired, Fatigued, or Sleepy During Day : No Observed Stopping Breathing During Sleep : No Have/Are Being Treated for Hypertension : No Age over 50 Years Old : No Gender Male : No Judy Fu RN - 05/26/2022 13:59 EDT documented in this encounter Plan of Treatment Not on file documented as of this encounter Visit Diagnoses Not on filedocumented in this encounter
--- OUTSIDE RECORDS SUMMARY | 2025-04-22 10:53 | XMS_ITS | Clinical Summary ---
Author Organization [email or web address] ([place], [place], [place], [place]) Address [address] [place] [address] Care Team Providers Care Monomer Recovery Supervisor Name Role Phone Unavailable Primary Care Provider Unavailabl e Social History Tobacco Use Types Packs/Day Years Used Date Smoking Tobacco: Never Assessed Comments Unknown Sex and Gender Information Value Date Recorded Sex Assigned at Not on file Legal Sex Female 7:20 PM CDT Gender Identity Not on file Sexual Orientation Not on file Plan of Treatment [place] [id number] BLUE CROSS/BLUE SHIELD
--- OUTSIDE RECORDS SUMMARY | 2025-04-22 10:53 | XMS_ITS | Encounter Summary ---
Author Organization [employer] ([place], [place], [place], [place]) Address [address] [place] [address] Care Team Providers Care Crate Opener Name Role Phone Unavailable Primary Care Provider Unavailabl e Encounter Details Date Type Department Care Team (Late st Contact Info) Description 05/27/2022 Transcribed Document [facility] Family Medicine [facility] [place] [address] ProviderGini MD [facility] [place] [address] Social History Tobacco Use Types [...] Gini ProviderMD - 05/27/2022 10:51 AM CDT [facility] Main OR PACU Summary Primary Physician: DEBORAH MORSE MD-URO Finalized Date/Time: 05/27/22 13:24:46 Pt. Name: HAWK BONNIE DUNCAN /Sex: 1980 Female Med Rec #: [id number] Physician: DEBORAH MORSE MD-URO Financial #: [id number] Pt. Type: O Room/Bed: Admit/Disch: 05/27/22 07:07:00 - Institution: [facility] Main OR PACU I Case Times Entry 1 In PACU I 05/27/22 12:04:00 Ready for PACU 05/27/22 13:10:00 Discharge Discharge from PACU 05/27/22 13:10:00 I Last Modified By: Autumn Fan RN 05/27/22 13:24:35 Finalized By: Autumn Fan RN Document Signatures Signed By: Autumn Fan RN 05/27/22 13:24 Electronically signed by Jonathon Cedeno Conversion Staff [employer] Officer Cerner at 01/21/2023 4:31 PM CDT documented in this encounter Plan of Treatment Not on file documented as of this encounter Visit Diagnoses Not on filedocumented in this encounter
--- OUTSIDE RECORDS SUMMARY | 2025-04-22 10:53 | XMS_ITS | Encounter Summary ---
Author Organization Healthcare Address [address] [place] [address] Care Team Providers Care Crew Truck Driver Name Role Phone Vitaliy Rehman MD Primary Care Provider Brandon Escoto MD Unavailable [phone] Shailesh Smith Unavailable [phone] Casie Real MD Unavailable [phone] Encounter Details Date Type Department Care Team (Late st Contact Info) Description 03/18/2025 Results Follow-Up [facility] [address] [place] [id number] Shailesh Smith PA [address] [place] [address] Social History Tobacco Use Types Packs/Day Years [...] 05/22/2025 3:00 PM EDT Office Visit [facility] [address] [place] [address] Champ Rinaldi MD [address] [place] [address] documented as of this encounter [...] documented as of this encounter Care Teams Crew Truck Driver Relationship Specialty Start Date End Date Vitaliy Rehman MD [facility] [place] [id number] PCP - General 07/01/21 Brandon Escoto MD [address] [facility] [address] [address] Surgeon Otolaryngology 07/13/21 Shailesh Smith PA [address] [facility] [address] [place] [address] Physician Marketing Traffic Coordinator Otolaryngology 06/21/22 Casie Real MD [address] [place] [address] Referring Physician 06/21/22 documented as of this encounter
== END 2025-04-22 23:59 | disposition home or self-care (01) ==
LOC: RAD 10:47
PROVIDERS: PCP Family Medicine; Visit Provider Orthopaedic Surgery
DX: M17.11 Unilateral primary osteoarthritis, right knee (principal)
CPT/HCPCS: 73562

== ENCOUNTER 2025-09-23 10:08 | Outpatient (CLI) | payer BC, SELFPAY ==
--- OUTSIDE RECORDS SUMMARY | 2025-09-24 13:25 | XMS_ITS | Clinical Summary ---
Author Organization [facility] Address [address] [place] [address] Care Team Providers Care Track Machine Operator Repairer Name Role Phone Shorty ePrez MD Primary Care Provider [phone] Allergies Active Allergy Reactions Criticality Noted Date [...] VACCINES (1 - Tdap) 1999 MAMMOGRAM 2020 INFLUENZA VACCINE 05/03/2025 COLOGUARD 2025 COLON CANCER SCREENING 5 YEA R SIGMOIDOSCOPY 2025 COLONOSCOPY 2025 [address] CANCER SCREENING 2025 CT COLONOGRAPHY 2025 FECAL OCCULT BLOOD TEST 2025 FIT Testing (1 year) 2025 Pneumococcal Vaccine 0-49 Aged Out No longer eligible based on patient's age to complete this topic Insurance [place] [id number] [facility] Care Teams Track Machine Operator Repairer Relationship Specialty Start Date End Date Shorty Perez MD [address] [place] [address] [place] [address] PCP - General Adolescent Medicine 03/12/18
--- OUTSIDE RECORDS SUMMARY | 2025-09-24 13:25 | XMS_ITS | Clinical Summary ---
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 Esotropia, monocular 05/22/2025 Severe myopia of both eyes 05/22/2025 H/O partial thyroidectomy 05/22/2025 Amblyopia of right eye 05/22/2025 Allergic rhinitis 12/19/2021 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 Oropharyngeal dysphagia 06/11/2021 Thyroid mass 06/11/2021 Non-toxic uninodular goiter 06/10/2021 Loculated pleural effusion 05/30/2019 Empyema 04/04/2019 Ovarian cyst 01/17/2019 Unspecified asthma, uncomplicated Overview (07/02/2021): Asthma Anxiety disorder, unspecified Overview (07/02/2021): Anxiety and depression Morbid obesity Dyspnea Gastroesophageal reflux disease Encounters Date Type Department Care Team Description 08/20/2025 Telephone [facility] [address] [place] [address] Champ Rinaldi MD from Last 3 Months Immunizations Immunization Administration [...] Packs/Day Years Used Date Smoking Tobacco: Never Passive Smoke Exposure: Never Smokeless Tobacco: Never Tobacco Cessation:Counseling Given: Not Answered Alcohol Use Standard Drinks/Week Comments No 0 [...] Upcoming Encounters Date Type Department Care Team (Latest Contact Info) Description 10/14/2025 10:00 AM EST Consult [facility] [address] [place] [address] Champ Rinaldi MD [address] [facility] [address] [place] [address] 11/11/2025 2:15 PM EST Office Visit [facility] [address] [place] [address] Champ Rinaldi MD [address] [place] [address] 11/14/2025 11:45 AM EST Hospital Encounter [facility] [address] [place] [address] Champ Rinaldi MD [address] [place] [address] 11/14/2025 11:45 AM EST - 11/14/2025 12:40 PM EST Surgery [facility] [address] [place] [phone] Champ Rinaldi MD [address] [place] [address] Medial Rectus Recession [76181 (CPT )] Scheduled Procedures Name Priority Associated Diagnoses Date/Ti me REPAIR, MUSCLE, EXTRAOCULAR Alternating esotropia 11/14/2025 11:45 AM EST Health Maintenance Due Date Last Done Comments [facility]-/Child/Adol SDOH Screenings 1980 [facility]- SDOH Screenings 1998 [facility]-Adult SDOH Screenings 1998 [facility]-Hepatitis B Vaccines (1 of 3 - 19+ 3-dose series) 1999 [facility]-Zoster Vaccines (1 of 2) 1999 01/10/2024 [id number] Vaccine (3 - Pfizer risk series) 02/26/2021 01/29/2021, 01/01/2021 [facility]-Varicella Vaccines (2 of 2 - 13+ 2-dose series) 02/07/2024 01/10/2024 [facility]-Pneumococcal Vaccine: Pediatrics (0 to 5 Years) and At-Risk Patients (6 to 49 Years) (3 of 3 - PCV20 or PCV21) 04/05/2024 01/10/2024, 04/05/2019 [facility]-Influenza Vaccine (#1) 06/03/202509/21, 08/02/2023, 07/01/2020, Additional history exists CT Colonography 2025 Colonoscopy 2025 FIT-DNA 2025 FIT 2025 FOBT 2025 Sigmoidoscopy 2025 [facility]-Colorectal Cancer Screening 2025 [facility]-Depression Screening 10/26/2025 10/26/2024, 10/04 [facility]-DTaP,Tdap,and Td Vaccines (2 - Td or Tdap) 12/09/2027 12/08/2017 [facility]-HIV Screening Completed 04/04/2019 [facility]-Hepatitis C Screening Completed 04/23/2019, 01/2019 [facility]-Obesity Intervention Completed 05/22/2025, 10/04 HPV Vaccines (No Doses Required) Completed [facility]-HIB Vaccines Aged Out No longer e [...] on patient's age to complete this topic Goals Goal Patient Goal Type Associated Problems Recent Progress Patient-Stated? Author Autogenerat ed Goal Care Plan Autogenerated Problem No Rosie Wick Procedures Procedure Name Priority Date/Time Associated Diagnosis Comments HEPATITIS C ANTIBODY - ED W/REFLEX TO HCV QUANT PCR Routine 04/23/2019 2:30 PM EDT HIV 1/2 ANTIBODY/ANTIGEN SCREEN WITH REFLEX TO HIV I/II DIFFERENTIATION Routine 04/04/2019 4:58 AM EDT from Last 3 Months or Most Recently Relevant to Health Maintenance Results * [place] Hepatitis C Antibody (04/23/2019 2:30 PM EDT) [place] Hepatitis C Ab NEGATIVE Reference Range: Negative SUNQUEST 04/23/2019 2:30 PM EDT 04/23/2019 2:37 PM EDT Renato John MD LAB BLOOD ORDERABLES Final Resul t Performing Organization Address [facility] Co de Phone Number SUNQUEST * HIV 1 & 2 Antibody/Antigen Screen (04/04/2019 4:58 AM EDT) HIV 1 Result NONREACTIVE Screening for HIV 1 and 2 antibodies is NONREACTIVE. No confirmatory testing is required. SUNQUEST 04/04/2019 4:58 AM EDT 04/04/2019 5:12 AM EDT Ricardo Williamson MD LAB BLOOD ORDERABLES Final Resu lt Performing Organization Address [facility] Co de Phone Number SUNQUEST from Last 3 Months or Most Recently Relevant to Health Maintenance Additional Health Concerns Active Problems Noted Date Diagnosed Date Autogenerated Problem 09/11/2025 Insurance [employer] Care Teams Shotblast Operator Relationship Specialty Start Date End Date Mohinder Espinal MD [address] [place] [address] [address] [place] [address] PCP - General 05/22/25 Brandon Escoto MD [address] [address] Surgeon Otolaryngology 07/13/21 Shailesh Smith PA [address] [facility] [address] [place] [address] Physician Greenhouse Technician Otolaryngology 06/21/22 Casie Real MD [facility] B [id number] Referring Physician 06/21/22
--- OUTSIDE RECORDS SUMMARY | 2025-09-24 13:25 | XMS_ITS | Encounter Summary ---
Author Organization Healthcare Address [address] [place] [address] Care Team Providers Care Grain Inspector Name Role Phone Vitaliy Rehman MD Primary Care Provider [phone] Brandon Escoto MD Unavailable [phone] Shailesh Smith Unavailable [phone] Casie Real MD Unavailable [phone] Mohinder Espinal MD Primary Care Provider [phone] Encounter Details Date Type Department Care Team (Late st Contact Info) Description 05/13/2023 Orders Only External Location [address] [place] [address] Provider, External Social History Tobacco Use Types [...] Info) Description 10/14/2025 10:00 AM EST Consult [facility] [address] [place] [address] Champ Rinaldi MD [address] [facility] [address] [place] [address] 11/11/2025 2:15 PM EST Office Visit [facility] [address] [place] [address] Champ Rinaldi MD [address] [facility] [address] [place] [address] 11/14/2025 11:45 AM EST Hospital Encounter [facility] [address] [place] [phone] Champ Rinaldi MD [address] [facility] [address] [place] [address] 11/14/2025 11:45 AM EST - 11/14/2025 12:40 PM EST Surgery [facility] [address] [place] [phone] Champ Rinaldi MD [address] [facility] [address] [place] [address] Medial Rectus Recession [[id number] (CPT )] Scheduled Procedures Name Priority Associated Diagnoses Date/Ti me REPAIR, MUSCLE, EXTRAOCULAR Alternating esotropia 11/14/2025 11:45 AM EST documented as of this encounter Procedures Procedure [...] documented as of this encounter Care Teams Grain Inspector Relationship Specialty Start Date End Date Vitaliy Rehman MD [address] [place] [address] PCP - General 07/01/21 05/21/25 Mohinder Espinal MD [address] [facility] [address] [place] [address] PCP - General 05/22/25 Brandon Escoto MD [address] [address] Surgeon Otolaryngology 07/13/21 Shailesh Smith PA [address] [facility] [address] [place] [address] Physician Automobile Mechanic Assistant Otolaryngology 06/21/22 Casie Real MD [facility] [id number] Referring Physician 06/21/22 documented as of this encounter
--- OUTSIDE RECORDS SUMMARY | 2025-09-24 13:25 | XMS_ITS | Clinical Summary ---
Author Organization [employer] ([place], [place], [place], [place], [place]) Address [address] [place] [address] Care Team Providers Care Stone And Plate Preparer Apprentice Name Role Phone Unavailable Primary Care Provider Unavailabl e Social History Tobacco Use Types Packs/Day Years Used Date Smoking Tobacco: Never Assessed Comments Unknown Sex and Gender Information Value Date Recorded Sex Assigned at Not on file Legal Sex Female 7:20 PM CDT Gender Identity Not on file Sexual Orientation Not on file Plan of Treatment Not on file Insurance BLUE CROSS/BLUE SHIELD
--- OUTSIDE RECORDS SUMMARY | 2025-09-24 13:25 | XMS_ITS | Encounter Summary ---
Author Organization Healthcare Address [address] [place] [address] Care Team Providers Care Graduate Teacher Education Name Role Phone Brandon Escoto MD Unavailable [phone] Shailesh Smith Unavailable [phone] Casie Real MD Unavailable [phone] Mohinder Espinal MD Primary Care Provider Encounter Details Date Type Department Care Team (Late st Contact Info) Description [facility] [address] [place] [address] Champ Rinaldi MD [address] [address] Social History Tobacco Use Types Packs/Day Years Used Date Smoking Tobacco: Never Passive Smoke Exposure: Never Smokeless Tobacco: Never Alcohol Use Standard [...] Info) Description 10/14/2025 10:00 AM EST Consult [facility] [address] [place] [address] Champ Rinaldi MD 110 [facility] [address] [place] [address] 11/11/2025 2:15 PM EST Office Visit [facility] [address] [place] [address] Champ Rinaldi MD 110 [facility] [address] [place] [address] 11/14/2025 11:45 AM EST Hospital Encounter [facility] [address] [place] [address] Champ Rinaldi MD [address] [place] [address] 11/14/2025 11:45 AM EST - 11/14/2025 12:40 PM EST Surgery [facility] [address] [place] [phone] Champ Rinaldi MD 110 [facility] [address] [place] [address] Medial Rectus Recession [[id number] (CPT )] Scheduled Procedures Name Priority Associated Diagnoses Date/Ti me REPAIR, MUSCLE, EXTRAOCULAR Alternating esotropia 11/14/2025 11:45 AM EST documented as of this encounter Goals Goal Patient Goal Type Associated Problems Recent Progress Patient-Stated? Author Autogenerat ed Goal Care Plan Autogenerated Problem No Rosie Wick documented as of this encounter Visit Diagnoses Not on filedocumented in this encounter Additional Health Concerns Active Problems Noted Date Diagnosed Date Autogenerated Problem 09/11/2025 Assessment Noted Time PHQ-9 Depression Total Score: 4 10/26/19 25 8:05 AM EST A fall risk assessment has been complete d for the patient 03/15/2025 2:42 PM EDT A Body Mass Index follow-up plan has been documented for the patient 05/22/2025 4:34 PM EDT documented as of this encounter Care Teams Graduate Teacher Education Relationship Specialty Start Date End Date Mohinder Espinal MD 430 [facility] [address] [place] [address] PCP - General 05/22/25 Brandon Escoto MD 800 [facility] [address] [address] Surgeon Otolaryngology 07/13/21 Shailesh Smith PA [address] [facility] [address] [place] [address] Physician Transcriber Otolaryngology 06/21/22 Casie Real MD [facility] B [id number] Referring Physician 06/21/22 documented as of this encounter
--- OUTSIDE RECORDS SUMMARY | 2025-09-24 13:25 | XMS_ITS | Encounter Summary ---
Author Organization Healthcare Address [address] [place] [address] Care Team Providers Care Journey Lineman Name Role Phone June Ward MD Primary Care Provider Vitaliy Rehman MD Primary Care Provider [phone] Brandon Escoto MD Unavailable [phone] Shailesh Smith Unavailable [phone] Casie Real MD Unavailable [phone] Mohinder Espinal MD Primary Care Provider [phone] Encounter Details Date Type Department Care Team (Late st Contact Info) Description 05/06/2021 Lab Requisition PAV H Lab [address] [place] [address] Brandon Escoto MD 800 [facility] [address] [place] [address] Disorder of thyroid, unspecified Social History [...] Info) Description 10/14/2025 10:00 AM EST Consult [facility] [address] [place] [address] Champ Rinaldi MD [address] [place] [address] 11/11/2025 2:15 PM EST Office Visit [facility] [address] [place] [address] Champ Rinaldi MD [address] [place] [address] 11/14/2025 11:45 AM EST Hospital Encounter PAV [facility] [address] [place] [address] Champ Rinaldi MD [address] [place] [address] 11/14/2025 11:45 AM EST - 11/14/2025 12:40 PM EST Surgery PAV [facility] [address] [place] [address] Champ Rinaldi MD [address] [place] [address] Medial Rectus Recession [72577 (CPT )] Scheduled Procedures Name Priority Associated Diagnoses Date/Ti me REPAIR, MUSCLE, EXTRAOCULAR Alternating esotropia 11/14/2025 11:45 AM EST documented as of this encounter Procedures Procedure Name Priority Date/Time Associated Diagnosis Comments CYTOLOGY CONSULT Routine 05/06/2021 1:18 PM EDT Disorder of thyroid, unspecified documented in this encounter Results * Cytology Consult (05/06/2021 1:18 PM EDT) Case Report Cytology Case: [id number] Authorizing Provider: Brandon Escoto MD Collected: 05/06/2021 1318 Ordering Location: [place] [facility] Received: 05/06/2021 1319 Pathologist: Gopal Garza MD Specimen: Thyroid, [id number] 05/08/2021 5:04 PM EDT [facility] Final Diagnosis A. THYROID GLAND, FINE NEEDLE ASPIRATE (OUTSIDE CASE [id number], COLLECTED ON 01/13/2021): -BENIGN FOLLICULAR NODULE (BETHESDA CATEGORY II) 05/08/2021 5:04 PM EDT [facility] at 1704 EDT Clinical Information Disorder of thyroid, unspecified 05/08/2021 5:04 PM EDT [facility] Gross Description A. [id number] For clinical data and diagnosis (NEGATIVE) for this specimen ([id number]/FN A) see final report issued by [facility] Pathology Department. 05/08/2021 5:04 PM EDT [facility] Fine Needle Aspirate Thyroid structure / Unknown 05/06/2021 1:18 PM EDT 05/06/2021 1:19 PM EDT us Brandon Escoto MD LAB PATHOLOGY ORDERABLES Fin al Result [facility] [address] [place] [address] documented in this encounter Visit Diagnoses Diagnosis Disorder of thyroid, unspecified Alternating esotropia documented in this encounter Care Teams Journey Lineman Relationship Specialty Start Date End Date June Ward MD PCP - General 02/13/21 06/30/21 Vitaliy Rehman MD [address] [place] [address] PCP - General 07/01/21 05/21/25 Mohinder Espinal MD [address] [place] [address] [address] [place] [address] PCP - General 05/22/25 Brandon Escoto MD [address] [address] Surgeon Otolaryngology 07/13/21 Shailesh Smith PA [address] [facility] [address] [place] [address] Physician Furniture Removalist Otolaryngology 06/21/22 Casie Real MD [facility] [id number] Referring Physician 06/21/22 documented as of this encounter
--- OUTSIDE RECORDS SUMMARY | 2025-09-24 13:25 | XMS_ITS | Encounter Summary ---
Author Organization Healthcare Address [address] [place] [address] Care Team Providers Care Whipper Name Role Phone Vitaliy Rehman MD Primary Care Provider [phone] Brandon Escoto MD Unavailable [phone] Shailesh Smith Unavailable [phone] Casie Real MD Unavailable [phone] Mohinder Espinal MD Primary Care Provider [phone] Encounter Details Date Type Department Care Team (Late st Contact Info) Description 01/08/2023 Orders Only External Location 800 [place] [address] Provider, External Social History Tobacco Use Types [...] Info) Description 10/14/2025 10:00 AM EST Consult [facility] [address] [place] [address] Champ Rinaldi MD 110 [facility] [address] [place] [address] 11/11/2025 2:15 PM EST Office Visit [facility] [address] [place] [address] Champ Rinaldi MD 110 [facility] [address] [place] [address] 11/14/2025 11:45 AM EST Hospital En[facility] [address] [place] [address] Champ Rinaldi MD 110 [facility] [address] [place] [address] 11/14/2025 11:45 AM EST - 11/14/2025 12:40 PM EST Surgery [facility] [address] [place] [address] Champ Rinaldi MD 110 [facility] [address] [place] [address] Medial Rectus Recession [04196 (CPT )] Scheduled Procedures Name Priority Associated [...] documented as of this encounter Care Teams Whipper Relationship Specialty Start Date End Date Vitaliy Rehman MD [address] [place] [address] PCP - General 07/01/21 05/21/25 Mohinder Espinal MD 430 [facility] [address] [place] [address] PCP - General 05/22/25 Brandon Escoto MD [address] [address] Surgeon Otolaryngology 07/13/21 Shailesh Smith PA [address] [facility] [address] [place] [address] Physician Loans Consultant Otolaryngology 06/21/22 Casie Real MD [facility] [id number] Referring Physician 06/21/22 documented as of this encounter
--- OUTSIDE RECORDS SUMMARY | 2025-09-24 13:25 | XMS_ITS | Encounter Summary ---
Author Organization Healthcare Address [address] [place] [address] Care Team Providers Care Packing Shed Supervisor Name Role Phone Vitaliy Rehman MD Primary Care Provider [phone] Brandon Escoto MD Unavailable [phone] Shailesh Smith Unavailable [phone] Casie Real MD Unavailable [phone] Mohinder Espinal MD Primary Care Provider [phone] Encounter Details Date Type Department Care Team (Late st Contact Info) Description 05/21/2024 Orders Only External Location 800 [place] [address] Provider, External Social History Tobacco Use Types [...] Info) Description 10/14/2025 10:00 AM EST Consult [facility] [address] [place] [address] Champ Rinaldi MD 110 [facility] [address] [place] [address] 11/11/2025 2:15 PM EST Office Visit [facility] [address] [place] [address] Champ Rinaldi MD [address] [place] [address] 11/14/2025 11:45 AM EST Hospital Encounter [facility] [address] [place] [address] Champ Rinaldi MD [address] [place] [address] 11/14/2025 11:45 AM EST - 11/14/2025 12:40 PM EST Surgery [facility] [address] [place] [address] Champ Rinaldi MD 110 [facility] [address] [place] [address] Medial Rectus Recession [22847 (CPT )] Scheduled Procedures Name Priority Associated [...] documented as of this encounter Care Teams Packing Shed Supervisor Relationship Specialty Start Date End Date Vitaliy Rehman MD [address] [place] [address] PCP - General 07/01/21 05/21/25 Mohinder Espinal MD 430 [facility] [address]1 [address] [place] [address] PCP - General 05/22/25 Brandon Escoto MD [address] [address] Surgeon Otolaryngology 07/13/21 Shailesh Smith PA [address] [facility] [address] [place] [address] Physician Circular Clerk Otolaryngology 06/21/22 Casie Real MD [facility] [id number] Referring Physician 06/21/22 documented as of this encounter
--- OUTSIDE RECORDS SUMMARY | 2025-09-24 13:25 | XMS_ITS | Encounter Summary ---
Author Organization Healthcare Address [address] [place] [address] Care Team Providers Care Hydrodynamics Professor Name Role Phone Vitaliy Rehman MD Primary Care Provider [phone] Brandon Escoto MD Unavailable Shailesh Smith Unavailable [phone] Casie Real MD Unavailable [phone] Mohinder Espinal MD Primary Care Provider [phone] Encounter Details Date Type Department Care Team (Late st Contact Info) Description 04/26/2023 Orders Only External Location 800 [place] [address] Provider, External Social History Tobacco Use Types [...] Info) Description 10/14/2025 10:00 AM EST Consult [facility] [address] [place] [address] Champ Rinaldi MD 110 [facility] [address] [place] [address] 11/11/2025 2:15 PM EST Office Visit [facility] [address] [place] [address] Champ Rinaldi MD [address] [place] [address] 11/14/2025 11:45 AM EST Hospital Encounter [facility] [address] [place] [address] Champ Rinaldi MD 110 [facility] [address] [place] [address] 11/14/2025 11:45 AM EST - 11/14/2025 12:40 PM EST Surgery [facility] [address] [place] [address] Champ Rinaldi MD 110 [facility] [address] [place] [address] Medial Rectus Recession [29467 (CPT )] Scheduled Procedures Name Priority Associated Diagnoses Date/Ti me REPAIR, MUSCLE, EXTRAOCULAR Alternating esotropia 11/14/2025 11:45 AM EST documented as of this encounter Procedures Procedure Name Priority Date/Time Associated Diagnosis Comments MR MSK OUTSIDE IMAGES 04/26/2023 2:19 PM EDT documented [...] documented as of this encounter Care Teams Hydrodynamics Professor Relationship Specialty Start Date End Date Vitaliy Rehman MD [address] [place] [address] PCP - General 07/01/21 05/21/25 Mohinder Espinal MD 430 [facility] [address]1 [address] [place] [address] PCP - General 05/22/25 Brandon Escoto MD [address] [address] Surgeon Otolaryngology 07/13/21 Shailesh Smith PA [address] [facility] [address] [place] [address] Physician Senior Marketing Manager Otolaryngology 06/21/22 Casie Real MD [facility] [id number] Referring Physician 06/21/22 documented as of this encounter
--- OUTSIDE RECORDS SUMMARY | 2025-09-24 13:25 | XMS_ITS | Encounter Summary ---
Author Organization Healthcare Address [address] [place] [address] Care Team Providers Care Mental Health Clinician Name Role Phone Vitaliy Rehman MD Primary Care Provider [phone] Brandon Escoto MD Unavailable Shailesh Smith Unavailable [phone] Casie Real MD Unavailable [phone] Mohinder Espinal MD Primary Care Provider [phone] Encounter Details Date Type Department Care Team (Late st Contact Info) Description 07/03/2023 Orders Only External Location 800 [place] [address] Provider, External Social History Tobacco Use Types [...] Info) Description 10/14/2025 10:00 AM EST Consult [facility] [address] [place] [address] Champ Rinaldi MD 110 [facility] [address] [place] [address] 11/11/2025 2:15 PM EST Office Visit [facility] [address] [place] [address] Champ Rinaldi MD 110 [facility] [address] [place] [address] 11/14/2025 11:45 AM EST Hospital Encounter [facility] [address] [place] [address] Champ Rinaldi MD 110 [facility] [address] [place] [address] 11/14/2025 11:45 AM EST - 11/14/2025 12:40 PM EST Surgery [facility] [address] [place] [address] Champ Rinaldi MD 110 [facility] [address] [place] [address] Medial Rectus Recession [52954 (CPT )] Scheduled Procedures Name Priority Associated [...] documented as of this encounter Care Teams Mental Health Clinician Relationship Specialty Start Date End Date Vitaliy Rehman MD [address] [place] [address] PCP - General 07/01/21 05/21/25 Mohinder Espinal MD 430 [facility] [address]1 [address] [place] [address] PCP - General 05/22/25 Brandon Escoto MD [address] [address] Surgeon Otolaryngology 07/13/21 Shailesh Smith PA [address] [place] [address] Physician Comber Tender Otolaryngology 06/21/22 Casie Real MD [facility] [id number] Referring Physician 06/21/22 documented as of this encounter
--- OUTSIDE RECORDS SUMMARY | 2025-09-24 13:25 | XMS_ITS | Data Portability ---
Author Organization [place] - DIONI Germain [place] [facility] Address [address] [facility] [address] [place] [address] Care Team Providers Care Filter Washer Name Role Phone JING ROY Primary Care Provider Assessment No assessment recorded. Plan of Treatment Reminders Order Date Submit Date Provider Last Modified By Organization Details Last Modified Time Details Appointments None recorded. Lab None recorded. Referral None recorded. Procedures None recorded. Surgeries None recorded. Imaging None recorded. Medication Orders hydrocodone 7.5 mg-acetamin ophen 325 mg tablet 2021 [facility], [address] [place] [address] [address] [place], [id number], 14:01:18 Percocet 7.5 mg-325 mg tablet 2021 022 [facility] [facility], [address] [place] [address] [address] [place], [id number], 17:51:09 Patient TargetsNo targets recorded. Patient InstructionsNo instructions recorded. Reason for Referral None Reported. Results Created Date Observation Date Name Description Value Unit Range Abnormal Flag Note LastModifiedBy Organization Detail LastModifiedTime 05/20/2005/15/2022 CT, abdom en + pelvi s, w/o contr ast No observ ation record ed. [email or web address] [facility] (Med Record) [address] [place] [address] [address], [place], [address], 05/31/2022 16:57:13 Result Notes None recorded. Procedures Surgical History Date Name Laterality Status Provider Name and Address Organization Details Recorded Time 05/27/20 CYSTOSCOPY, WITH URETEROSCOPY, WITH LITHOTRIPSY, WITH INSERTION OF URETERAL STENT (SURG) completed Spencer Garza [facility] 05/31/2022 11:39:33 section completed [facility] 05/20/2022 15:53:45 Cholecystectomy completed [facility] 05/20/2022 15:53:51 Hysterectomy completed [facility] 05/20/2022 15:53:58 laparoscopic sleeve gastrectomy completed [facility] 05/20/2022 15:54:08 Thyroid Surgery completed [facility] 05/20/2022 15:55:02 Imaging Results None recorded. Procedure Notes None recorded. Medical Equipment None Reported. Allergies Allergen ID Allergen Name Allergen Category Reaction Reaction Severity Criticality Documentation Date Start Date Code Code System Note Provider Name and Address Organization Details Recorded Time 143789 erythromy emi medicatio n Not available Not available Not available 05/20/2022 4053 [facility] 15:53:03 Medications Name Sig Start Date Stop Date Status Note LastModified by Organization Details LastModified Time Percocet 7.5 mg-325 mg tablet Take 1 tablet every 6 hours by oral route. 2021 active Not Available Not Available Not Avai lable hydrocodone 7.5 mg-acetaminophe n 325 mg tablet Take 1 tablet every 6 hours by oral route. 2021 active Not Available Not Available Not Avai lable levothyroxine 50 mcg capsule Take 1 capsule every day by oral route. active Not Available Not Available No t Available Vitals Date Recorded Body height Body mass index (BMI) Body weight Provider Name and Address Organization Details Last Updated DateTime 05/20/2022 160.02 cm 63.8 kg/m2 484927.25 g [facility] 05/20/2022 15:52:51 Date Recorded Body height Body mass index (BMI) Body weight Provider Name and Address Organization Details Last Updated DateTime 05/24/2022 160.02 cm 63.8 kg/m2 317394.25 g Sanjana Cline [facility] 05/24/2022 13:20:11 Social History Question Answer Notes LastModified by Organizat ion Details LastModified Time Tobacco Smoking Status Never Smoker Shelly Ryan [facility] 05/20/2022 15:53:31 What Is Your Relationship Status? Information not available 05/20/2022 Sex: Unknown Functional Status Question Answer Note LastModified by Organization D etails LastModified Time What is your level of alcohol consumption? None Information not available 05/20/2022 Mental Status None recorded. Family History Relationship Description Onset Age of this Age Resolved Age Notes LastModified by Organization Details LastModified Time Father No current problems or disability [email or web address] Not available 05/20 15:53:22 Mother No current problems or disability [email or web address] Not available 05/20 15:53:22 Medical History Condition Response Anxiety Disorder Y Allergies/Hayfever Y Kidney Stones Y Thyroid Disorder Y Hypertension Y Depression Y Asthma Y Gynecological HistoryNo gynecological history recorded. Obstetrics History GPAL:G 0 P 0 0 0 0 Past Encounters Encounter ID Performer Location Encounter Start Date Encounter Closed Date Diagnosis/Indication Diagnosis SNOMED-CT Code Diagnosis ICD10 Code Diagnosis IMO Codes Diagnosis Note [id number] MD [facility]ENDA [facility] [address] [address] 05/20/2022 14:53:38 05/20/2022 16:06:05 Kidney stone 70217040 N20.0 [id number] MD [facility] J[facility]NS [facility] [address] [place] [address] 05/24/2022 13:05:57 05/24/2022 14:17:25 Urolithiasis 46357124 N20.9 Health Concerns Section Related Observation LastModified by Organization Detai ls LastModified Time None Recorded Concern Status LastModified by Organization Details LastModified Time None Recorded Advance Directives Directive None Recorded Payers Insurance Date Sequence Insurance Name Policy Number Policy Siddiqui Covered Member ID Siddiqui Member ID Guarantor Name 05/17/2022 1 *SELF PAY* Richard Baker 05/23/2022 1 [id number] ([id number]) [id number] Tana Baker [id number] January Susan Baker Notes Date Note Type Note Provider Name and Address Organization Details Recorded Time 05/20/2022 text/html 41-year-old female who is having problems with kidney stones. She's been having right flank pain. CT scan shows a 11 mm stone in the right renal pelvis and a 4 mm stone in the lower pole of the right kidney. She's had a previous attempt at having this treated risk of bleeding. She was not sure but it might be Dr. Hargrove to try this. He left the stent but this is subsequently been removed. There is no gross hematuria or dysuria. There is no fever. She weighs 360 pounds. The weight limit for the ESWL table at [facility] is 350. We'll have her see Dr. Morse for consideration of ureteroscopy or ESWL at [facility] MILAN COMBS MD [address] [place] [address] [place], [address], [facility] 05/20/2022 17:42:10 05/24/2022 text/html patient is here to discuss possible ureteroscopic intervention regarding a 11 mm stone right renal pelvis as well as a 3 mm lower pole stone. She is morbidly obese and not a candidate for shockwave lithotripsy. We discussed ureteroscopy and stent placement. Discussed the possibility of retained stone fragments requiring additional intervention. She understands and wishes to proceed as soon as possible DEBORAH MORSE MD [address] [place] [address] [place], [address], [facility] 05/24/2022 13:57:53 OBGyn Episode No OBEpisode recorded.
--- OUTSIDE RECORDS SUMMARY | 2025-09-24 13:25 | XMS_ITS ---
Author Organization Healthcare Address [address] [place] [address] Care Team Providers Care Client Strategist Name Role Phone Brandon Escoto MD Unavailable Shailesh Smith Unavailable [phone] Casie Real MD Unavailable [phone] Mohinder Espinal MD Primary Care Provider [phone] Active Problems Problem Noted Date Diagnosed Date [...]
--- OUTSIDE RECORDS SUMMARY | 2025-09-24 13:25 | XMS_ITS | Referral Summary ---
Author Organization [employer] ([place], [place], [place], [place], [place]) Address [address] [place] [address] Care Team Providers Care Marketing Intern Name Role Phone Unavailable Primary Care Provider [...]
--- OUTSIDE RECORDS SUMMARY | 2025-09-24 13:25 | XMS_ITS | Encounter Summary ---
Author Organization Healthcare Address [address] [place] [address] Care Team Providers Care Galley Hand Name Role Phone Vitaliy Rehman MD Primary Care Provider [phone] Brandon Escoto MD Unavailable [phone] Shailesh Smith Unavailable [phone] Casie Real MD Unavailable [phone] Mohinder Espinal MD Primary Care Provider [phone] Encounter Details Date Type Department Care Team (Late st Contact Info) Description 05/20/2023 Orders Only External Location [address] [place] [address] Provider, External Social History Tobacco Use Types [...] Info) Description 10/14/2025 10:00 AM EST Consult [facility] [address] [place] [address] Champ Rinaldi MD 110 [facility] [address] [place] [address] 11/11/2025 2:15 PM EST Office Visit [facility] [address] [place] [address] Champ Rinaldi MD 110 [facility] [address] [place] [address] 11/14/2025 11:45 AM EST Hospital Encounter [facility] [address] [place] [address] Champ Rinaldi MD 110 [facility] [address] [place] [address] 11/14/2025 11:45 AM EST - 11/14/2025 12:40 PM EST Surgery [facility] [address] [place] [address] Champ Rinaldi MD 110 [facility] [address] [place] [address] Medial Rectus Recession [59531 (CPT )] Scheduled Procedures Name Priority Associated [...] documented as of this encounter Care Teams Galley Hand Relationship Specialty Start Date End Date Vitaliy Rehman MD [address] [place] [address] PCP - General 07/01/21 05/21/25 Mohinder Espinal MD 430 [facility] [address]1 [address] [place] [address] PCP - General 05/22/25 Brandon Escoto MD [address] [address] Surgeon Otolaryngology 07/13/21 Shailesh Smith PA [address] [place] [address] Physician Senior Budget Analyst Otolaryngology 06/21/22 Casie Real MD [facility] [id number] Referring Physician 06/21/22 documented as of this encounter
== END 2025-09-23 23:59 | disposition home or self-care (01) ==
LOC: LAB.DROPOF 09-24 13:20
PROVIDERS: PCP Family Medicine; Visit Provider Student in an Organized Health Care Education/Training Program
DX: J02.9 Acute pharyngitis, unspecified (principal)
CPT/HCPCS: 87070; 87077; 87186